=== PATIENT | female | born 1955 | race Caucasian/White ===

== ENCOUNTER 2016-12-19 09:44 | Emergency (ER) | payer BC, OTHER ==
[~2016-12-19] VITALS: Ht 175.3 cm; Wt 81.6 kg
[~2016-12-19 09:44] MED LIST: ATEN100T45; CHOL10003 PO; DULO60CA6 PO; FISH OIL 1,2001 EAC1 PO; LISI10TA PO; MECL-124 PO; METO25TA2 PO; MTP25TSR PO; OM-31CAP9 PO; PRD20T PO; PRV20T PO; SMV10T
[2016-12-19 09:59] LABS: BASOPHILS % (AUTO) 0 % (0-10); EOSINOPHILS # (AUTO) 0.1 10^3/uL (0.0-0.3); EOSINOPHILS % (AUTO) 2 % (0-10); LYMPHOCYTES # (AUTO) 1.3 X 10^3 (1.0-4.0); LYMPHOCYTES % (AUTO) 23 % (12-44); MEAN CORPUSCULAR HEMOGLOBIN 30 PG (25-34); MEAN CORPUSCULAR HGB CONC 34 G/DL (32-36); MEAN CORPUSCULAR VOLUME 89 FL (80-99); MEAN PLATELET VOLUME 11.2 FL (7.4-10.4); MONOCYTES # (AUTO) 0.5 X 10^3 (0.0-1.0); MONOCYTES % (AUTO) 9 % (0-12); NEUTROPHILS # (AUTO) 3.6 X 10^3 (1.8-7.8); NEUTROPHILS % (AUTO) 65 % (42-75); PLATELET COUNT 151 10^3/uL (130-400); RED BLOOD COUNT 4.36 10^6/uL (4.35-5.85); RED CELL DISTRIBUTION WIDTH 13.2 % (10.0-14.5); WHITE BLOOD COUNT 5.5 10^3/uL (4.3-11.0)
[2016-12-19 10:17] LABS: ALANINE AMINOTRANSFERASE 20 U/L (0-55); ALBUMIN 4.1 G/DL (3.2-4.5); ANION GAP 9 MMOL/L (5-14); ASPARTATE AMINO TRANSFERASE 19 U/L (5-34); BILIRUBIN,TOTAL 0.4 MG/DL (0.1-1.0); BLOOD UREA NITROGEN 13 MG/DL (7-18); BUN/CREATININE RATIO 14; CALCIUM 9.3 MG/DL (8.5-10.1); CARBON DIOXIDE 24 MMOL/L (21-32); CHLORIDE 106 MMOL/L (98-107); CREATININE SERUM 0.91 MG/DL (0.60-1.30); GFR ESTIMATED > 60; GLUCOSE 86 MG/DL (70-105); POTASSIUM 4.2 MMOL/L (3.6-5.0); SODIUM 139 MMOL/L (135-145)
[2016-12-19 10:22] LABS: TROPONIN I < 0.30 NG/ML (<0.30)
--- NOTE | 2016-12-19 10:32 | Diagnostic Imaging Report ---
EXAMINATION: Portable upright radiograph of the chest. INDICATION: Chest pain. FINDINGS: The lungs are clear. The heart size is normal. No effusion or pneumothorax. Mediastinum and juanis appear unremarkable. IMPRESSION: Unremarkable exam. Dictated by: Dictated on workstation # [id number]
[2016-12-19 10:33] LABS: BILIRUBIN,URINE NEGATIVE (NEGATIVE); KETONES,URINE NEGATIVE (NEGATIVE); LEUKOCYTE ESTERASE ,URINE 1+ (NEGATIVE); NITRITE,URINE NEGATIVE (NEGATIVE); PH,URINE 5 (5-9); PROTEIN,URINE NEGATIVE (NEGATIVE); UROBILINOGEN,URINE NORMAL (NORMAL)
[2016-12-19 10:43] LABS: SQUAMOUS EPITHELIAL CELL,UR 0-2 /HPF; WBC,URINE 0-2 /HPF
--- NOTE | 2016-12-19 11:13 | ED Chest Pain ---
General Chief Complaint: Chest Pain Stated Complaint: CHEST/BACK PAIN LEFT FOOT NUMB/TINGLING Nursing Triage Note: ARRIVED VIA AMBULATORY WITH COMPLAINTS OF CHEST PAIN X2 DAYS ET MORE WHEN SHE BREATHES. PAIN IS EPIGASTRIC THAT RADIATES INTO BACK AND INTO NECK. PT TOOK A FULL STRENGHT ASA BEFORE COMING TO ER. Nursing Sepsis Screen: No Definite Risk (JONATHAN ALFERD) History of Present Illness Time seen by provider: 11:10 Initial Comments Initial evaluation for mid back pain. Timing/Duration: 2-3 days Severity/Quality: mild Location: epigastric, back Radiation: back Activities at Onset: none Prior CP/Workup: cardiac cath ASA po NURSE CHEMICAL DEPENDENCY: Yes NTG SL NURSE CHEMICAL DEPENDENCY: No Associated Symptoms: abdominal pain back painNo diaphoresis, No dizziness, No fatigue, No fever/chills, No headache, No heartburn, No nausea/vomiting, No shortness of breath, No syncope, No weakness (JONATHAN ALFRED) Allergies and Home Medications Allergies Coded Allergies: No Known Drug Allergies (Unverified , 04/15/13) Home Medications Duloxetine Hcl 60 Mg Capsule.dr 60 MG PO DAILY (Reported) Meclizine Hcl 25 Mg Tab #30 1 TAB PO QID Prescribed by: GUNNER RAMIREZ on 06/15/15 0853 Metoprolol Tartrate 25 Mg Tablet 25 MG PO BID (Reported) Welsh-3 Fatty Acids/Fish Oil 1 Each Capsule 2,400 MG PO DAILY (Reported) TAKES 2 (1200 MG) CAPSULES DAILY Pravastatin Sod 20 Mg Tab 20 MG PO DAILY (Reported) @HS Review of Systems Constitutional: no symptoms reported see HPI EENTM: No Symptoms Reported See HPI Respiratory: No Symptoms Reported See HPIDenies Cough, Denies Shortness of Air Cardiovascular: See HPI Chest PainDenies Edema, Denies Irregular Heart Rate, Denies Lightheadedness, Denies Palpitations, Denies Syncope Gastrointestinal: No Symptoms Reported See HPI Genitourinary: No Symptoms Reported See HPI Musculoskeletal: see HPI other (tingling and parasthesias left LE) Skin: no symptoms reported see HPI Psychiatric/Neurological: No Symptoms Reported See HPI Endocrine: No Symptoms Reported See HPI Hematologic/Lymphatic: No Symptoms Reported See HPI (JONATHAN ALFRED) All Other Systems Reviewed Negative Unless Noted: Yes (JONATHAN ALFRED) Past Jjultzr-Aaspbn-Potcuo Hx Patient Social History Alcohol Use: Past History Recreational Drug Use: No Smoking Status: Former Smoker Recent Foreign Travel: No Contact w/Someone Who Travel: No Recent Infectious Disease Expo: No Recent Hopitalizations: No Physical Abuse Screen: No Sexual Abuse: No (JONATHAN ALFRED) Surgeries HX Surgeries: Yes (hernia repair) Surgeries: Hysterectomy (JONATHAN ALFRED) Respiratory Hx Respiratory Disorders: No (JONATHAN ALFREDP) Cardiovascular Hx Cardiac Disorders: Yes (HEART CATH 2012) Cardiac Disorders: Hypertension (JONATHAN ALFRED) Neurological Hx Neurological Disorders: No (JONATHAN ALFREDP) Reproductive System Hx Reproductive Disorders: No (JONATHAN ALFRED) Genitourinary Hx Genitourinary Disorders: No (JONATHAN ALFREDP) Gastrointestinal Hx Gastrointestinal Disorders: No (JONATHAN ALFRED) Musculoskeletal Hx Musculoskeletal Disorders: No (JONATHAN ALFREDP) Endocrine Hx Endocrine Disorders: No (JONATHAN ALFRED) HEENT HX ENT Disorders: No (JONATHAN ALFRED) Cancer Hx Cancer: Yes Cancer: Cervical (JONATHAN ALFRED) Psychosocial Hx Psychiatric Problems: Yes Behavioral Health Disorders: Depression (JONATHAN ALFRED) Integumentary HX Skin/Integumentary Disorder: No (JONATHAN ALFRED) Reviewed Nursing Assessment Reviewed/Agree w Nursing PMH: Yes (JONATHAN ALFRED) Physical Exam Vital Signs Vital Sign - Last 12Hours 12/19/16 12/19/16 09:47 10:00 Temp 97.1 Pulse 60 Resp 18 B/P 189/101 Pulse Ox 99 O2 Delivery Nasal Cannula O2 Flow Rate 2 (ANGELES SUERO MD) Vital Signs Capillary Refill : Less Than 3 Seconds (JONATHAN ALFRED) General Appearance: No Apparent Distress WD/WN HEENT: PERRL/EOMI TMs Normal Normal ENT Inspection Pharynx Normal Neck: Full Range of Motion Normal Inspection Non Tender Respiratory: Chest Non Tender Lungs Clear Normal Breath Sounds Cardiovascular: Regular Rate, Rhythm No Murmur Gastrointestinal: Normal Bowel Sounds No Organomegaly SoftNo Distended, No Guarding, No Hernia, No Rebound, Tenderness (Epigastric) Extremity: Normal Capillary Refill Normal Inspection Normal Range of Motion No Pedal Edema Other (Sensation symmetric bilat LE. Power V/V L4-S1. Neurovas status intact LE) Neurologic/Psychiatric: Alert Oriented x3 No Motor/Sensory Deficits Normal Mood/Affect Skin: Normal Color Warm/Dry Lymphatic: No Adenopathy (TIMA,JONATHAN [employer]) Progress/Results/Core Measures Results/Orders Lab Results Laboratory Tests Test 12/19/16 09:50 12/19/16 10:22 Range/Units Alanine Aminotransferase (ALT/SGPT) 20 0-55 U/L Albumin 4.1 3.2-4.5 G/DL Alkaline Phosphatase 68 40-136 U/L Anion Gap 9 5-14 MMOL/L Aspartate Amino Transf (AST/SGOT) 19 5-34 U/L BUN/Creatinine Ratio 14 Basophils # (Auto) 0.0 0.0-0.1 10^3/uL Basophils (%) (Auto) 0 0-10 % Blood Urea Nitrogen 13 7-18 MG/DL Calcium Level 9.3 8.5-10.1 MG/DL Carbon Dioxide Level 24 21-32 MMOL/L Chloride Level 106 98-107 MMOL/L Creatinine 0.91 0.60-1.30 MG/DL Eosinophils # (Auto) 0.1 0.0-0.3 10^3/uL Eosinophils (%) (Auto) 2 0-10 % Estimat Glomerular Filtration Rate > 60 Glucose Level 86 70-105 MG/DL Hematocrit 39 35-52 % Hemoglobin 13.0 11.5-16.0 G/DL Lymphocytes # (Auto) 1.3 1.0-4.0 X 10^3 Lymphocytes (%) (Auto) 23 12-44 % Mean Corpuscular Hemoglobin 30 25-34 PG Mean Corpuscular Hemoglobin Concent 34 32-36 G/DL Mean Corpuscular Volume 89 80-99 FL Mean Platelet Volume 11.2 H 7.4-10.4 FL Monocytes # (Auto) 0.5 0.0-1.0 X 10^3 Monocytes (%) (Auto) 9 0-12 % Neutrophils # (Auto) 3.6 1.8-7.8 X 10^3 Neutrophils (%) (Auto) 65 42-75 % Platelet Count 151 130-400 10^3/uL Potassium Level 4.2 3.6-5.0 MMOL/L Red Blood Count 4.36 4.35-5.85 10^6/uL Red Cell Distribution Width 13.2 10.0-14.5 % Sodium Level 139 135-145 MMOL/L Total Bilirubin 0.4 0.1-1.0 MG/DL Total Protein 7.0 6.4-8.2 G/DL Troponin I < 0.30 <0.30 NG/ML White Blood Count 5.5 4.3-11.0 10^3/uL Urine Bacteria TRACE /HPF Urine Bilirubin NEGATIVE NEGATIVE Urine Casts NONE /LPF Urine Clarity CLEAR Urine Color YELLOW Urine Crystals NONE /LPF Urine Culture Indicated NO Urine Glucose (UA) NEGATIVE NEGATIVE Urine Ketones NEGATIVE NEGATIVE Urine Leukocyte Esterase 1+ H NEGATIVE Urine Mucus NEGATIVE /LPF Urine Nitrite NEGATIVE NEGATIVE Urine Protein NEGATIVE NEGATIVE Urine RBC NONE /HPF Urine RBC (Auto) NEGATIVE NEGATIVE Urine Specific [place] 1.015 L 1.016-1.022 Urine Squamous Epithelial Cells 0-2 /HPF Urine Urobilinogen NORMAL NORMAL MG/DL Urine WBC 0-2 /HPF Urine pH 5 5-9 (ANGELES SUERO MD) Vital Signs/I&O Vital Sign - Last 12Hours 12/19/16 12/19/16 12/19/16 09:47 10:00 12:31 Temp 97.1 98.0 Pulse 60 58 Resp 18 18 B/P 189/101 Pulse Ox 99 98 O2 Delivery Nasal Cannula O2 Flow Rate 2 (ANGELES SUERO MD) Blood Pressure Mean: 130 Progress Note : Time: 11:05 Progress Note Initial evaluation completed. Cardiac work up negative. Troponin <0.30. Will obtain CT Abd/Pelvis. 1230: Reviewed CT, no acute findings. Patient reports less pain and feeling better. (JONATHAN ALFRED) ECG EKG : EKG Time: 09:51 Rate: 55 Rhythm: Normal Sinus Intervals: Normal, [place] (200), QRS (86), QT (408) ECG Comparisson: Unchanged ECG Impression: Normal Comment Reviewed with Dr. Ramirez, agreed with interpretation. Bozman: P 56; QRS 13; T 38 (JONATHAN ALFRED) EKG : Comment 12/19/2016, 0951. Sinus rhythm, normal axis, No evidence of STEMI, similar to previous. (ANGELES SUREO MD) Diagnostic Imaging Diagonstic Imaging: Xray, CT Plain Films/CT/US/NM/MRI: abdomen, pelvis Comments NAME: PITER WHITE [facility] REC#: [id number] PT STATUS: REG ER : 1955 PHYSICIAN: GUNNER RAMIREZ MD ADMIT DATE: 12/19/16/ER Signed Date of Exam: 12/19/16 CHEST 1 VIEW, AP/PA ONLY EXAMINATION: Portable upright radiograph of the chest. INDICATION: Chest pain. FINDINGS: The lungs are clear. The heart size is normal. No effusion or pneumothorax. Mediastinum and juanis appear unremarkable. IMPRESSION: Unremarkable exam. Dictated by: Dictated on workstation # [id number] Dict: 12/19/16 1029 Trans: 12/19/16 1032 [facility] [place] [id number] Interpreted by: BRIA GOODWIN MD Electronically signed by:BRIA GOODWIN MD 12/19/16 1032 NAME: JAVEDMARVAPITER M [facility] REC#: [id number] PHYSICIAN: JONATHAN ALFRED CC: JONATHAN ALFRED; BRIA GOODWIN MD Page 2 of 2 RADIOLOGY REPORT VIA [place], [place] CC: JONATHAN ALFRED; BRIA GOODWIN MD Page 1 of 2 RADIOLOGY REPORT NAME: PITER WHITE [facility] REC#: [id number] PT STATUS: REG ER : 1955 PHYSICIAN: JONATHAN ALFRED ADMIT DATE: 12/19/16/ER Signed Date of Exam: 12/19/16 CT ABDOMEN/PELVIS W PROCEDURE: CT abdomen and pelvis with contrast. TECHNIQUE: Multiple contiguous axial images were obtained through the abdomen and pelvis after administration of intravenous contrast. INDICATION: Abdominal pain. History of hernia repair, hysterectomy and cervical cancer. FINDINGS: The lung bases appear clear. There is a fat-containing posterior diaphragmatic hernia seen bilaterally more prominent on the left side. The liver demonstrate a hypodense lesion measuring 0.7 CM in size in the left hepatic lobe superiorly, too small to characterize.. There is hypodensity near the right hepatic vein on the arterial phase imaging is probably from partial reflux of contrast into the IVC. The gallbladder demonstrates no calcified stones. The spleen is not enlarged. The pancreas appears unremarkable. Posterior to the pancreas there is a peripheral calcified lesion with no internal hypodensity compatible with a thrombosed aneurysm of the splenic artery measuring 1.2 CM in size stable from 2009 exam. The adrenals appear unremarkable. The kidneys have symmetric enhancement and contrast excretion. There is no hydronephrosis. The abdominal aorta is normal in caliber. No para-aortic significantly enlarged lymph node is seen. There is no free fluid or fluid collection in the abdomen or pelvis identified. There is diverticulosis. No evidence of diverticulitis. The appendix appears normal. The osseous structures appear grossly unremarkable. IMPRESSION: Diverticulosis. No diverticulitis. 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 Dictated by: Dictated on workstation # [id number] Dict: 12/19/16 1218 Trans: 12/19/16 1240 [facility] [place] [id number] Interpreted by: BRIA GOODWIN MD Electronically signed by:BRIA GOODWIN MD 12/19/16 1243 (JONATHAN ALFRED) Departure Impression Impression: Primary Impression: Diverticulosis Qualified Code: K57.30 - Diverticulosis of large intestine without perforation or abscess without bleeding Additional Impression: Abdominal pain Qualified Code: R10.13 - Epigastric pain Disposition: HOME, SELF-CARE Condition: Stable Departure-Patient Inst. Decision time for Depature: 12:30 (JONATHAN ALFRED) [place]errals: [place] [facility] [place] Primary Care Physician Patient Instructions: Diverticulosis (DC) Add. Discharge Instructions: All discharge instructions reviewed with patient and/or family. Voiced understanding. [place] diet, follow up at Clinic in [place] within 1 week. Follow up with Dr. Fuller in next month or two. Pepcid 10 mg twice daily Aspirin 81 mg once daily. Return to ER if symptoms worsen or new complaints. Copy Copies To 1: DARRIAN FULLER MD, AMY ARNP Dec 19, 2016 11:13 ANGELES SUERO MD Dec 22, 2016 08:37
[2016-12-19] MEDS ORDERED: IOHEXOL 350 MG/ML 100 ML (OMNIPAQUE 350) VIAL IV ONE (12:00)
[2016-12-19] MEDS ORDERED: NS 100 ML (IVPB) BAG IV ONE (12:00)
[2016-12-19 12:31] VITALS: BP 120/76
--- NOTE | 2016-12-19 12:33 | Diagnostic Imaging Report ---
PROCEDURE: CT abdomen and pelvis with contrast. TECHNIQUE: Multiple contiguous axial images were obtained through the abdomen and pelvis after administration of intravenous contrast. INDICATION: Abdominal pain. History of hernia repair, hysterectomy and cervical cancer. FINDINGS: The lung bases appear clear. There is a fat-containing posterior diaphragmatic hernia seen bilaterally more prominent on the left side. The liver demonstrate a hypodense lesion measuring 0.7 CM in size in the left hepatic lobe superiorly, too small to characterize.. There is hypodensity near the right hepatic vein on the arterial phase imaging is probably from partial reflux of contrast into the IVC. The gallbladder demonstrates no calcified stones. The spleen is not enlarged. The pancreas appears unremarkable. Posterior to the pancreas there is a peripheral calcified lesion with no internal hypodensity compatible with a thrombosed aneurysm of the splenic artery measuring 1.2 CM in size stable from 2009 exam. The adrenals appear unremarkable. The kidneys have symmetric enhancement and contrast excretion. There is no hydronephrosis. The abdominal aorta is normal in caliber. No para-aortic significantly enlarged lymph node is seen. There is no free fluid or fluid collection in the abdomen or pelvis identified. There is diverticulosis. No evidence of diverticulitis. The appendix appears normal. The osseous structures appear grossly unremarkable. IMPRESSION: Diverticulosis. No diverticulitis. 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 Dictated by: Dictated on workstation # [id number]
== END 2016-12-19 13:21 | disposition home or self-care (01) ==
LOC: EDUNIT# 09:44 → ER 09:47
DX: R10.13 Epigastric pain (principal); I72.8 Aneurysm of other specified arteries; I10 Essential (primary) hypertension; K57.30 Diverticulosis of large intestine without perforation or abscess without bleeding; Z79.899 Other long term (current) drug therapy
CPT/HCPCS: 36415; 71010; 74177; 80053; 81000; 84484; 85025; 93005

== ENCOUNTER 2017-11-10 10:41 | Emergency (ER) | payer SELFPAY ==
[~2017-11-10] VITALS: Ht 175.3 cm; Wt 81.6 kg
[2017-11-10 10:57] LABS: BASOPHILS % (AUTO) 0 % (0-10); EOSINOPHILS # (AUTO) 0.1 10^3/uL (0.0-0.3); EOSINOPHILS % (AUTO) 2 % (0-10); LYMPHOCYTES # (AUTO) 1.4 X 10^3 (1.0-4.0); LYMPHOCYTES % (AUTO) 25 % (12-44); MEAN CORPUSCULAR HEMOGLOBIN 30 PG (25-34); MEAN CORPUSCULAR HGB CONC 34 G/DL (32-36); MEAN CORPUSCULAR VOLUME 88 FL (80-99); MONOCYTES # (AUTO) 0.6 X 10^3 (0.0-1.0); MONOCYTES % (AUTO) 11 % (0-12); NEUTROPHILS # (AUTO) 3.5 X 10^3 (1.8-7.8); NEUTROPHILS % (AUTO) 62 % (42-75); PLATELET COUNT 165 10^3/uL (130-400); RED BLOOD COUNT 4.41 10^6/uL (4.35-5.85); WHITE BLOOD COUNT 5.7 10^3/uL (4.3-11.0)
[2017-11-10] MEDS ORDERED: ASPIRIN 81 MG CHEW (CHILDREN'S ASA) PO ONE (11:00)
[2017-11-10 11:12] LABS: INR 0.9 (0.8-1.4); PROTHROMBIN TIME PATIENT 12.2 SEC (12.2-14.7)
[2017-11-10 11:20] LABS: ALANINE AMINOTRANSFERASE 17 U/L (0-55); ALBUMIN 4.2 GM/DL (3.2-4.5); AMYLASE 98 U/L (25-125); ANION GAP 9 MMOL/L (5-14); ASPARTATE AMINO TRANSFERASE 21 U/L (5-34); BILIRUBIN,TOTAL 0.5 MG/DL (0.1-1.0); BLOOD UREA NITROGEN 11 MG/DL (7-18); BUN/CREATININE RATIO 11; CALCIUM 9.6 MG/DL (8.5-10.1); CARBON DIOXIDE 23 MMOL/L (21-32); CHLORIDE 105 MMOL/L (98-107); CREATININE SERUM 0.97 MG/DL (0.60-1.30); GFR ESTIMATED 59; GLUCOSE 100 MG/DL (70-105); LIPASE 32 U/L (8-78); MAGNESIUM 1.8 MG/DL (1.8-2.4); SODIUM 137 MMOL/L (135-145); TOTAL PROTEIN 7.6 GM/DL (6.4-8.2)
[2017-11-10 11:26] LABS: MYOGLOBIN SERUM 35.1 NG/ML (10.0-92.0)
--- NOTE | 2017-11-10 11:39 | Diagnostic Imaging Report ---
EXAMINATION: Portable upright radiograph of the chest. INDICATION: Chest pain. FINDINGS: The lungs are clear. The heart size is normal. No effusion or pneumothorax. The mediastinum and juanis appear unremarkable. IMPRESSION: Unremarkable exam. Dictated by: Dictated on workstation # [id number]
[2017-11-10] MEDS ORDERED: NS IV 1000 ML 1,000 ML IV ONE (11:45)
--- NOTE | 2017-11-10 11:45 | ED Chest Pain ---
General Chief Complaint: Chest Pain Stated Complaint: CHEST PAIN Nursing Triage Note: PT STATES CHEST PAIN FOR 4 DAYS, STATES HX OF DIVERTICULITIS. Nursing Sepsis Screen: No Definite Risk Source: patient Exam Limitations: no limitations History of Present Illness Time seen by provider: 10:45 Initial Comments Here with epigastric abdominal pain and low chest pain that is radiating to the back. Currently she is under therapy for diverticulitis. She has known history of diverticulitis but no recent imaging. Does complain of nausea. Denies breathing problems or sweating. Has constipation but no diarrhea. She is currently on Cipro and Flagyl. Timing/Duration: 4-6 hours, 3-4 days Severity/Quality: moderate, aching Location: substernal, epigastric Radiation: back Activities at Onset: none Prior CP/Workup: cardiac cath Modifying Factors: improves with rest ASA po CLIENT COORDINATOR: No NTG SL CLIENT COORDINATOR: No Associated Symptoms: abdominal pain, back pain, No diaphoresis, No nausea/ vomiting, No shortness of breath, No weakness Allergies and Home Medications Allergies Coded Allergies: No Known Drug Allergies (Unverified , 04/15/13) Home Medications Duloxetine Hcl 60 Mg Capsule.dr, 60 MG PO DAILY, (Reported) Meclizine Hcl 25 Mg Tab, 1 TAB PO QID, #30 Prescribed by: GUNENR RAMIREZ on 06/15/15 0853 Metoprolol Tartrate 25 Mg Tablet, 25 MG PO BID, (Reported) Effie-3 Fatty Acids/Fish Oil 1 Each Capsule, 2,400 MG PO DAILY, (Reported) TAKES 2 (1200 MG) CAPSULES DAILY Pravastatin Sod 20 Mg Tab, 20 MG PO DAILY, (Reported) @HS Review of Systems Constitutional: see HPI, No chills, No fever EENTM: No Symptoms Reported Respiratory: No Symptoms Reported Cardiovascular: See HPI, Denies Irregular Heart Rate, Denies Lightheadedness, Denies Palpitations Gastrointestinal: See HPI, Denies Diarrhea, Denies Vomiting Genitourinary: No Symptoms Reported Musculoskeletal: No joint pain Skin: no symptoms reported All Other Systems Reviewed Negative Unless Noted: Yes Past Pjdadku-Jiueti-Ggdfje Hx Patient Social History Alcohol Use: Denies Use Recreational Drug Use: No Smoking Status: Former Smoker Type Used: Cigarettes Former Smoker, Quit: Oct 31, 2012 2nd Hand Smoke Exposure: No Recent Foreign Travel: No Contact w/Someone Who Travel: No Recent Infectious Disease Expo: No Recent Hopitalizations: No Immunizations Up To Date Date of Influenza Vaccine: Aug 27, 2017 Seasonal Allergies Seasonal Allergies: Yes Surgeries History of Surgeries: Yes (hernia repair) Surgeries: Hysterectomy Respiratory History of Respiratory Disorde: No Cardiovascular History of Cardiac Disorders: Yes (HEART CATH 2012) Cardiac Disorders: Hypertension Neurological History of Neurological Disord: No Reproductive System : No Hx Reproductive Disorders: No Genitourinary History of Genitourinary Disor: No Gastrointestinal History of Gastrointestinal Di: Yes Gastrointestinal Disorders: Diverticulosis Musculoskeletal History of Musculoskeletal Dis: No Endocrine History of Endocrine Disorders: No HEENT History of HEENT Disorders: No Cancer History of Cancer: Yes Cancer: Cervical Psychosocial History of Psychiatric Problem: Yes Behavioral Health Disorders: Depression Integumentary History of Skin or Integumenta: No Reviewed Nursing Assessment Reviewed/Agree w Nursing PMH: Yes Family Medical History Significant Family History: No Pertinent Family Hx Physical Exam Vital Signs Vital Sign - Last 12Hours 11/10/17 10:46 Temp 98.3 Pulse 58 Resp 20 B/P (MAP) 185/109 (134) Pulse Ox 97 O2 Delivery Room Air Capillary Refill : Less Than 3 Seconds General Appearance: No Apparent Distress, WD/WN HEENT: PERRL/EOMI, Pharynx Normal Neck: Non Tender, Supple Respiratory: Lungs Clear, Normal Breath Sounds Cardiovascular: Regular Rate, Rhythm, No Murmur Gastrointestinal: Soft, Abnormal Bowel Sounds (active), Tenderness (epigastric) Extremity: Normal Inspection, Normal Range of Motion, Non Tender Neurologic/Psychiatric: Alert, Oriented x3 Skin: Normal Color, Warm/Dry Progress/Results/Core Measures Results/Orders Lab Results Laboratory Tests Test 11/10/17 10:50 Range/Units White Blood Count 5.7 4.3-11.0 10^3/uL Red Blood Count 4.41 4.35-5.85 10^6/uL Hemoglobin 13.2 11.5-16.0 G/DL Hematocrit 39 35-52 % Mean Corpuscular Volume 88 80-99 FL Mean Corpuscular Hemoglobin 30 25-34 PG Mean Corpuscular Hemoglobin Concent 34 32-36 G/DL Red Cell Distribution Width 13.0 10.0-14.5 % Platelet Count 165 130-400 10^3/uL Mean Platelet Volume 12.0 H 7.4-10.4 FL Neutrophils (%) (Auto) 62 42-75 % Lymphocytes (%) (Auto) 25 12-44 % Monocytes (%) (Auto) 11 0-12 % Eosinophils (%) (Auto) 2 0-10 % Basophils (%) (Auto) 0 0-10 % Neutrophils # (Auto) 3.5 1.8-7.8 X 10^3 Lymphocytes # (Auto) 1.4 1.0-4.0 X 10^3 Monocytes # (Auto) 0.6 0.0-1.0 X 10^3 Eosinophils # (Auto) 0.1 0.0-0.3 10^3/uL Basophils # (Auto) 0.0 0.0-0.1 10^3/uL Prothrombin Time 12.2 12.2-14.7 SEC INR Comment 0.9 0.8-1.4 Activated Partial Thromboplast Time 32 24-35 SEC Sodium Level 137 135-145 MMOL/L Potassium Level 4.0 3.6-5.0 MMOL/L Chloride Level 105 98-107 MMOL/L Carbon Dioxide Level 23 21-32 MMOL/L Anion Gap 9 5-14 MMOL/L Blood Urea Nitrogen 11 7-18 MG/DL Creatinine 0.97 0.60-1.30 MG/DL Estimat Glomerular Filtration Rate 59 BUN/Creatinine Ratio 11 Glucose Level 100 70-105 MG/DL Calcium Level 9.6 8.5-10.1 MG/DL Magnesium Level 1.8 1.8-2.4 MG/DL Total Bilirubin 0.5 0.1-1.0 MG/DL Aspartate Amino Transf (AST/SGOT) 21 5-34 U/L Alanine Aminotransferase (ALT/SGPT) 17 0-55 U/L Alkaline Phosphatase 64 40-136 U/L Myoglobin 35.1 10.0-92.0 NG/ML Troponin I < 0.30 <0.30 NG/ML Total Protein 7.6 6.4-8.2 GM/DL Albumin 4.2 3.2-4.5 GM/DL Amylase Level 98 25-125 U/L Lipase 32 8-78 U/L My Orders Orders - ANGELES SUERO MD Cbc With Automated Diff (11/10/17 10:51) Magnesium (11/10/17 10:51) Chest 1 View, Ap/Pa Only (11/10/17 10:51) Ekg Tracing (11/10/17 10:51) Cardiac Profile 1 (11/10/17 10:51) Comprehensive Metabolic Panel (11/10/17 10:51) Myoglobin Serum (11/10/17 10:51) Protime With Inr (11/10/17 10:51) Partial Thromboplastin Time (11/10/17 10:51) O2 (11/10/17 10:51) Monitor-Rhythm Ecg Trace Only (11/10/17 10:51) Lipid Panel (11/11/17 06:00) Aspirin Chewable Tablet (Baby Aspirin Ch (11/10/17 11:00) Saline Lock/Iv-Start (11/10/17 10:51) Lipase (11/10/17 10:51) Amylase (11/10/17 10:51) Ct Abdomen/Pelvis W (11/10/17 11:45) Ns Iv 1000 Ml (Sodium Chloride 0.9%) (11/10/17 11:45) Iohexol Injection (Omnipaque 350 Mg/Ml 1 (11/10/17 12:00) Ns (Ivpb) (Sodium Chloride 0.9% Ivpb Bag (11/10/17 12:00) Medications Given in ED Current Medications Medications Dose Ordered Sig/Deena Route Start Time Stop Time Status Last Admin Dose Admin Aspirin 324 mg ONCE ONCE PO 11/10/17 11:00 11/10/17 11:01 DC 11/10/17 11:06 324 MG Iohexol 100 ml ONCE ONCE IV 11/10/17 12:00 11/10/17 12:01 DC 11/10/17 12:22 100 ML Sodium Chloride 100 ml ONCE ONCE IV 11/10/17 12:00 11/10/17 12:01 DC 11/10/17 12:22 80 ML Sodium Chloride 1,000 ml @ 0 mls/hr Q0M ONCE IV 11/10/17 11:45 11/10/17 11:47 DC 11/10/17 12:05 1,000 MLS/HR Vital Signs/I&O Vital Sign - Last 12Hours 11/10/17 11/10/17 11/10/17 10:46 11:01 11:06 Temp 98.3 98.3 Pulse 58 Resp 20 B/P (MAP) 185/109 (134) Pulse Ox 97 O2 Delivery Room Air Room Air Blood Pressure Mean: 134 Progress Note : Progress Note Seen and evaluated. IV, labs, EKG and chest x-ray ordered. ASA 324 mg by mouth given. Monitor patient. Normal saline [address] of the abdomen and pelvis ordered. 1345: Findings unchanged from previous. I did discuss the case with Dr. Fuller and he will happily see her in the office today. This was discussed with the patient and she agrees. Discharged with return precautions. Patient verbalize understanding instructions and agreement with plan. ECG Initial ECG Impression Date: Nov 10, 2017 Initial ECG Impression Time: 10:41 Initial ECG Rate: 59 Initial ECG Rhythm: Normal Sinus Initial ECG Comparisson: Unchanged Comment Sinus rhythm with normal axis. No evidence of ST elevation HI. Unchanged from previous of 19 December 2016. Interpreted by me. Diagnostic Imaging Diagonstic Imaging: Xray Plain Films/CT/US/NM/MRI: chest Comments VIA [facility] [employer] [place] NAME: PITER WHITE [facility] REC#: [id number] PT STATUS: REG ER : 1955 PHYSICIAN: ANGELES SUERO MD ADMIT DATE: 11/10/17/ER Draft Date of Exam:11/10/17 CHEST 1 VIEW, AP/PA ONLY EXAMINATION: Portable upright radiograph of the chest. INDICATION: Chest pain. FINDINGS: The lungs are clear. The heart size is normal. No effusion or pneumothorax. The mediastinum and juanis appear unremarkable. IMPRESSION: Unremarkable exam. Dictated on workstation # [id number] Dict: 11/10/17 1116 Trans: 11/10/17 1139 [id number] Interpreted by: BRIA GOODWIN MD Electronically signed by: Diagonstic Imaging: CT Plain Films/CT/US/NM/MRI: abdomen, pelvis Comments VIA [facility] [employer] [place] NAME: PITER WHITE [facility] REC#: [id number] PT STATUS: REG ER : 1955 PHYSICIAN: ANGELES SUERO MD ADMIT DATE: 11/10/17/ER Draft Date of Exam:11/10/17 CT ABDOMEN/PELVIS W PROCEDURE: CT abdomen and pelvis with contrast. TECHNIQUE: Multiple contiguous axial images were obtained through the abdomen and pelvis after administration of intravenous contrast. INDICATION: Nausea. Abdominal pain. 100 mL of Omnipaque 350 is administered intravenously. FINDINGS: There is a fat-containing diaphragmatic hernia seen in the posterior aspect of each side of the diaphragm with minimal atelectasis in the adjacent lung. The liver demonstrates a 7 mm hypodense lesion in the upper central aspect of the liver, too small to accurately characterize. There is a hypodense lesion measuring 2.3 CM adjacent to the right hepatic vein in the upper aspect of the liver probably related to flash-filling hemangioma. The spleen is not enlarged. The pancreas and adrenal glands appear unremarkable. There is suggestion of a splenic artery aneurysm measuring 1.2 CM similar to 12/19/2016 exam. The kidneys have symmetric enhancement and contrast excretion. There is no hydronephrosis. 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 The abdominal aorta is normal in caliber No para-aortic significantly enlarged lymph node is seen. The pelvis demonstrate mild thickening in the anterior aspect of the urinary bladder. There is suggestion of prior hysterectomy. There is numerous colonic diverticula mostly in the sigmoid colon with no evidence of diverticulitis. No significant free fluid or fluid collection in the abdomen or pelvis is seen. The appendix appears normal. Tiny fat-containing umbilical hernia seen. There is mild degenerative change in the lumbar spine. IMPRESSION: 1. Diverticulosis. No diverticulitis. 2. Stable 1.2 cm splenic artery aneurysm. 2. Mild bladder wall thickening anteriorly, could relate to cystitis. Dictated on workstation # [id number] Dict: 11/10/17 1258 Trans: 11/10/17 1333 [facility] [id number] Interpreted by: BRIA GOODWIN MD Electronically signed by: Reviewed: Reviewed by Ga Departure Impression Impression: Primary Impression: Abdominal pain Qualified Codes: R10.13 - Epigastric pain Additional Impression: Chest pain Qualified Codes: R07.9 - Chest pain, unspecified Disposition: 01 HOME, SELF-CARE Condition: Stable Departure-Patient Inst. Decision time for Depature: 13:50 Referrals: [facility] (PCP) Primary Care Physician DARRIAN FULLER MD Patient Instructions: Acute Abdomen (Belly Pain), Adult (DC), Chest Pain (DC) Add. Discharge Instructions: All discharge instructions reviewed with patient and/or family. Voiced understanding. Follow-up with Dr. Fuller directly after leaving here. You will go to his office. He is going to work in the schedule today. Return for worsening, fever , vomiting, weakness, breathing problems or other concerns as needed. Use a light diet for the next few days to help with your stomach and bowel symptoms. Continue other medications as directed. Copy Copies To 1: DARRIAN FULLER MD, TIMOTHY D MD Nov 10, 2017 11:45
[2017-11-10] MEDS ORDERED: NS 100 ML (IVPB) BAG IV ONE (12:00)
[2017-11-10] MEDS ORDERED: IOHEXOL 350 MG/ML 100 ML (OMNIPAQUE 350) VIAL IV ONE (12:00)
--- NOTE | 2017-11-10 13:33 | Diagnostic Imaging Report ---
PROCEDURE: CT abdomen and pelvis with contrast. TECHNIQUE: Multiple contiguous axial images were obtained through the abdomen and pelvis after administration of intravenous contrast. INDICATION: Nausea. Abdominal pain. 100 mL of Omnipaque 350 is administered intravenously. FINDINGS: There is a fat-containing diaphragmatic hernia seen in the posterior aspect of each side of the diaphragm with minimal atelectasis in the adjacent lung. The liver demonstrates a 7 mm hypodense lesion in the upper central aspect of the liver, too small to accurately characterize. There is a hypodense lesion measuring 2.3 CM adjacent to the right hepatic vein in the upper aspect of the liver probably related to flash-filling hemangioma. The spleen is not enlarged. The pancreas and adrenal glands appear unremarkable. There is suggestion of a splenic artery aneurysm measuring 1.2 CM similar to 12/19/2016 exam. The kidneys have symmetric enhancement and contrast excretion. There is no hydronephrosis. 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 The abdominal aorta is normal in caliber No para-aortic significantly enlarged lymph node is seen. The pelvis demonstrate mild thickening in the anterior aspect of the urinary bladder. There is suggestion of prior hysterectomy. There is numerous colonic diverticula mostly in the sigmoid colon with no evidence of diverticulitis. No significant free fluid or fluid collection in the abdomen or pelvis is seen. The appendix appears normal. Tiny fat-containing umbilical hernia seen. There is mild degenerative change in the lumbar spine. IMPRESSION: 1. Diverticulosis. No diverticulitis. 2. Stable 1.2 cm splenic artery aneurysm. 2. Mild bladder wall thickening anteriorly, could relate to cystitis. Dictated by: Dictated on workstation # [id number]
[2017-11-10 14:06] VITALS: BP 153/105
== END 2017-11-10 14:06 | disposition home or self-care (01) ==
LOC: EDUNIT# 10:41 → ER 10:43
DX: R10.13 Epigastric pain (principal); R07.89 Other chest pain; I10 Essential (primary) hypertension; F32.9 Major depressive disorder, single episode, unspecified; Z85.41 Personal history of malignant neoplasm of cervix uteri; Z87.19 Personal history of other diseases of the digestive system; Z87.891 Personal history of nicotine dependence; Z90.710 Acquired absence of both cervix and uterus
CPT/HCPCS: 36415; 71010; 74177; 80053; 82150; 83690; 83735; 83874; 84484; 85025; 85610; 85730; 93005; 93041

== ENCOUNTER → 2017-12-09 | Outpatient (CLI) | payer OTHER | LOC: CARD 10:49 | PROVIDERS: ATTEND Internal Medicine Cardiovascular Disease | DX: I25.10 Atherosclerotic heart disease of native coronary artery without angina pectoris (principal); R07.9 Chest pain, unspecified; I10 Essential (primary) hypertension; E78.2 Mixed hyperlipidemia | CPT/HCPCS: 93306 ==

== ENCOUNTER 2018-12-25 21:27 | Emergency (ER) | payer SELFPAY, OTHER | END 2018-12-26 00:38 | disposition home or self-care (01) | LOC: ER 12-26 00:38 ==

== ENCOUNTER 2018-12-28 10:11 | Outpatient (CLI) | payer SELFPAY ==
[~2018-12-28] VITALS: Ht 175.3 cm; Wt 80.7 kg
[2018-12-28] MEDS ORDERED: METO-387 PO (15:19)
[2018-12-28] MEDS ORDERED: ATOR40TA70 PO (15:19)
[2018-12-28] MEDS ORDERED: ESCI10TA PO (15:19)
[2018-12-28] MEDS ORDERED: OMG1KC PO (15:19)
[2018-12-28] MEDS ORDERED: OMEP20TA7 PO (15:19)
[2018-12-28] MEDS ORDERED: VITA-189 PO (15:19)
[2018-12-28] MEDS ORDERED: C,E,1CAP PO (15:19)
[2018-12-28] MEDS ORDERED: LACT1CAP62 PO (15:19)
== END 2018-12-28 15:21 | disposition home or self-care (01) ==
LOC: PREOP 10:11
PROVIDERS: ATTEND Surgery
DX: Z01.818 Encounter for other preprocedural examination (principal)

== ENCOUNTER 2018-12-30 07:56 | Day surgery (SDC) | payer OTHER ==
[~2018-12-30] VITALS: Ht 175.3 cm; Wt 80.7 kg
[~2018-12-30 07:56] MED LIST changes: +ATOR40TA70 PO; +C,E,1CAP PO; +ESCI10TA PO; +LACT1CAP62 PO; +METO-387 PO; +OMEP20TA7 PO; +OMG1KC PO; +VITA-189 PO
[2018-12-30] MEDS ORDERED: LACTATED RINGERS 1,000 ML IV ONE (08:00)
[2018-12-30] MEDS ORDERED: LACTATED RINGERS 1,000 ML IV STA (08:11)
[2018-12-30 08:15] VITALS: BP 148/91
[2018-12-30] MEDS ORDERED: HURRICAINE EXT TUBE (BENZOCAINE) XX PRN (08:15)
--- NOTE | 2018-12-30 09:04 | Progress Note-Pre Operative ---
Pre-Operative Progress Note H&P Reviewed The H&P was reviewed, patient examined and no changes noted. Time Seen by Provider: 08:57 Date H&P Reviewed: Dec 30, 2018 Time H&P Reviewed: 08:58 Pre-Operative Diagnosis: Gastritis, Screening colonoscopy CORDELL SAHA DO Dec 30, 2018 09:04
--- OUTSIDE RECORDS SUMMARY | 2018-12-30 09:14 | XMS REPORT ---
Author Author TITO KARIMI [facility] Address [address] [place] [address] Care Team Providers Care Media Producer Name Role Phone TITO KARIMI Unavailable PROBLEMS Type Condition ICD9-CM Code BHA12-EG Code Onset Dates Condition Status SNOMED Code Problem Slow transit constipation K59.01 Active 46655192 Problem Moderate single current episode of major depressive disorder F32.1 Active 71236227 Problem Essential (primary) hypertension I10 Active 17307010 Problem Mixed hyperlipidemia E78.2 Active 411966912 Problem Gastroesophageal reflux disease, esophagitis presence not specified K21.9 Active 792935943 ALLERGIES No Information ENCOUNTERS Encounter Location Date Diagnosis [facility] [address] [id number] Oct, Moderate single current episode of major depressive disorder F32.1 [facility] [address] [id number] Oct, [facility] [address] [id number] Oct, Mixed hyperlipidemia E78.2 [facility] [address] [id number] Oct, [facility] [address] [id number] Oct, Mixed hyperlipidemia E78.2 and Essential (primary) hypertension I10 [facility] [address] [id number] Oct, Essential (primary) hypertension I10 ; Mixed hyperlipidemia E78.2 ; Moderate single current episode of major depressive disorder F32.1 ; Slow transit constipation K59.01 ; Superficial laceration T14.8XXA and Encounter for immunization Z23 [facility] [place] [address] [address] Aug, Moderate single current episode of major depressive disorder F32.1 [facility] [place] [address] [address] May, Moderate single current episode of major depressive disorder F32.1 [facility] [id number] [id number] 14 Jan, 2018 Essential (primary) hypertension I10 ; Hyperlipidemia, unspecified E78.5 ; Moderate single current episode of major depressive disorder F32.1 and Slow transit constipation K59.01 [facility] [id number] [id number] Dec, Moderate single current episode of major depressive disorder F32.1 [facility] [address] [id number] Oct, Right lower quadrant abdominal pain R10.31 ; Urinary frequency R35.0 ; Diverticulitis of intestine without perforation or abscess without bleeding, unspecified part of intestinal tract K57.92 and Slow transit constipation K59.01 [facility] [id number], [place] [id number] Aug, Essential (primary) hypertension I10 and Moderate single current episode of major depressive disorder F32.1 [address] [place] [address] [id number] Jul, Essential (primary) hypertension I10 and Moderate single current episode of major depressive disorder F32.1 [address]00565100[place] [id number] Jul, [facility] [id number] [place] [address] [id number] Jul, Poison jose eduardo dermatitis L23.7 [facility] [address]00565100[place] [id number] March, Anhedonia R45.84 [facility] [address]00565100[place] [id number] Mar, [facility] [id number] [place] [address] [id number] Dec, Essential (primary) hypertension I10 [facility] [address] [id number] [place] [address] [id number] Dec, Mixed hyperlipidemia E78.2 [facility] [id number] [place] [address] [id number] Oct, Mixed hyperlipidemia E78.2 and Elevated fasting glucose R73.01 [facility] [id number] [place] [address] [id number] Oct, Hyperlipidemia, unspecified E78.5 ; Essential (primary) hypertension I10 and Thyroid disorder screening Z13.29 [facility] [address] [id number] Oct, Slow transit constipation K59.01 ; Essential (primary) hypertension I10 ; Hyperlipidemia, unspecified E78.5 ; Gastroesophageal reflux disease, esophagitis presence not specified K21.9 and Anhedonia R45.84 [facility] [id number] [place] [address] [id number] Oct, [place] [address] [id number] Aug, Slow transit constipation K59.01 [facility] [address] [id number] Jul, Diverticulitis of intestine without perforation or abscess without bleeding, unspecified part of intestinal tract K57.92 [facility] [id number] [place] [address] [id number] Jul, Essential (primary) hypertension I10 [facility] [id number] [place] [address] [id number] May, [facility] [address] [id number] May, [facility] [id number] [place] [address] [id number] May, Essential (primary) hypertension I10 and Hyperlipidemia, unspecified E78.5 [facility] [id number] [place] [address] [id number] May, [facility] [id number] [place] [address] [id number] May, [facility] [address] [id number] May, Dental examination Z01.20 and Dental caries K02.9 [place] [id number] [place] [address] [id number] March, Unspecified essential hypertension 401.9 [facility] [id number] [place] [address] [id number] Jan, [facility] [id number] [place] [address] [id number] Dec, [facility] [id number] [place] [address] [id number] Dec, [address] [place] [address] [id number] Dec, [place] [id number] [place] [address] [id number] Dec, Other and unspecified hyperlipidemia E78.5 [address] [place] [address] [id number] Oct, [facility] [address] [id number] [id number] Oct, [facility] [address] [facility] [id number] [place] [address] [id number] Oct, [address] [place] [address] [id number] Aug, Unspecified essential hypertension 401.9 and Hyperlipidemia 272.[address] [place] [address] [id number] Aug, Urinary tract infection 599.0 [place] [id number] [place] [address] [id number] Aug, Dysuria 788.1 ; Unspecified essential hypertension 401.9 ; Urinary tract infection 599.0 and Routine lab draw V72.62 [address] [place] [address] [id number] May, [address] [place] [address] [id number] May, Sinusitis 473.9 [place] [id number] [place] [address] [id number] May, [facility] [id number] [id number] May, [facility] [id number] [place] [address] May, [facility] [id number], [place] [id number] March, Spider bite 989.5 [facility] [id number] [place] [address] [id number] March, Spider bite 989.5 and Skin necrosis 709.8 [facility] [id number] [place] [address] [id number] March, [facility] [id number] [place] [address] [id number] March, Insect bite 919.4 [facility] [id number] [place] [address] [id number] Mar, [facility] [id number] [place] [address] [id number] Mar, [facility] [place] [facility] [id number] [place] [address] 830[address]- 7226 Mar, [facility] [place] [id number] [place] [address] 38492- 7226 Mar, [facility] [place] [address] [place] [address] 88[address]- 7426 Jan, [facility] [id number], [place] [id number] Jan, [facility] [place] [facility] [address] [place] [address]- 1076 Jan, [facility] [id number] [place] [address] [id number] Dec, [facility] [place] [address]00565100[place], [place] [address] Dec, [facility] [id number] [place] [address] [id number] Dec, [facility] [place] [facility] [address] [facility] [id number], [place] [address] Dec, [facility] [address] [facility] [id number] [place] [id number] Oct, [facility] [place] [facility] [address] [facility] [id number], [place] [address] Oct, [facility] [address] [facility] [id number][place] [id number] Aug, [facility] [place] [facility] [address] [facility] [id number], [place] [address] Aug, [facility] [address] [facility] [id number], [place] [id number] Aug, [facility] [place] [facility] [address] [facility] [id number], [place] [address] Aug, [facility] [place] [facility] [address] [facility] [id number], [place] [address]- [address] Aug, [facility] [address] [facility] [id number], [place] [id number] Aug, [facility] [place] [facility] [address] [facility] [id number], [place] [address]- 47[address] Aug, [facility] [address] [facility] [id number], [place] [id number] Aug, [facility] [address] [facility] [id number], [place] [id number] Aug, [facility] [place] [facility] [address] [facility] [id number], [place] [address]- 7[address] Aug, [facility] [address] [facility] [id number], [place] [id number] Aug, [facility] [place] [facility] [address] [facility] [id number], [place] [address]- 4747 Aug, [facility] [address] [facility] [id number], [place] [id number] Aug, [facility] [place] [facility] [address] [facility] [id number], [place] [address]- 1338 Aug, [facility] [address] [id number] [place] [id number] May, [facility] [address] [facility] [id number], [place] [address]- 6[address] May, [facility] [address] [id number] [place] [id number] March, [facility] [place] [facility] [address] [facility] [id number], [place] [address]- [address] March, [facility] [address] [id number] [place] [id number] March, [facility] [place] [facility] [address] [facility] [id number], [place] [address]- [address] March, [facility] [address] [facility] [id number], [place] [id number] Jan, [facility] [place] [facility] [address] [facility] [id number], [place] [address]- 1106 Jan, [facility] [address] [facility] [id number], [place] [id number] Jan, [facility] [place] [facility] [address] [facility] [id number], [place] [address]- 9726 Jan, [facility] [address] [facility] [id number], [place] [id number] Oct, [facility] [place] [facility] [address] [facility] [id number], [place] [address]- 4[address] Oct, [facility] [address] [facility] [id number], [place] [id number] Oct, [facility] [place] [facility] [address] [facility] [id number], [place] [address]- 8086 Oct, [facility] [address] [facility] [id number], [place] [id number] Oct, [facility] [place] [facility] [address] [facility] [id number], [place] [address]- 4936 Oct, [facility] [address] [facility] [id number], [place] [id number] Aug, [facility] [place] [address] [facility] [id number] [place] [address]- 0487 Aug, [facility] [address] [id number] [place] [id number] Aug, [facility] [address] [id number] [place] [id number] Aug, [facility] [address] [id number] [place] [id number] Jul, [facility] [address] [facility] [id number] [place] [address]- 2546 Jul, [facility] [address] [id number] [place] [id number] Jul, [facility] [address] [id number] [place] [id number] Jul, [facility] [address] [id number] [place] [id number] May, [facility] [address] [facility] [id number], [place] [address]- 2546 May, [facility] [address] [id number] [place] 6462346[address] May, [facility] [address] [id number] [place] [id number] May, [facility] [address] [id number] [place] [id number] March, [facility] [address] [id number] [place] [id number] March, [facility] [address] [id number] [place] [id number] March, [facility] [address] [id number] [place] [id number] Jan, [facility] [address] [id number] [place] [id number] 16 Jan, 2013 [facility] [address] [id number] [place] [id number] 15 Jan, 2013 [facility] [address] [id number] [place] [id number] Jan, [facility] [address] [id number] [place] [id number] Jan, [facility] [address] [id number] [place] [id number] Jan, [facility] [address] [id number] [place] [id number] Dec, [facility] [address] [id number] [place] 4555620[address] Dec, [facility] [address] [id number] [place] [id number] Dec, [facility] [place] [facility] [address] [facility] [id number], [place] [address]- 1436 Jul, [facility] [address] [id number] [place] [id number] Jul, [facility] [address] [id number] [place] [id number] May, [facility] [address] [id number] [place] [id number] Jan, [facility] [address] [id number] [place] [id number] Dec, [facility] [place] [facility] [address]00565100[place], [place] [address]- [address] Oct, [facility] [place] [facility] [address]00565100[place], [place] [address]- 6274 Oct, [facility] [place] [facility] [address]65100[place], [place] [address]- 0647 Oct, [facility] [place] [facility] [address] [facility] [id number], [place] [address]- 7630 Oct, [facility] [place] [facility] [id number] [place] [address] 71964- 3872 Aug, [facility] [place] [facility] [address] [facility] [id number], [place] [address]- 9170 May, [facility] [place] [facility] [address] [id number], [place] [address]- 6690 May, [facility] [place] [address] [facility] [id number] [place] [address]- 5906 May, [facility] [place] [address] [facility] [id number], [place] [address]- 2546 Mar, [facility] [place] [address] [facility] [id number], [place] [address]- 5926 Oct, IMMUNIZATIONS No Known Immunizations SOCIAL HISTORY Never Assessed REASON FOR VISIT RX-Lexapro refill PLAN OF CARE VITAL SIGNS MEDICATIONS Medication Instructions Dosage Frequency Start Date End Date Duration Status Lexapro 10 mg Orally Once a day 1 tablet 24h 90 days Active RESULTS No Results PROCEDURES No Known procedures INSTRUCTIONS MEDICATIONS ADMINISTERED No Known Medications MEDICAL (GENERAL) HISTORY Type Description Date Medical History hypertension Medical History diverticulosis of sigmoid colon Medical History hyperlipidemia Medical History osteoarthritis Medical History splenic artery aneurysm Medical History cervical cancer, hysterectomy completed 1985 Medical History Herpes simplex without mention of complication Medical History Diverticulosis of colon (without mention of hemorrhage) Medical History 12/30/17 Dr Fuller, CAD, HTN, ECHO EF 55-60%, 40% stenosis in mid LAD 04/15/[address] Nov 10 2017 showing stable 1.2 cm splenic artery aneurysm , mild thickening ofhte bladder wall, diverticulosis with no diverticulitis, cont to monitor. Medical History Diverticulitis of intestine without perforation or abscess without bleeding, unspecified part of intestinal tract Surgical History hysterectomy, total with unilateral salpingo-oophorectomy ( USO) due to cervical cancer 1985 Surgical History heart cath- 40% non-obstructive stenosis of the mid-LAD, normal EF 03/2013 Surgical History hiatal hernia repair 2006 Hospitalization History surgeries
--- OUTSIDE RECORDS SUMMARY | 2018-12-30 09:14 | XMS REPORT ---
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 Name Role Phone SACHI TITO Unavailable PROBLEMS Type Condition ICD9-CM Code [id number] Code Onset Dates Condition Status SNOMED Code Problem Slow transit constipation K59.01 Active 47595529 Problem Moderate single current episode of major depressive disorder F32.1 Active 68185505 Problem Essential (primary) hypertension I10 Active 94555150 Problem Mixed hyperlipidemia E78.2 Active 200052763 Problem Gastroesophageal reflux disease, esophagitis presence not specified K21.9 Active 944070037 ALLERGIES No Information ENCOUNTERS Encounter Location Date Diagnosis [facility] [address] [id number] Oct, Mixed hyperlipidemia E78.2 [facility] [address] [id number] Oct, [facility] [address] [id number] Oct, Mixed hyperlipidemia E78.2 and Essential (primary) hypertension I10 [facility] [address] [id number] Oct, Essential (primary) hypertension I10 ; Mixed hyperlipidemia E78.2 ; Moderate single current episode of major depressive disorder F32.1 ; Slow transit constipation K59.01 ; Superficial laceration T14.8XXA and Encounter for immunization Z23 [facility] [address] [address] Aug, Moderate single current episode of major depressive disorder F32.1 [facility] [address] [address] May, Moderate single current episode of major depressive disorder F32.1 [facility] [address] [place] [id number] Jan, Essential (primary) hypertension I10 ; Hyperlipidemia, unspecified E78.5 ; Moderate single current episode of major depressive disorder F32.1 and Slow transit constipation K59.01 [address] [place] [address] [id number] Dec, Moderate single current episode of major depressive disorder F32.1 [facility] [address] [id number] [id number] Oct, Right lower quadrant abdominal pain R10.31 ; Urinary frequency R35.0 ; Diverticulitis of intestine without perforation or abscess without bleeding, unspecified part of intestinal tract K57.92 and Slow transit constipation K59.01 [address] [place] [address] [id number] Aug, Essential (primary) hypertension I10 and Moderate single current episode of major depressive disorder F32.1 [place] [id number] [place] [address] [id number] Jul, Essential (primary) hypertension I10 and Moderate single current episode of major depressive disorder F32.1 [address] [place] [address] [id number] Jul, [place] [id number] [place] [address] [id number] Jul, Poison jose eduardo dermatitis L23.7 [place] [id number] [place] [address] [id number] March, Anhedonia R45.84 [place] [id number] [place] [address] [id number] Mar, [address] [place] [address] [id number] Dec, Essential (primary) hypertension I10 [facility] [place] [id number] [place] [address] [id number] Dec, Mixed hyperlipidemia E78.2 [facility] [address] [place] [address] [id number] Oct, Mixed hyperlipidemia E78.2 and Elevated fasting glucose R73.[address] [id number] [id number] Oct, Hyperlipidemia, unspecified E78.5 ; Essential (primary) hypertension I10 and Thyroid disorder screening Z13.29 [facility] [id number] [place] [address] [id number] Oct, Slow transit constipation K59.01 ; Essential (primary) hypertension I10 ; Hyperlipidemia, unspecified E78.5 ; Gastroesophageal reflux disease, esophagitis presence not specified K21.9 and Anhedonia R45.84 [facility] [id number] [place] [address] [id number] Oct, [facility] [id number] [place] [address] [id number] Aug, Slow transit constipation K59.01 [facility] [id number] [place] [address] [id number] Jul, Diverticulitis of intestine without perforation or abscess without bleeding, unspecified part of intestinal tract K57.92 [facility] [id number] [place] [address] [id number] Jul, Essential (primary) hypertension I10 [facility] [id number] [place] [address] [id number] May, [facility] [id number] [place] [address] [id number] May, [facility] [id number] [place] [address] [id number] May, Essential (primary) hypertension I10 and Hyperlipidemia, unspecified E78.5 [facility] [id number] [place] [address] [id number] May, [facility] [id number] [place] [address] [id number] May, [facility] [address] [id number] [place] [address] [id number] May, Dental examination Z01.20 and Dental caries K02.9 [facility] [id number] [place] [address] [id number] March, Unspecified essential hypertension 401.9 [facility] [address] [place] [id number] Jan, [facility] [place] [id number], [place] [id number] Dec, [facility] [place] [id number], [place] [id number] Dec, [facility] [place] [id number] [place] [address] [id number] Dec, [facility] [place] [id number] [place] [address] [id number] Dec, Other and unspecified hyperlipidemia E78.5 [facility] [place] [id number], [place] [id number] Oct, [facility] [address] [id number] [place] [phone] Oct, [facility] [address] [id number] [place]KE[place] [id number] Oct, [facility] [place] [id number], [place] [id number] Aug, Unspecified essential hypertension 401.9 and Hyperlipidemia 272.4 [facility] [place] [id number] [place] [address] [id number] Aug, Urinary tract infection 599.0 [facility] [place] [id number] [place] [address] [id number] Aug, Dysuria 788.1 ; Unspecified essential hypertension 401.9 ; Urinary tract infection 599.0 and Routine lab draw V72.62 [facility] [place] [id number], [place] [id number] May, [facility] [place] [id number], [place] [id number] May, Sinusitis 473.9 [facility] [place] [id number] [place] [address] [id number] May, [facility] [place] [id number], [place] [id number] May, [facility] [id number] [address] May, [facility] [place] [id number], [place] [id number] March, Spider bite 989.5 [facility] [place] [id number] [place] [address] [id number] March, Spider bite 989.5 and Skin necrosis 709.8 [facility] [place] [id number] [place] [address] [id number] March, [facility] [place] [id number] [place] [address] [id number] March, Insect bite 919.4 [facility] [place] [id number], [place] [id number] Mar, [facility] [place] [id number] [place] [address] [id number] Mar, [facility] [id number] [place] [address] Mar, [facility] [place] [facility] [id number] [place] [address] 43546- [address] Mar, [facility] [id number] [place] [address] 98201- 0876 Jan, [facility] [place] [id number] [place] [address] [id number] Jan, [facility] [id number] [place] [address] 414[address]- 5786 Jan, [facility] [place] [id number] [place] [address] [id number] Dec, [facility] [id number] [place] [address] 9[address]36- 8416 Dec, [facility] [place] [id number], [place] [id number] Dec, [facility] [place] [facility] [id number] [place] [address] 35904- 1446 Dec, [facility] [place] [id number], [place] [id number] Oct, [facility] [address] [id number], [place] [address] Oct, [facility] [place] [address] [id number] [place] [id number] Aug, [facility] [place] [facility] [address] [facility] [id number], [place] [address] Aug, [facility] [place] [address] [facility] [id number] [place] [id number] Aug, [facility] [place] [facility] [address] [facility] [id number], [place] [address]90345- [address] Aug, [facility] [place] [facility] [address] [facility] [id number], [place] [address]- [address] Aug, [facility] [place] [address] [facility] [id number], [place] [id number] Aug, [facility] [place] [facility] [address] [facility] [id number], [place] [address]- [address] Aug, [facility] [place] [address] [id number], [place] [id number] Aug, [facility] [place] [address] [facility] [id number], [place] [id number] Aug, [facility] [place] [facility] [address] [facility] [id number], [place] [address]- [address] Aug, [facility] [place] [address] [facility] [id number], [place] [id number] Aug, [facility] [place] [facility] [address] [facility] [id number], [place] [address]- [address] Aug, [facility] [place] [address] [facility] [id number], [place] [id number] Aug, [facility] [place] [facility] [address] [facility] [id number], [place] [address]- [address] Aug, [facility] [place] [address] [facility] [id number], [place] [id number] May, [facility] [place] [facility] [address] [facility] [id number], [place] [address]23466- [address] May, [facility] [place] [address] [id number], [place] [id number] March, [facility] [address] [facility] [id number], [place] [address]- 7[address] March, [facility] [place] [address] [facility] [id number] [place] [id number] March, [facility] [address] [facility] [id number], [place] [address]- 8182 March, [facility] [place] [address] [id number], [place] [id number] Jan, [facility] [place] [facility] [address] [facility] [id number], [place] [address]- 3208 Jan, [facility] [place] [address] [facility] [id number], [place] [id number] Jan, [facility] [place] [facility] [address]00565100[place], [place] [address]- 5[address] Jan, [facility] [place] [address] [facility] [id number], [place] [id number] Oct, [facility] [place] [facility] [address] [id number], [place] [address]- [address] Oct, [facility] [place] [address] [facility] [id number], [place] [id number] Oct, [facility] [place] [facility] [address] [id number], [place] [address]- 28[address] Oct, [facility] [place] [address] [facility] [id number], [place] [id number] Oct, [facility] [place] [facility] [address] [facility] [id number], [place] [address]- 459[address] Oct, [facility] [place] [address] [facility] [id number], [place] [id number] Aug, [facility] [place] [facility] [address] [facility] [id number], [place] [address]- 9117 Aug, [facility] [place] [address] [facility] [id number], [place] [address]34910336 Aug, [facility] [place] [address] [id number] [place] [id number] Aug, [facility] [place] [address] [id number] [place] [id number] Jul, [facility] [address] [facility] [id number], [place] [address]- [address]46 Jul, [facility] [place] [address] [id number] [place] [id number] Jul, [facility] [place] [address] [id number] [place] [id number] Jul, [facility] [place] [address] [id number] [place] [id number] May, [facility] [address] [facility] [id number], [place] [address]- [address] May, [facility] [place] [address] [id number] [place] [id number] May, [facility] [place] [address] [id number] [place] [id number] May, [facility] [place] [address] [id number] [place] [id number] March, [facility] [place] [address] [id number] [place] [id number] March, [facility] [place] [address] [id number] [place] [id number] March, [facility] [place] [address] [id number] [place] [id number] Jan, [facility] [place] [address] [id number] [place] [id number] Jan, [facility] [place] [address] [id number] [place] [id number] Jan, [facility] [place] [address] [id number] [place] [id number] Jan, [facility] [place] [address] [id number] [place] 915562350 Jan, [facility] [place] [address] [id number] [place] [id number] Jan, [facility] [place] [address] [id number] [place] [id number] Dec, [facility] [place] [address] [id number] [place] 875[address] Dec, [facility] [place] [address] [id number] [place] [id number] Dec, [facility] [address] [id number] [place] [address]- 2546 Jul, [facility] [place] [address] [id number] [place] [id number] Jul, [facility] [place] [address] [id number] [place] [address]307[address] May, [facility] [place] [address] [id number] [place] [id number] Jan, [facility] [place] [address] [id number] [place] [id number] Dec, [facility] [address]00565100[place], [place] [address]- [address]96 Oct, [facility] [place] [facility] [address] [facility] [id number], [place] [address]- [address]40 Oct, [facility] [place] [facility] [address] [id number], [place] [address]- 5583 Oct, [facility] [place] [facility] [address] [id number], [place] [address]- 4205 Oct, [facility] [place] [facility] [address]65100[place], [place] [address]- 5761 Aug, [facility] [place] [facility] [address] [facility] [id number], [place] [address]- 0646 May, [facility] [place] [facility] [address] [facility] [id number] [place] [address]- 4398 May, [facility] [place] [facility] [address] [facility] [id number], [place] [address]- 2546 May, [facility] [place] [facility] [address] [id number], [place] [address]- 2613 Mar, [facility] [address] [facility] [id number] [place] [address]- [address] Oct, IMMUNIZATIONS No Known Immunizations SOCIAL HISTORY Never Assessed REASON FOR VISIT med refill PLAN OF CARE VITAL SIGNS MEDICATIONS Medication Instructions Dosage Frequency Start Date End Date Duration Status Atorvastatin Calcium 40 MG Orally Once a day 1 tablet 24h [...]
--- OUTSIDE RECORDS SUMMARY | 2018-12-30 09:14 | XMS REPORT ---
Author Author TITO KARIMI [facility] Address [address] [place] [address] Care Team Providers Care Pig Handler Name Role Phone SACHI TITO Unavailable PROBLEMS Type Condition ICD9-CM Code ZQX07-QC Code Onset Dates Condition Status SNOMED Code Problem Slow transit constipation K59.01 Active 12215709 Problem Moderate single current episode of major depressive disorder F32.1 Active 26119973 Problem Essential (primary) hypertension I10 Active 67037024 Problem Mixed hyperlipidemia E78.2 Active 357218428 Problem Gastroesophageal reflux disease, esophagitis presence not specified K21.9 Active [id number] ALLERGIES No Information ENCOUNTERS Encounter Location Date Diagnosis [facility] [address] [id number] Oct, [facility] [address] [id number] Oct, Mixed hyperlipidemia E78.2 [facility] [address] [id number] Oct, [facility] [address] [id number] Oct, Mixed hyperlipidemia E78.2 and Essential (primary) hypertension I10 [facility] [address] [id number] Oct, Essential (primary) hypertension I10 ; Mixed hyperlipidemia E78.2 ; Moderate single current episode of major depressive disorder F32.1 ; Slow transit constipation K59.01 ; Superficial laceration T14.8XXA and Encounter for immunization Z23 [facility] [address] [address] Aug, Moderate single current episode of major depressive disorder F32.1 [facility] [address] [address] May, Moderate single current episode of major depressive disorder F32.1 [facility] [place] [id number][place] [id number] Jan, Essential (primary) hypertension I10 ; Hyperlipidemia, unspecified E78.5 ; Moderate single current episode of major depressive disorder F32.1 and Slow transit constipation K59.01 [facility] [place] [id number] [place] [address] [id number] Dec, Moderate single current episode of major depressive disorder F32.1 [facility] [place] [address] [facility] [id number] [id number] Oct, Right lower quadrant abdominal pain R10.31 ; Urinary frequency R35.0 ; Diverticulitis of intestine without perforation or abscess without bleeding, unspecified part of intestinal tract K57.92 and Slow transit constipation K59.01 [facility] [place] [id number] [place] [address] [id number] Aug, Essential (primary) hypertension I10 and Moderate single current episode of major depressive disorder F32.1 [facility] [place] [id number] [place] [address] [id number] Jul, Essential (primary) hypertension I10 and Moderate single current episode of major depressive disorder F32.1 [facility] [place] [id number] [place] [address] [id number] Jul, [facility] [place] [id number] [place] [address] [id number] Jul, Poison jose eduardo dermatitis L23.7 [facility] [place] [id number] [place] [address] [id number] March, Anhedonia R45.84 [facility] [place] [id number] [place] [address] [id number] Mar, [facility] [place] [id number] [place] [address] [id number] Dec, Essential (primary) hypertension I10 [facility] [place] [id number] [place] [address] [id number] Dec, Mixed hyperlipidemia E78.2 [facility] [place] [address] [id number] Oct, Mixed hyperlipidemia E78.2 and Elevated fasting glucose R73.01 [facility] [id number] [place] [address] [id number] Oct, Hyperlipidemia, unspecified E78.5 ; Essential (primary) hypertension I10 and Thyroid disorder screening Z13.29 [facility] [id number] [place] [address] [id number] Oct, Slow transit constipation K59.01 ; Essential (primary) hypertension I10 ; Hyperlipidemia, unspecified E78.5 ; Gastroesophageal reflux disease, esophagitis presence not specified K21.9 and Anhedonia R45.84 [facility] [id number] [place] [address] [id number] Oct, [facility] [address] [id number] Aug, Slow transit constipation K59.01 [place] [id number] [place] [address] [id number] Jul, Diverticulitis of intestine without perforation or abscess without bleeding, unspecified part of intestinal tract K57.92 [facility] [id number] [place] [address] [id number] Jul, Essential (primary) hypertension I10 [facility] [id number] [place] [address] [id number] May, [facility] [id number] [place] [address] [id number] May, [facility] [address] [id number] May, Essential (primary) hypertension I10 and Hyperlipidemia, unspecified E78.5 [facility] [id number] [place] [address] [id number] May, [facility] [address] [id number] May, [facility] [address] [place] [address] [id number] May, Dental examination Z01.20 and Dental caries K02.9 [facility] [id number] [place] [address] [id number] March, Unspecified essential hypertension 401.9 [facility] [place] [address] [id number][place] [phone] Jan, [facility] [place] [address] [id number][place] [id number] Dec, [facility] [place] [address] [id number] [id number] Dec, [facility] [place] [id number] [place] [address] [id number] Dec, [facility] [place] [id number], [place] [id number] Dec, Other and unspecified hyperlipidemia E78.5 [facility] [place] [id number] [place] [address] [id number] Oct, [facility] [place] [address] [id number] [id number] Oct, [facility] [place] [id number] [place] [address] [id number] Oct, [facility] [id number], [place] [id number] Aug, Unspecified essential hypertension 401.9 and Hyperlipidemia 272.4 [place] [id number] [place] [address] [id number] Aug, Urinary tract infection 599.[address] [place] [address] [id number] Aug, Dysuria 788.1 ; Unspecified essential hypertension 401.9 ; Urinary tract infection 599.0 and Routine lab draw V72.62 [facility] [address] [facility] [id number][place] [id number] May, [facility] [id number] [place] [address] [id number] May, Sinusitis 473.9 [facility] [place] [address] [id number] [id number] May, [facility] [id number], [place] [id number] May, [facility] [address] [id number] [address] May, [facility] [place] [id number], [place] [id number] March, Spider bite 989.5 [facility] [place] [address] [id number][place] [id number] March, Spider bite 989.5 and Skin necrosis 709.8 [facility] [place] [id number] [place] [address] [id number] March, [facility] [place] [id number] [place] [address] [id number] March, Insect bite 919.4 [facility] [place] [id number] [place] [address] [id number] Mar, [facility] [place] [id number] [place] [address] [id number] Mar, [facility] [address] [place] [address] Mar, [facility] [id number] [place] [address] 14[address]- 2546 Mar, [facility] [id number] [place] [address]- [address] Jan, [facility] [place] [id number], [place] [id number] Jan, [facility] [address]00565100[place] [address] Jan, [facility] [place] [id number], [place] [id number] Dec, [facility] [address]00565100[place] [address] 2546 Dec, [facility] [place] [id number], [place] [id number] Dec, [facility] [address]00565100[place] [address]- [address] Dec, [facility] [place] [address] [id number] [phone] Oct, [facility] [address] [facility] [id number] [place] [address] Oct, [facility] [place] [address] [id number], [place] [id number] Aug, [facility] [address] [facility] [id number] [place] [address] Aug, [facility] [place] [address] [id number], [place] [id number] Aug, [facility] [address] [facility] [id number] [place] [address] Aug, [facility] [address] [facility] [id number] [place] 160[address]79- [address] Aug, [facility] [place] [address] [facility] [id number], [place] [id number] Aug, [facility] [address]00565100[place] [address]- [address] Aug, [facility] [place] [address] [id number], [place] [id number] Aug, [facility] [place] [address] [facility] [id number], [place] [id number] Aug, [facility] [address] [id number] [address]- [address] Aug, [facility] [place] [address] [facility] [id number], [place] [id number] Aug, [facility] [address] [facility] [id number] [place] [address]- [address] Aug, [facility] [place] [address] [facility] [id number], [place] [id number] Aug, [facility] [address] [facility] [id number] [place] [address] Aug, [facility] [place] [address] [facility] [id number], [place] [id number] May, [facility] [address] [id number] [address]- [address] May, [facility] [place] [address] [facility] [id number] [place] [id number] March, [facility] [address] [facility] [id number] [place] [address] March, [facility] [place] [address] [facility] [id number] [place] [id number] March, [facility] [address] [facility] [id number] [place] [address]- [address] March, [facility] [place] [address] [facility] [id number] [place] [id number] Jan, [facility] [address] [facility] [id number] [place] [address]- 119[address] Jan, [facility] [place] [address] [id number] [place] [id number] Jan, [facility] [address] [id number] [address]- [address] Jan, [facility] [place] [address] [facility] [id number] [place] [id number] Oct, [facility] [address] [facility] [id number] [place] [address]- [address] Oct, [facility] [place] [address] [facility] [id number], [place] [id number] Oct, [facility] [address] [facility] [id number] [place] [address]- [address] Oct, [facility] [place] [address] [facility] [id number], [place] [id number] Oct, [facility] [address] [facility] [id number] [place] [address] 2546 Oct, [facility] [place] [address] [facility] [id number] [place] [id number] Aug, [facility] [address] [facility] [id number] [place] [address]- [address] Aug, [facility] [place] [address] [id number] [place] [id number] Aug, [facility] [place] [address] [id number] [place] [id number] Aug, [facility] [place] [address] [id number] [place] [id number] Jul, [facility] [address] [facility] [id number] [place] [address]- [address] Jul, [facility] [place] [address] [id number] [place] [id number] Jul, [facility] [place] [address] [id number] [place] [id number] Jul, [facility] [place] [address] [id number] [place] [id number] May, [facility] [address] [facility] [id number] [place] [address]- [address] May, [facility] [place] [address] [id number] [place] [id number] May, [facility] [place] [address] [id number] [place] [id number] May, [facility] [place] [address] [id number] [place] [id number] March, [facility] [place] [address] [id number] [place] [id number] March, [facility] [place] [address] [id number] [place] [id number] March, [facility] [place] [address] [id number] [place] [id number] Jan, [facility] [place] [address] [id number] [place] [id number] Jan, [facility] [place] [address] [id number] [place] [id number] Jan, [facility] [place] [address] [id number] [place] [id number] Jan, [facility] [place] [address] [id number] [place] [id number] Jan, [facility] [place] [address] [id number] [place] [id number] Jan, [facility] [place] [address] [id number] [place] [id number] Dec, [facility] [place] [address] [id number] [place] [id number] Dec, [facility] [place] [address] [id number] [place] [id number] Dec, [facility] [address] [id number] [place] [address]- [address] Jul, [facility] [place] [address] [id number] [place] [id number] Jul, [facility] [place] [address] [id number] [place] [id number] May, [facility] [place] [address] [id number] [place] [id number] Jan, [facility] [place] [address] [id number] [place] [id number] Dec, [facility] [address] [id number] [address]- 5[address] Oct, [facility] [id number] [place] [address]- 4858 Oct, [facility] [address] [id number] [address]- 1119 Oct, [facility] [address]00565100[place] [address]- 08[address] Oct, [facility] [address] [facility] [id number] [place] [address]- 64[address] Aug, [facility] [address] [facility] [id number] [place] [address]- [address] May, [facility] [address] [facility] [id number] [place] [address]- 7031 May, [facility] [address] [id number] [address]- 3326 May, [facility] [address] [facility] [id number] [place] [address]- 15[address] Mar, [facility] [address] [facility] [id number] [place] [address]- 3027 Oct, IMMUNIZATIONS No Known Immunizations SOCIAL HISTORY Never Assessed REASON FOR VISIT medication PLAN OF CARE VITAL SIGNS MEDICATIONS Medication Instructions Dosage Frequency Start Date End Date Duration Status Losartan Potassium 100 mg Orally Once a day 1 tablet 24h Oct, 90 days Active RESULTS No Results PROCEDURES [...]
--- OUTSIDE RECORDS SUMMARY | 2018-12-30 09:15 | XMS REPORT ---
Author Author TITO KARIMI [facility] Address [address] [place] [address] Care Team Providers Care Bull Chain Operator Name Role Phone SACHI TTIO Unavailable PROBLEMS Type Condition ICD9-CM Code EJE71-WO Code Onset Dates Condition Status SNOMED Code Problem Slow transit constipation K59.01 Active 73808285 Problem Moderate single current episode of major depressive disorder F32.1 Active 18363586 Problem Essential (primary) hypertension I10 Active 33854760 Problem Mixed hyperlipidemia E78.2 Active 561879172 Problem Gastroesophageal reflux disease, esophagitis presence not specified K21.9 Active 776242094 ALLERGIES Substance Reaction Event Type Date Status Sulfamethoxazole nausea Drug Allergy Oct, Active ENCOUNTERS Encounter Location Date Diagnosis [facility] [id number] [place] [address] [id number] Oct, [facility] [address] [id number] Oct, Mixed hyperlipidemia E78.2 and Essential (primary) hypertension I10 [facility] [id number] [place] [address] [id number] Oct, Essential (primary) hypertension I10 ; Mixed hyperlipidemia E78.2 ; Moderate single current episode of major depressive disorder F32.1 ; Slow transit constipation K59.01 ; Superficial laceration T14.8XXA and Encounter for immunization Z23 [facility] [address] [address] Aug, Moderate single current episode of major depressive disorder F32.1 [facility] [id number] [place] [address]- 9063 May, Moderate single current episode of major depressive disorder F32.1 [facility] [id number] [place] [address] [id number] Jan, Essential (primary) hypertension I10 ; Hyperlipidemia, unspecified E78.5 ; Moderate single current episode of major depressive disorder F32.1 and Slow transit constipation K59.01 [facility] [id number] [place] [address] [id number] Dec, Moderate single current episode of major depressive disorder F32.1 [facility] [address] [facility] [id number] [id number] Oct, Right lower quadrant abdominal pain R10.31 ; Urinary frequency R35.0 ; Diverticulitis of intestine without perforation or abscess without bleeding, unspecified part of intestinal tract K57.92 and Slow transit constipation K59.01 [facility] [id number] [place] [address] [id number] Aug, Essential (primary) hypertension I10 and Moderate single current episode of major depressive disorder F32.1 [facility] [id number] [place] [address] [id number] Jul, Essential (primary) hypertension I10 and Moderate single current episode of major depressive disorder F32.1 [facility] [place] [id number] [place] [address] [id number] Jul, [facility] [address] [id number] Jul, Poison jose eduardo dermatitis L23.7 [facility] [id number] [place] [address] [id number] March, Anhedonia R45.84 [facility] [id number] [place] [address] [id number] Mar, [facility] [id number] [place] [address] [id number] Dec, Essential (primary) hypertension I10 [facility] [id number] [place] [address] [id number] Dec, Mixed hyperlipidemia E78.2 [facility] [id number] [place] [address] [id number] Oct, Mixed hyperlipidemia E78.2 and Elevated fasting glucose R73.01 [facility] [id number] [place] [address] [id number] Oct, Hyperlipidemia, unspecified E78.5 ; Essential (primary) hypertension I10 and Thyroid disorder screening Z13.29 [address] [place] [id number] [place] [address] [id number] Oct, Slow transit constipation K59.01 ; Essential (primary) hypertension I10 ; Hyperlipidemia, unspecified E78.5 ; Gastroesophageal reflux disease, esophagitis presence not specified K21.9 and Anhedonia R45.[address] [id number] Oct, [place] [address] [id number] Aug, Slow transit constipation K59.[address] [id number] Jul, Diverticulitis of intestine without perforation or abscess without bleeding, unspecified part of intestinal tract K57.[address] [id number] Jul, Essential (primary) hypertension I10 [facility] [id number] [place] [address] [id number] May, [place] [address] [id number] May, [address] [id number] May, Essential (primary) hypertension I10 and Hyperlipidemia, unspecified E78.5 [id number] [place] [address] [id number] May, [facility] [id number] [place] [address] [id number] May, [facility] [id number] [place] [address] [id number] May, Dental examination Z01.20 and Dental caries K02.9 [facility] [id number] [place] [address] [id number] March, Unspecified essential hypertension 401.9 [id number] [place] [address] [id number] Jan, [facility] [address] [id number] [id number] Dec, [facility] [id number], [place] [id number] Dec, [facility] [id number][place] [id number] Dec, [facility] [id number], [place] [id number] Dec, Other and unspecified hyperlipidemia E78.5 [facility] [id number][place] [id number] Oct, [facility] [address] [id number] [id number] Oct, [facility] [id number] [place] [address] [id number] Oct, [facility] [id number], [place] [id number] Aug, Unspecified essential hypertension 401.9 and Hyperlipidemia 272.4 [facility] [id number], [place] [id number] Aug, Urinary tract infection 599.0 [facility] [id number] [place] [address] [id number] Aug, Dysuria 788.1 ; Unspecified essential hypertension 401.9 ; Urinary tract infection 599.0 and Routine lab draw V72.62 [facility] [id number], [place] [id number] May, [facility] [id number], [place] [id number] May, Sinusitis 473.9 [facility] [id number], [place] [id number] May, [facility] [id number], [place] [id number] May, [facility] [address] [address] May, [facility] [id number] [place] [address] [id number] March, Spider bite 989.5 [facility] [id number], [place] [id number] March, Spider bite 989.5 and Skin necrosis 709.8 [facility] [address] [id number][place] [address] March, [facility] [id number], [place] [address] March, Insect bite 919.4 [facility] [id number], [place] [id number] Mar, [facility] [id number] [place] [address] [id number] Mar, [facility] [id number] [place] [address] 39760- 4686 Mar, [facility] [id number] [place] [address] 77828- 5360 Mar, [facility] [place] [facility] [id number] [place] [address] 00149- 7894 Jan, [facility] [id number], [place] [id number] Jan, [facility] [id number] [place] [address] 54930- 9931 Jan, [facility] [id number], [place] [id number] Dec, [facility] [address] [place] [address] 41036- 3019 Dec, [facility] [id number], [place] [id number] Dec, [facility] [id number] [place] [address] 78665- 8556 Dec, [facility] [id number], [place] [id number] Oct, [facility] [id number] [place] [address] 54831- 6689 Oct, [facility] [address] [id number] [place] [id number] Aug, [facility] [place] [facility] [address] [facility] [id number] [place] [address]- 65[address] Aug, [facility] [address] [id number] [place] [id number] Aug, [facility] [place] [facility] [address] [facility] [id number], [place] [address]- [address]44 Aug, [facility] [place] [facility] [address] [facility] [id number], [place] [address]- 9373 Aug, [facility] [address] [id number] [place] [id number] Aug, [facility] [place] [facility] [address] [facility] [id number], [place] [address]- 7037 Aug, [facility] [address] [id number], [place] [id number] Aug, [facility] [address] [facility] [id number], [place] [id number] Aug, [facility] [place] [facility] [address] [facility] [id number], [place] [address]- 4[address] Aug, [facility] [address] [facility] [id number], [place] [id number] Aug, [facility] [place] [facility] [address] [facility] [id number], [place] [address]- 1174 Aug, [facility] [address] [facility] [id number], [place] [id number] Aug, [facility] [place] [facility] [address] [facility] [id number], [place] [address]- 1044 Aug, [facility] [address] [facility] [id number], [place] [id number] May, [facility] [place] [facility] [address] [facility] [id number], [place] [address]- 8[address] May, [facility] [address] [facility] [id number], [place] [id number] March, [facility] [place] [facility] [address] [facility] [id number], [place] [address]- 6[address] March, [facility] [address] [facility] [id number] [place] [id number] March, [facility] [place] [facility] [address] [facility] [id number], [place] [address]- 7396 March, [facility] [address] [facility] [id number] [place] [id number] Jan, [facility] [place] [facility] [address] [facility] [id number] [place] [address]- 6095 Jan, [facility] [address] [facility] [id number] [place] [id number] Jan, [facility] [place] [facility] [address]100[place], [place] [address]- 50[address] Jan, [facility] [id number], [place] [id number] Oct, [facility] [place] [facility] [address]00565100[place], [place] [address]- 3784 Oct, [facility] [address] [facility] [id number], [place] [id number] Oct, [facility] [place] [facility] [address]00565100[place], [place] [address]- 1844 Oct, [facility] [address] [facility] [id number], [place] [id number] Oct, [facility] [place] [facility] [address], [place] [address]- 7185 Oct, [facility] [address] [facility] [id number], [place] [id number] Aug, [facility] [place] [facility] [address] [facility] [id number], [place] [address]- 3896 Aug, [facility] [address] [facility] [id number], [place] [id number] Aug, [facility] [address] [facility] [id number], [place] 449783888 Aug, [facility] [address] [id number] [place] [id number] Jul, [facility] [address] [facility] [id number][place] [address]- 2546 Jul, [facility] [address] [id number] [place] 799692583 Jul, [facility] [address] [id number] [place] [id number] Jul, [facility] [address] [id number] [place] [id number] May, [facility] [address] [facility] [id number], [place] [address]- 2546 May, [facility] [address] [id number] [place] 134573563 May, [facility] [address] [id number] [place] [id number] May, [facility] [address] [id number] [place] [id number] March, [facility] [address] [id number] [place] [id number] March, [facility] [address] [id number] [place] [id number] March, [facility] [address] [id number] [place] [id number] Jan, [facility] [address] [id number] [place] [id number] Jan, [facility] [address] [id number] [place] [id number] Jan, [facility] [address] [id number] [place] 088522488 Jan, [facility] [address] [id number] [place] [id number] Jan, [facility] [address] [id number] [place] [id number] Jan, [facility] [address] [id number] [place] [id number] Dec, [facility] [address] [id number] [place] 183467420 Dec, [facility] [address] [id number] [place] [id number] Dec, [facility] [place] [facility] [address] [id number], [place] [address]- 2546 Jul, [facility] [address] [id number] [place] [id number] Jul, [facility] [address] [id number] [place] [id number] May, [facility] [address] [id number] [place] [id number] Jan, [facility] [address] [id number] [place] [id number] Dec, [facility] [place] [facility] [address] [facility] [id number], [place] [address]- 3487 Oct, [facility] [place] [facility] [address] [facility] [id number], [place] [address]- 4146 Oct, [facility] [place] [facility] [address] [facility] [id number], [place] [address]- 2042 Oct, [facility] [place] [facility] [address] [facility] [id number], [place] [address]- 4298 Oct, [facility] [place] [facility] [address] [facility] [id number], [place] [address]- 5140 Aug, [facility] [place] [facility] [address] [facility] [id number], [place] [address]- 5773 May, [facility] [place] [facility] [address] [facility] [id number], [place] [address]- 2069 May, [facility] [place] [facility] [address] [facility] [id number], [place] [address]- 0968 May, [facility] [place] [facility] [address] [facility] [id number], [place] [address]- 5315 Mar, [facility] [place] [facility] [address] [facility] [id number] [place] [address]- 1356 12 Oct, 2010 IMMUNIZATIONS Vaccine Route Administration Date Status TDAP (BOOSTRIX) IM Intramuscular Oct 07, 2018 Administered SOCIAL HISTORY Never Assessed REASON FOR VISIT New provider visit, med refills, Pt had laceration to left middle finger yesterday, needs tdap Brent [facility] PLAN OF CARE Activity Details Follow Up 3 months or as indicated by lab Reason:CHM VITAL SIGNS Height 69 in 2018-10-07 Weight 186 lbs 2018-10-07 Temperature 97.1 degrees Fahrenheit 2018-10-07 Heart Rate 74 bpm 2018-10-07 Respiratory Rate 16 2018-10-07 BMI 27.46 kg/m2 2018-10-07 Blood pressure systolic 130 mmHg 2018-10-07 Blood pressure diastolic 78 mmHg 2018-10-07 MEDICATIONS Medication Instructions Dosage Frequency Start Date End Date Duration Status B Complex - Orally Once a day 1 tablet 24h Active Metoprolol Succinate 25 MG Orally Once a day 1 capsule 24h 30 day(s) Active Ocuvite Adult 50+ - Orally Once a day 1 capsule 24h Active Lexapro 10 mg Orally Once a day 1 tablet 24h 90 days Active Atorvastatin Calcium 40 MG Orally Once a day 1 tablet 24h 30 day(s) Active Fish Oil 1000 MG Orally Once a day 1 capsule 24h Active RESULTS No Results PROCEDURES Procedure Date Ordered Result Body Site TDAP (BOOSTRIX) Oct 07, 2018 SINGLE IMMUNIZATION ADMIN Oct 07, 2018 INSTRUCTIONS MEDICATIONS ADMINISTERED No Known Medications MEDICAL [...] EF 03/2013 Surgical History hiatal hernia repair 2007 Hospitalization History surgeries
--- OUTSIDE RECORDS SUMMARY | 2018-12-30 09:15 | XMS REPORT ---
Author Author TITO KARIMI [facility] Address [address] [place] [address] Care Team Providers Care Fifth Grade Teacher Name Role Phone SACHI TITO Unavailable PROBLEMS Type Condition ICD9-CM Code EDU38-CW Code Onset Dates Condition Status SNOMED Code Problem Slow transit constipation K59.01 Active 93537382 Problem Moderate single current episode of major depressive disorder F32.1 Active 72678319 Problem Essential (primary) hypertension I10 Active 20582332 Problem Mixed hyperlipidemia E78.2 Active 373418701 Problem Gastroesophageal reflux disease, esophagitis presence not specified K21.9 Active 317472506 ALLERGIES No Information ENCOUNTERS Encounter Location Date Diagnosis [facility] [id number] [place] [address] [id number] Oct, Mixed hyperlipidemia E78.2 and Essential (primary) hypertension I10 [facility] [address] [place] [address] [id number] Oct, Essential (primary) hypertension I10 ; Mixed hyperlipidemia E78.2 ; Moderate single current episode of major depressive disorder F32.1 ; Slow transit constipation K59.01 ; Superficial laceration T14.8XXA and Encounter for immunization Z23 [facility] [address] [place] [address] 16035- 8506 Aug, Moderate single current episode of major depressive disorder F32.1 [facility] [id number] [place] [address] 86402- 5543 May, Moderate single current episode of major depressive disorder F32.1 [facility] [address] [place] [address] [id number] 14 Jan, 2018 Essential (primary) hypertension I10 ; Hyperlipidemia, unspecified E78.5 ; Moderate single current episode of major depressive disorder F32.1 and Slow transit constipation K59.01 [facility] [address] [place] [address] [id number] Dec, Moderate single current episode of major depressive disorder F32.1 [facility] [id number] [id number] Oct, Right lower quadrant abdominal pain R10.31 ; Urinary frequency R35.0 ; Diverticulitis of intestine without perforation or abscess without bleeding, unspecified part of intestinal tract K57.92 and Slow transit constipation K59.01 [address] [place] [address] [id number] Aug, Essential (primary) hypertension I10 and Moderate single current episode of major depressive disorder F32.1 [place] [id number] [place] [address] [id number] Jul, Essential (primary) hypertension I10 and Moderate single current episode of major depressive disorder F32.1 [address] [place] [address] [id number] Jul, [place] [id number] [place] [address] [id number] Jul, Poison jose eduardo dermatitis L23.7 [place] [id number] [place] [address] [id number] March, Anhedonia R45.84 [place] [id number] [place] [address] [id number] Mar, [address] [place] [address] [id number] Dec, Essential (primary) hypertension I10 [address] [place] [address] [id number] Dec, Mixed hyperlipidemia E78.2 [facility] [place] [id number] [place] [address] [id number] Oct, Mixed hyperlipidemia E78.2 and Elevated fasting glucose R73.01 [place] [id number] [place] [address] [id number] Oct, Hyperlipidemia, unspecified E78.5 ; Essential (primary) hypertension I10 and Thyroid disorder screening Z13.29 [place] [id number] [place] [address] [id number] Oct, Slow transit constipation K59.01 ; Essential (primary) hypertension I10 ; Hyperlipidemia, unspecified E78.5 ; Gastroesophageal reflux disease, esophagitis presence not specified K21.9 and Anhedonia R45.84 [facility] [id number] [place] [address] [id number] Oct, [facility] [id number] [place] [address] [id number] Aug, Slow transit constipation K59.01 [facility] [id number] [place] [address] [id number] Jul, Diverticulitis of intestine without perforation or abscess without bleeding, unspecified part of intestinal tract K57.92 [facility] [id number] [place] [address] [id number] Jul, Essential (primary) hypertension I10 [facility] [id number] [place] [address] [id number] May, [facility] [id number] [place] [address] [id number] May, [facility] [id number] [place] [address] [id number] May, Essential (primary) hypertension I10 and Hyperlipidemia, unspecified E78.5 [facility] [id number] [place] [address] [id number] May, [facility] [id number] [place] [address] [id number] May, [facility] [id number] [place] [address] [id number] May, Dental examination Z01.20 and Dental caries K02.9 [facility] [id number] [place] [address] [id number] March, Unspecified essential hypertension 401.9 [facility] [id number] [place] [address] [id number] Jan, [facility] [id number] [place] [address] [id number] Dec, [facility] [id number] [place] [address] [id number] Dec, [facility] [place] [id number][place] [id number] Dec, [facility] [place] [id number] [place] [address] [id number] Dec, Other and unspecified hyperlipidemia E78.5 [facility] [place] [id number], [place] [id number] Oct, [facility] [address] [id number] [id number] Oct, [facility] [address] [id number][place] [id number] Oct, [facility] [place] [id number] [place] [address] [id number] Aug, Unspecified essential hypertension 401.9 and Hyperlipidemia 272.4 [facility] [place] [id number] [place] [address] [id number] Aug, Urinary tract infection 599.0 [facility] [place] [id number] [place] [address] [id number] Aug, Dysuria 788.1 ; Unspecified essential hypertension 401.9 ; Urinary tract infection 599.0 and Routine lab draw V72.62 [facility] [place] [id number] [place] [address] [id number] May, [facility] [place] [id number] [place] [address] [id number] May, Sinusitis 473.9 [facility] [place] [id number], [place] [id number] May, [facility] [place] [id number], [place] [id number] May, [facility] [address]00565[place] [address] May, [facility] [place] [id number] [place] [address] [id number] March, Spider bite 989.5 [facility] [place] [address] [place] [address] [id number] March, Spider bite 989.5 and Skin necrosis 709.8 [facility] [place] [id number], [place] [id number] March, [facility] [place] [id number] [place] [address] [id number] March, Insect bite 919.4 [facility] [place] [id number], [place] [id number] Mar, [facility] [place] [id number] [place] [address] [id number] Mar, [facility] [id number] [place] [address] 66172- 5981 Mar, [facility] [id number] [place] [address] 60743- 9252 Mar, [facility] [id number] [place] [address] 68374- 4464 Jan, [facility] [place] [id number] [place] [address] [id number] Jan, [facility] [address] [place] [address] 29083- 8321 Jan, [facility] [place] [id number] [place] [address] [id number] Dec, [facility] [address]00565[address], [place] [address]- 9098 Dec, [facility] [place] [id number], [place] [id number] Dec, [facility] [address]00565100[place], [place] [address]- 8245 Dec, [facility] [place] [id number], [place] [id number] Oct, [facility] [id number] [place] [address] 96713- 2586 Oct, [facility] [place] [id number], [place] [id number] Aug, [facility] [address] [id number], [place] [address]- 67[address] Aug, [facility] [place] [address] [id number] [place] [id number] Aug, [facility] [place] [facility] [address] [facility] [id number], [place] [address]- [address]87 Aug, [facility] [place] [facility] [address] [facility] [id number], [place] [address]- 5979 Aug, [facility] [address] [id number] [place] [id number] Aug, [facility] [place] [facility] [address] [facility] [id number] [place] [address]- 5084 Aug, [facility] [address] [id number] [place] [id number] Aug, [facility] [address] [facility] [id number] [place] [id number] Aug, [facility] [place] [facility] [address] [facility] [id number], [place] [address]- 2852 Aug, [facility] [address] [facility] [id number] [place] [id number] Aug, [facility] [place] [facility] [address] [facility] [id number], [place] [address]- 2925 Aug, [facility] [address] [id number], [place] [id number] Aug, [facility] [place] [facility] [address] [facility] [id number], [place] [address]- 7712 Aug, [facility] [address] [id number], [place] [id number] May, [facility] [place] [facility] [address] [facility] [id number], [place] [address]- 3294 May, [facility] [address] [facility] [id number] [place] [id number] March, [facility] [place] [facility] [address] [facility] [id number], [place] [address]- 2823 March, [facility] [address] [id number] [place] [id number] March, [facility] [address] [id number], [place] [address]- 4853 March, [facility] [address] [id number] [place] [id number] Jan, [facility] [address] [facility] [id number], [place] [address]- 3333 Jan, [facility] [address] [id number], [place] [id number] Jan, [facility] [address] [facility] [id number], [place] [address]- 3381 Jan, [facility] [address] [id number], [place] [id number] Oct, [facility] [place] [facility] [address]00565100[place], [place] [address]- 3745 Oct, [facility] [address] [id number], [place] [id number] Oct, [facility] [place] [facility] [address] [facility] [id number], [place] [address]- 0654 Oct, [facility] [address] [id number], [place] [id number] Oct, [facility] [place] [facility] [address]00565100[place], [place] [address]- 1519 Oct, [facility] [address] [id number], [place] [id number] Aug, [facility] [place] [facility] [address] [id number], [place] [address]- 4512 Aug, [facility] [place] [address] [id number] [place] [id number] Aug, [facility] [address] [id number] [place] [id number] Aug, [facility] [address] [id number], [place] [id number] Jul, [facility] [place] [facility] [address] [facility] [id number], [place] [address]- 2546 Jul, [facility] [address] [id number] [place] [id number] Jul, [facility] [address] [id number] [place] [id number] Jul, [facility] [address] [id number] [place] [id number] May, [facility] [address] [facility] [id number], [place] [address]- 2546 May, [facility] [address] [id number] [place] [id number] May, [facility] [address] [id number] [place] [id number] May, [facility] [address] [id number] [place] [id number] March, [facility] [address] [id number] [place] [id number] March, [facility] [address] [id number] [place] [id number] March, [facility] [address] [id number] [place] [id number] Jan, [facility] [address] [id number] [place] [id number] Jan, [facility] [address] [id number] [place] [id number] Jan, [facility] [address] [id number] [place] [id number] Jan, [facility] [address] [id number] [place] [id number] Jan, [facility] [address] [id number] [place] [id number] Jan, [facility] [address] [id number] [place] [id number] Dec, [facility] [address] [id number] [place] [id number] Dec, [facility] [address] [id number], [place] [id number] Dec, [facility] [address] [facility] [id number], [place] [address]- 2546 Jul, [facility] [place] [address] [id number] [place] [id number] Jul, [facility] [place] [address] [id number], [place] [id number] May, [facility] [place] [address] [id number], [place] [id number] Jan, [facility] [place] [address] [facility] [id number], [place] [id number] Dec, [facility] [address]00565[address], [place] [address]- 4[address] Oct, [facility] [address]00565100[place], [place] [address]- 1483 Oct, [facility] [address]00565100[place], [place] [address]- 1607 Oct, [facility] [address]00565100[place], [place] [address]- 2792 Oct, [facility] [address]00565[address], [place] [address]- 3114 Aug, [facility] [address]00565100[place], [place] [address]- 6029 May, [facility] [address]00565100[place], [place] [address]- 0529 May, [facility] [address] [id number], [place] [address]- 2505 May, [facility] [address]00565[address], [place] [address]- 5460 Mar, [facility] [address] [id number], [place] [address]- 5326 Oct, IMMUNIZATIONS No Known Immunizations SOCIAL HISTORY Never Assessed REASON FOR VISIT [facility] OLEARY PLAN OF CARE Activity Details Pending Test LIPID PANEL Pending Test CMP Pending Test CBC Pending Test THYROID ANALYZER VITAL SIGNS MEDICATIONS Unknown Medications RESULTS No Results PROCEDURES Procedure Date Ordered Result Body Site LIPID PANEL Oct 08, 2018 COMPREHEN METABOLIC PANEL Oct 08, 2018 ASSAY THYROID STIM HORMONE Oct 08, 2018 COMPLETE CBC W/AUTO DIFF WBC Oct 08, 2018 VENIPUNCT, ROUTINE* Oct 08, 2018 INSTRUCTIONS MEDICATIONS ADMINISTERED No Known Medications [...]
--- OUTSIDE RECORDS SUMMARY | 2018-12-30 09:15 | XMS REPORT ---
Author Author ROSEY LARRY Organization [facility] Address [address] [place] [address] Care Team Providers Care Airline Reservationist Name Role Phone ROSEY LARRY Unavailable PROBLEMS ALLERGIES No Information ENCOUNTERS IMMUNIZATIONS No Known Immunizations SOCIAL HISTORY No smoking Hx information available REASON FOR VISIT PLAN OF CARE VITAL SIGNS MEDICATIONS RESULTS No Results PROCEDURES No Known procedures INSTRUCTIONS MEDICATIONS ADMINISTERED No Known Medications MEDICAL (GENERAL) HISTORY
--- OUTSIDE RECORDS SUMMARY | 2018-12-30 09:16 | XMS REPORT ---
Author Author ALANNA POOL [facility] [employer] Address Unknown Phone Unavailable Care Team Providers Care Director Sales Name Role Phone ALANNA POOL CP Unavailable Allergies No Known Allergies Problems Problem Type Condition Code Onset Dates Condition Status Problem Decreased libido 799.81 Active Problem Unspecified essential hypertension 401.9 Active Problem Diverticulosis of colon (without mention of hemorrhage) 562.10 Active Problem Hyperlipidemia 272.4 Active Problem Herpes simplex without mention of complication 054.9 Active Problem Other and unspecified hyperlipidemia E78.5 Active Problem Contact dermatitis and other eczema due to plants (except food) 692.6 Active Problem Abdominal tenderness, right upper quadrant 789.61 Active Problem ZOSTAVAX DX V05.8 Active Problem Unspecified local infection of skin and subcutaneous tissue 686.9 Active Problem Localized superficial swelling, mass, or lump 782.2 Active Problem Diverticulosis of small intestine (without mention of hemorrhage) 562.00 Active Problem Unspecified constipation 564.00 Active Medications Medication Code System Code Instructions Start Date End Date Status Dosage Crestor [facility] [id number] 10 MG Orally Once a day 1 tablet Results No Known Results Summary Purpose eClinicalWorks Submission
--- OUTSIDE RECORDS SUMMARY | 2018-12-30 09:16 | XMS REPORT ---
Author Author ROSEY LARRY Organization [facility] Address [address] [place] [address] Care Team Providers Care Spray Stainer Name Role Phone ROSEY LARYR Unavailable PROBLEMS Type Condition ICD9-CM Code ZTQ39-QO Code Onset Dates Condition Status SNOMED Code Problem Essential (primary) hypertension I10 Active 03418701 Problem Slow transit constipation K59.01 Active 35212793 Problem Diverticulitis of intestine without perforation or abscess without bleeding, unspecified part of intestinal tract K57.92 Active 939628620 Problem Gastroesophageal reflux disease, esophagitis presence not specified K21.9 Active 345043688 Problem Hyperlipidemia, unspecified E78.5 Active 16296529 Problem Moderate single current episode of major depressive disorder F32.1 Active 47648905 Problem Mixed hyperlipidemia E78.2 Active 301081300 ALLERGIES Substance Reaction Event Type Date Status Sulfamethoxazole nausea Drug Allergy Jan, Active ENCOUNTERS Encounter Location Date Diagnosis [facility] [address] [facility] [id number] [id number] May, Moderate single current episode of major depressive disorder F32.[address] [id number] [id number] Jan, Essential (primary) hypertension I10 ; Hyperlipidemia, unspecified E78.5 ; Moderate single current episode of major depressive disorder F32.1 and Slow transit constipation K59.01 [facility] [address] [facility] [id number][place] [id number] Dec, Moderate single current episode of major depressive disorder F32.1 [facility] [address] [id number] [id number] Oct, Right lower quadrant abdominal pain R10.31 ; Urinary frequency R35.0 ; Diverticulitis of intestine without perforation or abscess without bleeding, unspecified part of intestinal tract K57.92 and Slow transit constipation K59.01 [place] [id number] [place] [address] [id number] Aug, Essential (primary) hypertension I10 and Moderate single current episode of major depressive disorder [facility]32.[facility] [address] [id number] Jul, Essential (primary) hypertension I10 and Moderate single current episode of major depressive disorder F32.[address] [id number] Jul, [address] [id number] Jul, Poison jose eduardo dermatitis L23.[address] [id number] March, Anhedonia R45.[address] [id number] Mar, [address] [id number] Dec, Essential (primary) hypertension I10 [place] [id number] [place] [address] [id number] Dec, Mixed hyperlipidemia E78.[address] [id number] Oct, Mixed hyperlipidemia E78.2 and Elevated fasting glucose R73.[address] [id number] Oct, Hyperlipidemia, unspecified E78.5 ; Essential (primary) hypertension I10 and Thyroid disorder screening Z13.[address] [id number] Oct, Slow transit constipation K59.01 ; Essential (primary) hypertension I10 ; Hyperlipidemia, unspecified E78.5 ; Gastroesophageal reflux disease, esophagitis presence not specified K21.9 and Anhedonia R45.84 [place] [id number] [place] [address] [id number] Oct, [place] [address] [place] [id number] Aug, Slow transit constipation K59.01 [facility] [place] [id number] [place] [address] [id number] Jul, Diverticulitis of intestine without perforation or abscess without bleeding, unspecified part of intestinal tract K57.92 [facility] [place] [id number] [place] [address] [id number] Jul, Essential (primary) hypertension I10 [facility] [place] [id number] [place] [address] [id number] May, [facility] [place] [id number] [place] [address] [id number] May, [facility] [place] [id number] [place] [address] [id number] May, Essential (primary) hypertension I10 and Hyperlipidemia, unspecified E78.5 [facility] [id number] [place] [address] [id number] May, [facility] [id number] [place] [address] [id number] May, [facility] [id number] [place] [address] [id number] May, Dental examination Z01.20 and Dental caries K02.9 [facility] [id number] [place] [address] [id number] March, Unspecified essential hypertension 401.9 [facility] [place] [id number] [place] [address] [id number] Jan, [facility] [place] [id number] [place] [address] [id number] Dec, [facility] [place] [id number] [place] [address] [id number] Dec, [facility] [place] [address] [id number] Dec, [facility] [place] [id number] [place] [address] [id number] Dec, Other and unspecified hyperlipidemia E78.5 [facility] [place] [id number] [place] [address] [id number] Oct, [facility] [address] [id number][place] [id number] Oct, [facility] [address] [id number][place] [id number] Oct, [facility] [place] [id number], [place] [id number] Aug, Unspecified essential hypertension 401.9 and Hyperlipidemia 272.4 [facility] [place] [id number], [place] [id number] Aug, Urinary tract infection 599.0 [facility] [place] [id number] [place] [address] [id number] Aug, Dysuria 788.1 ; Unspecified essential hypertension 401.9 ; Urinary tract infection 599.0 and Routine lab draw V72.62 [facility] [place] [id number], [place] [id number] May, [facility] [place] [id number] [place] [address] [id number] May, Sinusitis 473.9 [facility] [place] [id number] [place] [address] [id number] May, [facility] [place] [id number] [place] [address] [id number] May, [facility] [address]00565100[place] [address] May, [facility] [place] [id number] [place] [address] [id number] March, Spider bite 989.5 [facility] [place] [id number] [place] [address] [id number] March, Spider bite 989.5 and Skin necrosis 709.8 [facility] [place] [id number] [place] [address] [id number] March, [facility] [place] [id number], [place] [id number] March, Insect bite 919.4 [facility] [id number] [place] [address] [id number] Mar, [facility] [place] [address] [id number], [place] [id number] Mar, [facility] [place] [facility] [address] [facility] [id number] [place] [address] Mar, [facility] [place] [facility] [address] [facility] [id number] [place] [address] Mar, [facility] [place] [facility] [address] [facility] [id number] [place] [address] Jan, [facility] [place] [address] [id number], [place] [id number] Jan, [facility] [place] [facility] [address] [facility] [id number] [place] [address] Jan, [facility] [place] [address] [facility] [id number], [place] [id number] Dec, [facility] [place] [facility] [address] [facility] [id number], [place] [address] Dec, [facility] [place] [address] [facility] [id number], [place] [id number] Dec, [facility] [place] [facility] [address] [facility] [id number], [place] [address] Dec, [facility] [place] [address] [facility] [id number], [place] [id number] Oct, [facility] [place] [facility] [address] [id number], [place] [address] Oct, [facility] [place] [address] [facility] [id number], [place] [id number] Aug, [facility] [place] [facility] [address] [id number], [place] [address] Aug, [facility] [place] [address] [facility] [id number], [place] [id number] Aug, [facility] [place] [facility] [address] [facility] [id number], [place] [address] Aug, [facility] [place] [facility] [address] [facility] [id number], [place] [address] Aug, [facility] [place] [address] [facility] [id number] [place] [id number] Aug, [facility] [place] [facility] [address] [facility] [id number], [place] [address] Aug, [facility] [place] [address] [id number] [place] [id number] Aug, [facility] [place] [address] [id number] [place] [id number] Aug, [facility] [place] [facility] [address] [facility] [id number] [place] [address] Aug, [facility] [place] [address] [facility] [id number] [place] [id number] Aug, [facility] [place] [facility] [address] [place] [address] Aug, [facility] [place] [address] [facility] [id number] [place] [id number] Aug, [facility] [place] [facility] [address] [facility] [id number], [place] [address] Aug, [facility] [place] [address] [facility] [id number] [place] [id number] May, [facility] [place] [facility] [address] [facility] [id number], [place] [address] May, [facility] [place] [address] [facility] [id number], [place] [id number] March, [facility] [place] [facility] [address] [facility] [id number], [place] [address] March, [facility] [place] [address] [facility] [id number] [place] [id number] March, [facility] [place] [facility] [address] [facility] [id number], [place] [address] March, [facility] [place] [address] [facility] [id number] [place] [id number] Jan, [facility] [place] [facility] [address] [facility] [id number], [place] [address] Jan, [facility] [place] [address] [facility] [id number] [place] [id number] Jan, [facility] [place] [facility] [address] [facility] [id number], [place] [address] Jan, [facility] [place] [address] [facility] [id number] [place] [id number] Oct, [facility] [place] [facility] [address] [facility] [id number], [place] [address] 9[address] Oct, [facility] [place] [address] [facility] [id number] [place] [id number] Oct, [facility] [place] [facility] [address] [facility] [id number], [place] [address] Oct, [facility] [place] [id number] [place] [id number] Oct, [facility] [place] [facility] [address]00565100[place], [place] [address] Oct, [facility] [place] [address] [id number] [place] [id number] Aug, [facility] [place] [facility] [address]00565100[place], [place] [address] Aug, [facility] [place] [address] [id number], [place] [id number] Aug, [facility] [place] [address] [id number] [place] [id number] Aug, [facility] [place] [address] [facility] [id number] [place] [id number] Jul, [facility] [place] [facility] [address] [facility] [id number], [place] [address] Jul, [facility] [place] [address] [facility] [id number] [place] [id number] Jul, [facility] [place] [address] [id number] [place] [id number] Jul, [facility] [place] [address] [id number] [place] [id number] May, [facility] [address] [facility] [id number] [place] [address]- [address] May, [facility] [place] [address] [id number] [place] [id number] May, [facility] [place] [address] [id number] [place] [id number] May, [facility] [place] [address] [id number] [place] [id number] March, [facility] [place] [address] [id number] [place] [id number] March, [facility] [place] [address] [id number] [place] [id number] March, [facility] [place] [address] [id number] [place] [id number] Jan, [facility] [place] [address] [id number] [place] [id number] Jan, [facility] [place] [address] [id number] [place] [id number] Jan, [facility] [place] [address] [id number] [place] [id number] Jan, [facility] [place] [address] [id number] [place] [id number] Jan, [facility] [place] [address] [id number] [place] [id number] Jan, [facility] [place] [address] [id number] [place] 648251001 Dec, [facility] [place] [address] [id number] [place] [id number] Dec, [facility] [place] [address] [id number] [place] [id number] Dec, [facility] [address] [facility] [id number], [place] [address] Jul, [facility] [place] [address] [id number] [place] [id number] Jul, [facility] [place] [address] [id number] [place] 817932[address] May, [facility] [address] [id number], [place] [address] Jan, [facility] [address] [id number], [place] [id number] Dec, [facility] [address]00565100[place], [place] [address] Oct, [facility] [address]00565100[place], [place] [address] Oct, [facility] [address]00565100[place], [place] [address] Oct, [facility] [id number] [place] [address] Oct, [facility] [address] [id number], [place] [address] Aug, [facility] [address] [id number], [place] [address] May, [facility] [address]00565100[place], [place] [address] May, [facility] [address]00565100[place], [place] [address] May, [facility] [address]65100[place], [place] [address] Mar, [facility] [address]00565100[place], [place] [address] Oct, IMMUNIZATIONS No Known Immunizations SOCIAL HISTORY Never Assessed REASON FOR VISIT anxiety follow up, has been to heart Dr annie Albert RN PLAN OF CARE Activity Details Follow Up 6 Months Reason:CHM Depression/anxiety VITAL SIGNS Height 69 in 2018-01-14 Weight 191.6 lbs 2018-01-14 Temperature 97.7 degrees Fahrenheit 2018-01-14 Heart Rate 60 bpm 2018-01-14 Respiratory Rate 18 2018-01-14 BMI 28.29 kg/m2 2018-01-14 Blood pressure systolic 100 mmHg 2018-01-14 Blood pressure diastolic 58 mmHg 2018-01-14 MEDICATIONS Medication Instructions Dosage Frequency Start Date End Date Duration Status Lisinopril 5 MG Orally Once a day 1 tablet 24h Active Crestor 10 MG Orally Once a day 1 tablet 24h Active Metoprolol Tartrate 25 MG Orally Once a day 1 tablet with food 24h 0 Active Fish Oil 1000 MG Orally Once a day 1 capsule 24h 0 Active B Complex - Orally Once a day 1 tablet 24h Active Ocuvite Adult 50+ - Orally Once a day 1 capsule 24h Active Lexapro 10 mg Orally Once a day 1 tablet 24h 0 days Active RESULTS No Results PROCEDURES Procedure Date Ordered Result Body Site ROUTINE VENIPUNCTURE 2018-01-14 N/A COMPLETE CBC W/AUTO DIFF WBC Jan 14, 2018 MICROALBUMIN, SEMIQUANT Jan 14, 2018 COMPREHEN METABOLIC PANEL Jan 14, 2018 INSTRUCTIONS MEDICATIONS ADMINISTERED No Known Medications [...] diverticulosis with no diverticulitis, cont to monitor. Surgical History hysterectomy, total with unilateral salpingo-oophorectomy ( USO) due to cervical cancer 1985 Surgical History heart cath- 40% non-obstructive stenosis of the mid-LAD, normal EF 03/2013 Surgical History hiatal hernia repair 2006 Hospitalization History surgeries
--- OUTSIDE RECORDS SUMMARY | 2018-12-30 09:16 | XMS REPORT ---
Author Author ROSEY LARRY Organization [facility] Address [address] [place] [address] Care Team Providers Care Glass Wool Blanket Machine Feeder Name Role Phone ROSEY LARRY Unavailable PROBLEMS Type Condition ICD9-CM Code FDX48-BX Code Onset Dates Condition Status SNOMED Code Problem Essential (primary) hypertension I10 Active 07610694 Problem Slow transit constipation K59.01 Active 34681270 Problem Diverticulitis of intestine without perforation or abscess without bleeding, unspecified part of intestinal tract K57.92 Active 691591138 Problem Gastroesophageal reflux disease, esophagitis presence not specified K21.9 Active 742985306 Problem Hyperlipidemia, unspecified E78.5 Active 54204021 Problem Moderate single current episode of major depressive disorder F32.1 Active 90706697 Problem Mixed hyperlipidemia E78.2 Active 084672304 ALLERGIES No Information ENCOUNTERS Encounter Location Date Diagnosis [facility] [address] [facility] [id number] [address] May, Moderate single current episode of major depressive disorder F32.1 [facility] [address] [facility] [id number][place] [id number] 14 Jan, 2018 Essential (primary) hypertension I10 ; Hyperlipidemia, unspecified E78.5 ; Moderate single current episode of major depressive disorder F32.1 and Slow transit constipation K59.01 [facility] [address] [facility] [id number][place] [id number] Dec, Moderate single current episode of major depressive disorder F32.[address] [id number] [id number] 09 Oct, 2017 Right lower quadrant abdominal pain R10.31 ; Urinary frequency R35.0 ; Diverticulitis of intestine without perforation or abscess without bleeding, unspecified part of intestinal tract K57.92 and Slow transit constipation K59.01 [place] [address] [place] [id number] [place] [address] [id number] Aug, Essential (primary) hypertension I10 and Moderate single current episode of major depressive disorder F32.1 [place] [id number] [place] [address] [id number] Jul, Essential (primary) hypertension I10 and Moderate single current episode of major depressive disorder F32.[address] [id number] Jul, [address] [id number] Jul, Poison jose eduardo dermatitis L23.[address] [id number] March, Anhedonia R45.[address] [id number] Mar, [address] [id number] Dec, Essential (primary) hypertension I10 [place] [id number] [place] [address] [id number] Dec, Mixed hyperlipidemia E78.[address] [id number] Oct, Mixed hyperlipidemia E78.2 and Elevated fasting glucose R73.01 [place] [id number] [place] [address] [id number] Oct, Hyperlipidemia, unspecified E78.5 ; Essential (primary) hypertension I10 and Thyroid disorder screening Z13.29 [place] [id number] [place] [address] [id number] Oct, Slow transit constipation K59.01 ; Essential (primary) hypertension I10 ; Hyperlipidemia, unspecified E78.5 ; Gastroesophageal reflux disease, esophagitis presence not specified K21.9 and Anhedonia R45.84 [place] [id number] [place] [address] [id number] Oct, [address] [id number] Aug, Slow transit constipation K59.01 [facility] [place] [id number], [place] [id number] Jul, Diverticulitis of intestine without perforation or abscess without bleeding, unspecified part of intestinal tract K57.92 [facility] [place] [address] [id number], [place] [id number] Jul, Essential (primary) hypertension I10 [facility] [place] [id number] [place] [address] [id number] May, [facility] [place] [id number] [place] [address] [id number] May, [facility] [place] [id number] [place] [address] [id number] May, Essential (primary) hypertension I10 and Hyperlipidemia, unspecified E78.5 [facility] [place] [id number] [place] [address] [id number] May, [facility] [place] [id number] [place] [address] [id number] May, [facility] [address] [place] [address] [id number] May, Dental examination Z01.20 and Dental caries K02.9 [facility] [place] [id number] [place] [address] [id number] March, Unspecified essential hypertension 401.9 [facility] [place] [id number] [place] [address] [id number] Jan, [facility] [place] [id number] [place] [address] [id number] Dec, [facility] [place] [id number] [place] [address] [id number] Dec, [facility] [place] [id number] [place] [address] [id number] Dec, [facility] [place] [id number] [place] [address] [id number] Dec, Other and unspecified hyperlipidemia E78.5 [facility] [place] [id number] [place] [address] [id number] Oct, [facility] [place] [address] [facility] [address] [id number], [place] [id number] Oct, [facility] [place] [address] [facility] [address] [id number][place] [id number] Oct, [facility] [place] [address] [place] [address] [id number], [place] [id number] Aug, Unspecified essential hypertension 401.9 and Hyperlipidemia 272.4 [facility] [place] [id number], [place] [id number] Aug, Urinary tract infection 599.0 [facility] [place] [id number], [place] [id number] Aug, Dysuria 788.1 ; Unspecified essential hypertension 401.9 ; Urinary tract infection 599.0 and Routine lab draw V72.62 [facility] [place] [id number], [place] [id number] May, [facility] [place] [id number], [place] [id number] May, Sinusitis 473.9 [facility] [place] [id number], [place] [id number] May, [facility] [place] [id number], [place] [id number] May, [facility] [address]00565100[place], [place] [address] May, [facility] [place] [address] [address] [id number][place] [id number] March, Spider bite 989.5 [facility] [place] [id number] [place] [address] [id number] March, Spider bite 989.5 and Skin necrosis 709.8 [facility] [place] [id number], [place] [id number] March, [facility] [place] [id number], [place] [id number] March, Insect bite 919.4 [facility] [place] [id number], [place] [id number] Mar, [facility] [place] [id number] [id number] Mar, [facility] [address] [facility] [id number], [place] [address] Mar, [facility] [place] [facility] [address] [facility] [id number], [place] [address] Mar, [facility] [address] [facility] [id number], [place] [address] Jan, [facility] [place] [address] [facility] [id number], [place] [id number] Jan, [facility] [address] [facility] [id number], [place] [address] Jan, [facility] [place] [address] [facility] [id number], [place] [id number] Dec, [facility] [place] [facility] [address]00565100[place], [place] [address] Dec, [facility] [place] [address] [id number], [place] [id number] Dec, [facility] [place] [facility] [address] [id number], [place] [address] Dec, [facility] [place] [address] [id number], [place] [id number] Oct, [facility] [place] [facility] [address] [id number], [place] [address] Oct, [facility] [place] [address] [facility] [id number], [place] [id number] Aug, [facility] [place] [facility] [address] [facility] [id number], [place] [address] Aug, [facility] [place] [address] [facility] [id number], [place] [id number] Aug, [facility] [place] [facility] [address] [facility] [id number], [place] [address] Aug, [facility] [place] [facility] [address] [id number], [place] [address] Aug, [facility] [place] [address] [id number] [place] [id number] Aug, [facility] [place] [facility] [address] [facility] [id number] [place] [address] Aug, [facility] [place] [address] [id number] [place] [id number] Aug, [facility] [place] [address] [id number] [place] [id number] Aug, [facility] [place] [facility] [address] [facility] [id number], [place] [address] Aug, [facility] [place] [address] [id number] [place] [id number] Aug, [facility] [place] [facility] [address] [facility] [id number], [place] [address] Aug, [facility] [place] [address] [facility] [id number], [place] [id number] Aug, [facility] [place] [facility] [address] [facility] [id number], [place] [address] Aug, [facility] [place] [address] [facility] [id number] [place] [id number] May, [facility] [place] [facility] [address] [facility] [id number], [place] [address] May, [facility] [place] [address] [facility] [id number], [place] [id number] March, [facility] [place] [facility] [address] [facility] [id number], [place] [address] March, [facility] [place] [address] [facility] [id number], [place] [id number] March, [facility] [place] [facility] [address] [facility] [id number], [place] [address] March, [facility] [place] [address] [facility] [id number], [place] [id number] Jan, [facility] [place] [facility] [address] [facility] [id number], [place] [address] Jan, [facility] [place] [address] [id number] [place] [id number] Jan, [facility] [address] [facility] [id number], [place] [address] Jan, [facility] [place] [address] [id number] [place] [id number] Oct, [facility] [address] [facility] [id number], [place] [address] Oct, [facility] [place] [address] [id number] [place] [id number] Oct, [facility] [address] [facility] [id number], [place] [address] Oct, [facility] [place] [address] [id number], [place] [id number] Oct, [facility] [address]00565100[place], [place] [address] Oct, [facility] [place] [address] [id number], [place] [id number] Aug, [facility] [address]00565100[place], [place] [address] Aug, [facility] [place] [address] [id number], [place] [id number] Aug, [facility] [place] [address] [id number], [place] [address]154595[address] Aug, [facility] [place] [address] [id number], [place] [id number] Jul, [facility] [address] [facility] [id number], [place] [address] Jul, [facility] [place] [address] [id number], [place] [address]79 Jul, [facility] [place] [address] [id number], [place] [phone] Jul, [facility] [place] [address] [id number], [place] [id number] May, [facility] [place] [facility] [address] [id number] [place] [address] May, [facility] [place] [address] [id number] [place] [address] May, [facility] [place] [address] [id number] [place] [id number] May, [facility] [place] [address] [id number] [place] [id number] March, [facility] [place] [address] [id number] [place] [id number] March, [facility] [place] [address] [id number] [place] 78[address] March, [facility] [place] [address] [id number] [place] [address] Jan, [facility] [place] [address] [id number] [place] [address] Jan, [facility] [place] [address] [id number] [place] [address]978787[address] Jan, [facility] [place] [address] [id number] [place] 483[address] Jan, [facility] [place] [address] [id number] [place] [id number] Jan, [facility] [place] [address] [id number] [place] [id number] Jan, [facility] [place] [address] [id number] [place] 23657[address] Dec, [facility] [place] [address] [id number] [place] [id number] Dec, [facility] [place] [address] [id number] [place] [id number] Dec, [facility] [address] [facility] [id number], [place] [address] Jul, [facility] [place] [address] [id number] [place] [id number] Jul, [facility] [place] [address] [id number] [place] [id number] May, [facility] [place] [address] [id number], [place] [address] Jan, [facility] [address] [place] [address] [id number], [place] [address] Dec, [facility] [address]00565100[place], [place] [address] Oct, [facility] [address]00565100[place], [place] [address] Oct, [facility] [address]00565100[place], [place] [address] Oct, [facility] [address] [place] [address] Oct, [facility] [address] [id number] [place] [address] Aug, [facility] [address] [place] [address] May, [facility] [address]00565100[place], [place] 386[address]783- [address] May, [facility] [address]00565100[place], [place] [address] May, [facility] [address]00565100[place], [place] [address] Mar, [facility] [address]00565100[place], [place] [address] Oct, IMMUNIZATIONS No Known Immunizations SOCIAL HISTORY Never Assessed REASON FOR VISIT Refill request PLAN OF CARE VITAL SIGNS MEDICATIONS Medication [...]
--- OUTSIDE RECORDS SUMMARY | 2018-12-30 09:16 | XMS REPORT ---
Author Author ISSA CHIN Organization [employer] Address Unknown Phone Unavailable Care Team Providers Care Bundling Machine Operator Name Role Phone ISSA CHIN CP Unavailable Allergies, Adverse Reactions, Alerts Substance Reaction Event Type Sulfamethoxazole Info Not Available Drug Allergy Problems Problem Type Condition Code Onset Dates Condition Status Problem Unspecified essential hypertension 401.9 Active Problem Diverticulosis of colon (without mention of hemorrhage) 562.10 Active Problem Herpes simplex without mention of complication 054.9 Active Assessment Dental caries K02.9 Active Problem Decreased libido 799.81 Active Assessment Dental examination Z01.20 Active Medications Medication Code System Code Instructions Start Date End Date Status Dosage Crestor [facility] [address]-08 10 MG Orally Once a day 1 tablet Metoprolol Tartrate [facility] [address]-42 25 MG Orally Once a day. NEED APPT FOR FURTHER REFILLS Aug 31, 2014 1 tablet Cymbalta [facility] [address]-36 60 MG Orally Once a day Jan 11, 2015 1 capsule [place] [facility] [address]-70 5-325 MG Orally every 6 hrs 1 tablet as needed Prilosec [facility] [address]-60 20 MG Orally Once a day Aug 10, 2014 1 capsule Linzess [facility] [address]-54 145 MCG Orally Once a day Dec 26, 2014 1 Capsule Procedures Procedure Coding System Code Date INTRAORL-PERIAPICAL 1 FILM 52044 CPT-4 D0220 May 09, 2016 BITEWING - SINGLE FILM CPT-4 D0270 May 09, 2016 LTD ORAL EVALUATION - PROBLEM FOCUS CPT-4 D0140 May 09, 2016 EXTRAC ERUPTED TOOTH/EXPOSED ROOT CPT-4 D7140 May 09, 2016 EXTRAC ERUPTED TOOTH/EXPOSED ROOT CPT-4 D7140 May 09, 2016 Vital Signs Date/Time: May 09, 2016 Blood Pressure Diastolic 76 mmHg Blood Pressure Systolic 129 mmHg Results No Known Results Summary Purpose [employer] Submission
--- OUTSIDE RECORDS SUMMARY | 2018-12-30 09:16 | XMS REPORT ---
Author Author ROSEY LARRY Organization [facility] Address [address] [place] [address] Care Team Providers Care Neighborhood Conservation Officer Name Role Phone ROSEY LARRY Unavailable PROBLEMS Type Condition ICD9-CM Code OZB19-CF Code Onset Dates Condition Status SNOMED Code Problem Mixed hyperlipidemia E78.2 Active 022268796 Problem Gastroesophageal reflux disease, esophagitis presence not specified K21.9 Active 409732057 Problem Essential (primary) hypertension I10 Active 56659878 Problem Hyperlipidemia, unspecified E78.5 Active 72032898 ALLERGIES Unknown Allergies SOCIAL HISTORY No smoking Hx information available PLAN OF CARE VITAL SIGNS MEDICATIONS Medication Instructions Dosage Frequency Start Date End Date Duration Status Atorvastatin Calcium 40 mg Orally Once a day 1 tablet 24h Oct, Active RESULTS No Results PROCEDURES No Known procedures IMMUNIZATIONS No Known Immunizations
--- OUTSIDE RECORDS SUMMARY | 2018-12-30 09:17 | XMS REPORT ---
Author Author JONAS GALINDO Organization [facility] Address [address] [place] [address] Care Team Providers Care Pile Driving Superintendent Name Role Phone JONAS GALINDO Unavailable PROBLEMS Type Condition ICD9-CM Code CDQ98-LD Code Onset Dates Condition Status SNOMED Code Assessment Slow transit constipation K59.01 Aug, Active 14178580 Problem Essential (primary) hypertension I10 Active 96542816 Problem Hyperlipidemia, unspecified E78.5 Active 22594699 Problem Diverticulosis of colon (without mention of hemorrhage) 562.10 Active 168924749 Problem Decreased libido 799.81 Active 4469773 Problem Herpes simplex without mention of complication 054.9 Active 889758880 Problem Unspecified essential hypertension 401.9 Active 51594928 ALLERGIES Substance Reaction Event Type Date Status Sulfamethoxazole Unknown Drug Allergy Aug, Active SOCIAL HISTORY No smoking Hx information available PLAN OF CARE VITAL SIGNS Height 69 in 2016-08-09 Weight 186.1 lbs 2016-08-09 Heart Rate 72 bpm 2016-08-09 Respiratory Rate 16 2016-08-09 BMI 27.48 kg/m2 2016-08-09 Blood pressure systolic 124 mmHg 2016-08-09 Blood pressure diastolic 80 mmHg 2016-08-09 MEDICATIONS Medication Instructions Dosage Frequency Start Date End Date Duration Status Crestor 10 MG Orally Once a day 1 tablet 24h 30 Active Cymbalta 60 mg Orally Once a day 1 capsule 24h Jan, Active Metoprolol Tartrate 25 MG Orally Once a day 1 tablet 24h Aug, 30 days Active Linzess 145 MCG Orally Once a day 1 Capsule 24h Dec, Active Prilosec 20 MG Orally Once a day 1 capsule 24h Aug, Active RESULTS No Results PROCEDURES Procedure Date Ordered Related Diagnosis Body Site Office Visit, Est Pt., Level 3 Aug 09, 2016 IMMUNIZATIONS No Known Immunizations
--- OUTSIDE RECORDS SUMMARY | 2018-12-30 09:17 | XMS REPORT ---
Author Author ALANNA POOL [facility] [employer] Address Unknown Phone Unavailable Care Team Providers Care Pricing Clerk Name Role Phone ALANNA POOL CP Unavailable Allergies No Known Allergies Problems Problem Type Condition Code Onset Dates Condition Status Problem Unspecified constipation 564.00 Active Problem Diverticulosis of colon (without mention of hemorrhage) 562.10 Active Problem Decreased libido 799.81 Active Problem Localized superficial swelling, mass, or lump 782.2 Active Problem Diverticulosis of small intestine (without mention of hemorrhage) 562.00 Active Problem Herpes simplex without mention of complication 054.9 Active Problem ZOSTAVAX DX V05.8 Active Problem Hyperlipidemia 272.4 Active Problem Abdominal tenderness, right upper quadrant 789.61 Active Problem Unspecified essential hypertension 401.9 Active Problem Unspecified local infection of skin and subcutaneous tissue 686.9 Active Problem Contact dermatitis and other eczema due to plants (except food) 692.6 Active Medications Medication Code System Code Instructions Start Date End Date Status Dosage Hiren [facility] [address]-97 145 MCG Orally Once a day Dec 26, 2014 1 Capsule Results No Known Results Summary Purpose [employer] Submission
--- OUTSIDE RECORDS SUMMARY | 2018-12-30 09:17 | XMS REPORT ---
Author Author ROSEY LARRY Organization [facility] Address [address] [place] [address] Care Team Providers Care Fish Frog Or Oyster Farmer Name Role Phone ROSEY LARRY Unavailable PROBLEMS Type Condition ICD9-CM Code DZV51-IB Code Onset Dates Condition Status SNOMED Code Problem Moderate single current episode of major depressive disorder F32.1 Active 56865128 Problem Mixed hyperlipidemia E78.2 Active 976570848 Problem Hyperlipidemia, unspecified E78.5 Active 84142245 Problem Gastroesophageal reflux disease, esophagitis presence not specified K21.9 Active 468962996 Problem Essential (primary) hypertension I10 Active 05467723 ALLERGIES No Information SOCIAL HISTORY Never Assessed PLAN OF CARE VITAL SIGNS MEDICATIONS Medication Instructions Dosage Frequency Start Date End Date Duration Status Cymbalta 60 mg Orally Once a day, needs appt for further refills 1 capsule Jan, 0 days Active RESULTS No Results PROCEDURES No Known procedures IMMUNIZATIONS No Known Immunizations MEDICAL (GENERAL) HISTORY Type Description Date Medical History hypertension Medical History diverticulosis of sigmoid colon Medical History hyperlipidemia Medical History osteoarthritis Medical History splenic artery aneurysm Medical History cervical cancer, hysterectomy completed 1985 Medical History Herpes simplex without mention of complication Medical History Diverticulosis of colon (without mention of hemorrhage) Surgical History hysterectomy, total with unilateral salpingo-oophorectomy ( USO) due to cervical cancer 1985 Surgical History heart cath- 40% non-obstructive stenosis of the mid-LAD, normal EF 03/2013 Surgical History hiatal hernia repair 2006 Hospitalization History surgeries
--- OUTSIDE RECORDS SUMMARY | 2018-12-30 09:17 | XMS REPORT ---
Author Author ALANNA POOL [facility] [employer] Address Unknown Phone Unavailable Care Team Providers Care Reservation Agent Name Role Phone ALANNA POOL CP Unavailable [...] to plants (except food) 692.6 Active Medications No Known Medications Results No Known Results Summary Purpose [employer] Submission
--- OUTSIDE RECORDS SUMMARY | 2018-12-30 09:17 | XMS REPORT ---
Author Author ROSEY LARRY Organization [facility] Address [address] [place] [address] Care Team Providers Care Director Of Operations Home Health Name Role Phone ROSEY LARRY Unavailable PROBLEMS Type Condition ICD9-CM Code ITB25-TV Code Onset Dates Condition Status SNOMED Code Problem Moderate single current episode of major depressive disorder F32.1 Active 66156963 Problem Mixed hyperlipidemia E78.2 Active 947216893 Problem Hyperlipidemia, unspecified E78.5 Active 82080288 Problem Gastroesophageal reflux disease, esophagitis presence not specified K21.9 Active 127779392 Problem Essential (primary) hypertension I10 Active 52216526 ALLERGIES Unknown Allergies SOCIAL HISTORY No smoking Hx information available PLAN OF CARE VITAL SIGNS MEDICATIONS Medication Instructions Dosage Frequency Start Date End Date Duration Status Metoprolol Tartrate 25 MG Orally Once a day 1 tablet 24h 0 days Active RESULTS No Results PROCEDURES No Known procedures IMMUNIZATIONS No Known Immunizations
--- OUTSIDE RECORDS SUMMARY | 2018-12-30 09:17 | XMS REPORT ---
Author Author ROSEY LARRY Organization [facility] Address [address] [place] [address] Care Team Providers Care Land Commissioner Name Role Phone ROSEY LARRY Unavailable PROBLEMS Type Condition ICD9-CM Code XLP36-BZ Code Onset Dates Condition Status SNOMED Code Problem Mixed hyperlipidemia E78.2 Active 587376967 Problem Gastroesophageal reflux disease, esophagitis presence not specified K21.9 Active 153529405 Problem Essential (primary) hypertension I10 Active 45327234 Problem Hyperlipidemia, unspecified E78.5 Active 29458607 ALLERGIES Unknown Allergies SOCIAL HISTORY No smoking Hx information available PLAN OF CARE VITAL SIGNS MEDICATIONS Medication Instructions Dosage Frequency Start Date End Date Duration Status Atorvastatin Calcium 40 mg Orally Once a day 1 tablet 24h Oct, Active RESULTS No Results PROCEDURES No Known procedures IMMUNIZATIONS No Known Immunizations
--- OUTSIDE RECORDS SUMMARY | 2018-12-30 09:17 | XMS REPORT ---
Author Author ROSEY LARRY Organization [facility] Address [address] [place] [address] Care Team Providers Care Sap Pp Consultant Name Role Phone ROSEY LARRY Unavailable PROBLEMS Type Condition ICD9-CM Code SEE22-KZ Code Onset Dates Condition Status SNOMED Code Problem Essential (primary) hypertension I10 Active 35400930 Problem Slow transit constipation K59.01 Active 95152861 Problem Diverticulitis of intestine without perforation or abscess without bleeding, unspecified part of intestinal tract K57.92 Active 826110731 Problem Gastroesophageal reflux disease, esophagitis presence not specified K21.9 Active 475626092 Problem Hyperlipidemia, unspecified E78.5 Active 69668669 Problem Moderate single current episode of major depressive disorder F32.1 Active 96949865 Problem Mixed hyperlipidemia E78.2 Active 556627506 ALLERGIES Substance Reaction Event Type Date Status Sulfamethoxazole nausea Drug Allergy Oct, Active ENCOUNTERS Encounter Location Date Diagnosis [id number] [place] [address] [id number] Jan, Essential (primary) hypertension I10 ; Hyperlipidemia, unspecified E78.5 ; Moderate single current episode of major depressive disorder F32.1 and Slow transit constipation K59.[address] [id number] [place] [id number] Dec, Moderate single current episode of major depressive disorder F32.1 [facility] [address] [id number] [id number] Oct, Right lower quadrant abdominal pain R10.31 ; Urinary frequency R35.0 ; Diverticulitis of intestine without perforation or abscess without bleeding, unspecified part of intestinal tract K57.92 and Slow transit constipation K59.[address] [id number] [place] [id number] Aug, Essential (primary) hypertension I10 and Moderate single current episode of major depressive disorder F32.1 [facility] [place] [id number] [place] [address] [id number] Jul, Essential (primary) hypertension I10 and Moderate single current episode of major depressive disorder F32.1 [facility] [place] [id number] [place] [address] [id number] Jul, [facility] [place] [address] [id number] Jul, Poison jose eduardo dermatitis L23.7 [facility] [place] [address] [id number] March, Anhedonia R45.84 [facility] [address] [id number] Mar, [facility] [address] [id number] Dec, Essential (primary) hypertension I10 [facility] [address] [id number] Dec, Mixed hyperlipidemia E78.2 [facility] [address] [id number] Oct, Mixed hyperlipidemia E78.2 and Elevated fasting glucose R73.01 [facility] [address] [id number] Oct, Hyperlipidemia, unspecified E78.5 ; Essential (primary) hypertension I10 and Thyroid disorder screening Z13.29 [place] [address] [id number] Oct, Slow transit constipation K59.01 ; Essential (primary) hypertension I10 ; Hyperlipidemia, unspecified E78.5 ; Gastroesophageal reflux disease, esophagitis presence not specified K21.9 and Anhedonia R45.84 [facility] [address] [id number] Oct, [facility] [address] [id number] Aug, Slow transit constipation K59.01 [facility] [address] [id number] Jul, Diverticulitis of intestine without perforation or abscess without bleeding, unspecified part of intestinal tract K57.92 [facility] [place] [id number] [place] [id number] Jul, Essential (primary) hypertension I10 [facility] [place] [id number] [place] [address] [id number] May, [facility] [place] [id number] [place] [address] [id number] May, [facility] [place] [id number] [place] [address] [id number] May, Essential (primary) hypertension I10 and Hyperlipidemia, unspecified E78.5 [place] [id number] [place] [address] [id number] May, [facility] [id number] [place] [address] [id number] May, [facility] [place] [facility] [id number] [place] [address] [id number] May, Dental examination Z01.20 and Dental caries K02.9 [facility] [id number] [place] [address] [id number] March, Unspecified essential hypertension 401.9 [place] [id number] [place] [address] [id number] Jan, [facility] [id number] [place] [address] [id number] Dec, [facility] [place] [id number] [place] [address] [id number] Dec, [facility] [place] [id number] [place] [address] [id number] Dec, [facility] [id number] [place] [address] [id number] Dec, Other and unspecified hyperlipidemia E78.5 [facility] [place] [id number] [place] [address] [id number] Oct, [facility] [address] [id number] [phone] Oct, [facility] [address] [id number][place] [phone] Oct, [facility] [address]65100[place] [id number] Aug, Unspecified essential hypertension 401.9 and Hyperlipidemia 272.4 [facility] [id number] [place] [id number] Aug, Urinary tract infection 599.0 [facility] [place] [id number] [place] [address] [id number] Aug, Dysuria 788.1 ; Unspecified essential hypertension 401.9 ; Urinary tract infection 599.0 and Routine lab draw V72.62 [place] [id number] [place] [address] [id number] May, [place] [id number] [place] [address] [id number] May, Sinusitis 473.9 [place] [id number] [place] [address] [id number] May, [place] [id number] [place] [address] [id number] May, [facility] [id number] [place] [address] [phone] May, [place] [id number] [place] [address] [id number] March, Spider bite 989.5 [address] [place] [address] [id number] March, Spider bite 989.5 and Skin necrosis 709.8 [facility] [id number] [place] [address] [id number] March, [id number] [place] [address] [id number] March, Insect bite 919.[id number] [place] [address] [id number] Mar, [id number] [place] [address] [id number] Mar, [facility] [address] [place] [address] 14 Mar, 2015 [facility] [place] [facility] [address] [facility] [id number] [address] Mar, [facility] [place] [facility] [address] [facility] [id number][place] [address] Jan, [facility] [place] [address] [facility] [id number] [place] [phone] Jan, [facility] [place] [facility] [address] [facility] [id number], [place] [address] Jan, [facility] [place] [address] [facility] [id number] [place] [id number] Dec, [facility] [place] [facility] [address] [facility] [id number], [place] [address] Dec, [facility] [place] [id number] [place] [id number] Dec, [facility] [place] [facility] [address]00565100[place], [place] [address] Dec, [facility] [place] [address] [facility] [id number] [place] [id number] Oct, [facility] [place] [facility] [address]00565100[place], [place] [address] Oct, [facility] [place] [address] [id number] [place] [id number] Aug, [facility] [place] [facility] [address] [facility] [id number], [place] [address]46 Aug, [facility] [place] [address] [facility] [id number] [place] [phone] Aug, [facility] [place] [facility] [address] [facility] [id number], [place] [address] Aug, [facility] [place] [facility] [address] [facility] [id number][place] [address] Aug, [facility] [place] [address] [facility] [id number] [place] [id number] Aug, [facility] [place] [facility] [address] [id number], [place] [address] Aug, [facility] [place] [address] [id number] [place] [id number] Aug, [facility] [place] [address] [id number] [place] [phone] Aug, [facility] [place] [facility] [address] [facility] [id number][place] [address] Aug, [facility] [place] [address] [facility] [id number] [place] [id number] Aug, [facility] [place] [facility] [address] [facility] [id number], [place] [address] Aug, [facility] [place] [address] [facility] [id number] [place] [id number] Aug, [facility] [facility] [address]00565100[place] [address] Aug, [facility] [place] [address] [facility] [id number] [place] [phone] May, [facility] [place] [facility] [address] [facility] [id number][place] [address] May, [facility] [place] [address] [facility] [id number] [place] [id number] March, [facility] [place] [facility] [address] [facility] [id number], [place] [address] March, [facility] [place] [address] [facility] [id number] [place] [id number] March, [facility] [place] [facility] [address] [facility] [id number][place] [address] March, [facility] [place] [address] [facility] [id number] [place] [id number] Jan, [facility] [place] [facility] [address] [facility] [id number][place] [address] Jan, [facility] [place] [address] [facility] [id number] [place] [id number] Jan, [facility] [address] [id number], [place] [address] Jan, [facility] [place] [address] [id number] [place] [id number] Oct, [facility] [place] [facility] [address] [facility] [id number], [place] [address]- [address] Oct, [facility] [place] [address] [id number] [place] [id number] Oct, [facility] [place] [facility] [address] [facility] [id number], [place] [address] 6[address] Oct, [facility] [place] [address] [id number] [place] [id number] Oct, [facility] [place] [facility] [address] [facility] [id number][place] [address] Oct, [facility] [place] [address] [id number] [place] [id number] Aug, [facility] [address] [id number], [place] [address] Aug, [facility] [place] [address] [id number] [place] [id number] Aug, [facility] [place] [address] [id number] [place] [id number] Aug, [facility] [place] [address] [id number] [place] [id number] Jul, [facility] [address] [facility] [id number][place] [address] Jul, [facility] [place] [address] [id number] [place] [id number] Jul, [facility] [place] [address] [id number] [place] [id number] Jul, [facility] [place] [address] [id number] [place] [id number] May, [facility] [place] [facility] [address] [facility] [id number], [place] [address]378 May, [facility] [place] [address] [id number] [place] [phone] May, [facility] [place] [address] [id number] [place] [id number] May, [facility] [place] [address] [id number] [place] [id number] March, [facility] [place] [address] [id number] [place] [id number] March, [facility] [place] [address] [id number] [place] [id number] March, [facility] [place] [address] [id number] [place] [id number] Jan, [facility] [place] [address] [id number] [place] [id number] Jan, [facility] [place] [address] [id number] [place] [id number] Jan, [facility] [place] [address] [id number] [place] [id number] Jan, [facility] [place] [address] [id number] [place] [id number] Jan, [facility] [place] [address] [id number] [place] [id number] Jan, [facility] [place] [address] [id number] [place] [phone] Dec, [facility] [place] [address] [id number] [place] [id number] Dec, [facility] [place] [address] [id number] [place] [id number] Dec, [facility] [address] [facility] [id number], [place] 791238[address] Jul, [facility] [place] [address] [id number] [place] [id number] Jul, [facility] [place] [address] [id number] [place] [phone] May, [facility] [place] [address] [id number] [place] [id number] Jan, [facility] [place] [address] [id number] [place] [id number] Dec, [facility] [address]00565100[place], [place] [address] Oct, [facility] [address]00565100[place], [place] [address]- [address] Oct, [facility] [address]00565100[place], [place] [address]- 6[address] Oct, [facility] [address]00565100[place], [place] [address]- 4[address] Oct, [facility] [address]00565100[place], [place] [address]- 2424 Aug, [facility] [address]00565100[place], [place] [address]- [address] May, [facility] [address]00565100[place], [place] [address]- 27[address] May, [facility] [address]00565100[place], [place] [address]- 1561 May, [facility] [address]00565100[place], [place] [address]- [address] Mar, [facility] [address]00565100[place], [place] [address]- 6[address] Oct, IMMUNIZATIONS No Known Immunizations SOCIAL HISTORY Never Assessed REASON FOR VISIT Abdominal Pain-c/o right side abd pain x 1 week, c/o urine reginald Morelos 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 PLAN OF CARE Activity Details Follow Up 3 Weeks Reason:CHM ABD pain VITAL SIGNS Height 69 in 2017-11-08 Weight 189.2 lbs 2017-11-08 Temperature 97.4 degrees Fahrenheit 2017-11-08 Heart Rate 64 bpm 2017-11-08 Respiratory Rate 18 2017-11-08 BMI 27.94 kg/m2 2017-11-08 Blood pressure systolic 120 mmHg 2017-11-08 Blood pressure diastolic 78 mmHg 2017-11-08 MEDICATIONS Medication Instructions Dosage Frequency Start Date End Date Duration Status Fish Oil 1000 MG Orally Once a day 1 capsule 24h 0 Active B Complex - Orally Once a day 1 tablet 24h Active Ocuvite Adult 50+ - Orally Once a day 1 capsule 24h Active Metronidazole 500 mg Orally Twice a day 1 tablet 12h Oct, Oct, 10 day(s) Active Cipro 500 mg Orally Twice a day 1 tablet 12h Oct, Oct, 10 day(s) Active Metoprolol Tartrate 25 MG Orally Once a day 1 tablet with food 24h 0 Active Lexapro 10 mg Orally Once a day 1 tablet 24h 0 days Active Linzess 145 MCG Orally Once a day 1 capsule 24h Oct, Oct, 0 days Active RESULTS Name Result Date Reference Range UA LONG DIP (IN HOUSE) 2017-11-08 Lot # [id number] Exp date 12/18 Clarity Clear Color Yellow Odor No GLU NEG SHEBA NEG KET NEG SG 1.010 BLO NEG pH 5.5 Protein NEG URO 0.2 NIT NEG JOHANNE NEG Lot # Exp date PROCEDURES Procedure Date Ordered Result Body Site URINALYSIS, AUTO, W/O SCOPE Nov 08, 2017 INSTRUCTIONS MEDICATIONS ADMINISTERED No Known Medications MEDICAL [...]
--- OUTSIDE RECORDS SUMMARY | 2018-12-30 09:18 | XMS REPORT ---
Author Author JONAS GALINDO Organization [employer] Address Unknown Phone Unavailable Care Team Providers Care Rn Access Name Role Phone JONAS GALINDO CP Unavailable Allergies, Adverse Reactions, Alerts Substance Reaction Event Type Sulfamethoxazole Info Not Available Drug Allergy Problems Problem Type Condition Code Onset Dates Condition Status Problem Hyperlipidemia, unspecified E78.5 Active Problem Herpes simplex without mention of complication 054.9 Active Problem Essential (primary) hypertension I10 Active Problem Decreased libido 799.81 Active Assessment Diverticulitis of intestine without perforation or abscess without bleeding, unspecified part of intestinal tract K57.92 Active Problem Unspecified essential hypertension 401.9 Active Problem Diverticulosis of colon (without mention of hemorrhage) 562.10 Active Medications Medication Code System Code Instructions Start Date End Date Status Dosage Metronidazole [facility] [address]-64 500 MG Orally Twice a day Jul 19, 2016 Jul 29, [address] [facility] [address]-01 60 mg Orally Once a day Jan 11, [address] [facility] [address]-69 10 MG Orally Once a day [address] [facility] [address]-35 500 MG Orally Twice a day Jul 19, 2016 Jul 29, 2016 1 tablet Metoprolol Tartrate [facility] [address]-84 25 MG Orally Once a day Aug 31, [address] [facility] [address]-32 20 MG Orally Once a day Aug 10, [address] [facility] [address]-17 145 MCG Orally Once a day Dec 26, 2014 1 Capsule Procedures Procedure Coding System Code Date Office Visit, Est Pt., Level 3 CPT-4 12285 Jul 19, 2016 Vital Signs Date/Time: Jul 19, 2016 Cardiac Monitoring Heart Rate 64 bpm Weight 185.4 lbs Height 69 in BMI 27.38 Index Blood Pressure Diastolic 90 mmHg Blood Pressure Systolic 120 mmHg Results No Known Results Summary Purpose [employer] Submission
--- OUTSIDE RECORDS SUMMARY | 2018-12-30 09:18 | XMS REPORT ---
Author Author JAZLYN SHANNON Organization [employer] Address Unknown Phone Unavailable Care Team Providers Care Hotbed Transfer Operator Name Role Phone JAZLYN SHANNON CP Unavailable Allergies No Known Allergies Problems Problem Type Condition Code Onset Dates Condition Status Problem Hyperlipidemia, unspecified E78.5 Active Problem Herpes simplex without mention of complication 054.9 Active Problem Essential (primary) hypertension I10 Active Problem Decreased libido 799.81 Active Problem Unspecified essential hypertension 401.9 Active Problem Diverticulosis of colon (without mention of hemorrhage) 562.10 Active Medications No Known Medications Results No Known Results Summary Purpose [employer] Submission
--- OUTSIDE RECORDS SUMMARY | 2018-12-30 09:18 | XMS REPORT ---
Author Author ROSEY LARRY Organization [facility] Address [address] [place] [address] Care Team Providers Care Computer Training Specialist Name Role Phone ROSEY LARRY Unavailable PROBLEMS Type Condition ICD9-CM Code VUS41-ZN Code Onset Dates Condition Status SNOMED Code Problem Essential (primary) hypertension I10 Active 34379117 Problem Slow transit constipation K59.01 Active Problem Diverticulitis of intestine without perforation or abscess without bleeding, unspecified part of intestinal tract K57.92 Active 710616958 Problem Gastroesophageal reflux disease, esophagitis presence not specified K21.9 Active 678573640 Problem Hyperlipidemia, unspecified E78.5 Active 43137881 Problem Moderate single current episode of major depressive disorder F32.1 Active 28234189 Problem Mixed hyperlipidemia E78.2 Active 977717774 ALLERGIES Substance Reaction Event Type Date Status Sulfamethoxazole nausea Drug Allergy Aug, Active ENCOUNTERS Encounter Location Date Diagnosis [id number] [place] [address] [id number] Jan, Essential (primary) hypertension I10 ; Hyperlipidemia, unspecified E78.5 ; Moderate single current episode of major depressive disorder F32.1 and Slow transit constipation K59.[address] [id number] [place] [id number] Dec, Moderate single current episode of major depressive disorder F32.1 [facility] [address] [id number] [id number] Oct, Right lower quadrant abdominal pain R10.31 ; Urinary frequency R35.0 ; Diverticulitis of intestine without perforation or abscess without bleeding, unspecified part of intestinal tract K57.92 and Slow transit constipation K59.[address] [id number] [place] [id number] Aug, Essential (primary) hypertension I10 and Moderate single current episode of major depressive disorder F32.1 [facility] [place] [id number] [place] [address] [id number] Jul, Essential (primary) hypertension I10 and Moderate single current episode of major depressive disorder F32.1 [facility] [place] [id number] [place] [address] [id number] Jul, [facility] [place] [address] [id number] Jul, Poison jose eduardo dermatitis L23.7 [facility] [place] [id number] [place] [address] [id number] March, Anhedonia R45.[address] [id number] Mar, [facility] [address] [id number] Dec, Essential (primary) hypertension I10 [address] [id number] [place] [address] [id number] Dec, Mixed hyperlipidemia E78.2 [place] [id number] [place] [address] [id number] Oct, Mixed hyperlipidemia E78.2 and Elevated fasting glucose R73.01 [place] [id number] [place] [address] [id number] Oct, Hyperlipidemia, unspecified E78.5 ; Essential (primary) hypertension I10 and Thyroid disorder screening Z13.29 [address] [place] [id number] [place] [address] [id number] Oct, Slow transit constipation K59.01 ; Essential (primary) hypertension I10 ; Hyperlipidemia, unspecified E78.5 ; Gastroesophageal reflux disease, esophagitis presence not specified K21.9 and Anhedonia R45.84 [address] [place] [id number] [place] [address] [id number] Oct, [facility] [address] [id number] Aug, Slow transit constipation K59.01 [address] [id number] [place] [address] [id number] Jul, Diverticulitis of intestine without perforation or abscess without bleeding, unspecified part of intestinal tract K57.92 [facility] [place] [id number] [place] [id number] Jul, Essential (primary) hypertension I10 [facility] [place] [id number] [place] [address] [id number] May, [facility] [place] [id number] [place] [address] [id number] May, [facility] [place] [id number] [place] [address] [id number] May, Essential (primary) hypertension I10 and Hyperlipidemia, unspecified E78.5 [facility] [place] [id number] [place] [address] [id number] May, [facility] [place] [id number] [place] [address] [id number] May, [facility] [id number] [place] [address] [id number] May, Dental examination Z01.20 and Dental caries K02.9 [facility] [place] [id number] [place] [address] [id number] March, Unspecified essential hypertension 401.9 [facility] [place] [id number] [place] [address] [id number] Jan, [facility] [place] [id number] [place] [address] [id number] Dec, [facility] [place] [id number] [place] [address] [id number] Dec, [facility] [place] [id number] [place] [address] [id number] Dec, [facility] [place] [id number] [place] [address] [id number] Dec, Other and unspecified hyperlipidemia E78.5 [facility] [place] [id number] [place] [address] [id number] Oct, [facility] [address] [id number][place] [id number] Oct, [facility] [address] [id number][place] [id number] Oct, [facility] [place] [id number] [place] [id number] Aug, Unspecified essential hypertension 401.9 and Hyperlipidemia 272.4 [facility] [place] [id number] [place] [id number] Aug, Urinary tract infection 599.0 [facility] [place] [id number] [place] [address] [id number] Aug, Dysuria 788.1 ; Unspecified essential hypertension 401.9 ; Urinary tract infection 599.0 and Routine lab draw V72.62 [facility] [place] [address] [id number] [place] [address] [id number] May, [facility] [place] [id number] [place] [address] [id number] May, Sinusitis 473.9 [facility] [id number] [place] [address] [id number] May, [facility] [place] [id number] [place] [address] [id number] May, [facility] [id number] [place] [address] [id number]- [address] May, [facility] [place] [id number] [place] [address] [id number] March, Spider bite 989.5 [facility] [id number] [place] [address] [id number] March, Spider bite 989.5 and Skin necrosis 709.8 [facility] [place] [id number] [place] [address] [id number] March, [facility] [place] [id number] [id number] March, Insect bite 919.4 [facility] [address] [place] [address] [id number] Mar, [facility] [place] [id number] [place] [address] [id number] Mar, [facility] [address] [place] [address] Mar, [facility] [address] [facility] [id number] [address] Mar, [facility] [address] [facility] [id number] [place] [address] Jan, [facility] [place] [address] [facility] [id number] [place] [id number] Jan, [facility] [address] [facility] [id number] [place] [address] Jan, [facility] [place] [address] [facility] [id number] [place] [id number] Dec, [facility] [address] [facility] [id number] [place] [address] Dec, [facility] [place] [address] [place] [address] [id number] [place] [id number] Dec, [facility] [address]00565100[place] [address] Dec, [facility] [place] [address] [facility] [id number] [place] [id number] Oct, [facility] [address]00565100[place] [address] Oct, [facility] [place] [address] [facility] [id number] [place] [id number] Aug, [facility] [address] [facility] [id number] [place] [address]46 Aug, [facility] [place] [address] [facility] [id number] [place] [id number] Aug, [facility] [address] [facility] [id number] [place] [address] 2546 Aug, [facility] [address] [facility] [id number] [place] [address] Aug, [facility] [place] [address] [facility] [id number] [place] [id number] Aug, [facility] [address] [id number] [place] [address] Aug, [facility] [place] [address] [id number] [place] [id number] Aug, [facility] [place] [address] [facility] [id number] [place] [id number] Aug, [facility] [address] [facility] [id number] [place] [address] 2[address] Aug, [facility] [place] [address] [id number] [place] [id number] Aug, [facility] [address] [facility] [id number] [place] [address]- 4[address] Aug, [facility] [place] [address] [facility] [id number] [place] [id number] Aug, [facility] [address]00565100[place] [address] Aug, [facility] [place] [address] [facility] [id number] [place] [id number] May, [facility] [address] [facility] [id number] [place] [address] 8[address] May, [facility] [place] [address] [facility] [id number] [place] [id number] March, [facility] [address] [facility] [id number] [place] [address] March, [facility] [place] [address] [facility] [id number] [place] [id number] March, [facility] [address] [facility] [id number] [place] [address] March, [facility] [place] [address] [facility] [id number] [place] [id number] Jan, [facility] [address] [facility] [id number] [place] [address]- 95[address] Jan, [facility] [place] [address] [facility] [id number] [place] [id number] Jan, [facility] [address] [facility] [id number] [place] [address]- 7[address] Jan, [facility] [place] [address] [id number] [place] [id number] Oct, [facility] [address] [facility] [id number] [place] [address]- 1183 Oct, [facility] [place] [address] [id number] [place] [id number] Oct, [facility] [address] [facility] [id number] [place] [address]- 66[address] Oct, [facility] [place] [address] [id number] [place] [id number] Oct, [facility] [address] [id number] [address]- [address]26 Oct, [facility] [place] [address] [id number] [place] [id number] Aug, [facility] [address]00565100[place] [address] Aug, [facility] [place] [address] [id number] [place] [id number] Aug, [facility] [place] [address] [id number] [place] [id number] Aug, [facility] [place] [address] [id number] [place] 656[address]86 Jul, [facility] [address] [facility] [id number] [place] [address]- [address] Jul, [facility] [place] [address] [id number] [place] [id number] Jul, [facility] [place] [address] [id number] [place] [id number] Jul, [facility] [place] [address] [id number] [place] [address] May, [facility] [address] [facility] [id number] [place] [address]- [address] May, [facility] [place] [address] [id number] [place] [id number] May, [facility] [place] [address] [id number] [place] [address] May, [facility] [place] [address] [id number] [place] [id number] March, [facility] [place] [address] [id number] [place] [address] March, [facility] [place] [address] [id number] [place] [address] March, [facility] [place] [address] [id number] [place] 1964429[address] Jan, [facility] [place] [address] [id number] [place] [id number] Jan, [facility] [place] [address] [id number] [place] [address] Jan, [facility] [place] [address] [id number] [place] 944[address] Jan, [facility] [place] [address] [id number] [place] [id number] Jan, [facility] [place] [address] [id number] [place] 12[address] Jan, [facility] [place] [address] [id number] [place] [id number] Dec, [facility] [place] [address] [id number] [place] [id number] Dec, [facility] [place] [address] [id number] [place] [id number] Dec, [facility] [address] [facility] [id number] [place] Jul, [facility] [place] [address] [id number] [place] [id number] Jul, [facility] [place] [address] [id number] [place] [id number] May, [facility] [place] [address] [id number] [place] [id number] Jan, [facility] [place] [address] [id number] [place] [id number] Dec, [facility] [address] [id number] [address]- [address] Oct, [facility] [address]00565100[place] [address]- 4063 Oct, [facility] [address] [id number] [address]- 4359 Oct, [facility] [address]00565100[place] [address]- 9014 Oct, [facility] [address] [id number] [address]- 3660 Aug, [facility] [address]00565100[place] [address]- 2924 May, [facility] [address]00565100[place] [address]- 6291 May, [facility] [address]00565100[place] [address]- 9892 May, [facility] [address] [id number] [address]- 5709 Mar, [facility] [address] [id number] [address]- 8520 Oct, IMMUNIZATIONS No Known Immunizations SOCIAL HISTORY Never Assessed REASON FOR VISIT CHM- f/u on depression, started on Lexapro Brent CAPONE PLAN OF CARE Activity Details Follow Up 3 Months Reason:[facility] HTN /Depression VITAL SIGNS Height 69 in 2017-09-24 Weight 190 lbs 2017-09-24 Temperature 97.7 degrees Fahrenheit 2017-09-24 Heart Rate 80 bpm 2017-09-24 Respiratory Rate 18 2017-09-24 BMI 28.06 kg/m2 2017-09-24 Blood pressure systolic 130 mmHg 2017-09-24 Blood pressure diastolic 70 mmHg 2017-09-24 MEDICATIONS Medication Instructions Dosage Frequency Start Date End Date Duration Status Fish Oil 1000 MG Orally Once a day 1 capsule 24h 0 Active Lexapro 10 mg Orally Once a day 1 tablet 24h 0 days Active Metoprolol Tartrate 25 MG Orally Once a day 1 tablet with food 24h 0 Active RESULTS No Results PROCEDURES No Known [...]
--- OUTSIDE RECORDS SUMMARY | 2018-12-30 09:18 | XMS REPORT ---
Author Author ROSEY LARRY Organization [facility] Address [address] [place] [address] Care Team Providers Care Planning Analyst Name Role Phone ROSEY LARRY Unavailable PROBLEMS Type Condition ICD9-CM Code JJT06-AB Code Onset Dates Condition Status SNOMED Code Problem Mixed hyperlipidemia E78.2 Active 420417364 Problem Gastroesophageal reflux disease, esophagitis presence not specified K21.9 Active 505108033 Problem Essential (primary) hypertension I10 Active 70894728 Problem Hyperlipidemia, unspecified E78.5 Active 38288250 ALLERGIES Substance Reaction Event Type Date Status Sulfamethoxazole nausea Drug Allergy Oct, Active SOCIAL HISTORY No smoking Hx information available PLAN OF CARE Activity Details Follow Up 2 - 3 Days Reason:fasting labs VITAL SIGNS Height 69 in 2016-10-29 Weight 183.2 lbs 2016-10-29 Temperature 98.0 degrees Fahrenheit 2016-10-29 Heart Rate 62 bpm 2016-10-29 Respiratory Rate 16 2016-10-29 BMI 27.05 kg/m2 2016-10-29 Blood pressure systolic 130 mmHg 2016-10-29 Blood pressure diastolic 82 mmHg 2016-10-29 MEDICATIONS Medication Instructions Dosage Frequency Start Date End Date Duration Status Vitamin C 500 MG Orally Once a day 1 tablet 24h Active Metoprolol Tartrate 25 MG Orally Once a day 1 tablet 24h 30 Active Cymbalta 60 mg Orally Once a day 1 capsule 24h Jan, Active Fish Oil 600 MG Orally Once a day 2 capsule 24h Active Crestor 10 MG Orally Once a day 1 tablet 24h Active Zantac 150 MG Orally Once a day as needed 1-2 tablet at bedtime Oct, Active Toprol XL 25 MG Orally Once a day 1 tablet 24h Active RESULTS No Results PROCEDURES Procedure Date Ordered Related Diagnosis Body Site Office Visit, Est Pt., Level 4 Oct 29, 2016 IMMUNIZATIONS No Known Immunizations
--- OUTSIDE RECORDS SUMMARY | 2018-12-30 09:18 | XMS REPORT ---
Author Author ALANNA POOL [facility] [employer] Address Unknown Phone Unavailable Care Team Providers Care Technical Associate Name Role Phone ALANNA POOL Unavailable Allergies No Known Allergies Problems Problem Type Condition Code Onset Dates Condition Status Problem Hyperlipidemia, unspecified E78.5 Active Problem Herpes simplex without mention of complication 054.9 Active Problem Essential (primary) hypertension I10 Active Problem Decreased libido 799.81 Active Assessment Essential (primary) hypertension I10 Active Problem Unspecified essential hypertension 401.9 Active Problem Diverticulosis of colon (without mention of hemorrhage) 562.10 Active Medications Medication Code System Code Instructions Start Date End Date Status Dosage Metoprolol Tartrate [facility] [address]-47 25 MG Orally Once a day Aug 31, 2014 1 tablet Results No Known Results Summary Purpose [employer] Submission
--- OUTSIDE RECORDS SUMMARY | 2018-12-30 09:18 | XMS REPORT ---
Author Author JAZLYN SHANNON Organization [employer] Address Unknown Phone Unavailable Care Team Providers Care Medicare Contact Specialist Name Role Phone JAZLYN SHANNON CP Unavailable [...]
--- OUTSIDE RECORDS SUMMARY | 2018-12-30 09:18 | XMS REPORT ---
Author Author ROSEY LARRY Organization [facility] Address [address] [place] [address] Care Team Providers Care Tearoom Host/Hostess Name Role Phone ROSEY LARRY Unavailable PROBLEMS Type Condition ICD9-CM Code IOQ05-CY Code Onset Dates Condition Status SNOMED Code Problem Essential (primary) hypertension I10 Active 66236745 Problem Slow transit constipation K59.01 Active 29652657 Problem Diverticulitis of intestine without perforation or abscess without bleeding, unspecified part of intestinal tract K57.92 Active 469483719 Problem Gastroesophageal reflux disease, esophagitis presence not specified K21.9 Active 859172737 Problem Hyperlipidemia, unspecified E78.5 Active 68739961 Problem Moderate single current episode of major depressive disorder F32.1 Active 95013908 Problem Mixed hyperlipidemia E78.2 Active 921225135 ALLERGIES No Information ENCOUNTERS Encounter Location Date Diagnosis [facility] [address] [facility] [id number], [place] [address] May, Moderate single current episode of major depressive disorder F32.1 [facility] [address] [facility] [id number] [id number] 14 Jan, 2018 Essential (primary) hypertension I10 ; Hyperlipidemia, unspecified E78.5 ; Moderate single current episode of major depressive disorder F32.1 and Slow transit constipation K59.01 [facility] [address] [facility] [id number] [id number] Dec, Moderate single current episode of major depressive disorder F32.[address] [id number] [id number] 09 Oct, 2017 Right lower quadrant abdominal pain R10.31 ; Urinary frequency R35.0 ; Diverticulitis of intestine without perforation or abscess without bleeding, unspecified part of intestinal tract K57.92 and Slow transit constipation K59.01 [place] [id number] [place] [address] [id number] Aug, Essential (primary) hypertension I10 and Moderate single current episode of major depressive disorder F32.1 [place] [id number] [place] [address] [id number] Jul, Essential (primary) hypertension I10 and Moderate single current episode of major depressive disorder F32.[address] [id number] Jul, [address] [id number] Jul, Poison jose eduardo dermatitis L23.[address] [id number] March, Anhedonia R45.[address] [id number] Mar, [address] [id number] Dec, Essential (primary) hypertension I10 [place] [id number] [place] [address] [id number] Dec, Mixed hyperlipidemia E78.[address] [id number] Oct, Mixed hyperlipidemia E78.2 and Elevated fasting glucose R73.01 [place] [id number] [place] [address] [id number] Oct, Hyperlipidemia, unspecified E78.5 ; Essential (primary) hypertension I10 and Thyroid disorder screening Z13.29 [place] [id number] [place] [address] [id number] Oct, Slow transit constipation K59.01 ; Essential (primary) hypertension I10 ; Hyperlipidemia, unspecified E78.5 ; Gastroesophageal reflux disease, esophagitis presence not specified K21.9 and Anhedonia R45.84 [place] [id number] [place] [address] [id number] Oct, [address] [id number] Aug, Slow transit constipation K59.01 [facility] [place] [id number][place] [id number] Jul, Diverticulitis of intestine without perforation or abscess without bleeding, unspecified part of intestinal tract K57.92 [facility] [place] [id number] [place] [address] [id number] Jul, Essential (primary) hypertension I10 [facility] [place] [address] [id number] [place] [address] [id number] May, [facility] [place] [address] [id number] [place] [address] [id number] May, [facility] [place] [id number] [place] [address] [id number] May, Essential (primary) hypertension I10 and Hyperlipidemia, unspecified E78.5 [facility] [place] [id number] [place] [address] [id number] May, [facility] [place] [id number] [place] [address] [phone] May, [facility] [address] [place] [address] [id number] May, Dental examination Z01.20 and Dental caries K02.9 [facility] [place] [id number] [place] [address] [id number] March, Unspecified essential hypertension 401.9 [facility] [place] [id number] [place] [address] [id number] Jan, [facility] [place] [id number] [place] [address] [id number] Dec, [facility] [place] [id number] [place] [address] [id number] Dec, [facility] [place] [id number] [place] [address] [id number] Dec, [facility] [place] [id number] [place] [address] [id number] Dec, Other and unspecified hyperlipidemia E78.5 [facility] [place] [id number], [place] [id number] Oct, [facility] [address] [id number] [phone] Oct, [facility] [address] [facility] [address] [id number], [place] [phone] Oct, [facility] [place] [address] [place] [id number] [address] Aug, Unspecified essential hypertension 401.9 and Hyperlipidemia 272.4 [facility] [place] [id number], [place] [id number] Aug, Urinary tract infection 599.0 [facility] [place] [id number], [place] [id number] Aug, Dysuria 788.1 ; Unspecified essential hypertension 401.9 ; Urinary tract infection 599.0 and Routine lab draw V72.62 [facility] [place] [id number], [place] [id number] May, [facility] [place] [id number], [place] [id number] May, Sinusitis 473.9 [facility] [place] [id number], [place] [id number] May, [facility] [place] [id number], [place] [id number] May, [facility] [address]00565100[place], [place] [address] May, [facility] [place] [id number], [place] [id number] March, Spider bite 989.5 [facility] [place] [id number] [place] [address] [id number] March, Spider bite 989.5 and Skin necrosis 709.8 [facility] [address]00565100[place] [id number] March, [facility] [place] [id number], [place] [id number] March, Insect bite 919.4 [facility] [place] [address]00565100[place], [place] [id number] Mar, [facility] [place] [address] [address] [id number] [id number] Mar, [facility] [place] [facility] [address] [facility] [id number], [place] [address] Mar, [facility] [address] [place] [address] [id number], [place] [address] Mar, [facility] [place] [address] [facility] [id number], [place] [address] Jan, [facility] [place] [address] [facility] [id number], [place] [id number] Jan, [facility] [place] [facility] [address] [facility] [id number], [place] [address] Jan, [facility] [place] [address] [place] [id number], [place] [id number] Dec, [facility] [place] [facility] [address]00565100[place], [place] [address] Dec, [facility] [place] [address] [place] [id number], [place] [id number] Dec, [facility] [place] [facility] [address]00565100[place], [place] [address] Dec, [facility] [place] [id number], [place] [id number] Oct, [facility] [place] [facility] [address]00565100[place], [place] [address] Oct, [facility] [place] [address] [facility] [id number], [place] [address] Aug, [facility] [place] [facility] [address] [facility] [id number], [place] [address] Aug, [facility] [place] [address] [facility] [id number], [place] [id number] Aug, [facility] [place] [facility] [address] [facility] [id number], [place] [address] Aug, [facility] [place] [facility] [address] [facility] [id number], [place] [address] Aug, [facility] [place] [address] [id number] [place] [id number] Aug, [facility] [place] [facility] [address] [facility] [id number] [place] [address]46 Aug, [facility] [place] [address] [id number] [place] [address] Aug, [facility] [place] [address] [id number] [place] [id number] Aug, [facility] [place] [facility] [address] [facility] [id number] [place] [address] Aug, [facility] [place] [address] [id number] [place] [id number] Aug, [facility] [place] [facility] [address] [facility] [id number], [place] [address] Aug, [facility] [place] [address] [facility] [id number] [place] [id number] Aug, [facility] [place] [facility] [address] [facility] [id number], [place] [address] Aug, [facility] [place] [address] [facility] [id number] [place] [id number] May, [facility] [place] [facility] [address] [facility] [id number], [place] [address] May, [facility] [place] [address] [facility] [id number] [place] [id number] March, [facility] [place] [facility] [address] [facility] [id number], [place] [address] March, [facility] [place] [address] [facility] [id number] [place] [id number] March, [facility] [place] [facility] [address] [facility] [id number], [place] [address] March, [facility] [place] [address] [facility] [id number] [place] [id number] Jan, [facility] [place] [facility] [address] [facility] [id number], [place] [address] Jan, [facility] [place] [address] [id number] [place] [id number] Jan, [facility] [address] [facility] [id number], [place] [address] Jan, [facility] [place] [address] [id number] [place] [address] Oct, [facility] [address] [facility] [id number], [place] [address]48 Oct, [facility] [place] [address] [id number] [place] [id number] Oct, [facility] [address] [facility] [id number], [place] [address] Oct, [facility] [place] [address] [id number], [place] [id number] Oct, [facility] [address]00565100[place], [place] [address]42 Oct, [facility] [place] [address] [id number], [place] [address]506[address] Aug, [facility] [address]00565100[place], [place] [address] 2541 Aug, [facility] [place] [address] [id number], [place] [id number] Aug, [facility] [place] [address] [id number], [place] [id number] Aug, [facility] [place] [address] [id number], [place] [address] Jul, [facility] [address] [facility] [id number], [place] [address] Jul, [facility] [place] [address] [id number] [place] [id number] Jul, [facility] [place] [address] [id number] [place] [id number] Jul, [facility] [place] [address] [id number], [place] 6[address] May, [facility] [place] [facility] [address] [id number] [place] [address] May, [facility] [place] [address] [id number] [place] [id number] May, [facility] [place] [address] [id number] [place] [address] May, [facility] [place] [address] [id number] [place] [address] March, [facility] [place] [address] [id number] [place] [id number] March, [facility] [place] [address] [id number] [place] [address] March, [facility] [place] [address] [id number] [place] [address] Jan, [facility] [place] [address] [id number] [place] [address] Jan, [facility] [place] [address] [id number] [place] 733716[address] Jan, [facility] [place] [address] [id number] [place] [id number] Jan, [facility] [place] [address] [id number] [place] [address] Jan, [facility] [place] [address] [id number] [place] [id number] Jan, [facility] [place] [address] [id number] [place] [id number] Dec, [facility] [place] [address] [id number] [place] [address] Dec, [facility] [place] [address] [id number] [place] [address] Dec, [facility] [address] [facility] [id number] [place] [address] Jul, [facility] [place] [address] [id number] [place] [address] Jul, [facility] [place] [address] [id number] [place] [id number] May, [facility] [place] [address] [id number], [place] [address] Jan, [facility] [address] [address] [id number], [place] [id number] Dec, [facility] [address]00565100[place], [place] [address] Oct, [facility] [address]00565100[place], [place] [address] Oct, [facility] [address]00565100[place], [place] [address] Oct, [facility] [address]00565100[place], [place] [address] Oct, [facility] [address]00565100[place], [place] [address] Aug, [facility] [address]00565100[place], [place] [address] May, [facility] [address]00565100[place], [place] [address] May, [facility] [address]00565100[place], [place] [address] May, [facility] [address]00565100[place], [place] [address] Mar, [facility] [address] [id number], [place] [address] Oct, IMMUNIZATIONS No Known Immunizations SOCIAL HISTORY [...]
--- OUTSIDE RECORDS SUMMARY | 2018-12-30 09:18 | XMS REPORT ---
Author Author ROSEY KIDD Organization [facility] Address [address] [place] [address] Care Team Providers Care Porter Sample Case Name Role Phone ROSEY KIDD Unavailable PROBLEMS Type Condition ICD9-CM Code NXU46-WO Code Onset Dates Condition Status SNOMED Code Assessment Thyroid disorder screening Z13.29 Oct, Active 156142885 Problem Decreased libido 799.81 Active 3263396 Assessment Hyperlipidemia, unspecified E78.5 Oct, Active 84568358 Problem Gastroesophageal reflux disease, esophagitis presence not specified K21.9 Active 033307701 Problem Essential (primary) hypertension I10 Active 41969161 Problem Unspecified essential hypertension 401.9 Active 34580260 Problem Diverticulosis of colon (without mention of hemorrhage) 562.10 Active 923677663 Problem Hyperlipidemia, unspecified E78.5 Active 82330311 Problem Herpes simplex without mention of complication 054.9 Active 109498331 ALLERGIES Unknown Allergies SOCIAL HISTORY No smoking Hx information available PLAN OF CARE Activity Details Pending Test THYROID ANALYZER Pending Test CBC Pending Test LIPID PANEL Pending Test CMP ,Reason: VITAL SIGNS MEDICATIONS Unknown Medications RESULTS Name Result Date Reference Range THYROID ANALYZER 2016-11-04 TSH 2.550 0.450-4.500 CBC 2016-11-04 WBC 4.6 3.4-10.8 RBC 4.22 3.77-5.28 Hemoglobin 12.1 11.1-15.9 Hematocrit 36.7 34.0-46.6 MCV 87 79-97 MCH 28.7 26.6-33.0 MCHC 33.0 31.5-35.7 RDW 13.4 12.3-15.4 Platelets 191 150-379 Neutrophils 61 Lymphs 28 Monocytes 9 Eos 2 Basos 0 Neutrophils (Absolute) 2.8 1.4-7.0 Lymphs (Absolute) 1.3 0.7-3.1 Monocytes(Absolute) 0.4 0.1-0.9 Eos (Absolute) 0.1 0.0-0.4 Baso (Absolute) 0.0 0.0-0.2 Immature Granulocytes 0 Immature Grans (Abs) 0.0 0.0-0.1 LIPID PANEL 2016-11-04 Cholesterol, Total 197 100-199 Triglycerides 72 0-149 HDL Cholesterol 64 >39 VLDL Cholesterol Chris 14 5-40 LDL Cholesterol Calc 119 0-99 CMP 2016-11-04 Glucose, Serum 100 65-99 BUN 14 6-24 Creatinine, Serum 0.79 0.57-1.00 eGFR If NonAfricn Am 82 >59 eGFR If Africn Am 95 >59 BUN/Creatinine Ratio 18 9-23 Sodium, Serum 141 136-144 Potassium, Serum 4.6 3.5-5.2 Chloride, Serum 102 97-106 Carbon Dioxide, Total 26 18-29 Calcium, Serum 9.4 8.7-10.2 Protein, Total, Serum 6.4 6.0-8.5 Albumin, Serum 4.0 3.5-5.5 Globulin, Total 2.4 1.5-4.5 A/G Ratio 1.7 1.1-2.5 Bilirubin, Total 0.3 0.0-1.2 Alkaline Phosphatase, S 76 39-117 AST (SGOT) 20 0-40 ALT (SGPT) 18 0-32 PROCEDURES Procedure Date Ordered Related Diagnosis Body Site LIPID PANEL Nov 04, 2016 COMPLETE CBC W/AUTO DIFF WBC Nov 04, 2016 ASSAY THYROID STIM HORMONE Nov 04, 2016 COMPREHEN METABOLIC PANEL Nov 04, 2016 VENIPUNCT, ROUTINE* Nov 04, 2016 IMMUNIZATIONS No Known Immunizations
--- OUTSIDE RECORDS SUMMARY | 2018-12-30 09:19 | XMS REPORT ---
Author Author ALANNA POOL [facility] eClinical[employer] Address Unknown Phone Unavailable Care Team Providers Care Solution Director Name Role Phone ALANNA POOL CP Unavailable [...] of skin and subcutaneous tissue 686.9 Active Assessment Other and unspecified hyperlipidemia E78.5 Active Problem Localized superficial swelling, mass, or lump 782.2 Active Problem Diverticulosis of small intestine (without mention of hemorrhage) 562.00 Active Problem Unspecified constipation 564.00 Active Medications No Known Medications Procedures Procedure Coding System Code Date VENIPUNCT, ROUTINE* CPT-4 85144 Dec 25, 2015 Results Name Result Date Reference Range Unit Abnormality Flag ROUTINE VENIPUNCTURE Summary Purpose eClinicalWorks Submission
--- OUTSIDE RECORDS SUMMARY | 2018-12-30 09:19 | XMS REPORT ---
Author Author ALANNA POOL [facility] eClinical[employer] Address Unknown Phone Unavailable Care Team Providers Care Biomedical Technician Name Role Phone ALANNA POOL Unavailable Allergies, Adverse Reactions, Alerts Substance Reaction Event Type N.K.D.A. Info Not Available Non Drug Allergy Problems Problem Type Condition ICD-9 Code Onset Dates Condition Status Problem Diverticulosis of small intestine (without mention of hemorrhage) 562.00 Active Problem Decreased libido 799.81 Active Problem Unspecified constipation 564.00 Active Problem ZOSTAVAX DX V05.8 Active Problem Unspecified local infection of skin and subcutaneous tissue 686.9 Active Problem Herpes simplex without mention of complication 054.9 Active Problem Unspecified essential hypertension 401.9 Active Problem Diverticulosis of colon (without mention of hemorrhage) 562.10 Active Problem Contact dermatitis and other eczema due to plants (except food) 692.6 Active Problem Abdominal tenderness, right upper quadrant 789.61 Active Assessment Urinary tract infection 599.0 Active Assessment Unspecified essential hypertension 401.9 Active Assessment Dysuria 788.1 Active Assessment Routine lab draw V72.62 Active Problem Localized superficial swelling, mass, or lump 782.2 Active Medications Medication Code System Code Instructions Start Date End Date Status Dosage Cymbalta [facility] [address]-12 60 MG Orally Once a day Jan 11, 2015 1 capsule Pyridium [facility] [address]-86 200 MG Orally Three times a day Aug 17, 2015 Aug 19, 2015 1 tablet after meals Metoprolol Tartrate [facility] [address]-38 25 MG Orally Once a day Aug 31, 2014 1 tablet Pravastatin Sodium [facility] 86769739149 40MG Orally Once a day 1 tablet Linzess [facility] [address]-58 145 mcg Dec 26, 2014 1 Capsule by Oral route 1 time per day Cipro [facility] [address]-87 500 MG Orally Twice a day Aug 17, 2015 Aug 24, 2015 1 tablet Procedures Procedure Coding System Code Date URINE CULTURE/COLONY COUNT CPT-4 68607 Aug 17, 2015 COMPLETE CBC W/AUTO DIFF WBC CPT-4 84803 Aug 17, 2015 URINALYSIS, AUTO, W/O SCOPE CPT-4 53821 Aug 17, 2015 VENIPUNCT, ROUTINE* CPT-4 13823 Aug 17, 2015 ASSAY THYROID STIM HORMONE CPT-4 60144 Aug 17, 2015 COMPREHEN METABOLIC PANEL CPT-4 72918 Aug 17, 2015 Office Visit, Est Pt., Level 3 CPT-4 30324 Aug 17, 2015 LIPID PANEL CPT-4 89003 Aug 17, 2015 Vital Signs Date/Time: Aug 17, 2015 Temperature 98.0 F Weight 180.6 lbs Height 69 in BMI 26.67 Index Blood Pressure Diastolic 80 mmHg Blood Pressure Systolic 130 mmHg Cardiac Monitoring Heart Rate 55 bpm Results Name Result Date Reference Range Unit Abnormality Flag UA LONG DIP (IN HOUSE) Summary Purpose eClinicalWorks Submission
--- OUTSIDE RECORDS SUMMARY | 2018-12-30 09:19 | XMS REPORT ---
Author Author ALANNA POOL [facility] eClinical[employer] Address Unknown Phone Unavailable Care Team Providers Care Manufacturing Engineer Machining Name Role Phone ALANNA POOL CP Unavailable [...]
--- OUTSIDE RECORDS SUMMARY | 2018-12-30 09:20 | XMS REPORT | Continuity of Care Document ---
Author Author Formerly [facility] Address Unknown Phone Unavailable Allergies Active Description Code Type Severity Reaction Onset Reported/Identified Relationship to Patient Clinical Status Yes No Known Drug Allergies [id number] Drug Allergy Unknown N/A 04/15/2013 Yes irbesartan [id number] Drug Allergy Unknown N/A 12/25/2018 Yes Sulfa (Sulfonamide Antibiotics) [id number] Drug Allergy Unknown N/A 2018 Medications There is no data. Problems Date Dx Coded Attending Type Code Diagnosis Diagnosed By 07/26/2010 RHODA LOMBARDI APRN 272.4 HYPERLIPIDEMIA UNSPECIFIED 07/26/2010 RHODA LOMBARDI APRN 401.1 HYPERTENSION, BENIGN ESSENTIAL 07/26/2010 RHODA LOMBARDI APRN 562.11 DIVERTICULITIS OF COLON WITHOUT MENTION OF HEMORRHAGE 07/26/2010 RHODA LOMBARDI APRN 789.00 ABDOMINAL PAIN UNSPECIFIED SITE 07/26/2010 272.4 DYSLIPIDEMIA 07/26/2010 401.1 HYPERTENSION, BENIGN ESSENTIAL 07/26/2010 562.11 DIVERTICULITIS OF COLON WITHOUT MENTION OF HEMORRHAGE 07/26/2010 789.00 ABDOMINAL PAIN UNSPECIFIED SITE 07/26/2010 KAMI PEDRAZA MD 272.4 DYSLIPIDEMIA 07/26/2010 KAMI PEDRAZA MD 401.1 HYPERTENSION, BENIGN ESSENTIAL 07/26/2010 KAMI PEDRAZA MD 562.11 DIVERTICULITIS OF COLON WITHOUT MENTION OF HEMORRHAGE 07/26/2010 KAMI PEDRAZA MD 789.00 ABDOMINAL PAIN UNSPECIFIED SITE 07/26/2010 272.4 DYSLIPIDEMIA 07/26/2010 401.1 HYPERTENSION, BENIGN ESSENTIAL 07/26/2010 562.11 DIVERTICULITIS OF COLON WITHOUT MENTION OF HEMORRHAGE 07/26/2010 789.00 ABDOMINAL PAIN UNSPECIFIED SITE 07/26/2010 272.4 DYSLIPIDEMIA 07/26/2010 401.1 HYPERTENSION, BENIGN ESSENTIAL 07/26/2010 562.11 DIVERTICULITIS OF COLON WITHOUT MENTION OF HEMORRHAGE 07/26/2010 789.00 ABDOMINAL PAIN UNSPECIFIED SITE 07/26/2010 272.4 DYSLIPIDEMIA 07/26/2010 401.1 HYPERTENSION, BENIGN ESSENTIAL 07/26/2010 562.11 DIVERTICULITIS OF COLON WITHOUT MENTION OF HEMORRHAGE 07/26/2010 789.00 ABDOMINAL PAIN UNSPECIFIED SITE 07/26/2010 272.4 DYSLIPIDEMIA 07/26/2010 401.1 HYPERTENSION, BENIGN ESSENTIAL 07/26/2010 562.11 DIVERTICULITIS OF COLON WITHOUT MENTION OF HEMORRHAGE 07/26/2010 789.00 ABDOMINAL PAIN UNSPECIFIED SITE 07/26/2010 MCKEON DO, SARATH K 272.4 DYSLIPIDEMIA 07/26/2010 MCKEON DO, SARATH K 401.1 HYPERTENSION, BENIGN ESSENTIAL 07/26/2010 MCKEON DO, SARATH K 562.11 DIVERTICULITIS OF COLON WITHOUT MENTION OF HEMORRHAGE 07/26/2010 MCKEON DO, SARATH K 789.00 ABDOMINAL PAIN UNSPECIFIED SITE 07/26/2010 MCKEON DO, SARATH K 272.4 DYSLIPIDEMIA 07/26/2010 MCKEON DO, SARATH K 401.1 HYPERTENSION, BENIGN ESSENTIAL 07/26/2010 MCKEON DO, SARATH K 562.11 DIVERTICULITIS OF COLON WITHOUT MENTION OF HEMORRHAGE 07/26/2010 MCKEON DO, SARATH K 789.00 ABDOMINAL PAIN UNSPECIFIED SITE 07/26/2010 HELLWIG BIODIESEL PR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 ALANNA E 272.4 DYSLIPIDEMIA 07/26/2010 HELLWIG BIODIESEL PR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, ALANNA E 401.1 HYPERTENSION, BENIGN ESSENTIAL 07/26/2010 HELLWIG BIODIESEL PR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, ALANNA E 562.11 DIVERTICULITIS OF COLON WITHOUT MENTION OF HEMORRHAGE 07/26/2010 HELLWIG BIODIESEL PR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 ALANNA E 789.00 ABDOMINAL PAIN UNSPECIFIED SITE 07/26/2010 MCKEON DO, SARATH K 272.4 DYSLIPIDEMIA 07/26/2010 MCKEON DO, SARATH K 401.1 HYPERTENSION, BENIGN ESSENTIAL 07/26/2010 MCKEON DO, SARATH K 562.11 DIVERTICULITIS OF COLON WITHOUT MENTION OF HEMORRHAGE 07/26/2010 MCKEON DO, SARATH K 789.00 ABDOMINAL PAIN UNSPECIFIED SITE 07/26/2010 MCKEON DO, SARATH K 272.4 DYSLIPIDEMIA 07/26/2010 MCKEON DO, SARATH K 401.1 HYPERTENSION, BENIGN ESSENTIAL 07/26/2010 MCKEON DO, SARATH K 562.11 DIVERTICULITIS OF COLON WITHOUT MENTION OF HEMORRHAGE 07/26/2010 MCKEON DO, SARATH K 789.00 ABDOMINAL PAIN UNSPECIFIED SITE 07/26/2010 HELLWIG BIODIESEL PR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, ALANNA E 272.4 DYSLIPIDEMIA 07/26/2010 HELLWIG BIODIESEL PR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, ALANNA E 401.1 HYPERTENSION, BENIGN ESSENTIAL 07/26/2010 HELLWIG BIODIESEL PR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, ALANNA E 562.11 DIVERTICULITIS OF COLON WITHOUT MENTION OF HEMORRHAGE 07/26/2010 HELLWIG BIODIESEL PR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, ALANNA E 789.00 ABDOMINAL PAIN UNSPECIFIED SITE 07/26/2010 HELLWIG BIODIESEL PR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, ALANNA E 272.4 DYSLIPIDEMIA 07/26/2010 HELLWIG BIODIESEL PR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, ALANNA E 401.1 HYPERTENSION, BENIGN ESSENTIAL 07/26/2010 HELLWIG BIODIESEL PR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, ALANNA E 562.11 DIVERTICULITIS OF COLON WITHOUT MENTION OF HEMORRHAGE 07/26/2010 HELLWIG BIODIESEL PR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, ALANNA E 789.00 ABDOMINAL PAIN UNSPECIFIED SITE 03/19/2011 GIACOMO LOMBARDI APRNYL A 311 DEPRESSIVE DISORDER NOT ELSEWHERE CLASSIFIED 03/19/2011 RHODA LOMBARDI APRN A 492.8 OTHER EMPHYSEMA 03/19/2011 311 DEPRESSIVE DISORDER NOT ELSEWHERE CLASSIFIED 03/19/2011 492.8 OTHER EMPHYSEMA 03/19/2011 KAMI PEDRAZA MD 311 DEPRESSIVE DISORDER NOT ELSEWHERE CLASSIFIED 03/19/2011 KAMI PEDRAZA MD 492.8 OTHER EMPHYSEMA 03/19/2011 311 DEPRESSIVE DISORDER NOT ELSEWHERE CLASSIFIED 03/19/2011 492.8 OTHER EMPHYSEMA 03/19/2011 311 DEPRESSIVE DISORDER NOT ELSEWHERE CLASSIFIED 03/19/2011 492.8 OTHER EMPHYSEMA 03/19/2011 311 DEPRESSIVE DISORDER NOT ELSEWHERE CLASSIFIED 03/19/2011 492.8 OTHER EMPHYSEMA 03/19/2011 311 DEPRESSIVE DISORDER NOT ELSEWHERE CLASSIFIED 03/19/2011 492.8 OTHER EMPHYSEMA 03/19/2011 MCKEON DO, SARATH K 311 DEPRESSIVE DISORDER NOT ELSEWHERE CLASSIFIED 03/19/2011 MCKEON DO, SARATH K 492.8 OTHER EMPHYSEMA 03/19/2011 MCKEON DO, SARATH K 311 DEPRESSIVE DISORDER NOT ELSEWHERE CLASSIFIED 03/19/2011 MCKEON DO, SARATH K 492.8 OTHER EMPHYSEMA 03/19/2011 HELLWIG BIODIESEL PR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, ALANNA E 311 DEPRESSIVE DISORDER NOT ELSEWHERE CLASSIFIED 03/19/2011 HELLWIG BIODIESEL PR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, ALANNA E 492.8 OTHER EMPHYSEMA 03/19/2011 MCKEON DO, SARATH K 311 DEPRESSIVE DISORDER NOT ELSEWHERE CLASSIFIED 03/19/2011 MCKEON DO, SARATH K 492.8 OTHER EMPHYSEMA 03/19/2011 MCKEON DO, SARATH K 311 DEPRESSIVE DISORDER NOT ELSEWHERE CLASSIFIED 03/19/2011 MCKEON DO, SARATH K 492.8 OTHER EMPHYSEMA 03/19/2011 HELLWIG BIODIESEL PR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, ALANNA E 311 DEPRESSIVE DISORDER NOT ELSEWHERE CLASSIFIED 03/19/2011 HELLWIG BIODIESEL PR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, ALANNA E 492.8 OTHER EMPHYSEMA 03/19/2011 HELLWIG BIODIESEL PR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, ALANNA E 311 DEPRESSIVE DISORDER NOT ELSEWHERE CLASSIFIED 03/19/2011 HELLWIG BIODIESEL PR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, ALANNA E 492.8 OTHER EMPHYSEMA 04/02/2011 GIACOMO LOMBARDI APRNYL A V72.31 TRANSMISSION DESIGN ENGINEER EXAM, ROUTINE 04/02/2011 V72.31 TRANSMISSION DESIGN ENGINEER EXAM, ROUTINE 04/02/2011 MILO OSCAR, KAMI V72.31 TRANSMISSION DESIGN ENGINEER EXAM, ROUTINE 04/02/2011 V72.31 TRANSMISSION DESIGN ENGINEER EXAM, ROUTINE 04/02/2011 V72.31 TRANSMISSION DESIGN ENGINEER EXAM, ROUTINE 04/02/2011 V72.31 TRANSMISSION DESIGN ENGINEER EXAM, ROUTINE 04/02/2011 V72.31 TRANSMISSION DESIGN ENGINEER EXAM, ROUTINE 04/02/2011 MCKEON DO, SARATH K V72.31 TRANSMISSION DESIGN ENGINEER EXAM, ROUTINE 04/02/2011 MCKEON DO, SARATH K V72.31 TRANSMISSION DESIGN ENGINEER EXAM, ROUTINE 04/02/2011 ROHITHLWIG BIODIESEL PR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, ALANNA E V72.31 TRANSMISSION DESIGN ENGINEER EXAM, ROUTINE 04/02/2011 MCKEON DO, SARATH K V72.31 TRANSMISSION DESIGN ENGINEER EXAM, ROUTINE 04/02/2011 MCKEON DO, SARATH K V72.31 TRANSMISSION DESIGN ENGINEER EXAM, ROUTINE 04/02/2011 ROHITHLWIG BIODIESEL PR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, ALANNA E V72.31 TRANSMISSION DESIGN ENGINEER EXAM, ROUTINE 04/02/2011 HELLWIG BIODIESEL PR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 ALANNA E V72.31 TRANSMISSION DESIGN ENGINEER EXAM, ROUTINE 05/13/2011 HARJIT WALLACE RHODA A 682.9 CELLULITIS AND ABSCESS OF UNSPECIFIED SITES 05/13/2011 HARJIT WALLACE RHODA A 698.9 UNSPECIFIED PRURITIC DISORDER 05/13/2011 HARJIT WALLACE RHODA A 919.4 INSECT BITE NONVENOMOUS OF OTHER MULTIPLE AND UNSPECIFIED SITES WITHOUT INFECTION 05/13/2011 HARJIT WALLACE RHODA A V15.06 PERSONAL HISTORY OF ALLERGY TO INSECTS AND ARACHNIDS 05/13/2011 682.9 CELLULITIS AND ABSCESS OF UNSPECIFIED SITES 05/13/2011 698.9 UNSPECIFIED PRURITIC DISORDER 05/13/2011 919.4 INSECT BITE NONVENOMOUS OF OTHER MULTIPLE AND UNSPECIFIED SITES WITHOUT INFECTION 05/13/2011 V15.06 PERSONAL HISTORY OF ALLERGY TO INSECTS AND ARACHNIDS 05/13/2011 KAMI PEDRAZA MD 682.9 CELLULITIS AND ABSCESS OF UNSPECIFIED SITES 05/13/2011 KAMI PEDRAZA MD 698.9 UNSPECIFIED PRURITIC DISORDER 05/13/2011 KAMI PEDRAZA MD 919.4 INSECT BITE NONVENOMOUS OF OTHER MULTIPLE AND UNSPECIFIED SITES WITHOUT INFECTION 05/13/2011 KAMI PEDRAZA MD V15.06 PERSONAL HISTORY OF ALLERGY TO INSECTS AND ARACHNIDS 05/13/2011 682.9 CELLULITIS AND ABSCESS OF UNSPECIFIED SITES 05/13/2011 698.9 UNSPECIFIED PRURITIC DISORDER 05/13/2011 919.4 INSECT BITE NONVENOMOUS OF OTHER MULTIPLE AND UNSPECIFIED SITES WITHOUT INFECTION 05/13/2011 V15.06 PERSONAL HISTORY OF ALLERGY TO INSECTS AND ARACHNIDS 05/13/2011 682.9 CELLULITIS AND ABSCESS OF UNSPECIFIED SITES 05/13/2011 698.9 UNSPECIFIED PRURITIC DISORDER 05/13/2011 919.4 INSECT BITE NONVENOMOUS OF OTHER MULTIPLE AND UNSPECIFIED SITES WITHOUT INFECTION 05/13/2011 V15.06 PERSONAL HISTORY OF ALLERGY TO INSECTS AND ARACHNIDS 05/13/2011 682.9 CELLULITIS AND ABSCESS OF UNSPECIFIED SITES 05/13/2011 698.9 UNSPECIFIED PRURITIC DISORDER 05/13/2011 919.4 INSECT BITE NONVENOMOUS OF OTHER MULTIPLE AND UNSPECIFIED SITES WITHOUT INFECTION 05/13/2011 V15.06 PERSONAL HISTORY OF ALLERGY TO INSECTS AND ARACHNIDS 05/13/2011 682.9 CELLULITIS AND ABSCESS OF UNSPECIFIED SITES 05/13/2011 698.9 UNSPECIFIED PRURITIC DISORDER 05/13/2011 919.4 INSECT BITE NONVENOMOUS OF OTHER MULTIPLE AND UNSPECIFIED SITES WITHOUT INFECTION 05/13/2011 V15.06 PERSONAL HISTORY OF ALLERGY TO INSECTS AND ARACHNIDS 05/13/2011 SARATH MCKEON DO 682.9 CELLULITIS AND ABSCESS OF UNSPECIFIED SITES 05/13/2011 SARATH MCKEON DO 698.9 UNSPECIFIED PRURITIC DISORDER 05/13/2011 MCKEON DO, SARATH K 919.4 INSECT BITE NONVENOMOUS OF OTHER MULTIPLE AND UNSPECIFIED SITES WITHOUT INFECTION 05/13/2011 MCKEON DO, SARATH K V15.06 PERSONAL HISTORY OF ALLERGY TO INSECTS AND ARACHNIDS 05/13/2011 MCKEON DO, SARATH K 682.9 CELLULITIS AND ABSCESS OF UNSPECIFIED SITES 05/13/2011 MCKEON DO, SARATH K 698.9 UNSPECIFIED PRURITIC DISORDER 05/13/2011 MCKEON DO, SARATH K 919.4 INSECT BITE NONVENOMOUS OF OTHER MULTIPLE AND UNSPECIFIED SITES WITHOUT INFECTION 05/13/2011 MCKEON DO, SARATH K V15.06 PERSONAL HISTORY OF ALLERGY TO INSECTS AND ARACHNIDS 05/13/2011 HELLWIG BIODIESEL PR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ANGELICAE E 682.9 CELLULITIS AND ABSCESS OF UNSPECIFIED SITES 05/13/2011 HELLWIG BIODIESEL PR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JERRYALANNA E 698.9 UNSPECIFIED PRURITIC DISORDER 05/13/2011 HELLWIG BIODIESEL PR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JERRYALANNA E 919.4 INSECT BITE NONVENOMOUS OF OTHER MULTIPLE AND UNSPECIFIED SITES WITHOUT INFECTION 05/13/2011 HELLWIG BIODIESEL PR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JERRYALANNA E V15.06 PERSONAL HISTORY OF ALLERGY TO INSECTS AND ARACHNIDS 05/13/2011 MCKEON DO, SARATH K 682.9 CELLULITIS AND ABSCESS OF UNSPECIFIED SITES 05/13/2011 MCKEON DO, SARATH K 698.9 UNSPECIFIED PRURITIC DISORDER 05/13/2011 MCKEON DO, SARATH K 919.4 INSECT BITE NONVENOMOUS OF OTHER MULTIPLE AND UNSPECIFIED SITES WITHOUT INFECTION 05/13/2011 MCKEON DO, SARATH K V15.06 PERSONAL HISTORY OF ALLERGY TO INSECTS AND ARACHNIDS 05/13/2011 MCKEON DO, SARATH K 682.9 CELLULITIS AND ABSCESS OF UNSPECIFIED SITES 05/13/2011 MCKEON DO, SARATH K 698.9 UNSPECIFIED PRURITIC DISORDER 05/13/2011 MCKEON DO, SARATH K 919.4 INSECT BITE NONVENOMOUS OF OTHER MULTIPLE AND UNSPECIFIED SITES WITHOUT INFECTION 05/13/2011 MCKEON DO, SARATH K V15.06 PERSONAL HISTORY OF ALLERGY TO INSECTS AND ARACHNIDS 05/13/2011 HELLWIG BIODIESEL PR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JERRYALANNA E 682.9 CELLULITIS AND ABSCESS OF UNSPECIFIED SITES 05/13/2011 ALANNA POOL APRN E 698.9 UNSPECIFIED PRURITIC DISORDER 05/13/2011 JERRY POOL APRNSIE E 919.4 INSECT BITE NONVENOMOUS OF OTHER MULTIPLE AND UNSPECIFIED SITES WITHOUT INFECTION 05/13/2011 JERRY POOL APRNSIE E V15.06 PERSONAL HISTORY OF ALLERGY TO INSECTS AND ARACHNIDS 05/13/2011 ANGELICA POOL APRNE E 682.9 CELLULITIS AND ABSCESS OF UNSPECIFIED SITES 05/13/2011 JERRY POOL APRNSIE E 698.9 UNSPECIFIED PRURITIC DISORDER 05/13/2011 JERRY POOL APRNSIE E 919.4 INSECT BITE NONVENOMOUS OF OTHER MULTIPLE AND UNSPECIFIED SITES WITHOUT INFECTION 05/13/2011 ALANNA POOL APRN E V15.06 PERSONAL HISTORY OF ALLERGY TO INSECTS AND ARACHNIDS 06/17/2011 RHODA LOMBARDI APRN 787.02 NAUSEA ALONE 06/17/2011 RHODA LOMBARDI APRN V67.9 UNSPECIFIED FOLLOW-UP EXAMINATION 06/17/2011 787.02 NAUSEA ALONE 06/17/2011 V67.9 UNSPECIFIED FOLLOW-UP EXAMINATION 06/17/2011 KAMI PEDRAZA MD 787.02 NAUSEA ALONE 06/17/2011 KAMI PEDRAZA MD V67.9 UNSPECIFIED FOLLOW-UP EXAMINATION 06/17/2011 787.02 NAUSEA ALONE 06/17/2011 V67.9 UNSPECIFIED FOLLOW-UP EXAMINATION 06/17/2011 787.02 NAUSEA ALONE 06/17/2011 V67.9 UNSPECIFIED FOLLOW-UP EXAMINATION 06/17/2011 787.02 NAUSEA ALONE 06/17/2011 V67.9 UNSPECIFIED FOLLOW-UP EXAMINATION 06/17/2011 787.02 NAUSEA ALONE 06/17/2011 V67.9 UNSPECIFIED FOLLOW-UP EXAMINATION 06/17/2011 MCKEON JERRY CEDILLOA K 787.02 NAUSEA ALONE 06/17/2011 MCKEON DO SARATH K V67.9 UNSPECIFIED FOLLOW-UP EXAMINATION 06/17/2011 MCKEON DO SARATH K 787.02 NAUSEA ALONE 06/17/2011 MCKEON DO, SARATH K V67.9 UNSPECIFIED FOLLOW-UP EXAMINATION 06/17/2011 ALANNA POOL APRN 787.02 NAUSEA ALONE 06/17/2011 JERRY POOL APRNSIE E V67.9 UNSPECIFIED FOLLOW-UP EXAMINATION 06/17/2011 MCKEON DO, SARATH K 787.02 NAUSEA ALONE 06/17/2011 MCKEON DO, SARATH K V67.9 UNSPECIFIED FOLLOW-UP EXAMINATION 06/17/2011 MCKEON DO, SARATH K 787.02 NAUSEA ALONE 06/17/2011 MCKEON DO, SARATH K V67.9 UNSPECIFIED FOLLOW-UP EXAMINATION 06/17/2011 ALANNA POOL APRN E 787.02 NAUSEA ALONE 06/17/2011 JERRY POOL APRNSIE E V67.9 UNSPECIFIED FOLLOW-UP EXAMINATION 06/17/2011 ALANNA POOL APRN E 787.02 NAUSEA ALONE 06/17/2011 ANGELICA POOL APRNE E V67.9 UNSPECIFIED FOLLOW-UP EXAMINATION 07/21/2012 RHODA LOMBARDI APRN A 562.00 DIVERTICULOSIS 07/21/2012 GIACOMO LOMBARDI APRNYL A 564.00 CONSTIPATION 07/21/2012 562.00 DIVERTICULOSIS 07/21/2012 564.00 CONSTIPATION 07/21/2012 KAMI PEDRAZA MD 562.00 DIVERTICULOSIS 07/21/2012 KAMI PEDRAZA MD 564.00 CONSTIPATION 07/21/2012 562.00 DIVERTICULOSIS 07/21/2012 564.00 CONSTIPATION 07/21/2012 562.00 DIVERTICULOSIS 07/21/2012 564.00 CONSTIPATION 07/21/2012 562.00 DIVERTICULOSIS 07/21/2012 564.00 CONSTIPATION 07/21/2012 562.00 DIVERTICULOSIS 07/21/2012 564.00 CONSTIPATION 07/21/2012 MCKEON DO, SARATH K 562.00 DIVERTICULOSIS 07/21/2012 MCKEON DO, SARATH K 564.00 CONSTIPATION 07/21/2012 MCKEON DO, SARATH K 562.00 DIVERTICULOSIS 07/21/2012 MCKEON DO, SARATH K 564.00 CONSTIPATION 07/21/2012 JERRY POOL APRNSIE E 562.00 DIVERTICULOSIS 07/21/2012 JERRY POOL APRNSIE E 564.00 CONSTIPATION 07/21/2012 MCKEON DO, SARATH K 562.00 DIVERTICULOSIS DUODENAL 07/21/2012 MCKEON DO, SARATH K 564.00 CONSTIPATION 07/21/2012 MCKEON DO, SARATH K 562.00 DIVERTICULOSIS DUODENAL 07/21/2012 MCKEON DO, SARATH K 564.00 CONSTIPATION 07/21/2012 ROHITHMONIQUE WALLACE ALANNA E 562.00 DIVERTICULOSIS DUODENAL 07/21/2012 ROHITHMONIQUE WALLACE, ALANNA E 564.00 CONSTIPATION 07/21/2012 [facility] WALLACE ALANNA E 562.00 DIVERTICULOSIS DUODENAL 07/21/2012 [facility] SYSTEM[facility] WALLACE, ALANNA E 564.00 CONSTIPATION 02/11/2013 401.9 ESSENTIAL HYPERTENSION 02/11/2013 562.10 DIVERTICULOSIS 02/11/2013 799.81 changed sexual interest (libido): decreased 02/11/2013 KAMI PEDRAZA MD 401.9 ESSENTIAL HYPERTENSION 02/11/2013 KAMI PEDRAZA MD 562.10 DIVERTICULOSIS 02/11/2013 KAMI PEDRAZA MD 799.81 changed sexual interest (libido): decreased 02/11/2013 401.9 ESSENTIAL HYPERTENSION 02/11/2013 562.10 DIVERTICULOSIS 02/11/2013 799.81 changed sexual interest (libido): decreased 02/11/2013 401.9 ESSENTIAL HYPERTENSION 02/11/2013 562.10 DIVERTICULOSIS 02/11/2013 799.81 changed sexual interest (libido): decreased 02/11/2013 401.9 ESSENTIAL HYPERTENSION 02/11/2013 562.10 DIVERTICULOSIS 02/11/2013 799.81 changed sexual interest (libido): decreased 02/11/2013 401.9 ESSENTIAL HYPERTENSION 02/11/2013 562.10 DIVERTICULOSIS 02/11/2013 799.81 changed sexual interest (libido): decreased 02/11/2013 MCKEON DO, SARATH K 401.9 ESSENTIAL HYPERTENSION 02/11/2013 MCKEON DO, SARATH K 562.10 DIVERTICULOSIS 02/11/2013 MCKEON DO, SARATH K 799.81 changed sexual interest (libido): decreased 02/11/2013 MCKEON DO, SARATH K 401.9 ESSENTIAL HYPERTENSION 02/11/2013 MCKEON DO, SARATH K 562.10 DIVERTICULOSIS 02/11/2013 MCKEON DO, SARATH K 799.81 changed sexual interest (libido): decreased 02/11/2013 HELLWIG BIODIESEL PR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, ALANNA E 401.9 ESSENTIAL HYPERTENSION 02/11/2013 HELLMONIQUE BIODIESEL PR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, ALANNA E 562.10 DIVERTICULOSIS 02/11/2013 HELLWIG BIODIESEL PR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, ALANNA E 799.81 changed sexual interest (libido): decreased 02/11/2013 MCKEON DO, SARATH K 401.9 ESSENTIAL HYPERTENSION 02/11/2013 MCKEON DO, SARATH K 562.10 DIVERTICULOSIS 02/11/2013 MCKEON DO, SARATH K 799.81 changed sexual interest (libido): decreased 02/11/2013 MCKEON DO, SARATH K 401.9 ESSENTIAL HYPERTENSION 02/11/2013 MCKENO DO, SARATH K 562.10 DIVERTICULOSIS 02/11/2013 MCKEON DO, SARATH K 799.81 changed sexual interest (libido): decreased 02/11/2013 HELLMONIQUE BIODIESEL PR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, ALANNA E 401.9 ESSENTIAL HYPERTENSION 02/11/2013 HELLMONIQUE DIAZN, ALANNA E 562.10 DIVERTICULOSIS 02/11/2013 ROHITHLMONIQUE DIAZBailey ALANNA E 799.81 changed sexual interest (libido): decreased 02/11/2013 HELLMONIQUE MADISON ALANNA E 401.9 ESSENTIAL HYPERTENSION 02/11/2013 HELLMONIQUE DIAZN, ALANNA E 562.10 DIVERTICULOSIS 02/11/2013 HELLMONIQUE DIAZBailey ALANNA E 799.81 changed sexual interest (libido): decreased 04/16/2013 DARRIAN URIOSTEGUI MD Ot 272.4 HYPERLIPIDEMIA NEC/NOS 04/16/2013 DARRIAN URIOSTEGUI MD Ot 311 DEPRESSIVE DISORDER NEC 04/16/2013 DARRIAN URIOSTEGUI MD Ot 401.9 HYPERTENSION NOS 04/16/2013 DARRIAN URIOSTEGUI MD Ot 414.01 CORONARY ATHEROSCLEROSIS OF [place] CORON 04/16/2013 DARRIAN URIOSTEGUI MD Ot 786.50 CHEST PAIN NOS 04/16/2013 DARRIAN URIOSTEGUI MD Ot V15.82 HISTORY OF TOBACCO USE 04/16/2013 DARRIAN URIOSTEGUI MD, Ot V17.49 FAMILY HISTORY OF OTHER CARDIOVASCULAR D 04/16/2013 DARRIAN URIOSTEGUI MD, Ot V58.69 OTH MED,LT,CURRENT USE 04/29/2013 782.2 lump in / on the skin 04/29/2013 782.2 lump in / on the skin 04/29/2013 782.2 lump in / on the skin 04/29/2013 782.2 lump in / on the skin 04/29/2013 MCKEON DO, SARATH K 782.2 lump in / on the skin 04/29/2013 MCKEON DO, SARATH K 782.2 lump in / on the skin 04/29/2013 HELLWIG BIODIESEL PR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, ALANNA E 782.2 lump in / on the skin 04/29/2013 MCKEON DO, SARATH K 782.2 lump in / on the skin 04/29/2013 MCKEON DO, SARATH K 782.2 lump in / on the skin 04/29/2013 HELLWIG BIODIESEL PR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, ALANNA E 782.2 lump in / on the skin 04/29/2013 HELLWIG BIODIESEL PR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, ALANNA E 782.2 lump in / on the skin 07/01/2013 054.9 HERPES SIMPLEX WITHOUT COMPLICATION 07/01/2013 054.9 HERPES SIMPLEX WITHOUT COMPLICATION 07/01/2013 MCKEON DO, SARATH K 054.9 HERPES SIMPLEX WITHOUT COMPLICATION 07/01/2013 MCKEON DO, SARATH K 054.9 HERPES SIMPLEX WITHOUT COMPLICATION 07/01/2013 HELLWIG BIODIESEL PR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, ALANNA E 054.9 HERPES SIMPLEX WITHOUT COMPLICATION 07/01/2013 MCKEON DO, SARATH K 054.9 HERPES SIMPLEX WITHOUT COMPLICATION 07/01/2013 MCKEON DO, SARATH K 054.9 HERPES SIMPLEX WITHOUT COMPLICATION 07/01/2013 HELLWIG BIODIESEL PR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, ALANNA E 054.9 HERPES SIMPLEX WITHOUT COMPLICATION 07/01/2013 HELLWIG BIODIESEL PR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, ALANNA E 054.9 HERPES SIMPLEX WITHOUT COMPLICATION 07/09/2013 692.6 CONTACT DERMATITIS AND OTHER ECZEMA DUE TO PLANTS (EXCEPT FOOD) 07/09/2013 692.6 CONTACT DERMATITIS AND OTHER ECZEMA DUE TO PLANTS (EXCEPT FOOD) 07/09/2013 MCKEON DO, SARATH K 692.6 CONTACT DERMATITIS AND OTHER ECZEMA DUE TO PLANTS (EXCEPT FOOD) 07/09/2013 MCKEON DO, SARATH K 692.6 CONTACT DERMATITIS AND OTHER ECZEMA DUE TO PLANTS (EXCEPT FOOD) 07/09/2013 HELLWIG BIODIESEL PR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, ALANNA E 692.6 CONTACT DERMATITIS AND OTHER ECZEMA DUE TO PLANTS (EXCEPT FOOD) 07/09/2013 MCKEON DO, SARATH K 692.6 CONTACT DERMATITIS AND OTHER ECZEMA DUE TO PLANTS (EXCEPT FOOD) 07/09/2013 MCKEON DO, SARATH K 692.6 CONTACT DERMATITIS AND OTHER ECZEMA DUE TO PLANTS (EXCEPT FOOD) 07/09/2013 ALANNA POOL APRN E 692.6 CONTACT DERMATITIS AND OTHER ECZEMA DUE TO PLANTS (EXCEPT FOOD) 07/09/2013 ANGELICA POOL APRNE E 692.6 CONTACT DERMATITIS AND OTHER ECZEMA DUE TO PLANTS (EXCEPT FOOD) 08/06/2013 MCKEON DO, SARATH K 686.9 UNSPECIFIED LOCAL INFECTION OF SKIN AND SUBCUTANEOUS TISSUE 08/06/2013 MCKEON DO, SARATH K 686.9 UNSPECIFIED LOCAL INFECTION OF SKIN AND SUBCUTANEOUS TISSUE 08/06/2013 ANGELICA POOL APRNE E 686.9 UNSPECIFIED LOCAL INFECTION OF SKIN AND SUBCUTANEOUS TISSUE 08/06/2013 MCKEON DO, SARATH K 686.9 UNSPECIFIED LOCAL INFECTION OF SKIN AND SUBCUTANEOUS TISSUE 08/06/2013 MCKEON DO, SARATH K 686.9 UNSPECIFIED LOCAL INFECTION OF SKIN AND SUBCUTANEOUS TISSUE 08/06/2013 JERRY POOL APRNSIE E 686.9 UNSPECIFIED LOCAL INFECTION OF SKIN AND SUBCUTANEOUS TISSUE 08/06/2013 JERRY POOL APRNSIE E 686.9 UNSPECIFIED LOCAL INFECTION OF SKIN AND SUBCUTANEOUS TISSUE 10/01/2013 MCKEON DO, SARATH K V05.8 ZOSTAVAX DX 10/01/2013 ALANNA POOL APRN E V05.8 ZOSTAVAX DX 10/01/2013 MCKEON DO, SARATH K V05.8 ZOSTAVAX DX 10/01/2013 MCKEON DO, SARATH K V05.8 ZOSTAVAX DX 10/01/2013 ANGELICA POOL APRNE E V05.8 ZOSTAVAX DX 10/01/2013 JERRY POOL APRNSIE E V05.8 ZOSTAVAX DX 08/10/2014 ALANNA POOL APRN E 789.61 ABDOMINAL TENDERNESS RIGHT UPPER QUADRANT 08/10/2014 ANGELICA POOL APRNE E 789.61 ABDOMINAL TENDERNESS RIGHT UPPER QUADRANT 06/15/2015 ALANNA POOL APRN Ot 789.61 06/15/2015 GUNNER RAMIREZ MD Ot 311 DEPRESSIVE DISORDER NEC 06/15/2015 GUNNER RAMIREZ MD Ot 780.4 DIZZINESS AND GIDDINESS 06/15/2015 GUNNER RAMIREZ MD Ot V58.69 OTH MED,LT,CURRENT USE 07/10/2015 ALANNA POOL BIODIESEL PR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 Ot 789.61 12/19/2016 TIMA, JONATHAN RN CHILD Ot I10 ESSENTIAL (PRIMARY) HYPERTENSION 12/19/2016 TIMA, JONATHAN RN CHILD Ot I72.8 ANEURYSM OF OTHER SPECIFIED ARTERIES 12/19/2016 TIMA, JONATHAN RN CHILD Ot K57.30 DVRTCLOS OF LG INT W/O PERFORATION OR AB 12/19/2016 TIMA, JONATHAN RN CHILD Ot R10.13 EPIGASTRIC PAIN 12/19/2016 TIMA, JONATHAN RN CHILD Ot Z79.899 OTHER [facility] (CURRENT) DRUG THERAPY 12/20/2016 TIMA, JONATHAN RN CHILD Ot I10 ESSENTIAL (PRIMARY) HYPERTENSION 12/20/2016 TIMA, JONATHAN RN CHILD Ot I72.8 ANEURYSM OF OTHER SPECIFIED ARTERIES 12/20/2016 TIMA, JONATHAN RN CHILD Ot K57.30 DVRTCLOS OF LG INT W/O PERFORATION OR AB 12/20/2016 TIMA, JONATHAN RN CHILD Ot R10.13 EPIGASTRIC PAIN 12/20/2016 TIMA, JONATHAN RN CHILD Ot Z79.899 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 11/10/2017 ANGELES SUERO MD Ot F32.9 MAJOR DEPRESSIVE DISORDER, SINGLE EPISOD 11/10/2017 ANGELES SUERO MD Ot I10 ESSENTIAL (PRIMARY) HYPERTENSION 11/10/2017 ANGELES SUERO MD Ot R07.89 OTHER CHEST PAIN 11/10/2017 ANGELES SUERO MD Ot R10.13 EPIGASTRIC PAIN 11/10/2017 ANGELES SUERO MD Ot Z85.41 PERSONAL HISTORY OF MALIGNANT NEOPLASM O 11/10/2017 ANGELES SUERO MD Ot Z87.19 PERSONAL HISTORY OF OTHER DISEASES OF TH 11/10/2017 ANGELES SUERO MD Ot Z87.891 PERSONAL HISTORY OF NICOTINE DEPENDENCE 11/10/2017 ANGELES SUERO MD Ot Z90.710 ACQUIRED ABSENCE OF BOTH CERVIX AND UTER 11/10/2017 ALANNA POOL BIODIESEL PR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 Ot 789.61 ABDOMINAL TENDERNESS, RIGHT UPPER QUADRA 12/09/2017 ALANNA POOL BIODIESEL PR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 Ot 789.61 ABDOMINAL TENDERNESS, RIGHT UPPER QUADRA 05/19/2018 DARRIAN URIOSTEGUI MD Ot E78.2 MIXED HYPERLIPIDEMIA 05/19/2018 DARRIAN URIOSTEGUI MD Ot I10 ESSENTIAL (PRIMARY) HYPERTENSION 05/19/2018 DARRIAN URIOSTEGUI MD Ot I25.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[place] CORONARY 05/19/2018 DARRIAN URIOSTEGUI MD Ot R07.9 CHEST PAIN, UNSPECIFIED 12/24/2018 DARRIAN URIOSTEGUI MD Ot E78.2 MIXED HYPERLIPIDEMIA 12/24/2018 DARRIAN URIOSTEGUI MD Ot I10 ESSENTIAL (PRIMARY) HYPERTENSION 12/24/2018 DARRIAN URIOSTEGUI MD Ot I25.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[place] CORONARY 12/24/2018 DARRIAN URIOSTEGUI MD Ot R07.9 CHEST PAIN, UNSPECIFIED 12/24/2018 ALANNA POOL BIODIESEL PR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 Ot 789.61 ABDOMINAL TENDERNESS, RIGHT UPPER QUADRA 12/24/2018 DARRIAN URIOSTEGUI MD Ot E78.2 MIXED HYPERLIPIDEMIA 12/24/2018 DARRIAN URIOSTEGUI MD, Ot I10 ESSENTIAL (PRIMARY) HYPERTENSION 12/24/2018 DARRIAN URIOSTEGUI MD Ot I25.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[place] CORONARY 12/24/2018 DARRIAN URIOSTEGUI MD Ot R07.9 CHEST PAIN, UNSPECIFIED 12/28/2018 ANGELES SUERO MD Ot E78.00 PURE HYPERCHOLESTEROLEMIA, UNSPECIFIED 12/28/2018 ANGELES SUERO MD Ot F32.9 MAJOR DEPRESSIVE DISORDER, SINGLE EPISOD 12/28/2018 ANGELES SUERO MD Ot I10 ESSENTIAL (PRIMARY) HYPERTENSION 12/28/2018 ANGELES SUERO MD Ot K21.9 GASTRO-ESOPHAGEAL REFLUX DISEASE WITHOUT 12/28/2018 ANGELES SUERO MD Ot R07.89 OTHER CHEST PAIN 12/28/2018 ANGELES SUERO MD Ot R10.13 EPIGASTRIC PAIN 12/28/2018 ANGELES SUERO MD Ot Z85.41 PERSONAL HISTORY OF MALIGNANT NEOPLASM O 12/28/2018 ANGELES SUERO MD, Ot Z87.19 PERSONAL HISTORY OF OTHER DISEASES OF TH 12/28/2018 ANGELES SUERO MD, Ot Z87.891 PERSONAL HISTORY OF NICOTINE DEPENDENCE 12/28/2018 ANGELES SUERO MD, Ot Z88.2 ALLERGY STATUS TO SULFONAMIDES STATUS 12/28/2018 ANGELES SUERO MD, Ot Z88.8 ALLERGY STATUS TO OTH DRUG/MEDS/BIOL SUB 12/28/2018 ANGELES SUERO MD, Ot Z90.710 ACQUIRED ABSENCE OF BOTH CERVIX AND UTER 12/28/2018 ANGELES SUERO MD Ot 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 12/28/2018 ANGELES SUERO MD, Ot Z98.890 OTHER SPECIFIED POSTPROCEDURAL STATES Procedures Code Description [place] [address] ROUTINE VENIPUNCTURE 02/12/2013 60521 A1C (RML) 02/12/2013 07601 TSH 02/12/2013 71380 CBC 02/12/2013 13210 LIPID PANEL 02/12/2013 16147 CMP 02/12/2013 2920261 GFR CALC (RESULT ONLY) 02/12/2013 61165 ROUTINE VENIPUNCTURE 05/28/2013 90861 LIPID PANEL 05/28/2013 77725 ROUTINE VENIPUNCTURE 07/28/2013 20391 LIPID PANEL 07/28/2013 82680 LIVER PANEL (LFT) 07/28/2013 90512 ROUTINE VENIPUNCTURE 01/17/2014 29873 LIPID PANEL 01/17/2014 34010 ROUTINE VENIPUNCTURE 08/03/2014 20672 CMP 08/03/2014 34420 LIPID PANEL 08/03/2014 42533 TSH 08/03/2014 89030 CBC 08/03/2014 GENERAL S OLINDA LOPEZ 08/16/2014 43155 HIDA SCAN 08/19/2014 Results Test Result Range Complete blood count (CBC) with automated white blood cell (WBC) differential - 12/19/16 09:50 Blood leukocytes automated count (number/volume) 5.5 10*3/uL 4.3-11.0 Blood erythrocytes automated count (number/volume) 4.36 10*6/uL 4.35-5.85 Venous blood hemoglobin measurement (mass/volume) 13.0 g/dL 11.5-16.0 Blood hematocrit (volume fraction) 39 % 35-52 Automated erythrocyte mean corpuscular volume 89 [foz_us] 80-99 Automated erythrocyte mean corpuscular hemoglobin (mass per erythrocyte) 30 pg 25-34 Automated erythrocyte mean corpuscular hemoglobin concentration measurement ( mass/volume) 34 g/dL 32-36 Automated erythrocyte distribution width ratio 13.2 % 10.0-14.5 Automated blood platelet count (count/volume) 151 10*3/uL 130-400 Automated blood platelet mean volume measurement 11.2 [foz_us] 7.4-10.4 Automated blood neutrophils/100 leukocytes 65 % 42-75 Automated blood lymphocytes/100 leukocytes 23 % 12-44 Blood monocytes/100 leukocytes 9 % 0-12 Automated blood eosinophils/100 leukocytes 2 % 0-10 Automated blood basophils/100 leukocytes 0 % 0-10 Blood neutrophils automated count (number/volume) 3.6 10*3 1.8-7.8 Blood lymphocytes automated count (number/volume) 1.3 10*3 1.0-4.0 Blood monocytes automated count (number/volume) 0.5 10*3 0.0-1.0 Automated eosinophil count 0.1 10*3/uL 0.0-0.3 Automated blood basophil count (count/volume) 0.0 10*3/uL 0.0-0.1 Comprehensive metabolic panel - 12/19/16 09:50 Serum or plasma sodium measurement (moles/volume) 139 mmol/L 135-145 Serum or plasma potassium measurement (moles/volume) 4.2 mmol/L 3.6-5.0 Serum or plasma chloride measurement (moles/volume) 106 mmol/L 98-107 Carbon dioxide 24 mmol/L 21-32 Serum or plasma anion gap determination (moles/volume) 9 mmol/L 5-14 Serum or plasma urea nitrogen measurement (mass/volume) 13 mg/dL 7-18 Serum or plasma creatinine measurement (mass/volume) 0.91 mg/dL 0.60-1.30 Serum or plasma urea nitrogen/creatinine mass ratio 14 NRG Serum or plasma creatinine measurement with calculation of estimated glomerular filtration rate > NRG Serum or plasma glucose measurement (mass/volume) 86 mg/dL 70-105 Serum or plasma calcium measurement (mass/volume) 9.3 mg/dL 8.5-10.1 Serum or plasma total bilirubin measurement (mass/volume) 0.4 mg/dL 0.1-1.0 Serum or plasma alkaline phosphatase measurement (enzymatic activity/volume) 68 U/L 40-136 Serum or plasma aspartate aminotransferase measurement (enzymatic activity/ volume) 19 U/L 5-34 Serum or plasma alanine aminotransferase measurement (enzymatic activity/volume ) 20 U/L 0-55 Serum or plasma protein measurement (mass/volume) 7.0 g/dL 6.4-8.2 Serum or plasma albumin measurement (mass/volume) 4.1 g/dL 3.2-4.5 Serum or plasma troponin i.cardiac measurement (mass/volume) - 12/19/16 09:50 Serum or plasma troponin i.cardiac measurement (mass/volume) < ng/ mL <0.30 Complete urinalysis with reflex to culture - 12/19/16 10:22 Urine color determination YELLOW NRG Urine clarity determination CLEAR NRG Urine pH measurement by test strip 5 5-9 Specific gravity of urine by test strip 1.015 1.016- 1.022 Urine protein assay by test strip, semi-quantitative NEGATIVE NEGATIVE Urine glucose detection by automated test strip NEGATIVE NEGATIVE Erythrocytes detection in urine sediment by light microscopy NEGATIVE NEGATIVE Urine ketones detection by automated test strip NEGATIVE NEGATIVE Urine nitrite detection by test strip NEGATIVE NEGATIVE Urine total bilirubin detection by test strip NEGATIVE NEGATIVE Urine urobilinogen measurement by automated test strip (mass/volume) NORMAL NORMAL Urine leukocyte esterase detection by dipstick 1+ NEGATIVE Automated urine sediment erythrocyte count by microscopy (number/high power field) NONE NRG Automated urine sediment leukocyte count by microscopy (number/high power field ) [HPF] NRG Bacteria detection in urine sediment by light microscopy TRACE NRG Squamous epithelial cells detection in urine sediment by light microscopy 0-2 NRG Crystals detection in urine sediment by light microscopy NONE NRG Casts detection in urine sediment by light microscopy NONE NRG Mucus detection in urine sediment by light microscopy NEGATIVE NRG Complete urinalysis with reflex to culture NO NRG Complete blood count (CBC) with automated white blood cell (WBC) differential - 11/10/17 10:50 Blood leukocytes automated count (number/volume) 5.7 10*3/uL 4.3-11.0 Blood erythrocytes automated count (number/volume) 4.41 10*6/uL 4.35-5.85 Venous blood hemoglobin measurement (mass/volume) 13.2 g/dL 11.5-16.0 Blood hematocrit (volume fraction) 39 % 35-52 Automated erythrocyte mean corpuscular volume 88 [foz_us] 80-99 Automated erythrocyte mean corpuscular hemoglobin (mass per erythrocyte) 30 pg 25-34 Automated erythrocyte mean corpuscular hemoglobin concentration measurement ( mass/volume) 34 g/dL 32-36 Automated erythrocyte distribution width ratio 13.0 % 10.0-14.5 Automated blood platelet count (count/volume) 165 10*3/uL 130-400 Automated blood platelet mean volume measurement 12.0 [foz_us] 7.4-10.4 Automated blood neutrophils/100 leukocytes 62 % 42-75 Automated blood lymphocytes/100 leukocytes 25 % 12-44 Blood monocytes/100 leukocytes 11 % 0-12 Automated blood eosinophils/100 leukocytes 2 % 0-10 Automated blood basophils/100 leukocytes 0 % 0-10 Blood neutrophils automated count (number/volume) 3.5 10*3 1.8-7.8 Blood lymphocytes automated count (number/volume) 1.4 10*3 1.0-4.0 Blood monocytes automated count (number/volume) 0.6 10*3 0.0-1.0 Automated eosinophil count 0.1 10*3/uL 0.0-0.3 Automated blood basophil count (count/volume) 0.0 10*3/uL 0.0-0.1 PT panel in platelet poor plasma by coagulation assay - 11/10/17 10:50 Prothrombin time (PT) in platelet poor plasma by coagulation assay 12.2 s 12.2-14.7 INR in platelet poor plasma or blood by coagulation assay 0.9 0.8-1.4 Activated partial thromboplastin time (aPTT) in platelet poor plasma bycoagulation assay - 11/10/17 10:50 Activated partial thromboplastin time (aPTT) in platelet poor plasma bycoagulation assay 32 s 24-35 Comprehensive metabolic panel - 11/10/17 10:50 Serum or plasma sodium measurement (moles/volume) 137 mmol/L 135-145 Serum or plasma potassium measurement (moles/volume) 4.0 mmol/L 3.6-5.0 Serum or plasma chloride measurement (moles/volume) 105 mmol/L 98-107 Carbon dioxide 23 mmol/L 21-32 Serum or plasma anion gap determination (moles/volume) 9 mmol/L 5-14 Serum or plasma urea nitrogen measurement (mass/volume) 11 mg/dL 7-18 Serum or plasma creatinine measurement (mass/volume) 0.97 mg/dL 0.60-1.30 Serum or plasma urea nitrogen/creatinine mass ratio 11 NRG Serum or plasma creatinine measurement with calculation of estimated glomerular filtration rate 59 NRG Serum or plasma glucose measurement (mass/volume) 100 mg/dL 70-105 Serum or plasma calcium measurement (mass/volume) 9.6 mg/dL 8.5-10.1 Serum or plasma total bilirubin measurement (mass/volume) 0.5 mg/dL 0.1-1.0 Serum or plasma alkaline phosphatase measurement (enzymatic activity/volume) 64 U/L 40-136 Serum or plasma aspartate aminotransferase measurement (enzymatic activity/ volume) 21 U/L 5-34 Serum or plasma alanine aminotransferase measurement (enzymatic activity/volume ) 17 U/L 0-55 Serum or plasma protein measurement (mass/volume) 7.6 g/dL 6.4-8.2 Serum or plasma albumin measurement (mass/volume) 4.2 g/dL 3.2-4.5 Magnesium - 11/10/17 10:50 Magnesium 1.8 mg/dL 1.8-2.4 Serum or plasma troponin i.cardiac measurement (mass/volume) - 11/10/17 10:50 Serum or plasma troponin i.cardiac measurement (mass/volume) < ng/ mL <0.30 Myoglobin, serum - 11/10/17 10:50 Myoglobin, serum 35.1 ng/mL 10.0-92.0 Serum or plasma amylase measurement (enzymatic activity/volume) - 11/10/17 10: 50 Serum or plasma amylase measurement (enzymatic activity/volume) 98 U /L 25-125 Lipase - 11/10/17 10:50 Lipase 32 U/L 8-78 CBC - 01/14/18 12:01 WHITE BLOOD CELL COUNT 5.9 Thousand/uL 3.8-10.8 RED BLOOD CELL COUNT 4.33 Million/uL 3.80-5.10 HEMOGLOBIN 12.9 g/dL 11.7-15.5 HEMATOCRIT 38.8 % 35.0-45.0 MCV 89.6 fL 80.0-100.0 MCH 29.8 pg 27.0-33.0 MCHC 33.2 g/dL 32.0-36.0 RDW 12.6 % 11.0-15.0 PLATELET COUNT 164 Thousand/uL 140-400 MPV 12.5 fL 7.5-12.5 ABSOLUTE NEUTROPHILS 3870 cells/uL 7103-3120 ABSOLUTE LYMPHOCYTES 1416 cells/uL 850-3900 ABSOLUTE MONOCYTES 513 cells/uL 200-950 ABSOLUTE EOSINOPHILS 71 cells/uL 15-500 ABSOLUTE BASOPHILS 30 cells/uL 0-200 NEUTROPHILS 65.6 % NRG LYMPHOCYTES 24.0 % NRG MONOCYTES 8.7 % NRG EOSINOPHILS 1.2 % NRG BASOPHILS 0.5 % NRG THYROID ANALYZER - 10/08/18 09:55 TSH 1.97 mIU/L 0.40-4.50 Complete blood count (CBC) with automated white blood cell (WBC) differential - 12/25/18 21:37 Blood leukocytes automated count (number/volume) 7.7 10*3/uL 4.3-11.0 Blood erythrocytes automated count (number/volume) 4.31 10*6/uL 4.35-5.85 Venous blood hemoglobin measurement (mass/volume) 12.8 g/dL 11.5-16.0 Blood hematocrit (volume fraction) 37 % 35-52 Automated erythrocyte mean corpuscular volume 85 [foz_us] 80-99 Automated erythrocyte mean corpuscular hemoglobin (mass per erythrocyte) 30 pg 25-34 Automated erythrocyte mean corpuscular hemoglobin concentration measurement ( mass/volume) 35 g/dL 32-36 Automated erythrocyte distribution width ratio 12.7 % 10.0-14.5 Automated blood platelet count (count/volume) 169 10*3/uL 130-400 Automated blood platelet mean volume measurement 12.0 [foz_us] 7.4-10.4 Automated blood neutrophils/100 leukocytes 63 % 42-75 Automated blood lymphocytes/100 leukocytes 24 % 12-44 Blood monocytes/100 leukocytes 12 % 0-12 Automated blood eosinophils/100 leukocytes 1 % 0-10 Automated blood basophils/100 leukocytes 0 % 0-10 Blood neutrophils automated count (number/volume) 4.9 10*3 1.8-7.8 Blood lymphocytes automated count (number/volume) 1.8 10*3 1.0-4.0 Blood monocytes automated count (number/volume) 0.9 10*3 0.0-1.0 Automated eosinophil count 0.0 10*3/uL 0.0-0.3 Automated blood basophil count (count/volume) 0.0 10*3/uL 0.0-0.1 Fibrin D-dimer FEU measurement in platelet poor plasma (mass/volume) - 21:37 Fibrin D-dimer FEU measurement in platelet poor plasma (mass/volume) 0.35 ug/mL 0.00-0.49 PT panel in platelet poor plasma by coagulation assay - 12/25/18 21:37 Prothrombin time (PT) in platelet poor plasma by coagulation assay 13.3 s 12.2-14.7 INR in platelet poor plasma or blood by coagulation assay 1.0 0.8-1.4 Activated partial thromboplastin time (aPTT) in platelet poor plasma bycoagulation assay - 12/25/18 21:37 Activated partial thromboplastin time (aPTT) in platelet poor plasma bycoagulation assay 29 s 24-35 Comprehensive metabolic panel - 12/25/18 21:37 Serum or plasma sodium measurement (moles/volume) 129 mmol/L 135-145 Serum or plasma potassium measurement (moles/volume) 3.3 mmol/L 3.6-5.0 Serum or plasma chloride measurement (moles/volume) 93 mmol/L 98-107 Carbon dioxide 23 mmol/L 21-32 Serum or plasma anion gap determination (moles/volume) 13 mmol/L 5-14 Serum or plasma urea nitrogen measurement (mass/volume) 3 mg/dL 7-18 Serum or plasma creatinine measurement (mass/volume) 0.87 mg/dL 0.60-1.30 Serum or plasma urea nitrogen/creatinine mass ratio 3 NRG Serum or plasma creatinine measurement with calculation of estimated glomerular filtration rate > NRG Serum or plasma glucose measurement (mass/volume) 114 mg/dL 70-105 Serum or plasma calcium measurement (mass/volume) 9.2 mg/dL 8.5-10.1 Serum or plasma total bilirubin measurement (mass/volume) 0.6 mg/dL 0.1-1.0 Serum or plasma alkaline phosphatase measurement (enzymatic activity/volume) 63 U/L 40-136 Serum or plasma aspartate aminotransferase measurement (enzymatic activity/ volume) 21 U/L 5-34 Serum or plasma alanine aminotransferase measurement (enzymatic activity/volume ) 24 U/L 0-55 Serum or plasma protein measurement (mass/volume) 7.0 g/dL 6.4-8.2 Serum or plasma albumin measurement (mass/volume) 4.3 g/dL 3.2-4.5 CALCIUM CORRECTED 9.0 mg/dL 8.5-10.1 Magnesium - 12/25/18 21:37 Magnesium 1.9 mg/dL 1.8-2.4 Serum or plasma troponin i.cardiac measurement (mass/volume) - 12/25/18 21:37 Serum or plasma troponin i.cardiac measurement (mass/volume) < ng/ mL <0.028 Myoglobin, serum - 12/25/18 21:37 Myoglobin, serum 75.2 ng/mL 10.0-92.0 Lipase - 12/25/18 21:37 Lipase 158 U/L 8-78 Serum or plasma troponin i.cardiac measurement (mass/volume) - 12/25/18 23:44 Serum or plasma troponin i.cardiac measurement (mass/volume) < ng/ mL <0.028 Myoglobin, serum - 12/25/18 23:44 Myoglobin, serum 53.9 ng/mL 10.0-92.0 Encounters ACCT No. Visit Date/Time Discharge Status Pt. Type Provider Facility Loc./Unit Complaint [id number] 11/30/2014 09:43:00 11/30/2014 23:59:59 [facility] Outpatient ALANNA POOL APRN [id number] 08/10/2014 09:16:00 08/10/2014 23:59:59 [facility] Outpatient ALANNA POOL APRN [id number] 08/03/2014 11:27:00 08/03/2014 23:59:59 [facility] Outpatient SARATH MCKEON DO [id number] 06/24/2014 14:00:00 06/24/2014 23:59:59 [facility] Outpatient SARATH MCKEON DO [id number] 01/17/2014 11:59:00 01/17/2014 23:59:59 [facility] Outpatient ALANNA POOL APRN [id number] 10/01/2013 10:20:00 10/01/2013 23:59:59 [facility] Outpatient SARATH MCKEON DO [id number] 08/06/2013 09:26:00 08/06/2013 23:59:59 [facility] Outpatient SARATH MCKEON DO [id number] 02/12/2013 09:18:00 02/12/2013 23:59:59 [facility] Outpatient KAMI PEDRAZA MD [id number] 02/11/2013 13:16:00 02/11/2013 23:59:59 [facility] Outpatient [id number] 07/21/2012 13:11:00 07/21/2012 23:59:59 [facility] Outpatient RHODA LOMBARDI APRN [id number] 07/28/2013 08:35:00 Document Registration [id number] 07/09/2013 15:20:00 Document Registration [id number] 05/28/2013 08:50:00 Document Registration [id number] 04/29/2013 08:50:00 Document Registration [id number] 06/15/2015 07:19:43 ACT Document Registration [id number] 12/28/2018 10:11:00 12/28/2018 15:21:00 DIS Outpatient CORDELL SAHA DO [facility] PREOP COLONOSCOPY/EGD [id number] 12/25/2018 21:27:00 12/26/2018 00:38:00 DIS Outpatient ANGELES SUERO MD [facility] ER CHEST PAIN [id number] 12/23/2018 15:55:00 12/23/2018 23:59:59 CLS Preadmit TITO KARIMI [employer]OD[employer]EL [employer]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 [facility] RAD HX OF DIVERTICULITIS [id number] 12/09/2017 10:49:00 12/09/2017 23:59:59 CLS Outpatient DARRIAN URIOSTEGUI MD [facility] CARD I25.10 CAD [id number] 11/10/2017 10:43:00 11/10/2017 14:06:00 DIS Emergency ANGELES SUERO MD [facility] ER CHEST PAIN [id number] 12/19/2016 09:47:00 12/19/2016 13:21:00 DIS Emergency JONATHAN ALFRED [facility] ER CHEST/BACK PAIN LEFT FOOT NUMB/TINGLING [id number] 06/15/2015 07:19:00 06/15/2015 09:14:00 DIS Emergency GUNNER RAMIREZ MD [facility] ER DIZZINESS/NAUSEA [id number] 08/18/2014 09:50:00 08/18/2014 23:59:59 CLS Outpatient ROHITHALYX ALANNABre Díaz APRN [facility] CARD RUQ PAIN [id number] 04/15/2013 11:30:00 04/16/2013 13:00:00 DIS Outpatient MOODY OSCAR, DARRIAN [place] [facility] CATH CHEST PAIN [id number] 12/31/2018 08:00:00 PEN Preadmit CORDELL SAHA DO [facility] RAD RUQ PAIN [id number] 12/30/2018 13:00:00 PEN Preadmit CORDELL SAHA DO [facility] ENDO CHANGE IN BM/NAUSEA [id number] 06/15/2015 07:19:00 Document Registration [id number] 12/16/2018 12:40:00 12/16/2018 23:59:59 CLS Outpatient TITO KARIMI [facility] [id number] 10/08/2018 09:40:00 Document Registration [id number] 01/14/2018 10:20:00 Document Registration
[2018-12-30] MEDS ORDERED: MIDAZOLAM 2 MG/2 ML (VERSED) VIAL ONE (09:39)
[2018-12-30] MEDS ORDERED: PROPOFOL INJECTION 50 ML IV ONE (09:39)
[2018-12-30] MEDS ORDERED: HURRICAINE EXT TUBE (BENZOCAINE) ONE (09:41)
--- NOTE | 2018-12-30 10:23 | Progress Note-Post Operative ---
Post-Operative Progess Note Surgeon (s)/Senior Payroll Specialist (s) Surgeon CORDELL SAHA DO Senior Payroll Specialist: none Pre-Operative Diagnosis Gastritis, Screening colonoscopy Post-Operative Diagnosis Gastritis Esophagitis Diverticula Internal Hemorrhoids Procedure & Operative Findings Date of Procedure 12/30/18 Procedure Performed/Findings EGD with biopsy Colonoscopy Anesthesia Type IV sedation by FACULTY RESEARCH ASSISTANT Estimated Blood Loss Estimated blood loss (mL): scant Specimens/Packing Specimens Removed Antral bx Body of stomach bx GE jxn bx x 2 CORDELL ASHA DO Dec 30, 2018 10:23
--- NOTE | 2018-12-30 10:24 | Endoscopy Discharge Instruct ---
Endo Procedure/Findings Findings 1.: Gastritis, Other Findings (Esophagitis) 2.: Diverticulosis 3.: Internal Hemorrhoids Discharge Instructions - Activity: You might feel a little sleepy until tomorrow. This is due to the medicine you received to relax you. Until tomorrow, you should: NOT drive a car, operate machinery or power tools. NOT drink any alcoholic beverages. NOT make any important decisions or sign importortant papers. Do not return to work until tomorrow, unless otherwise instructed. Resume previous activities tomorrow. Diet: Start by taking liquids. If you tolerate liquids, advance to solid food. make an appointment for one week Instructions: 1.: Colonscopy in 10 years 2.: EGD in 1 year Notify Physician - If you experience excessive bleeding, unusual abdominal pain, fever, or chest pain, contact your doctor immediately. Follow-Up: - I have received and understand the above instructions and will call my doctor if I have any further questions. Patient Signature Date Nurse Signature Other (Relationship) CORDELL SAHA DO Dec 30, 2018 10:24
[2018-12-30 10:40] VITALS: BP 130/68
--- NOTE | 2018-12-30 10:59 | Anesthesia-General Post-Op ---
MAC Patient Condition Mental Status/LOC: Same as Preop Cardiovascular: Satisfactory Nausea/Vomiting: Absent Respiratory: Satisfactory Pain: Controlled Complications: Absent Post Op Complications Complications None Follow Up Care/Instructions Patient Instructions None needed. Anesthesiology Discharge Order Discharge Order Patient is doing well, no complaints, stable vital signs, no apparent adverse anesthesia problems. No complications reported per nursing. SAPNA PEDRAZA CRNA Dec 30, 2018 10:59
[2018-12-30 11:10] VITALS: BP 130/68
--- NOTE | 2018-12-30 16:26 | OPERATIVE REPORT ---
DATE OF SERVICE: 12/30/2018 PREOPERATIVE DIAGNOSES: 1. Gastritis. 2. Screening colonoscopy. POSTOPERATIVE DIAGNOSES: 1. Gastritis. 2. Esophagitis. 3. Diverticula. 4. Internal hemorrhoids. 5. Lax anal sphincter. 6. Questionable small rectocele. 7. Hiatal hernia. PROCEDURES: 1. Esophagogastroduodenoscopy with biopsy. 2. Colonoscopy. SURGEON: Blake Hidalgo DO. LIGHT CLEANER: None. ANESTHESIA: IV sedation by CARE ATTENDANT. BLOOD LOSS: Scant. FLUIDS: Per Anesthesia. POSTOPERATIVE CONDITION: Stable. INDICATION FOR PROCEDURE: The patient is a 63-year-old female who has been having some upper abdominal pain, gastroesophageal reflux disease symptoms and a history of gastritis, taking medications for this. She is also 63 and has never had a colonoscopy, needed one for screening. FINDINGS: The patient had some gastritis and esophagitis, had biopsy done. She also had diverticula actually seen throughout the entire colon and she had some small internal hemorrhoids as well as a lax anal sphincter and felt like a small rectocele. PROCEDURE NOTE: After informed consent was obtained, the patient was brought to the endoscopy suite, placed in the bed in left lateral decubitus position. She was administered IV sedation by the CARE ATTENDANT who then monitored her vitals the entire time, heart rate, blood pressure and pulse ox and the scope was inserted down the mouth through the esophagus into the stomach. Upon entering the stomach noted there was some erythema, pushed into the small intestine, may have also been a little bit of erythema in small intestine as well. Backed up and took a biopsy of the antrum and took a biopsy of the body of the stomach and then took back up a little bit further. The patient also had had a small hiatal hernia. I took a picture when retroflexion saw the small hiatal hernia, then pulled back into the GE junction, did 2 biopsies of the GE junction and then pulled the scope up the rest of the esophagus and out of the mouth. I then switched gloves, switched scopes, went down below and started the colonoscopy. The patient noted to have a very lax anal sphincter, pushed the scope in, pushed all the way to about [address] in. Throughout the entire colon, sigmoid, descending, transverse and ascending colon, there was diverticula. Pictures were taken. I was able to get to the cecum, took a picture of appendiceal orifice and then noted the ileocecal valve and able to get into the terminal ileum and took a picture. Slowly withdrew the scope insufflating to look circumferentially at the ewing, looking at the cecum, up the ascending colon to the hepatic flexure, then down the transverse colon to the splenic flexure, into the descending colon and then down in the sigmoid and finally into the rectum. Retroflexed the rectal vault, saw some very small internal hemorrhoids. Digital rectal exam was done and patient appeared to have a very small rectocele into the vagina. The patient tolerated procedure. She was recovered in the endoscopy suite. Job ID: [id number] DocumentID: [id number] Dictated Date: 12/30/2018 11:45:55 Automotive Software Engineer Date: 12/30/2018 16:25:51 Dictated By: BLAKE HIDALGO DO
== END 2018-12-30 11:10 | disposition home or self-care (01) ==
LOC: ENDO 07:56
PROVIDERS: ATTEND Surgery
DX: Z12.11 Encounter for screening for malignant neoplasm of colon (principal); K29.70 Gastritis, unspecified, without bleeding; K20.9 Esophagitis, unspecified; K57.30 Diverticulosis of large intestine without perforation or abscess without bleeding; K44.9 Diaphragmatic hernia without obstruction or gangrene; K64.1 Second degree hemorrhoids; K62.89 Other specified diseases of anus and rectum; I10 Essential (primary) hypertension; E78.2 Mixed hyperlipidemia; I25.10 Atherosclerotic heart disease of native coronary artery without angina pectoris; Z87.891 Personal history of nicotine dependence; F41.9 Anxiety disorder, unspecified; F32.9 Major depressive disorder, single episode, unspecified; Z79.899 Other long term (current) drug therapy

== ENCOUNTER → 2018-12-31 | Outpatient (CLI) | payer OTHER ==
--- NOTE | 2018-12-31 09:48 | Diagnostic Imaging Report ---
PROCEDURE: US Gallbladder. TECHNIQUE: Multiple real-time grayscale images were obtained over the right upper quadrant in various projections. INDICATION: Right upper quadrant pain. FINDINGS: The liver is normal in size without focal lesions. There is hepatopetal flow in the main portal vein. Hepatic veins are patent. There is no biliary ductal dilatation. Common bile duct measures less than 3 mm. There is no cholelithiasis, gallbladder wall thickening or pericholecystic fluid. Pancreas is largely obscured by bowel gas. Right kidney is normal in appearance. There is no ascites. IMPRESSION: Essentially unremarkable right upper quadrant ultrasound. Dictated by: Dictated on workstation # [id number]
== END ==
LOC: RAD 07:50
PROVIDERS: ATTEND Surgery
DX: R10.11 Right upper quadrant pain (principal)
CPT/HCPCS: 76705

== ENCOUNTER → 2019-01-14 | Outpatient (CLI) | payer OTHER ==
[~2019-01-14] MED LIST changes: +CATHETER FLUSH 10 ML SYR IV PRN
--- NOTE | 2019-01-14 13:38 | Diagnostic Imaging Report ---
INDICATION: Right upper quadrant pain. TECHNIQUE: Patient was administered 5.5 mCi of technetium 99m Choletec intravenously and imaging of the abdomen was performed. At one hour, patient ingested 8 ounces of Ensure and a gallbladder ejection fraction was calculated. FINDINGS: There is homogeneous uptake of activity by the liver. Prompt excretion of activity into the common duct and gallbladder is noted. There is normal passage of activity into the small bowel. Gallbladder ejection fraction is normal at 53%. IMPRESSION: Normal HIDA scan and gallbladder ejection fraction. Dictated by: Dictated on workstation # [id number]
== END ==
LOC: CARD 09:27
PROVIDERS: ATTEND Surgery
DX: R10.11 Right upper quadrant pain (principal)
CPT/HCPCS: 78227

== ENCOUNTER 2019-03-11 15:34 | Emergency (ER) | payer SELFPAY ==
[~2019-03-11] VITALS: Ht 175.3 cm; Wt 73.5 kg
[~2019-03-11 15:34] MED LIST changes: -CATHETER FLUSH 10 ML SYR IV PRN
[2019-03-11] MEDS ORDERED: SUCR1TAB36 PO (15:49)
[2019-03-11] MEDS ORDERED: ONDN4T PO (15:49)
--- NOTE | 2019-03-11 16:01 | ED Abdominal Pain ---
General Chief Complaint: Abdominal/GI Problems Stated Complaint: SIDE PAIN,NAUSEA Nursing Triage Note: PATIENT STATES THAT SHE HAS A BURNING IN HER STOMACH THAT MAKES HER NAUSEATED. SHE HAS HAD HAD THIS PROBLEM SINCE DECEMBER. SHE STATES SHE HAS HAD MANY TESTS DONE FOR THIS. Sepsis Screen: No Definite Risk Source of Information: Patient Exam Limitations: No Limitations History of Present Illness Date Seen by Provider: Mar 11, 2019 Time Seen by Provider: 16:00 Initial Comments To ER with epigastric abdominal pain mostly in the left upper quadrant at this time. This is been ongoing since December she's had a reported weight loss of about 29 pounds since the onset of this. She's had an EGD, colonoscopy, bladder ultrasound and hepatobiliary scan by Dr. Beckiwth to evaluate this pain without findings. History of hiatal hernia repaired surgically many years ago. She has some associated nausea but no vomiting. No changes in her bowel habits. Timing/Duration: Other (4 months) Severity/Quality: Moderate Location: Epigastric Radiation: LUQ Activities at Onset: None Associated Symptoms: Nausea/Vomiting Allergies and Home Medications Allergies Coded Allergies: Sulfa (Sulfonamide Antibiotics) (Verified Allergy, Unknown, 12/25/18) irbesartan (Verified Allergy, Unknown, 12/25/18) Home Medications Atorvastatin Calcium 40 Mg Tablet, 40 MG PO HS, (Reported) C,E,Zinc,Copper 11/Wvzay5c/Lut 1 Each Capsule, 1 EACH PO DAILY, (Reported) Escitalopram Oxalate 10 Mg Tablet, 10 MG PO DAILY, (Reported) Lactobacillus Acidophilus 1 Each Capsule, 1 EACH PO DAILY, (Reported) Metoprolol Succinate 25 Mg Tab.er.24h, 25 MG PO DAILY@1800, (Reported) [place] 3 Polyunsat Fatty Acids 1,000 Mg Cap, 1,000 MG PO DAILY, (Reported) Omeprazole 20 Mg Tablet.dr, 20 MG PO BID, (Reported) Vitamin B Complex 1 Each Tablet, 1 EACH PO DAILY, (Reported) Patient Home Medication List Home Medication List Reviewed: Yes Review of Systems Review of Systems Constitutional: see HPI EENTM: No Symptoms Reported Respiratory: No Symptoms Reported Cardiovascular: No Symptoms Reported Gastrointestinal: See HPI, Abdominal Pain, Nausea Genitourinary: No Symptoms Reported Musculoskeletal: no symptoms reported Skin: no symptoms reported Psychiatric/Neurological: No Symptoms Reported Endocrine: No Symptoms Reported Past Nizrlua-Qyhsqy-Rrjkma Hx Patient Social History Alcohol Use: Denies Use Recreational Drug Use: No Smoking Status: Former Smoker Type Used: Cigarettes Former Smoker, Quit: Oct 31, 2012 2nd Hand Smoke Exposure: No Recent Foreign Travel: No Contact w/Someone Who Travel: No Recent Infectious Disease Expo: No Recent Hopitalizations: No Immunizations Up To Date Tetanus Booster (TDap): Unknown Date of Influenza Vaccine: Aug 27, 2018 Seasonal Allergies Seasonal Allergies: Yes Past Medical History Surgeries: Yes (hernia repair) Hysterectomy Respiratory: No Cardiac: Yes (HEART CATH 2012) High Cholesterol, Hypertension Neurological: No Reproductive Disorders: No [employer] History: Menopausal Genitourinary: No Gastrointestinal: Yes Gastroesophageal Reflux, Diverticulosis Musculoskeletal: No Endocrine: No HEENT: No Cancer: Yes Cervical What Type of Treatment Did You: Surgical Intervention Psychosocial: Yes Depression Integumentary: No Blood Disorders: No Family Medical History No Pertinent Family Hx Physical Exam Vital Signs Vital Signs - First Documented 03/11/19 15:41 Temp 98.3 Pulse 64 Resp 18 B/P (MAP) 141/85 (103) Pulse Ox 97 O2 Delivery Room Air Capillary Refill : Less Than 3 Seconds Height/Weight/BMI Height: 5'9.00" Weight: 162lbs. 0oz. 73.643689yl; 26.3 BMI Method:Stated General Appearance: WD/WN, no apparent distress HEENT: PERRL/EOMI, normal ENT inspection Respiratory: no respiratory distress, no accessory muscle use Gastrointestinal: normal bowel sounds, non tender, soft Extremities: normal range of motion, non-tender Neurologic/Psychiatric: alert, normal mood/affect, oriented x 3 Skin: normal color, warm/dry Progress/Results/Core Measures Results/Orders My Orders Orders - PRASAD HUITRON APRN Antacid Suspension (Mylanta Suspension (03/11/19 16:15) Lidocaine 2% Viscous 15 Ml (Xylocaine Vi (03/11/19 16:15) Medications Given in ED Current Medications Medications Dose Ordered Sig/Deena Route Start Time Stop Time Status Last Admin Dose Admin Al Hydrox/Mg Hydrox/Simethicone 30 ml ONCE ONCE PO 03/11/19 16:15 03/11/19 16:16 DC 03/11/19 16:29 30 ML Lidocaine HCl 10 ml ONCE ONCE PO 03/11/19 16:15 03/11/19 16:16 DC 03/11/19 16:29 10 ML Vital Signs/I&O 03/11/19 15:41 Temp 98.3 Pulse 64 Resp 18 B/P (MAP) 141/85 (103) Pulse Ox 97 O2 Delivery Room Air Blood Pressure Mean: 103 Departure Communication (Admissions) 0313-patient was given a GI cocktail and her pain is now completely gone. She's been dealing with this pain since December and she is very pleased that the pain is gone. She is already scheduled with Dr. Jerome from gastroenterology in [place] tomorrow to "rule out pancreatic cancer". Advised her to keep that appointment, she's been using only Pepcid. Since she failed H2 blockade will proceed with starting proton pump inhibitor. Impression Primary Impression: gastritis Disposition: HOME, SELF-CARE Condition: Stable Departure-Patient Inst. Decision time for Depature: 16:46 Referrals: [facility] (PCP) Primary Care Physician TITO KARIMI APRN (Family) Primary Care Physician Patient Instructions: Gastritis (DC) Add. Discharge Instructions: 1. Medication as directed 2. Follow-up with your doctor next week 3. Keep her appointment with Dr. Jerome tomorrow. All discharge instructions reviewed with patient and/or family. Voiced understanding. Scripts Esomeprazole Magnesium (Esomeprazole Magnesium) 40 Mg Capsule. 40 MG PO DAILY, #30 CAP Prov: PRASAD HUITRON APRN 03/11/19 PRASAD HUITRON APRN Mar 11, 2019 16:01
[2019-03-11] MEDS ORDERED: LIDOCAINE 2% VISCOUS 15 ML UDC PO ONE (16:15)
[2019-03-11] MEDS ORDERED: ANTACID SUSP 30 ML UDC (MYLANTA) PO ONE (16:15)
[2019-03-11] MEDS ORDERED: ESOM40CA52 PO (16:47)
[2019-03-11 16:53] VITALS: BP 141/85
--- OUTSIDE RECORDS SUMMARY | 2019-03-11 18:05 | XMS REPORT ---
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 Name Role Phone Migration, Doctor Unavailable Unavailable PROBLEMS Type Condition ICD9-CM Code VTP47-HL Code Onset Dates Condition Status SNOMED Code Problem Grade I hemorrhoids K64.0 Active 142308253 Problem Essential (primary) hypertension I10 Active 52449808 Problem Gastroesophageal reflux disease, esophagitis presence not specified K21.9 Active 446762823 Problem Diverticulosis K57.90 Active 453268731 Problem Esophagitis K20.9 Active 05238194 Problem Depression with anxiety F41.8 Active 88359086 Problem Mixed hyperlipidemia E78.2 Active 944204542 Problem Moderate single current episode of major depressive disorder F32.1 Active 19519524 Problem Slow transit constipation K59.01 Active 98291922 Problem Diverticulitis K57.92 Active 654462007 ALLERGIES No Information ENCOUNTERS Encounter Location Date Diagnosis [address] [id number] [id number] March, [place] [id number] [place] [address] [id number] Mar, Depression with anxiety F41.8 [id number] [place] [address] [id number] Mar, Diverticulosis K57.90 and Nausea R11.0 [address] [id number] Jan, [place] [address] [id number] [id number] Jan, Gastroesophageal reflux disease, esophagitis presence not specified K21.9 [id number] [place] [address] [id number] Jan, History of diverticulosis Z87.19 ; Abdominal discomfort R10.9 ; Epigastric pain R10.13 and Gastroesophageal reflux disease, esophagitis presence not specified K21.9 [place] [id number] [place] [address] [id number] Dec, [facility] [address] [address] Dec, [facility] [address] [id number] Dec, History of diverticulitis Z87.19 [facility] [address] [address] 16 Dec, 2018 Diverticulitis K57.92 [facility] [id number] [place] [address] [id number] Dec, Diverticulitis K57.92 and Left lower quadrant pain R10.32 [facility] [address] [id number] Oct, Moderate single current episode of major depressive disorder F32.[address] [id number] Oct, Moderate single current episode of major depressive disorder F32.1 [facility] [id number] [place] [address] [id number] Oct, [facility] [address] [id number] Oct, Mixed hyperlipidemia E78.2 [facility] [id number] [place] [address] [id number] Oct, [facility] [address] [id number] Oct, 2018 Mixed hyperlipidemia E78.2 and Essential (primary) hypertension I10 [facility] [id number] [place] [address] [id number] Oct, 2018 Essential (primary) hypertension I10 ; Mixed hyperlipidemia E78.2 ; Moderate single current episode of major depressive disorder F32.1 ; Slow transit constipation K59.01 ; Superficial laceration T14.8XXA and Encounter for immunization Z23 [facility] [id number] [place] [address] 24 Aug, 2018 Moderate single current episode of major depressive disorder F32.1 [facility] [address] [address] May, Moderate single current episode of major depressive disorder F32.1 [place] [id number] [place] [address] [id number] Jan, Essential (primary) hypertension I10 ; Hyperlipidemia, unspecified E78.5 ; Moderate single current episode of major depressive disorder F32.1 and Slow transit constipation K59.01 [place] [id number] [place] [address] [id number] Dec, Moderate single current episode of major depressive disorder F32.1 [address] [id number] Oct, Right lower quadrant abdominal pain R10.31 ; Urinary frequency R35.0 ; Diverticulitis of intestine without perforation or abscess without bleeding, unspecified part of intestinal tract K57.92 and Slow transit constipation K59.01 [address] [place] [address] [id number] Aug, Essential (primary) hypertension I10 and Moderate single current episode of major depressive disorder F32.1 [place] [id number] [place] [address] [id number] Jul, Essential (primary) hypertension I10 and Moderate single current episode of major depressive disorder F32.1 [address] [place] [address] [id number] Jul, [place] [id number] [place] [address] [id number] Jul, Poison jose eduardo dermatitis L23.7 [address] [place] [address] [id number] March, Anhedonia R45.84 [place] [id number] [place] [address] [id number] Mar, [facility] [address] [place] [address] [id number] Dec, Essential (primary) hypertension I10 [place] [id number] [place] [address] [id number] Dec, Mixed hyperlipidemia E78.2 [facility] [id number] [place] [address] [id number] Oct, Mixed hyperlipidemia E78.2 and Elevated fasting glucose R73.01 [facility] [id number] [place] [address] [id number] Oct, Hyperlipidemia, unspecified E78.5 ; Essential (primary) hypertension I10 and Thyroid disorder screening Z13.29 [facility] [address] [id number] Oct, Slow transit constipation K59.01 ; Essential (primary) hypertension I10 ; Hyperlipidemia, unspecified E78.5 ; Gastroesophageal reflux disease, esophagitis presence not specified K21.9 and Anhedonia R45.84 [facility] [id number] [place] [address] [id number] Oct, [place] [address] [id number] Aug, Slow transit constipation K59.01 [facility] [address] [id number] Jul, Diverticulitis of intestine without perforation or abscess without bleeding, unspecified part of intestinal tract K57.92 [facility] [address] [address] [id number] [place] [address] [id number] Jul, Essential (primary) hypertension I10 [facility] [address] [id number] May, [facility] [address] [id number] May, [facility] [address] [id number] May, Essential (primary) hypertension I10 and Hyperlipidemia, unspecified E78.5 [place] [address] [id number] May, [facility] [address] [id number] May, [facility] [address] [id number] May, Dental examination Z01.20 and Dental caries K02.9 [facility] [id number] [id number] March, Unspecified essential hypertension 401.9 [facility] [id number] [place] [address] [id number] Jan, [facility] [id number] [place] [address] [id number] Dec, [facility] [address] [address] [id number] [place] [address] [id number] Dec, [facility] [id number] [place] [address] [id number] Dec, [place] [address] [address] [id number] [place] [address] [id number] Dec, Other and unspecified hyperlipidemia E78.5 [place] [id number] [place] [address] [id number] Oct, [facility] [id number] [place] [address] [id number] Oct, [facility] [id number] [place] [address] [id number] Oct, [place] [id number] [place] [address] [id number] Aug, Unspecified essential hypertension 401.9 and Hyperlipidemia 272.4 [place] [id number] [place] [address] [id number] Aug, Urinary tract infection 599.0 [place] [id number] [place] [address] [id number] Aug, Dysuria 788.1 ; Unspecified essential hypertension 401.9 ; Urinary tract infection 599.0 and Routine lab draw V72.62 [place] [id number] [place] [address] [id number] May, [facility] [address] [id number] [place] [address] [id number] May, Sinusitis 473.9 [address] [place] [address] [id number] May, [facility] [id number] [id number] May, [facility] [id number] [place] [address] May, [facility] [place] [id number] [place] [address] [id number] March, Spider bite 989.5 [facility] [place] [id number] [place] [address] [id number] March, Spider bite 989.5 and Skin necrosis 709.8 [facility] [id number] [place] [address] [id number] March, [facility] [address] [address] [id number] [place] [address] [id number] March, Insect bite 919.4 [facility] [id number] [place] [address] [id number] Mar, [facility] [id number] [place] [address] [id number] Mar, [facility] [address] [place] [address]- [address] Mar, [facility] [address] [address] [id number] [place] [address]- [address] Mar, [facility] [address] [place] [address] 8[address]- 59[address] Jan, [facility] [id number], [place] [id number] Jan, [facility] [place] [facility] [address] [place] [address] 78919- 2311 Jan, [facility] [id number], [place] [id number] Dec, [facility] [place] [facility] [id number] [place] [address] 50098- 2586 Dec, [facility] [place] [id number], [place] [id number] Dec, [facility] [address] [id number] [address] Dec, [facility] [place] [address] [id number] [place] [phone] Oct, [facility] [place] [facility] [address] [facility] [id number] [place] [address] Oct, [facility] [place] [address] [facility] [id number] [place] [id number] Aug, [facility] [place] [facility] [address] [facility] [id number] [place] [address]- 75[address] Aug, [facility] [place] [address] [facility] [id number] [place] [id number] Aug, [facility] [place] [facility] [address] [facility] [id number] [place] [address]- 24[address] Aug, [facility] [place] [facility] [address]100[place] [address]- [address] Aug, [facility] [place] [address] [facility] [id number][place] [id number] Aug, [facility] [place] [facility] [address] [facility] [id number] [place] [address] Aug, [facility] [place] [address] [facility] [id number], [place] [id number] Aug, [facility] [place] [address] [facility] [id number], [place] [id number] Aug, [facility] [place] [facility] [address] [facility] [id number] [place] [address]- 40[address] Aug, [facility] [place] [address] [facility] [id number], [place] [id number] Aug, [facility] [place] [facility] [address] [facility] [id number] [place] [address]- 3768 Aug, [facility] [place] [address] [facility] [id number], [place] [id number] Aug, [facility] [place] [facility] [address] [facility] [id number] [place] [address]- 7[address] Aug, [facility] [place] [address] [facility] [id number], [place] [id number] May, [facility] [address] [facility] [id number] [place] [address] 3[address] May, [facility] [place] [address] [id number], [place] [id number] March, [facility] [place] [facility] [address] [facility] [id number] [place] [address] March, [facility] [place] [address] [id number][place] [id number] March, [facility] [place] [facility] [address] [facility] [id number] [place] [address] 6[address] March, [facility] [place] [address] [facility] [id number], [place] [id number] Jan, [facility] [place] [facility] [address]100[place] [address] Jan, [facility] [place] [address] [facility] [id number], [place] [id number] Jan, [facility] [place] [facility] [address] [place] [id number] [address] 9[address] Jan, [facility] [place] [address] [facility] [id number], [place] [id number] Oct, [facility] [place] [facility] [address] [facility] [id number] [place] [address]- 00[address] Oct, [facility] [place] [address] [id number], [place] [id number] Oct, [facility] [place] [facility] [address] [facility] [id number] [place] [address]- 4709 Oct, [facility] [place] [address] [facility] [id number], [place] [id number] Oct, [facility] [place] [facility] [address] [facility] [id number] [place] [address]- 6[address] Oct, [facility] [place] [address] [facility] [id number], [place] [id number] Aug, [facility] [place] [facility] [address] [facility] [id number] [place] [address]- 2546 Aug, [facility] [place] [address] [id number] [place] [id number] Aug, [facility] [place] [address] [id number] [place] 508[address]230[address] Aug, [facility] [place] [address] [id number] [place] [id number] Jul, [facility] [address] [facility] [id number] [place] [address] 2546 Jul, [facility] [place] [address] [id number] [place] [id number] Jul, [facility] [place] [address] [id number] [place] [id number] Jul, [facility] [place] [address] [id number] [place] [id number] May, [facility] [address]005[address]100[place] [address] 2546 May, [facility] [place] [address] [id number] [place] [id number] May, [facility] [place] [address] [id number] [place] 02845[address] May, [facility] [place] [address] [id number] [place] [address] March, [facility] [place] [address] [id number] [place] [address]39[address] March, [facility] [place] [address] [id number] [place] [address]38[address] March, [facility] [place] [address] [id number] [place] 4189[address] Jan, [facility] [place] [address] [id number] [place] 7570[address] Jan, [facility] [place] [address] [id number] [place] [id number] Jan, [facility] [place] [address] [id number] [place] [address] Jan, [facility] [place] [address] [id number] [place] [id number] Jan, [facility] [place] [address] [id number] [place] [id number] Jan, [facility] [place] [address] [id number] [place] 0[address] Dec, [facility] [place] [address] [id number] [place] [address] Dec, [facility] [place] [address] [id number] [place] [id number] Dec, [facility] [address] [id number] [place] [address]- 1003 Jul, [facility] [place] [address] [id number] [place] [id number] Jul, [facility] [place] [address] [id number] [place] [id number] May, [facility] [place] [address] [id number] [place] [id number] Jan, [facility] [place] [address] [id number] [place] [id number] Dec, [facility] [address]100[place] [address]- [address] Oct, [facility] [place] [facility] [address]100[place] [address]- 6932 Oct, [facility] [place] [facility] [address]100[place] [address]- 1099 Oct, [facility] [place] [facility] [address]65100[place] [address]- 5928 Oct, [facility] [place] [facility] [address] [address] [id number] [address]- 5088 Aug, [facility] [place] [facility] [address]100[place] [address]- 0[address] May, [facility] [place] [facility] [address] [address]- 3567 May, [facility] [place] [facility] [address] [facility] [id number] [place] [address] May, [facility] [address] [facility] [id number] [place] [address] Mar, [facility] [address] [facility] [id number] [place] [address] Oct, IMMUNIZATIONS No Known Immunizations SOCIAL HISTORY Never Assessed [place]ASON [place]IT [place] [place] VITAL SIGNS MEDICATIONS Unknown Medications RESULTS No Results PROCEDURES No Known procedures [...] 03/2013 Surgical History hiatal hernia repair 2006 Surgical History EGD Surgical History colonoscopy Hospitalization History surgeries
--- OUTSIDE RECORDS SUMMARY | 2019-03-11 18:06 | XMS REPORT ---
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 Name Role Phone Migration, Doctor Unavailable Unavailable PROBLEMS Type Condition ICD9-CM Code INU27-UL Code Onset Dates Condition Status SNOMED Code Problem Grade I hemorrhoids K64.0 Active 410367664 Problem Esophagitis K20.9 Active 72517508 Problem Essential (primary) hypertension I10 Active 07884643 Problem Diverticulitis K57.92 Active 736693784 Problem Diverticulosis K57.90 Active 586114627 Problem Gastroesophageal reflux disease, esophagitis presence not specified K21.9 Active 563981907 Problem Mixed hyperlipidemia E78.2 Active 939791231 Problem Moderate single current episode of major depressive disorder F32.1 Active 92129579 Problem Slow transit constipation K59.01 Active 49607851 ALLERGIES No Information ENCOUNTERS Encounter Location Date Diagnosis [id number] [place] [address] [id number] Mar, [place] [id number] [place] [address] [id number] Mar, Diverticulosis K57.90 and Nausea R11.0 [id number] [place] [address] [id number] Jan, [place] [address] [id number] [id number] Jan, Gastroesophageal reflux disease, esophagitis presence not specified K21.9 [address] [place] [address] [id number] Jan, History of diverticulosis Z87.19 ; Abdominal discomfort R10.9 ; Epigastric pain R10.13 and Gastroesophageal reflux disease, esophagitis presence not specified K21.9 [facility] [id number] [place] [address] [id number] Dec, [facility] [id number] [place] [address] 81184- 2958 Dec, [facility] [id number] [place] [address] [id number] Dec, History of diverticulitis Z87.19 [facility] [id number] [place] [address] 91335- 4044 Dec, Diverticulitis K57.92 [facility] [address] [place] [id number] [place] [address] [id number] Dec, Diverticulitis K57.92 and Left lower quadrant pain R10.32 [facility] [address] [id number] Oct, Moderate single current episode of major depressive disorder F32.1 [facility] [address] [id number] Oct, Moderate single current episode of major depressive disorder F32.1 [facility] [id number] [place] [address] [id number] Oct, [facility] [address] [id number] Oct, Mixed hyperlipidemia E78.2 [facility] [id number] [place] [address] [id number] Oct, [facility] [address] [id number] Oct, Mixed hyperlipidemia E78.2 and Essential (primary) hypertension I10 [facility] [address] [id number] [place] [address] [id number] Oct, Essential (primary) hypertension I10 ; Mixed hyperlipidemia E78.2 ; Moderate single current episode of major depressive disorder F32.1 ; Slow transit constipation K59.01 ; Superficial laceration T14.8XXA and Encounter for immunization Z23 [place] [address] [address] Aug, Moderate single current episode of major depressive disorder F32.1 [facility] [id number] [place] [address] 02863- 7444 May, Moderate single current episode of major depressive disorder F32.1 [facility] [id number], [place] [id number] 14 Jan, 2018 Essential (primary) hypertension I10 ; Hyperlipidemia, unspecified E78.5 ; Moderate single current episode of major depressive disorder F32.1 and Slow transit constipation K59.01 [facility] [place] [id number] [place] [address] [id number] Dec, Moderate single current episode of major depressive disorder F32.1 [facility] [address] [id number] [id number] Oct, Right lower quadrant abdominal pain R10.31 ; Urinary frequency R35.0 ; Diverticulitis of intestine without perforation or abscess without bleeding, unspecified part of intestinal tract K57.92 and Slow transit constipation K59.01 [facility] [place] [id number] [place] [address] [id number] Aug, Essential (primary) hypertension I10 and Moderate single current episode of major depressive disorder F32.1 [facility] [place] [id number] [place] [address] [id number] Jul, Essential (primary) hypertension I10 and Moderate single current episode of major depressive disorder F32.1 [facility] [place] [id number] [place] [address] [id number] Jul, [facility] [place] [address] [id number] [place] [address] [id number] Jul, Poison jose eduardo dermatitis L23.7 [facility] [place] [id number] [place] [address] [id number] March, Anhedonia R45.84 [facility] [place] [address] [id number] [place] [address] [id number] Mar, [facility] [place] [address] [address] [id number] [place] [address] [id number] Dec, Essential (primary) hypertension I10 [facility] [place] [id number] [place] [address] [id number] Dec, Mixed hyperlipidemia E78.2 [facility] [place] [address] [id number] [place] [address] [id number] Oct, Mixed hyperlipidemia E78.2 and Elevated fasting glucose R73.01 [facility] [id number], [place] [id number] Oct, Hyperlipidemia, unspecified E78.5 ; Essential (primary) hypertension I10 and Thyroid disorder screening Z13.29 [facility] [address] [address] [id number] [place] [address] [id number] Oct, Slow transit constipation K59.01 ; Essential (primary) hypertension I10 ; Hyperlipidemia, unspecified E78.5 ; Gastroesophageal reflux disease, esophagitis presence not specified K21.9 and Anhedonia R45.84 [facility] [address] [id number] [place] [address] [id number] Oct, [facility] [address] [id number] Aug, Slow transit constipation K59.01 [facility] [address] [address] [id number] [place] [address] [id number] Jul, Diverticulitis of intestine without perforation or abscess without bleeding, unspecified part of intestinal tract K57.92 [facility] [address] [place] [address] [id number] [place] [address] [id number] Jul, Essential (primary) hypertension I10 [facility] [address] [address] [id number] [place] [address] [id number] May, [facility] [address] [id number] [place] [address] [id number] May, [facility] [address] [id number] [place] [address] [id number] May, Essential (primary) hypertension I10 and Hyperlipidemia, unspecified E78.5 [facility] [id number] [place] [address] [id number] May, [facility] [address] [address] [id number] [place] [address] [id number] May, [facility] [id number] [phone] May, Dental examination Z01.20 and Dental caries K02.9 [facility] [id number] [place] [address] [id number] March, Unspecified essential hypertension 401.9 [facility] [place] [address] [id number] [id number] Jan, [facility] [place] [id number], [place] [id number] Dec, [facility] [place] [id number] [place] [address] [id number] Dec, [facility] [place] [id number] [place] [address] [id number] Dec, [facility] [place] [id number] [place] [address] [id number] Dec, Other and unspecified hyperlipidemia E78.5 [facility] [place] [id number] [place] [address] [id number] Oct, [facility] [id number] [place] [address] [id number] Oct, [facility] [id number] [place] [address] [id number] Oct, [facility] [id number] [place] [address] [id number] Aug, Unspecified essential hypertension 401.9 and Hyperlipidemia 272.4 [place] [id number] [place] [address] [id number] Aug, Urinary tract infection 599.0 [facility] [id number] [place] [address] [id number] Aug, Dysuria 788.1 ; Unspecified essential hypertension 401.9 ; Urinary tract infection 599.0 and Routine lab draw V72.62 [facility] [id number], [place] [id number] May, [facility] [address] [place] [id number] [id number] May, Sinusitis 473.9 [place] [id number] [place] [address] [id number] May, [facility] [address] [place] [id number] [id number] May, [facility] [address] [place] [address] 53289- 2546 May, [facility] [place] [id number], [place] [id number] March, Spider bite 989.5 [facility] [place] [id number] [place] [address] [id number] March, Spider bite 989.5 and Skin necrosis 709.8 [facility] [place] [id number] [place] [address] [id number] March, [facility] [place] [address] [place] [id number] [place] [address] [id number] March, Insect bite 919.4 [facility] [place] [id number] [place] [address] [id number] Mar, [facility] [place] [id number] [place] [address] [id number] Mar, [facility] [id number] [place] [address] 92141- 2546 Mar, [facility] [id number] [place] [address] 36154- 2546 Mar, [facility] [address] [id number] [place] [address] 76945- 2546 Jan, [facility] [place] [id number] [place] [address] [id number] Jan, [facility] [id number] [place] [address] 69932- 2546 Jan, [facility] [place] [id number] [place] [address] [id number] Dec, [facility] [place] [facility] [address]65100[place] [address]- 2546 Dec, [facility] [place] [id number] [place] [address] [id number] Dec, [facility] [address] [place] [address] 54579- 2546 Dec, [facility] [place] [id number], [place] [id number] Oct, [facility] [place] [facility] [address] [facility] [id number][place] [address]- 0591 Oct, [facility] [place] [address] [facility] [id number] [place] [id number] Aug, [facility] [place] [facility] [address] [facility] [id number], [place] [address]- 7636 Aug, [facility] [place] [address] [facility] [id number] [place] [id number] Aug, [facility] [place] [facility] [address] [facility] [id number], [place] [address]- 4452 Aug, [facility] [place] [facility] [address] [facility] [id number] [place] [address]- 0242 Aug, [facility] [place] [address] [facility] [id number], [place] [id number] Aug, [facility] [place] [facility] [address] [facility] [id number][place] [address]- 0794 Aug, [facility] [place] [address] [facility] [id number], [place] [id number] Aug, [facility] [place] [address] [facility] [id number], [place] [id number] Aug, [facility] [place] [facility] [address] [facility] [id number][place] [address]- 8145 Aug, [facility] [place] [address] [facility] [id number], [place] [id number] Aug, [facility] [place] [facility] [address] [facility] [id number], [place] [address]- 3488 Aug, [facility] [place] [address] [facility] [id number], [place] [id number] Aug, [facility] [place] [facility] [address] [facility] [id number], [place] [address]- 3608 Aug, [facility] [place] [address] [facility] [id number], [place] [id number] May, [facility] [place] [facility] [address] [facility] [id number], [place] [address]- 5176 May, [facility] [place] [address] [id number] [place] [id number] March, [facility] [facility] [address] [facility] [id number] [place] [address]- 2546 March, [facility] [address] [id number] [place] [id number] March, [facility] [place] [facility] [address] [facility] [id number] [place] [address]- 2546 March, [facility] [address] [id number] [place] [id number] Jan, [facility] [place] [facility] [address] [facility] [id number] [place] [address]- 2546 Jan, [facility] [address] [id number] [place] [id number] Jan, [facility] [place] [facility] [address]00565100[place], [place] [address]- 7756 Jan, [facility] [address] [facility] [id number], [place] [id number] Oct, [facility] [place] [facility] [address] [facility] [id number], [place] [address]- 2066 Oct, [facility] [address] [facility] [id number], [place] [id number] Oct, [facility] [place] [facility] [address] [facility] [id number], [place] [address]- 2546 Oct, [facility] [place] [address] [id number], [place] [id number] Oct, [facility] [place] [facility] [address] [facility] [id number] [place] [address]- 2546 Oct, [facility] [address] [id number], [place] [id number] Aug, [facility] [place] [facility] [address] [facility] [id number], [place] [address]- 7636 Aug, [facility] [address] [id number] [place] [id number] Aug, [facility] [address] [id number] [place] [id number] Aug, [facility] [address] [id number] [place] [id number] Jul, [facility] [address] [facility] [id number] [place] [address]- 2546 Jul, [facility] [address] [id number] [place] 004346981 Jul, [facility] [address] [id number] [place] [id number] Jul, [facility] [address] [id number] [place] [id number] May, [facility] [address] [facility] [id number] [place] [address]- 2546 May, [facility] [place] [address] [id number] [place] [id number] May, [facility] [address] [id number] [place] 150044793 May, [facility] [address] [id number] [place] 182537882 March, [facility] [address] [id number] [place] [id number] March, [facility] [address] [id number] [place] 270352537 March, [facility] [address] [id number] [place] 862208595 Jan, [facility] [address] [id number] [place] 889220480 Jan, [facility] [address] [id number] [place] 159569152 Jan, [facility] [address] [id number] [place] 468461919 Jan, [facility] [address] [id number] [place] 750508352 Jan, [facility] [address] [id number] [place] 046116228 Jan, [facility] [address] [id number] [place] [id number] Dec, [facility] [address] [id number] [place] 29[address]85[address] Dec, [facility] [address] [id number] [place] [id number] Dec, [facility] [address] [id number], [place] [address]- 2546 Jul, [facility] [address] [id number] [place] 135329615 Jul, [facility] [address] [id number] [place] [phone] May, [facility] [address] [id number] [place] 465522455 Jan, [facility] [address] [id number] [place] 010452617 Dec, [facility] [place] [facility] [address] [facility] [id number], [place] [address]- 7640 Oct, [facility] [place] [facility] [address] [facility] [id number], [place] [address]- 8239 Oct, [facility] [place] [facility] [address] [facility] [id number], [place] [address]- 7757 Oct, [facility] [place] [facility] [address]65100[place], [place] [address]- 3426 Oct, [facility] [place] [facility] [address] [facility] [id number], [place] [address]- 0594 Aug, [facility] [place] [facility] [address] [facility] [id number], [place] [address]- 0742 May, [facility] [place] [facility] [address] [facility] [id number], [place] [address]- 9668 May, [facility] [place] [facility] [address] [facility] [id number], [place] [address]- 2147 May, [facility] [place] [facility] [address] [facility] [id number], [place] [address]- 2546 Mar, [facility] [address] [facility] [id number] [place] [address]- 2546 Oct, IMMUNIZATIONS No Known Immunizations SOCIAL HISTORY Never Assessed REASON FOR VISIT [facility] PLAN OF CARE VITAL SIGNS MEDICATIONS Medication Instructions Dosage Frequency Start Date End Date Duration Status Cymbalta 60 mg take 1 capsule (60 mg) by oral route once daily Jan, Active Cipro 250 mg take 1 tablet by Oral route every 12 hours Oct, Active pravastatin 40 mg Take 1 tablet by Oral route 1 time per day Aug, Active Cipro 500 mg take 1.5 tablet by Oral route every 12 hours for 10 day(s) ( 750mg BID x 10 days) Jan, Active Linzess 145 mcg 1 Capsule by Oral route 1 time per day Dec, Active Clotrimazole 1 % 1 yulia by Topical route 2 times per day Aug, Active Vitamin D3 1,000 unit 1 Tablet by Oral route 1 Jul, Active Acyclovir 800 mg 1 tablet by Oral route 4 times per day for 5 days Jul, Active Prilosec 20 mg 1 capsule by Oral route 1 time per day Aug, Active Metronidazole 500 mg take 1 tablet by Oral route 4 times per day for 10 days Jan, Active Flagyl 500 mg 1 tablet by Oral route 2 times per day for 7 days Jul Active Ciprofloxacin 500 mg 1 tablet by Oral route every 12 hours for 10 day(s) Jul, Active Metoprolol Tartrate 25 mg take 0.5 tablet by Oral route 2 times per day Aug, Active RESULTS No Results PROCEDURES No Known [...]
--- OUTSIDE RECORDS SUMMARY | 2019-03-11 18:10 | XMS REPORT | Continuity of Care Document ---
Author Organization Unknown Address Unknown Allergies Active Description Code Type Severity Reaction Onset Reported/Identified Relationship to Patient Clinical Status Yes No Known Drug Allergies [id number] Drug Allergy Unknown N/A 04/15/2013 Yes irbesartan [id number] Drug Allergy Unknown N/A 12/25/2018 Yes Sulfa (Sulfonamide Antibiotics) [id number] Drug Allergy Unknown N/A 2018 Medications There [...] 789.00 ABDOMINAL PAIN UNSPECIFIED SITE 07/26/2010 HELLWIG GAS CHECK PAD MAKER, ALANNA E 272.4 DYSLIPIDEMIA 07/26/2010 HELLWIG GAS CHECK PAD MAKER, ALANNA E 401.1 HYPERTENSION, BENIGN ESSENTIAL 07/26/2010 ROHITHLWIG GAS CHECK PAD MAKER, ALANNA E 562.11 DIVERTICULITIS OF COLON WITHOUT MENTION OF HEMORRHAGE 07/26/2010 HELLWIG GAS CHECK PAD MAKER ALANNA E 789.00 ABDOMINAL PAIN UNSPECIFIED SITE [...] 789.00 ABDOMINAL PAIN UNSPECIFIED SITE 07/26/2010 HELLWIG GAS CHECK PAD MAKER, ALANNA E 272.4 DYSLIPIDEMIA 07/26/2010 HELLWIG GAS CHECK PAD MAKER, ALANNA E 401.1 HYPERTENSION, BENIGN ESSENTIAL 07/26/2010 HELLWIG GAS CHECK PAD MAKER, ALANNA E 562.11 DIVERTICULITIS OF COLON WITHOUT MENTION OF HEMORRHAGE 07/26/2010 HELLWIG GAS CHECK PAD MAKER, ALANNA E 789.00 ABDOMINAL PAIN UNSPECIFIED SITE 07/26/2010 HELLWIG GAS CHECK PAD MAKER, ALANNA E 272.4 DYSLIPIDEMIA 07/26/2010 HELLWIG GAS CHECK PAD MAKER, ALANNA E 401.1 HYPERTENSION, BENIGN ESSENTIAL 07/26/2010 HELLWIG GAS CHECK PAD MAKER, ALANNA E 562.11 DIVERTICULITIS OF COLON WITHOUT MENTION OF HEMORRHAGE 07/26/2010 HELLWIG GAS CHECK PAD MAKER, ALANNA E 789.00 ABDOMINAL PAIN UNSPECIFIED SITE 03/19/2011 GIACOMO LOMBARDI APRNYL A 311 DEPRESSIVE DISORDER NOT ELSEWHERE CLASSIFIED 03/19/2011 GIACOMO LOMBARDI APRNYL A 492.8 OTHER EMPHYSEMA 03/19/2011 311 DEPRESSIVE [...] SARATH K 492.8 OTHER EMPHYSEMA 03/19/2011 HELLWIG GAS CHECK PAD MAKER, ALANNA E 311 DEPRESSIVE DISORDER NOT ELSEWHERE CLASSIFIED 03/19/2011 HELLWIG GAS CHECK PAD MAKER, ALANNA E 492.8 OTHER EMPHYSEMA 03/19/2011 MCKEON DO, SARATH K 311 DEPRESSIVE DISORDER NOT ELSEWHERE CLASSIFIED 03/19/2011 MCKEON DO, SARATH K 492.8 OTHER EMPHYSEMA 03/19/2011 MCKEON DO, SARATH K 311 DEPRESSIVE DISORDER NOT ELSEWHERE CLASSIFIED 03/19/2011 MCKEON DO, SARATH K 492.8 OTHER EMPHYSEMA 03/19/2011 HELLWIG GAS CHECK PAD MAKER ALANNA E 311 DEPRESSIVE DISORDER NOT ELSEWHERE CLASSIFIED 03/19/2011 HELLWIG GAS CHECK PAD MAKER ALANNA E 492.8 OTHER EMPHYSEMA 03/19/2011 HELLWIG GAS CHECK PAD MAKER, ALANNA E 311 DEPRESSIVE DISORDER NOT ELSEWHERE CLASSIFIED 03/19/2011 HELLWIG GAS CHECK PAD MAKER ALANNA E 492.8 OTHER EMPHYSEMA 04/02/2011 RAJIBETH GAS CHECK PAD MAKER, RHODA A V72.31 DATA CENTER ENGINEER EXAM, ROUTINE 04/02/2011 V72.31 DATA CENTER ENGINEER EXAM, ROUTINE 04/02/2011 MILO OSCAR, KAMI V72.31 DATA CENTER ENGINEER EXAM, ROUTINE 04/02/2011 V72.31 DATA CENTER ENGINEER EXAM, ROUTINE 04/02/2011 V72.31 DATA CENTER ENGINEER EXAM, ROUTINE 04/02/2011 V72.31 DATA CENTER ENGINEER EXAM, ROUTINE 04/02/2011 V72.31 DATA CENTER ENGINEER EXAM, ROUTINE 04/02/2011 MCKEON DO, SARATH K V72.31 DATA CENTER ENGINEER EXAM, ROUTINE 04/02/2011 MCKEON DO, SARATH K V72.31 DATA CENTER ENGINEER EXAM, ROUTINE 04/02/2011 HELLWIG GAS CHECK PAD MAKER, ALANNA E V72.31 DATA CENTER ENGINEER EXAM, ROUTINE 04/02/2011 MCKEON DO, SARATH K V72.31 DATA CENTER ENGINEER EXAM, ROUTINE 04/02/2011 MCKEON DO, SARATH K V72.31 DATA CENTER ENGINEER EXAM, ROUTINE 04/02/2011 HELLWIG GAS CHECK PAD MAKER, ALANNA E V72.31 DATA CENTER ENGINEER EXAM, ROUTINE 04/02/2011 HELLWIG GAS CHECK PAD MAKER ALANNA E V72.31 DATA CENTER ENGINEER EXAM, ROUTINE 05/13/2011 HARJIT GAS CHECK PAD MAKER, RHODA A 682.9 CELLULITIS AND ABSCESS OF UNSPECIFIED SITES 05/13/2011 RAJCOLEE GAS CHECK PAD MAKER, RHODA A 698.9 UNSPECIFIED PRURITIC DISORDER 05/13/2011 HARJIT GAS CHECK PAD MAKER, RHODA A 919.4 INSECT BITE NONVENOMOUS OF OTHER MULTIPLE AND UNSPECIFIED SITES WITHOUT INFECTION 05/13/2011 RAJCOLEE GAS CHECK PAD MAKER, RHODA A V15.06 PERSONAL HISTORY OF ALLERGY [...] ALLERGY TO INSECTS AND ARACHNIDS 05/13/2011 HELLWIG GAS CHECK PAD MAKER ALANNA E 682.9 CELLULITIS AND ABSCESS OF UNSPECIFIED SITES 05/13/2011 HELLWIG GAS CHECK PAD MAKER ALANNA E 698.9 UNSPECIFIED PRURITIC DISORDER 05/13/2011 HELLWIG GAS CHECK PAD MAKER ALANNA E 919.4 INSECT BITE NONVENOMOUS OF OTHER MULTIPLE AND UNSPECIFIED SITES WITHOUT INFECTION 05/13/2011 HELLWIG GAS CHECK PAD MAKER ALANNA E V15.06 PERSONAL HISTORY OF ALLERGY TO [...] ALLERGY TO INSECTS AND ARACHNIDS 05/13/2011 HELLWIG GAS CHECK PAD MAKER ALANNA E 682.9 CELLULITIS AND ABSCESS OF UNSPECIFIED SITES 05/13/2011 HELLWIG GAS CHECK PAD MAKER, ALANNA E 698.9 UNSPECIFIED PRURITIC DISORDER 05/13/2011 YRN GAS CHECK PAD MAKER, ALANNA E 919.4 INSECT BITE NONVENOMOUS OF OTHER MULTIPLE AND UNSPECIFIED SITES WITHOUT INFECTION 05/13/2011 JERRY POOL APRNSIE E V15.06 PERSONAL HISTORY OF ALLERGY TO INSECTS AND ARACHNIDS 05/13/2011 YRN WALLACE ALANNA E 682.9 CELLULITIS AND ABSCESS OF UNSPECIFIED SITES 05/13/2011 JERRY POOL APRNSIE E 698.9 UNSPECIFIED PRURITIC DISORDER 05/13/2011 ROHITHLMONIQUE WALLACE ALANNA E 919.4 INSECT BITE NONVENOMOUS OF OTHER [...] 06/17/2011 V67.9 UNSPECIFIED FOLLOW-UP EXAMINATION 06/17/2011 MCKEON DO, SARATH K 787.02 NAUSEA ALONE 06/17/2011 MCKEON DO, SARATH K V67.9 UNSPECIFIED FOLLOW-UP EXAMINATION 06/17/2011 MCKEON DO, SARATH K 787.02 NAUSEA ALONE 06/17/2011 MCKEON DO, SARATH K V67.9 UNSPECIFIED FOLLOW-UP EXAMINATION 06/17/2011 ALANNA POOL APRN E 787.02 NAUSEA ALONE 06/17/2011 ALANNA POOL APRN V67.9 UNSPECIFIED FOLLOW-UP EXAMINATION 06/17/2011 MCKEON DO, SARATH K 787.02 NAUSEA ALONE 06/17/2011 MCKEON DO, SARATH K V67.9 UNSPECIFIED FOLLOW-UP EXAMINATION 06/17/2011 MCKEON DO, SARATH K 787.02 NAUSEA ALONE 06/17/2011 MCKEON DO, SARATH K V67.9 UNSPECIFIED FOLLOW-UP EXAMINATION 06/17/2011 ALANNA POOL APRN E 787.02 NAUSEA ALONE 06/17/2011 ANGELICA POOL APRNE E V67.9 UNSPECIFIED FOLLOW-UP EXAMINATION 06/17/2011 ALANNA POOL APRN E 787.02 NAUSEA ALONE 06/17/2011 ANGELICA POOL APRNE E V67.9 UNSPECIFIED FOLLOW-UP EXAMINATION 07/21/2012 RHODA LOMBARDI APRN 562.00 DIVERTICULOSIS 07/21/2012 RHODA LOMBARDI APRN 564.00 CONSTIPATION 07/21/2012 562.00 DIVERTICULOSIS 07/21/2012 564.00 [...] MCKEON DO, SARATH K 564.00 CONSTIPATION 07/21/2012 ANGELICA POOL APRNE E 562.00 DIVERTICULOSIS 07/21/2012 ANGELICA POOL APRNE E 564.00 CONSTIPATION 07/21/2012 MCKEON DO, SARATH K 562.00 DIVERTICULOSIS DUODENAL 07/21/2012 MCKEON DO, SARATH K 564.00 CONSTIPATION 07/21/2012 MCKEON DO, SARATH K 562.00 DIVERTICULOSIS DUODENAL 07/21/2012 MCKEON DO, SARATH K 564.00 CONSTIPATION 07/21/2012 ALANNA POOL APRN E 562.00 DIVERTICULOSIS DUODENAL 07/21/2012 ALANNA POOL APRN E 564.00 CONSTIPATION [facility]/21/[facility] 562.00 DIVERTICULOSIS DUODENAL 07/21/[address] [facility] [facility] 564.00 CONSTIPATION 02/11/2013 401.9 ESSENTIAL HYPERTENSION [...] changed sexual interest (libido): decreased 02/11/2013 HELLWIG GAS CHECK PAD MAKER, ALANNA E 401.9 ESSENTIAL HYPERTENSION 02/11/2013 ROHITHLMONIQUE DIAZN, ALANNA E 562.10 DIVERTICULOSIS 02/11/2013 HELLMONIQUE GAS CHECK PAD MAKER, ALANNA E 799.81 changed sexual interest (libido): decreased 02/11/2013 MCKEON DO, SARATH K 401.9 ESSENTIAL HYPERTENSION 02/11/2013 MCKEON DO, SARATH K 562.10 DIVERTICULOSIS 02/11/2013 MCKEON DO, SARATH K 799.81 changed sexual interest (libido): decreased 02/11/2013 MCKEON DO, SARATH K 401.9 ESSENTIAL HYPERTENSION 02/11/2013 MCKEON DO, SARATH K 562.10 DIVERTICULOSIS 02/11/2013 MCKEON DO, SARATH K 799.81 changed sexual interest (libido): decreased 02/11/2013 HELLMONIQUE DIAZBailey ALANNA E 401.9 ESSENTIAL HYPERTENSION 02/11/2013 ROHITHLMONIQUE DIAZN, ALANNA E 562.10 DIVERTICULOSIS 02/11/2013 HELLMONIQUE DIAZBailey ALANNA E 799.81 changed sexual interest (libido): decreased 02/11/2013 HELLMONIQUE DIAZBailey ALANNA E 401.9 ESSENTIAL HYPERTENSION 02/11/2013 HELLMONIQUE GAS CHECK PAD MAKER, ALANNA E 562.10 DIVERTICULOSIS 02/11/2013 HELLMONIQUE DIAZN, ALANNA E 799.81 changed sexual interest (libido): decreased 04/16/2013 DARRIAN URIOSTEGUI MD Ot 272.4 HYPERLIPIDEMIA NEC/NOS 04/16/2013 DARRIAN URIOSTEGUI MD Ot 311 DEPRESSIVE DISORDER NEC 04/16/2013 DARRIAN URIOSTEGUI MD Ot 401.9 HYPERTENSION NOS 04/16/2013 DARRIAN URIOSTEGUI MD Ot 414.01 CORONARY ATHEROSCLEROSIS OF [place] CORON 04/16/2013 DARRIAN URIOSTEGUI MD Ot 786.50 CHEST PAIN NOS 04/16/2013 DARRIAN URIOSTEGUI MD Ot V15.82 HISTORY OF TOBACCO USE 04/16/2013 DARRIAN URIOSTEGUI MD Ot V17.49 FAMILY HISTORY OF OTHER CARDIOVASCULAR D 04/16/2013 DARRIAN URIOSTEGUI MD Ot V58.69 OTH MED,LT,CURRENT USE 04/29/2013 782.2 lump in / on the skin 04/29/2013 782.2 lump in / on the skin 04/29/2013 782.2 lump in / on the skin 04/29/2013 782.2 lump in / on the skin 04/29/2013 MCKEON DO, SARATH K 782.2 lump in / on the skin 04/29/2013 MCKEON DO, SARATH K 782.2 lump in / on the skin 04/29/2013 HELLWIG GAS CHECK PAD MAKER, ALANNA E 782.2 lump in / on the skin 04/29/2013 MCKEON DO, SARATH K 782.2 lump in / on the skin 04/29/2013 MCKEON DO, SARATH K 782.2 lump in / on the skin 04/29/2013 HELLWIG GAS CHECK PAD MAKER, ALANNA E 782.2 lump in / on the skin 04/29/2013 HELLWIG GAS CHECK PAD MAKER, ALANNA E 782.2 lump in / on the skin 07/01/2013 054.9 HERPES SIMPLEX WITHOUT COMPLICATION 07/01/2013 054.9 HERPES SIMPLEX WITHOUT COMPLICATION 07/01/2013 MCKEON DO, SARATH K 054.9 HERPES SIMPLEX WITHOUT COMPLICATION 07/01/2013 MCKEON DO, SARATH K 054.9 HERPES SIMPLEX WITHOUT COMPLICATION 07/01/2013 HELLWIG GAS CHECK PAD MAKER, ALANNA E 054.9 HERPES SIMPLEX WITHOUT COMPLICATION 07/01/2013 MCKEON DO, SARATH K 054.9 HERPES SIMPLEX WITHOUT COMPLICATION 07/01/2013 MCKEON DO, SARATH K 054.9 HERPES SIMPLEX WITHOUT COMPLICATION 07/01/2013 HELLWIG GAS CHECK PAD MAKER, ALANNA E 054.9 HERPES SIMPLEX WITHOUT COMPLICATION 07/01/2013 HELLWIG GAS CHECK PAD MAKER, ALANNA E 054.9 HERPES SIMPLEX WITHOUT COMPLICATION [...] DUE TO PLANTS (EXCEPT FOOD) 07/09/2013 HELLWIG GAS CHECK PAD MAKER, ALANNA E 692.6 CONTACT DERMATITIS AND OTHER ECZEMA DUE TO PLANTS (EXCEPT FOOD) 07/09/2013 MCKEON DO, SARATH K 692.6 CONTACT DERMATITIS AND OTHER ECZEMA DUE TO PLANTS (EXCEPT FOOD) 07/09/2013 MCKEON DO, SARATH K 692.6 CONTACT DERMATITIS AND OTHER ECZEMA DUE TO PLANTS (EXCEPT FOOD) 07/09/2013 ROHITHLWIG GAS CHECK PAD MAKER, ALANNA E 692.6 CONTACT DERMATITIS AND OTHER ECZEMA DUE TO PLANTS (EXCEPT FOOD) 07/09/2013 YRN WALLACE, ALANNA E 692.6 CONTACT DERMATITIS AND OTHER ECZEMA DUE TO PLANTS (EXCEPT FOOD) 08/06/2013 MCKEON DO, SARATH K 686.9 UNSPECIFIED LOCAL INFECTION OF SKIN AND SUBCUTANEOUS TISSUE 08/06/2013 MCKEON DO, SARATH K 686.9 UNSPECIFIED LOCAL INFECTION OF SKIN AND SUBCUTANEOUS TISSUE 08/06/2013 ROHITHLWIG GAS CHECK PAD MAKER ALANNA E 686.9 UNSPECIFIED LOCAL INFECTION OF SKIN AND SUBCUTANEOUS TISSUE 08/06/2013 MCKEON DO, SARATH K 686.9 UNSPECIFIED LOCAL INFECTION OF SKIN AND SUBCUTANEOUS TISSUE 08/06/2013 MCKEON DO, SARATH K 686.9 UNSPECIFIED LOCAL INFECTION OF SKIN AND SUBCUTANEOUS TISSUE 08/06/2013 ROHITHLWIG GAS CHECK PAD MAKER ALANNA E 686.9 UNSPECIFIED LOCAL INFECTION OF SKIN AND SUBCUTANEOUS TISSUE 08/06/2013 ADITYAWIG GAS CHECK PAD MAKER, ALANNA E 686.9 UNSPECIFIED LOCAL INFECTION OF SKIN AND SUBCUTANEOUS TISSUE 10/01/2013 MCKEON DO, SARATH K V05.8 ZOSTAVAX DX 10/01/2013 JERRY POOL APRNSIE E V05.8 ZOSTAVAX DX 10/01/2013 MCKEON DO, SARATH K V05.8 ZOSTAVAX DX 10/01/2013 MCKEON DO, SARATH K V05.8 ZOSTAVAX DX 10/01/2013 ROHITHLJERRY AMAYA APRNSIE E V05.8 ZOSTAVAX DX 10/01/2013 JERRY POOL APRNSIE E V05.8 ZOSTAVAX DX 08/10/2014 JERRY POOL APRNSIE E 789.61 ABDOMINAL TENDERNESS RIGHT UPPER QUADRANT 08/10/2014 JERRY POOL APRNSIE E 789.61 ABDOMINAL TENDERNESS RIGHT UPPER QUADRANT 06/15/2015 ALANNA POOL APRN Ot 789.61 06/15/2015 GUNNER RAMIREZ MD Ot 311 DEPRESSIVE DISORDER NEC 06/15/2015 GUNNER RAMIREZ MD Ot 780.4 DIZZINESS AND GIDDINESS 06/15/2015 GUNNER RAMIREZ MD Ot V58.69 OTH MED,LT,CURRENT USE 07/10/2015 ALANNA POOL GAS CHECK PAD MAKER Ot 789.61 12/19/2016 TIMA, JONATHAN ROOM SERVICE WAITER/WAITRESS Ot I10 ESSENTIAL (PRIMARY) HYPERTENSION 12/19/2016 TIMA, JONATHAN ROOM SERVICE WAITER/WAITRESS Ot I72.8 ANEURYSM OF OTHER SPECIFIED ARTERIES 12/19/2016 TIMA, JONATHAN ROOM SERVICE WAITER/WAITRESS Ot K57.30 DVRTCLOS OF LG INT W/O PERFORATION OR AB 12/19/2016 TIMA, JONATHAN ROOM SERVICE WAITER/WAITRESS Ot R10.13 EPIGASTRIC PAIN 12/19/2016 TIMA, JONATHAN ROOM SERVICE WAITER/WAITRESS Ot Z79.899 OTHER GROUP HOME (CURRENT) DRUG THERAPY 12/20/2016 TIMA, JONATHAN ROOM SERVICE WAITER/WAITRESS Ot I10 ESSENTIAL (PRIMARY) HYPERTENSION 12/20/2016 TIMA, JONATHAN ROOM SERVICE WAITER/WAITRESS Ot I72.8 ANEURYSM OF OTHER SPECIFIED ARTERIES 12/20/2016 TIMA, JONATHAN ROOM SERVICE WAITER/WAITRESS Ot K57.30 DVRTCLOS OF LG INT W/O PERFORATION OR AB 12/20/2016 TIMA, JONATHAN ROOM SERVICE WAITER/WAITRESS Ot R10.13 EPIGASTRIC PAIN 12/20/2016 TIMA JONATHAN ROOM SERVICE WAITER/WAITRESS Ot Z79.899 OTHER GROUP HOME (CURRENT) DRUG THERAPY 11/10/2017 ANGELES SUERO MD [...] ABSENCE OF BOTH CERVIX AND UTER 11/10/2017 HELLWIG, ALANNA E GAS CHECK PAD MAKER Ot 789.61 ABDOMINAL TENDERNESS, RIGHT UPPER QUADRA 12/09/2017 ALANNA POOL E GAS CHECK PAD MAKER Ot 789.61 ABDOMINAL TENDERNESS, RIGHT UPPER QUADRA 05/19/2018 DARRIAN URIOSTEGUI MD Ot E78.2 MIXED HYPERLIPIDEMIA 05/19/2018 DARRIAN URIOSTEGUI MD Ot I10 ESSENTIAL (PRIMARY) HYPERTENSION 05/19/2018 DARRIAN URIOSTEGUI MD Ot I25.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[place] CORONARY 05/19/2018 DARRIAN URIOSTEGUI MD Ot R07.9 CHEST PAIN, UNSPECIFIED 12/24/2018 DARRIAN URIOSTEGUI MD Ot E78.2 MIXED HYPERLIPIDEMIA 12/24/2018 DARRIAN URIOSTEGUI MD Ot I10 ESSENTIAL (PRIMARY) HYPERTENSION 12/24/2018 DARRIAN URIOSTEGUI MD Ot I25.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[place] CORONARY 12/24/2018 DARRIAN URIOSTEGUI MD Ot R07.9 CHEST PAIN, UNSPECIFIED 12/24/2018 ALANNA OPOL E GAS CHECK PAD MAKER Ot 789.61 ABDOMINAL TENDERNESS, RIGHT UPPER QUADRA 12/24/2018 DARRIAN URIOSTEGUI MD Ot E78.2 MIXED HYPERLIPIDEMIA 12/24/2018 DARRIAN URIOSTEGUI MD Ot I10 ESSENTIAL (PRIMARY) HYPERTENSION 12/24/2018 DARRIAN URIOSTEGUI MD Ot I25.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[place] CORONARY 12/24/2018 DARRIAN URIOSTEGUI MD Ot R07.9 CHEST PAIN, UNSPECIFIED 12/26/2018 ANGELES SUERO MD Ot E78.00 PURE HYPERCHOLESTEROLEMIA, UNSPECIFIED 12/26/2018 ANGELES SUERO MD Ot F32.9 MAJOR DEPRESSIVE DISORDER, SINGLE EPISOD 12/26/2018 ANGELES SUERO MD Ot I10 ESSENTIAL (PRIMARY) HYPERTENSION 12/26/2018 ANGELES SUERO MD Ot K21.9 GASTRO-ESOPHAGEAL REFLUX DISEASE WITHOUT 12/26/2018 ANGELES SUERO MD Ot R07.89 OTHER CHEST PAIN 12/26/2018 ANGELES SUERO MD Ot R10.13 EPIGASTRIC PAIN 12/26/2018 ANGELES SUERO MD Ot Z85.41 PERSONAL HISTORY OF MALIGNANT NEOPLASM O 12/26/2018 ANGELES SUERO MD Ot Z87.19 PERSONAL HISTORY OF OTHER DISEASES OF TH 12/26/2018 ANGELES SUERO MD Ot Z87.891 PERSONAL HISTORY OF NICOTINE DEPENDENCE 12/26/2018 ANGELES SUERO MD Ot Z88.2 ALLERGY STATUS TO SULFONAMIDES STATUS 12/26/2018 ANGELES SUERO MD Ot Z88.8 ALLERGY STATUS TO OTH DRUG/MEDS/BIOL SUB 12/26/2018 ANGELES SUERO MD Ot Z90.710 ACQUIRED ABSENCE OF BOTH CERVIX AND UTER 12/26/2018 ANGELES SUERO MD Ot 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 12/26/2018 ANGELES SUERO MD Ot Z98.890 OTHER SPECIFIED POSTPROCEDURAL STATES 12/28/2018 ANGELES SUERO MD Ot E78.00 PURE [...] OF MALIGNANT NEOPLASM O 12/28/2018 ANGELES SUERO MD Ot Z87.19 PERSONAL HISTORY OF OTHER DISEASES OF 12/28/2018 ANGELES SUERO MD Ot Z87.891 PERSONAL HISTORY OF NICOTINE DEPENDENCE 12/28/2018 ANGELES SUERO MD Ot Z88.2 ALLERGY STATUS TO SULFONAMIDES STATUS 12/28/2018 ANGEELS SUERO MD Ot Z88.8 ALLERGY STATUS TO OTH DRUG/MEDS/BIOL SUB 12/28/2018 ANGELES SUERO MD Ot Z90.710 ACQUIRED ABSENCE OF BOTH CERVIX AND UTER 12/28/2018 ANGELES SUERO MD Ot 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 12/28/2018 ANGELES SUERO MD Ot Z98.890 OTHER SPECIFIED POSTPROCEDURAL STATES 12/28/2018 YIFAN CORDELL CEDILLO Ot Z01.818 ENCOUNTER FOR OTHER PREPROCEDURAL EXAMIN 12/30/2018 MARLENASAMUEL CORDELL CEDILLO Ot E78.2 MIXED HYPERLIPIDEMIA 12/30/2018 MARLENASAMUEL CORDELL CEDILLO Ot F32.9 MAJOR DEPRESSIVE DISORDER, SINGLE EPISOD 12/30/2018 YIFAN CEDILLOCORDELL Ot F41.9 ANXIETY DISORDER, UNSPECIFIED 12/30/2018 MARLENASAMUEL CORDELL CEDILLO Ot I10 ESSENTIAL (PRIMARY) HYPERTENSION 12/30/2018 YIFAN CORDELL CEDILLO Ot I25.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[place] CORONARY 12/30/2018 MARLENASAMUEL CORDELL CEDILLO Ot K20.9 ESOPHAGITIS, UNSPECIFIED 12/30/2018 MARLENASAMUEL CORDELL CEDILLO Ot K29.70 GASTRITIS, UNSPECIFIED, WITHOUT BLEEDING 12/30/2018 MARLENASAMUEL CORDELL CEDILLO Ot K44.9 DIAPHRAGMATIC HERNIA WITHOUT OBSTRUCTION 12/30/2018 MARLENASAMUEL CORDELL CEDILLO Ot K57.30 DVRTCLOS OF LG INT W/O PERFORATION OR AB 12/30/2018 MARLENASAMUEL CORDELL CEDILLO Ot K62.89 OTHER SPECIFIED DISEASES OF ANUS AND REC 12/30/2018 MARLENASAMUEL CORDELL CEDILLO Ot K64.1 SECOND DEGREE HEMORRHOIDS 12/30/2018 CORDELL SAHA DO Ot Z12.11 ENCOUNTER FOR SCREENING FOR MALIGNANT NE 12/30/2018 MARLENASAMUEL CORDELL CEDILLO Ot Z79.899 OTHER PATIENT TRANSPORTATION DRIVER (CURRENT) DRUG THERAPY 12/30/2018 MARLENASAMUEL CORDELL CEDILLO Ot Z87.891 PERSONAL HISTORY OF NICOTINE DEPENDENCE 12/31/2018 ANGELES SUERO MD Ot E78.00 PURE HYPERCHOLESTEROLEMIA, UNSPECIFIED 12/31/2018 ANGELES SUERO MD, Ot F32.9 MAJOR DEPRESSIVE DISORDER, SINGLE EPISOD 12/31/2018 ANGELES SUERO MD Ot I10 ESSENTIAL (PRIMARY) HYPERTENSION 12/31/2018 ANGELES SUERO MD, Ot K21.9 GASTRO-ESOPHAGEAL REFLUX DISEASE WITHOUT 12/31/2018 ANGELES SUERO MD Ot R07.89 OTHER CHEST PAIN 12/31/2018 ANGELES SUERO MD Ot R10.13 EPIGASTRIC PAIN 12/31/2018 ANGELES SUERO MD Ot Z85.41 PERSONAL HISTORY OF MALIGNANT NEOPLASM O 12/31/2018 ANGELES SUERO MD, Ot Z87.19 PERSONAL HISTORY OF OTHER DISEASES OF TH 12/31/2018 ANGELES SUERO MD, Ot Z87.891 PERSONAL HISTORY OF NICOTINE DEPENDENCE 12/31/2018 ANGELES SUERO MD, Ot Z88.2 ALLERGY STATUS TO SULFONAMIDES STATUS 12/31/2018 ANGELES SUERO MD, Ot Z88.8 ALLERGY STATUS TO OTH DRUG/MEDS/BIOL SUB 12/31/2018 ANGELES SUERO MD, Ot Z90.710 ACQUIRED ABSENCE OF BOTH CERVIX AND UTER 12/31/2018 ANGELES SUERO MD, Ot 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 12/31/2018 ANGELES SUERO MD, Ot Z98.890 OTHER SPECIFIED POSTPROCEDURAL STATES 12/31/2018 CORDELL SAHA DO Ot R10.11 RIGHT UPPER QUADRANT PAIN 01/01/2019 CORDELL SAHA DO Ot E78.2 MIXED HYPERLIPIDEMIA 01/01/2019 CORDELL SAHA DO Ot F32.9 MAJOR DEPRESSIVE DISORDER, SINGLE EPISOD 01/01/2019 CORDELL SAHA DO Ot F41.9 ANXIETY DISORDER, UNSPECIFIED 01/01/2019 CORDELL SAHA DO Ot I10 ESSENTIAL (PRIMARY) HYPERTENSION 01/01/2019 CORDELL SAHA DO Ot I25.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[place] CORONARY 01/01/2019 CORDELL SAHA DO Ot K20.9 ESOPHAGITIS, UNSPECIFIED 01/01/2019 CORDELL ASHA DO, Ot K29.70 GASTRITIS, UNSPECIFIED, WITHOUT BLEEDING 01/01/2019 CORDELL SAHA DO Ot K44.9 DIAPHRAGMATIC HERNIA WITHOUT OBSTRUCTION 01/01/2019 CORDELL SAHA DO Ot K57.30 DVRTCLOS OF LG INT W/O PERFORATION OR AB 01/01/2019 CORDELL SAHA DO Ot K62.89 OTHER SPECIFIED DISEASES OF ANUS AND REC 01/01/2019 CORDELL SAHA DO Ot K64.1 SECOND DEGREE HEMORRHOIDS 01/01/2019 CORDELL SAHA DO Ot Z12.11 ENCOUNTER FOR SCREENING FOR MALIGNANT NE 01/01/2019 CORDELL SAHA DO Ot Z79.899 OTHER PATIENT TRANSPORTATION DRIVER (CURRENT) DRUG THERAPY 01/01/2019 YIFAN CEDILLO CORDELL B Ot Z87.891 PERSONAL HISTORY OF NICOTINE DEPENDENCE 01/06/2019 MARLENASAMUEL ENDER CEDILLOIC B Ot R10.11 RIGHT UPPER QUADRANT PAIN 01/07/2019 ANGELES SUERO MD, Ot E78.00 PURE HYPERCHOLESTEROLEMIA, UNSPECIFIED 01/07/2019 ANGELES SUERO MD Ot F32.9 MAJOR DEPRESSIVE DISORDER, SINGLE EPISOD 01/07/2019 ANGELES SUERO MD Ot I10 ESSENTIAL (PRIMARY) HYPERTENSION 01/07/2019 ANGELES SUERO MD, Ot K21.9 GASTRO-ESOPHAGEAL REFLUX DISEASE WITHOUT 01/07/2019 ANGELES SUERO MD Ot R07.89 OTHER CHEST PAIN 01/07/2019 ANGELES SUERO MD, Ot R10.13 EPIGASTRIC PAIN 01/07/2019 ANGELES SUERO MD Ot Z85.41 PERSONAL HISTORY OF MALIGNANT NEOPLASM O 01/07/2019 ANGELES SUERO MD Ot Z87.19 PERSONAL HISTORY OF OTHER DISEASES OF TH 01/07/2019 ANGELES SUERO MD, Ot Z87.891 PERSONAL HISTORY OF NICOTINE DEPENDENCE 01/07/2019 ANGELES SUERO MD Ot Z88.2 ALLERGY STATUS TO SULFONAMIDES STATUS 01/07/2019 ANGELES SUERO MD Ot Z88.8 ALLERGY STATUS TO OTH DRUG/MEDS/BIOL SUB 01/07/2019 ANGELES SUERO MD Ot Z90.710 ACQUIRED ABSENCE OF BOTH CERVIX AND UTER 01/07/2019 ANGELES SUERO MD Ot 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 01/07/2019 ANGELES SUERO MD Ot Z98.890 OTHER SPECIFIED POSTPROCEDURAL STATES 01/07/2019 MARLENASAMUEL DOENDERIC B Ot R10.11 RIGHT UPPER QUADRANT PAIN 01/15/2019 ENDER SAHA DOIC B Ot R10.11 RIGHT UPPER QUADRANT PAIN 03/02/2019 YIFAN DOENDERIC B Ot R10.11 RIGHT UPPER QUADRANT PAIN 03/03/2019 ENDER SAHA DOIC B Ot R10.11 RIGHT UPPER QUADRANT PAIN Procedures Code Description [place] [address] ROUTINE VENIPUNCTURE 02/12/2013 93393 A1C (RML) 02/12/2013 40420 TSH 02/12/2013 24902 CBC 02/12/2013 20171 LIPID PANEL 02/12/2013 20276 CMP 02/12/2013 [id number] GFR CALC (RESULT ONLY) 02/12/2013 76166 ROUTINE VENIPUNCTURE 05/28/2013 33839 LIPID PANEL 05/28/2013 95826 ROUTINE VENIPUNCTURE 07/28/2013 66166 LIPID PANEL 07/28/2013 64771 LIVER PANEL (LFT) 07/28/2013 17094 ROUTINE VENIPUNCTURE 01/17/2014 06683 LIPID PANEL 01/17/2014 22941 ROUTINE VENIPUNCTURE 08/03/2014 47621 CMP 08/03/2014 16095 LIPID PANEL 08/03/2014 72571 TSH 08/03/2014 01715 CBC 08/03/2014 GENERAL S [id number] 08/16/2014 57353 HIDA SCAN 08/19/2014 Results Test Result Range [...] 12.5 fL 7.5-12.5 ABSOLUTE NEUTROPHILS 3870 cells/uL 0304-8286 ABSOLUTE LYMPHOCYTES 1416 cells/uL 850-3900 ABSOLUTE MONOCYTES [...] 12/25/18 23:44 Myoglobin, serum 53.9 ng/mL 10.0-92.0 CMP - 02/12/19 09:52 GLUCOSE 100 mg/dL 65-99 UREA NITROGEN (BUN) 5 mg/dL 7-25 CREATININE 0.70 mg/dL 0.50-0.99 eGFR NON-AFR. SAMMARINESE 94 mL/min/1.73m2 > OR=60 eGFR 108 mL/min/1.73m2 > OR=60 BUN/CREATININE RATIO 7 (calc) 6-22 SODIUM 135 mmol/L 135-146 POTASSIUM 4.0 mmol/L 3.5-5.3 CHLORIDE 98 mmol/L 98-110 CARBON DIOXIDE 28 mmol/L 20-32 CALCIUM 9.7 mg/dL 8.6-10.4 PROTEIN, TOTAL 6.8 g/dL 6.1-8.1 ALBUMIN 4.2 g/dL 3.6-5.1 GLOBULIN 2.6 g/dL (calc) 1.9-3.7 ALBUMIN/GLOBULIN RATIO 1.6 (calc) 1.0-2.5 BILIRUBIN, TOTAL 0.6 mg/dL 0.2-1.2 ALKALINE PHOSPHATASE 56 U/L 33-130 AST 16 U/L 10-35 ALT 16 U/L 6-29 CBC - 02/12/19 09:52 WHITE BLOOD CELL COUNT 6.6 Thousand/uL 3.8-10.8 RED BLOOD CELL COUNT 4.32 Million/uL 3.80-5.10 HEMOGLOBIN 13.2 g/dL 11.7-15.5 HEMATOCRIT 38.6 % 35.0-45.0 MCV 89.4 fL 80.0-100.0 MCH 30.6 pg 27.0-33.0 MCHC 34.2 g/dL 32.0-36.0 RDW 12.8 % 11.0-15.0 PLATELET COUNT 184 Thousand/uL 140-400 MPV 12.6 fL 7.5-12.5 ABSOLUTE NEUTROPHILS 5062 cells/uL 2277-3723 ABSOLUTE LYMPHOCYTES 878 cells/uL 850-3900 ABSOLUTE MONOCYTES 568 cells/uL 200-950 ABSOLUTE EOSINOPHILS 73 cells/uL 15-500 ABSOLUTE BASOPHILS 20 cells/uL 0-200 NEUTROPHILS 76.7 % NRG LYMPHOCYTES 13.3 % NRG MONOCYTES 8.6 % NRG EOSINOPHILS 1.1 % NRG BASOPHILS 0.3 % NRG LIPASE - 02/12/19 09:52 LIPASE 39 U/L 7-60 AMYLASE - 02/12/19 09:52 AMYLASE 66 U/L 21-101 Encounters ACCT No. Visit Date/Time Discharge Status Pt. Type Provider Facility Loc./Unit Complaint [id number] 03/08/2019 13:20:00 ACT Outpatient [facility] [id number] 02/12/2019 09:00:00 Document Registration [id number] 10/08/2018 09:40:00 Document Registration [id number] 01/14/2018 10:20:00 Document Registration [id number] 11/30/2014 09:43:00 11/30/2014 23:59:59 CLS Outpatient ALANNA POOL APRN [id number] 08/10/2014 09:16:00 08/10/2014 23:59:59 CLS Outpatient ALANNA POOL APRN [id number] 08/03/2014 11:27:00 08/03/2014 23:59:59 CLS Outpatient SARATH MCKEON DO [id number] 06/24/2014 14:00:00 06/24/2014 23:59:59 CLS Outpatient SARATH MCKEON DO [id number] 01/17/2014 11:59:00 01/17/2014 23:59:59 CLS Outpatient ALANNA POOL APRN [id number] 10/01/2013 10:20:00 10/01/2013 23:59:59 CLS Outpatient SARATH MCKEON DO [id number] 08/06/2013 09:26:00 08/06/2013 23:59:59 CLS Outpatient SARATH MCKEON DO [id number] 02/12/2013 09:18:00 02/12/2013 23:59:59 CLS Outpatient KAMI PEDRAZA MD [id number] 02/11/2013 13:16:00 02/11/2013 23:59:59 CLS Outpatient [id number] 07/21/2012 13:11:00 07/21/2012 23:59:59 CLS Outpatient RHODA LOMBARDI APRN [id number] 07/28/2013 08:35:00 Document Registration [id number] 07/09/2013 15:20:00 Document Registration [id number] 05/28/2013 08:50:00 Document Registration [id number] 04/29/2013 08:50:00 Document Registration [id number] 03/11/2019 15:35:00 03/11/2019 16:55:00 DIS Emergency PRASAD HUITRON GAS CHECK PAD MAKER [facility] ER SIDE PAIN,NAUSEA [id number] 01/14/2019 09:27:00 01/14/2019 23:59:59 CLS Outpatient DELSAMUEL DO CORDELL B [facility] CARD RUQ PAIN [id number] 12/31/2018 07:50:00 12/31/2018 23:59:59 CLS Outpatient DELMAN DO, CORDELL B [facility] RAD RUQ PAIN [id number] 12/30/2018 07:56:00 12/30/2018 11:10:00 DIS Outpatient YIFAN DO CORDELL B [facility] ENDO CHANGE IN BM/NAUSEA [id number] 12/28/2018 10:11:00 12/28/2018 15:21:00 DIS Outpatient YIFAN CEDILLO CORDELL B [facility] PREOP COLONOSCOPY/EGD [id number] 12/25/2018 21:27:00 12/26/2018 00:38:00 DIS Outpatient ANGELES SUERO MD [facility] ER CHEST PAIN [id number] 12/23/2018 15:55:00 12/23/2018 23:59:59 CLS Preadmit TITO KARIMI GAS CHECK PAD MAKER [facility] RAD HX OF DIVERTICULITIS [id number] 12/09/2017 10:49:00 12/09/2017 23:59:59 CLS Outpatient DARRIAN URIOSTEGUI MD [facility] CARD I25.10 CAD [id number] 11/10/2017 10:43:00 11/10/2017 14:06:00 DIS Emergency ANGELES SUERO MD [facility] ER CHEST PAIN [id number] 12/19/2016 09:47:00 12/19/2016 13:21:00 DIS Emergency JONATHAN ALFRED [facility] ER CHEST/BACK PAIN LEFT FOOT NUMB/TINGLING [id number] 06/15/2015 07:19:00 06/15/2015 09:14:00 DIS Emergency JAMES OSCAR, GUNNER Hinojosa [facility] ER DIZZINESS/NAUSEA [id number] 08/18/2014 09:50:00 08/18/2014 23:59:59 CLS Outpatient ALANNA POOL APRN [facility] CARD RUQ PAIN [id number] 04/15/2013 11:30:00 04/16/2013 13:00:00 DIS Outpatient MOODY OSCAR, DARRIAN Sterling [facility] CATH CHEST PAIN [id number] 06/15/2015 07:19:00 Document Registration
== END 2019-03-11 16:55 | disposition home or self-care (01) ==
LOC: EDUNIT# 15:34 → ER 15:35
DX: K29.70 Gastritis, unspecified, without bleeding (principal); E78.00 Pure hypercholesterolemia, unspecified; I10 Essential (primary) hypertension; K21.9 Gastro-esophageal reflux disease without esophagitis; F32.9 Major depressive disorder, single episode, unspecified; Z85.41 Personal history of malignant neoplasm of cervix uteri; Z87.19 Personal history of other diseases of the digestive system; Z95.9 Presence of cardiac and vascular implant and graft, unspecified; Z88.2 Allergy status to sulfonamides; Z88.8 Allergy status to other drugs, medicaments and biological substances; Z87.891 Personal history of nicotine dependence; Z90.710 Acquired absence of both cervix and uterus; Z98.890 Other specified postprocedural states
CPT/HCPCS: 99283

== ENCOUNTER 2019-04-19 07:16 | Observation (INO) | payer OTHER ==
[~2019-04-19] VITALS: Ht 175.3 cm; Wt 68.0 kg
[2019-04-19] VITALS (9 sets, daily range): BP systolic 132–159; BP diastolic 77–85
[~2019-04-19 07:16] MED LIST changes: +ESOM40CA52 PO; +ONDN4T PO; +SUCR1TAB36 PO
--- OUTSIDE RECORDS SUMMARY | 2019-04-19 07:20 | XMS REPORT ---
Author Author Migration, Doctor Organization [facility] Address Unknown Phone Unavailable Care Team Providers Care Flour Mixer Name Role Phone Migration, Doctor Unavailable Unavailable PROBLEMS Type Condition ICD9-CM Code NXR83-EM Code Onset Dates Condition Status SNOMED Code Problem Grade I hemorrhoids K64.0 Active 834754211 Problem Essential (primary) hypertension I10 Active 73301963 Problem Gastroesophageal reflux disease, esophagitis presence not specified K21.9 Active 441913013 Problem Diverticulosis K57.90 Active 650804349 Problem Esophagitis K20.9 Active 37674880 Problem Depression with anxiety F41.8 Active 06832471 Problem Mixed hyperlipidemia E78.2 Active 997121893 Problem Moderate single current episode of major depressive disorder F32.1 Active 07297977 Problem Slow transit constipation K59.01 Active 50371415 Problem Diverticulitis K57.92 Active 800845712 ALLERGIES No Information ENCOUNTERS Encounter Location Date Diagnosis [id number] [place] [address] [id number] March, [place] [id number] [place] [address] [id number] Mar, Gastroesophageal reflux disease, esophagitis presence not specified K21.9 [id number] [place] [address] [id number] Mar, Depression with anxiety F41.8 [address] [place] [address] [id number] Mar, Diverticulosis K57.90 and Nausea R11.[id number] [place] [address] [id number] Jan, [place] [address] [facility] [id number] [id number] Jan, Gastroesophageal reflux disease, esophagitis presence not specified K21.9 [address] [place] [address] [id number] Jan, History of diverticulosis Z87.19 ; Abdominal discomfort R10.9 ; Epigastric pain R10.13 and Gastroesophageal reflux disease, esophagitis presence not specified K21.[address] [id number] Dec, [facility] [address] [address] Dec, [address] [id number] Dec, History of diverticulitis Z87.19 [facility] [address] [address] 16 Dec, 2018 Diverticulitis K57.[address] [id number] Dec, Diverticulitis K57.92 and Left lower quadrant pain R10.[address] [id number] Oct, Moderate single current episode of major depressive disorder F32.[address] [id number] Oct, Moderate single current episode of major depressive disorder F32.[address] [id number] Oct, [address] [id number] Oct, Mixed hyperlipidemia E78.[address] [id number] Oct, [address] [id number] Oct, Mixed hyperlipidemia E78.2 and Essential (primary) hypertension I10 [address] [id number] Oct, 2018 Essential (primary) hypertension I10 ; Mixed hyperlipidemia E78.2 ; Moderate single current episode of major depressive disorder F32.1 ; Slow transit constipation K59.01 ; Superficial laceration T14.8XXA and Encounter for immunization Z23 [facility] [address] [address] Aug, Moderate single current episode of major depressive disorder F32.1 [facility] [address] [address] May, Moderate single current episode of major depressive disorder F32.1 [facility] [id number] [place] [address] [id number] Jan, Essential (primary) hypertension I10 ; Hyperlipidemia, unspecified E78.5 ; Moderate single current episode of major depressive disorder F32.1 and Slow transit constipation K59.01 [facility] [id number] [place] [address] [id number] Dec, Moderate single current episode of major depressive disorder F32.[address] [id number] [id number] Oct, Right lower quadrant abdominal pain R10.31 ; Urinary frequency R35.0 ; Diverticulitis of intestine without perforation or abscess without bleeding, unspecified part of intestinal tract K57.92 and Slow transit constipation K59.01 [facility] [id number] [place] [address] [id number] Aug, Essential (primary) hypertension I10 and Moderate single current episode of major depressive disorder F32.1 [place] [id number] [place] [address] [id number] Jul, Essential (primary) hypertension I10 and Moderate single current episode of major depressive disorder F32.1 [facility] [id number] [place] [address] [id number] Jul, [facility] [id number] [place] [address] [id number] Jul, Poison jose eduardo dermatitis L23.7 [facility] [id number] [place] [address] [id number] March, Anhedonia R45.84 [facility] [id number] [place] [address] [id number] Mar, [facility] [address] [id number] Dec, Essential (primary) hypertension I10 [facility] [id number] [place] [address] [id number] Dec, Mixed hyperlipidemia E78.2 [facility] [id number] [place] [address] [id number] Oct, Mixed hyperlipidemia E78.2 and Elevated fasting glucose R73.01 [place] [id number] [place] [address] [id number] Oct, Hyperlipidemia, unspecified E78.5 ; Essential (primary) hypertension I10 and Thyroid disorder screening Z13.29 [place] [id number] [place] [address] [id number] Oct, Slow transit constipation K59.01 ; Essential (primary) hypertension I10 ; Hyperlipidemia, unspecified E78.5 ; Gastroesophageal reflux disease, esophagitis presence not specified K21.9 and Anhedonia R45.84 [facility] [id number] [place] [address] [id number] Oct, [facility] [id number] [place] [address] [id number] Aug, Slow transit constipation K59.01 [place] [id number] [place] [address] [id number] Jul, Diverticulitis of intestine without perforation or abscess without bleeding, unspecified part of intestinal tract K57.92 [place] [id number] [place] [address] [id number] Jul, Essential (primary) hypertension I10 [facility] [id number] [place] [address] [id number] May, [facility] [id number] [place] [address] [id number] May, [place] [id number] [place] [address] [id number] May, Essential (primary) hypertension I10 and Hyperlipidemia, unspecified E78.5 [facility] [address] [id number] [place] [address] [id number] May, [place] [id number] [place] [address] [id number] May, [facility] [address] [id number] [id number] May, Dental examination Z01.20 and Dental caries K02.9 [facility] [id number] [place] [id number] March, Unspecified essential hypertension 401.9 [facility] [address] [id number] [place] [id number] Jan, [facility] [place] [id number] [place] [id number] Dec, [facility] [id number] [place] [address] [id number] Dec, [facility] [id number] [place] [id number] Dec, [facility] [id number] [place] [id number] Dec, Other and unspecified hyperlipidemia E78.5 [facility] [id number] [place] [id number] Oct, [facility] [address] [id number] [id number] Oct, [facility] [address] [id number][place] [id number] Oct, [place] [id number] [id number] Aug, Unspecified essential hypertension 401.9 and Hyperlipidemia 272.4 [facility] [id number] [place] [id number] Aug, Urinary tract infection 599.0 [facility] [id number] [place] [id number] Aug, Dysuria 788.1 ; Unspecified essential hypertension 401.9 ; Urinary tract infection 599.0 and Routine lab draw V72.62 [facility] [address] [place] [id number] [place] [id number] May, [place] [id number] [place] [address] [id number] May, Sinusitis 473.9 [facility] [place] [id number] [place] [id number] May, [facility] [place] [id number] [place] [address] [id number] May, [facility] [id number] [place] [address] May, [facility] [place] [id number] [place] [address] [id number] March, Spider bite 989.5 [facility] [place] [id number] [place] [address] [id number] March, Spider bite 989.5 and Skin necrosis 709.8 [facility] [place] [id number] [place] [address] [id number] March, [facility] [place] [id number] [place] [address] [id number] March, Insect bite 919.4 [facility] [place] [id number] [place] [address] [id number] Mar, [facility] [place] [id number] [place] [address] [id number] Mar, [facility] [id number] [place] [phone] Mar, [facility] [id number] [place] [phone] Mar, [facility] [address] [place] [phone] Jan, [facility] [place] [id number] [place] [id number] Jan, [facility] [id number] [place] [address] Jan, [facility] [place] [id number] [place] [id number] Dec, [facility] [id number] [place] [address] Dec, [facility] [place] [address] [id number] [place] [id number] Dec, [facility] [address] [facility] [id number], [place] [address] Dec, [facility] [place] [address] [facility] [id number] [place] [id number] Oct, [facility] [address] [facility] [id number], [place] [address] Oct, [facility] [place] [address] [facility] [id number] [place] [id number] Aug, [facility] [address] [facility] [id number], [place] [address] Aug, [facility] [place] [address] [facility] [id number] [place] [id number] Aug, [facility] [address]65[address], [place] [address] Aug, [facility] [address] [facility] [id number], [place] [address] Aug, [facility] [place] [address] [facility] [id number] [place] [id number] Aug, [facility] [address]65[address], [place] [address] Aug, [facility] [place] [address] [facility] [id number] [place] [id number] Aug, [facility] [place] [address] [facility] [id number] [place] [id number] Aug, [facility] [address] [facility] [id number], [place] [address] Aug, [facility] [place] [address] [facility] [id number] [place] [id number] Aug, [facility] [address] [facility] [id number], [place] [address] Aug, [facility] [place] [address] [facility] [id number] [place] [id number] Aug, [facility] [address] [facility] [id number], [place] [address] Aug, [facility] [place] [address] [facility] [id number] [place] [id number] May, [facility] [address] [facility] [id number], [place] [address] May, [facility] [place] [address] [facility] [id number] [place] [id number] March, [facility] [address] [facility] [id number], [place] [address] March, [facility] [place] [address] [facility] [id number] [place] [id number] March, [facility] [address] [place] [address] [id number], [place] [address] March, [facility] [place] [address] [place] [address] [id number] [place] [id number] Jan, [facility] [address], [place] [address] Jan, [facility] [place] [address] [facility] [id number] [place] [id number] Jan, [facility] [address], [place] [address] Jan, [facility] [place] [address] [place] [id number] [place] [id number] Oct, [facility] [address] [facility] [id number], [place] [address] Oct, [facility] [place] [address] [facility] [id number] [place] [id number] Oct, [facility] [address] [facility] [id number], [place] [address] Oct, [facility] [place] [address] [facility] [id number] [place] [id number] Oct, [facility] [address] [place] [address] [id number], [place] [address] Oct, [facility] [place] [address] [id number] [place] [id number] Aug, [facility] [address] [facility] [id number], [place] [address] Aug, [facility] [place] [address] [id number] [place] [id number] Aug, [facility] [place] [address] [id number] [place] [id number] Aug, [facility] [place] [address] [id number] [place] [id number] Jul, [facility] [address] [facility] [id number], [place] [address] Jul, [facility] [place] [address] [id number] [place] [id number] Jul, [facility] [place] [address] [id number] [place] [id number] Jul, [facility] [place] [address] [id number] [place] [id number] May, [facility] [address] [facility] [id number], [place] [address] May, [facility] [place] [address] [id number] [place] [id number] May, [facility] [place] [address] [id number] [place] [id number] May, [facility] [place] [address] [id number] [place] [id number] March, [facility] [place] [address] [id number] [place] [id number] March, [facility] [place] [address] [id number] [place] [id number] March, [facility] [place] [address] [id number] [place] [id number] Jan, [facility] [place] [address] [id number] [place] [id number] Jan, [facility] [place] [address] [id number] [place] [id number] 15 Jan, 2013 [facility] [place] [address] [id number] [place] [id number] Jan, [facility] [place] [address] [id number] [place] [id number] Jan, [facility] [place] [address] [id number] [place] [id number] Jan, [facility] [place] [address] [id number] [place] 542303462 Dec, [facility] [place] [address] [id number] [place] 0958025[address] Dec, [facility] [place] [address] [id number] [place] [id number] Dec, [facility] [address] [facility] [id number], [place] [address] Jul, [facility] [place] [address] [id number] [place] [id number] Jul, [facility] [place] [address] [id number] [place] [id number] May, [facility] [place] [address] [id number] [place] [id number] Jan, [facility] [place] [address] [id number] [place] [id number] Dec, [facility] [address], [place] [address] Oct, [facility] [address] [id number], [place] [address] Oct, [facility] [address] [facility] [id number], [place] [address] Oct, [facility] [id number] [place] [address] Oct, [facility] [address] [id number], [place] [address] Aug, [facility] [id number] [place] [address] May, [facility] [address] [facility] [id number], [place] [address] May, [facility] [address] [facility] [id number], [place] [address] May, [facility] [address] [facility] [id number], [place] [address] Mar, [facility] [address] [facility] [id number], [place] [address] Oct, IMMUNIZATIONS No Known Immunizations SOCIAL HISTORY Never Assessed REASON FOR VISIT [facility]MR[facility] PLAN OF CARE VITAL SIGNS MEDICATIONS Unknown [...] 2017 showing stable 1.2 cm splenic artery aneurysm, mild thickening ofhte bladder wall, diverticulosis with no diverticulitis, cont to monitor. Medical History Diverticulitis of intestine without perforation or abscess without bleeding, unspecified part of intestinal tract Surgical History hysterectomy, total with unilateral salpingo-oophorectomy (USO) due to cervical cancer 1985 Surgical History heart cath- 40% non-obstructive stenosis of the mid-LAD, normal EF 03/2013 Surgical History hiatal hernia repair 2006 Surgical History EGD Surgical History colonoscopy Hospitalization History surgeries
--- OUTSIDE RECORDS SUMMARY | 2019-04-19 07:20 | XMS REPORT ---
Author Author Migration, Doctor Organization [facility] Address Unknown Phone Unavailable Care Team Providers Care Sql Server Developer Name Role Phone Migration, Doctor Unavailable Unavailable PROBLEMS Type Condition ICD9-CM Code XNT07-TH Code Onset Dates Condition Status SNOMED Code Problem Grade I hemorrhoids K64.0 Active 708648540 Problem Essential (primary) hypertension I10 Active 11400496 Problem Gastroesophageal reflux disease, esophagitis presence not specified K21.9 Active 557375113 Problem Diverticulosis K57.90 Active 489514539 Problem Esophagitis K20.9 Active 52798938 Problem Depression with anxiety F41.8 Active 44003115 Problem Mixed hyperlipidemia E78.2 Active 335707615 Problem Moderate single current episode of major depressive disorder F32.1 Active 53987890 Problem Slow transit constipation K59.01 Active 01042995 Problem Diverticulitis K57.92 Active 063617901 ALLERGIES No Information ENCOUNTERS Encounter Location Date Diagnosis [id number] [place] [address] [id number] March, [place] [id number] [place] [address] [id number] Mar, Gastroesophageal reflux disease, esophagitis presence not specified K21.9 [id number] [place] [address] [id number] Mar, Depression with anxiety F41.8 [id number] [place] [address] [id number] Mar, Diverticulosis K57.90 and Nausea R11.[id number] [place] [address] [id number] Jan, [place] [address] [facility] [address] [id number] [id number] Jan, Gastroesophageal reflux disease, esophagitis presence not specified K21.9 [address] [place] [address] [id number] Jan, History of diverticulosis Z87.19 ; Abdominal discomfort R10.9 ; Epigastric pain R10.13 and Gastroesophageal reflux disease, esophagitis presence not specified K21.[address] [id number] Dec, [facility] [address] [address] Dec, [address] [id number] Dec, History of diverticulitis Z87.19 [facility] [address] [address] 16 Dec, 2018 Diverticulitis K57.[address] [id number] Dec, Diverticulitis K57.92 and Left lower quadrant pain R10.[address] [id number] Oct, Moderate single current episode of major depressive disorder F32.[address] [id number] Oct, Moderate single current episode of major depressive disorder F32.[address] [id number] Oct, [address] [id number] Oct, Mixed hyperlipidemia E78.[address] [id number] Oct, [address] [id number] Oct, Mixed hyperlipidemia E78.2 and Essential (primary) hypertension I10 [address] [id number] Oct, 2018 Essential (primary) hypertension I10 ; Mixed hyperlipidemia E78.2 ; Moderate single current episode of major depressive disorder F32.1 ; Slow transit constipation K59.01 ; Superficial laceration T14.8XXA and Encounter for immunization Z23 [facility] [address] [address] Aug, Moderate single current episode of major depressive disorder F32.1 [facility] [address] [address] May, Moderate single current episode of major depressive disorder F32.1 [facility] [id number] [place] [address] [id number] Jan, Essential (primary) hypertension I10 ; Hyperlipidemia, unspecified E78.5 ; Moderate single current episode of major depressive disorder F32.1 and Slow transit constipation K59.01 [facility] [address] [place] [id number] [place] [address] [id number] Dec, Moderate single current episode of major depressive disorder F32.[address] [id number] [id number] Oct, Right lower quadrant abdominal pain R10.31 ; Urinary frequency R35.0 ; Diverticulitis of intestine without perforation or abscess without bleeding, unspecified part of intestinal tract K57.92 and Slow transit constipation K59.01 [facility] [id number] [place] [address] [id number] Aug, Essential (primary) hypertension I10 and Moderate single current episode of major depressive disorder F32.1 [place] [id number] [place] [address] [id number] Jul, Essential (primary) hypertension I10 and Moderate single current episode of major depressive disorder F32.1 [facility] [id number] [place] [address] [id number] Jul, [facility] [address] [id number] [place] [address] [id number] Jul, Poison jose eduardo dermatitis L23.7 [facility] [address] [id number] [place] [address] [id number] March, Anhedonia R45.84 [facility] [address] [id number] [place] [address] [id number] Mar, [facility] [address] [id number] Dec, Essential (primary) hypertension I10 [facility] [id number] [place] [address] [id number] Dec, Mixed hyperlipidemia E78.2 [facility] [address] [place] [id number] [place] [address] [id number] Oct, Mixed hyperlipidemia E78.2 and Elevated fasting glucose R73.01 [place] [address] [place] [id number] [place] [address] [id number] Oct, Hyperlipidemia, unspecified E78.5 ; Essential (primary) hypertension I10 and Thyroid disorder screening Z13.29 [place] [address] [place] [id number] [place] [address] [id number] Oct, Slow transit constipation K59.01 ; Essential (primary) hypertension I10 ; Hyperlipidemia, unspecified E78.5 ; Gastroesophageal reflux disease, esophagitis presence not specified K21.9 and Anhedonia R45.84 [facility] [address] [id number] [place] [address] [id number] Oct, [facility] [address] [id number] [place] [address] [id number] Aug, Slow transit constipation K59.01 [place] [address] [place] [id number] [place] [address] [id number] Jul, Diverticulitis of intestine without perforation or abscess without bleeding, unspecified part of intestinal tract K57.92 [place] [id number] [place] [address] [id number] Jul, Essential (primary) hypertension I10 [facility] [address] [id number] [place] [address] [id number] May, [facility] [id number] [place] [address] [id number] May, [place] [address] [place] [id number] [place] [address] [id number] May, Essential (primary) hypertension I10 and Hyperlipidemia, unspecified E78.5 [facility] [address] [place] [id number] [place] [address] [id number] May, [place] [address] [place] [id number] [place] [address] [id number] May, [facility] [address] [id number][place] [id number] May, Dental examination Z01.20 and Dental caries K02.9 [facility] [id number], [place] [id number] March, Unspecified essential hypertension 401.9 [facility] [address] [id number][place] [id number] Jan, [facility] [place] [id number], [place] [id number] Dec, [facility] [id number] [place] [address] [id number] Dec, [facility] [id number], [place] [id number] Dec, [facility] [id number], [place] [id number] Dec, Other and unspecified hyperlipidemia E78.5 [facility] [id number], [place] [id number] Oct, [facility] [address] [id number][place] [id number] Oct, [facility] [address] [id number], [place] [id number] Oct, [place] [id number] [id number] Aug, Unspecified essential hypertension 401.9 and Hyperlipidemia 272.4 [facility] [id number], [place] [id number] Aug, Urinary tract infection 599.0 [facility] [id number], [place] [id number] Aug, Dysuria 788.1 ; Unspecified essential hypertension 401.9 ; Urinary tract infection 599.0 and Routine lab draw V72.62 [facility] [address] [place] [id number][place] [id number] May, [place] [id number] [place] [address] [id number] May, Sinusitis 473.9 [facility] [place] [id number], [place] [id number] May, [facility] [place] [address] [place] [id number] [place] [address] [id number] May, [facility] [address] [place] [id number] [place] [address] May, [facility] [place] [id number] [place] [address] [id number] March, Spider bite 989.5 [facility] [place] [id number] [place] [address] [id number] March, Spider bite 989.5 and Skin necrosis 709.8 [facility] [place] [id number] [place] [address] [id number] March, [facility] [place] [address] [place] [place] [id number] [place] [address] [id number] March, Insect bite 919.4 [facility] [place] [id number] [place] [address] [id number] Mar, [facility] [place] [id number] [place] [address] [id number] Mar, [facility] [address] [place] [id number] [place] [address] Mar, [facility] [address] [place] [id number] [place] [address] Mar, [facility] [id number] [place] [address] Jan, [facility] [place] [id number], [place] [id number] Jan, [facility] [address] [place] [id number] [place] [address] Jan, [facility] [place] [id number], [place] [id number] Dec, [facility] [address] [place] [id number] [place] [address] Dec, [facility] [place] [address] [id number], [place] [id number] Dec, [facility] [address] [facility] [id number], [place] [address] Dec, [facility] [place] [address] [facility] [id number], [place] [id number] Oct, [facility] [address] [facility] [id number], [place] [address] Oct, [facility] [place] [address] [facility] [id number], [place] [id number] Aug, [facility] [address] [facility] [id number], [place] [address] Aug, [facility] [place] [address] [facility] [id number], [place] [id number] Aug, [facility] [address]00565100[place], [place] [address] Aug, [facility] [address] [facility] [id number], [place] [address] Aug, [facility] [place] [address] [facility] [id number], [place] [id number] Aug, [facility] [address]00565100[place], [place] [address] Aug, [facility] [place] [address] [facility] [id number], [place] [id number] Aug, [facility] [place] [address] [facility] [id number], [place] [id number] Aug, [facility] [address] [facility] [id number], [place] [address] Aug, [facility] [place] [address] [facility] [id number], [place] [id number] Aug, [facility] [address] [facility] [id number], [place] [address] Aug, [facility] [place] [address] [facility] [id number], [place] [id number] Aug, [facility] [address] [facility] [id number], [place] [address] Aug, [facility] [place] [address] [facility] [id number], [place] [id number] May, [facility] [address] [facility] [id number], [place] [address] May, [facility] [place] [address] [facility] [id number], [place] [id number] March, [facility] [address] [facility] [id number], [place] [address] March, [facility] [place] [address] [facility] [id number], [place] [id number] March, [facility] [address] [place] [id number], [place] [address] March, [facility] [place] [address] [place] [id number], [place] [id number] Jan, [facility] [address], [place] [address] Jan, [facility] [place] [address] [facility] [id number], [place] [id number] Jan, [facility] [address], [place] [address] Jan, [facility] [place] [address] [place] [id number], [place] 180763492 Oct, [facility] [address] [facility] [id number], [place] [address] Oct, [facility] [place] [address] [facility] [id number], [place] [id number] Oct, [facility] [address] [facility] [id number], [place] [address] Oct, [facility] [place] [address] [facility] [id number], [place] [id number] Oct, [facility] [address] [place] [id number], [place] [address] Oct, [facility] [place] [address] [id number] [place] [id number] Aug, [facility] [address] [facility] [id number], [place] [address] Aug, [facility] [place] [address] [id number] [place] 652131644 Aug, [facility] [place] [address] [id number] [place] [id number] Aug, [facility] [place] [address] [id number] [place] [id number] Jul, [facility] [address] [facility] [id number], [place] [address] Jul, [facility] [place] [address] [id number] [place] [id number] Jul, [facility] [place] [address] [id number] [place] 504792672 Jul, [facility] [place] [address] [id number] [place] 724408500 May, [facility] [address] [facility] [id number], [place] [address] May, [facility] [place] [address] [id number] [place] [id number] May, [facility] [place] [address] [id number] [place] [id number] May, [facility] [place] [address] [id number] [place] 60176[address] March, [facility] [place] [address] [id number] [place] 815711977 March, [facility] [place] [address] [id number] [place] [id number] March, [facility] [place] [address] [id number] [place] [id number] Jan, [facility] [place] [address] [id number] [place] 886170026 Jan, [facility] [place] [address] [id number] [place] [id number] 15 Jan, 2013 [facility] [place] [address] [id number] [place] 420517647 Jan, [facility] [place] [address] [id number] [place] 7769924[address] Jan, [facility] [place] [address] [id number] [place] 137[address]112[address] Jan, [facility] [place] [address] [id number] [place] [id number] Dec, [facility] [place] [address] [id number] [place] [id number] Dec, [facility] [place] [address] [id number] [place] 9023527[address] Dec, [facility] [address] [facility] [id number], [place] [address] Jul, [facility] [place] [address] [id number] [place] [id number] Jul, [facility] [place] [address] [id number] [place] [id number] May, [facility] [place] [address] [id number] [place] 095329632 Jan, [facility] [place] [address] [id number] [place] [id number] Dec, [facility] [address]00565100[place], [place] [address] Oct, [facility] [address] [place] [id number], [place] [address] Oct, [facility] [address] [facility] [id number], [place] [address] Oct, [facility] [address] [place] [id number] [place] [address] Oct, [facility] [address] [place] [address] [id number], [place] [address] Aug, [facility] [address] [place] [id number] [place] [address] May, [facility] [address] [facility] [id number], [place] [address] May, [facility] [address] [facility] [id number], [place] [address] May, [facility] [address] [facility] [id number], [place] [address] Mar, [facility] [address] [facility] [id number], [place] [address] Oct, IMMUNIZATIONS No Known Immunizations SOCIAL HISTORY Never Assessed REASON FOR VISIT EMR-[facility] PLAN OF CARE VITAL SIGNS MEDICATIONS Unknown [...]
--- OUTSIDE RECORDS SUMMARY | 2019-04-19 07:25 | XMS REPORT | Continuity of Care Document ---
Author Organization Unknown Address Unknown Allergies Active Description Code Type Severity Reaction Onset Reported/Identified Relationship to Patient Clinical Status Yes No Known Drug Allergies [id number] Drug Allergy Unknown N/A 04/15/2013 Yes irbesartan [id number] Drug Allergy Unknown N/A 12/25/2018 Yes Sulfa (Sulfonamide Antibiotics) [id number] Drug Allergy Unknown N/A 12/25/2018 Medications There is no data. Problems Date [...] COLON WITHOUT MENTION OF HEMORRHAGE 07/26/2010 KAMI PEDRAAZ MD 789.00 ABDOMINAL PAIN UNSPECIFIED SITE 07/26/2010 [...] 789.00 ABDOMINAL PAIN UNSPECIFIED SITE 07/26/2010 HELLWIG SQL DATABASE ADMINISTRATOR, ALANNA E 272.4 DYSLIPIDEMIA 07/26/2010 HELLWIG SQL DATABASE ADMINISTRATOR, ALANNA E 401.1 HYPERTENSION, BENIGN ESSENTIAL 07/26/2010 ROHITHLWIG SQL DATABASE ADMINISTRATOR, ALANNA E 562.11 DIVERTICULITIS OF COLON WITHOUT MENTION OF HEMORRHAGE 07/26/2010 HELLWIG SQL DATABASE ADMINISTRATOR ALANNA E 789.00 ABDOMINAL PAIN UNSPECIFIED SITE 07/26/2010 MCKOEN DO, SARATH K 272.4 DYSLIPIDEMIA 07/26/2010 MCKEON [...] 789.00 ABDOMINAL PAIN UNSPECIFIED SITE 07/26/2010 HELLWIG SQL DATABASE ADMINISTRATOR, ALANNA E 272.4 DYSLIPIDEMIA 07/26/2010 HELLWIG SQL DATABASE ADMINISTRATOR, ALANNA E 401.1 HYPERTENSION, BENIGN ESSENTIAL 07/26/2010 HELLWIG SQL DATABASE ADMINISTRATOR, ALANNA E 562.11 DIVERTICULITIS OF COLON WITHOUT MENTION OF HEMORRHAGE 07/26/2010 HELLWIG SQL DATABASE ADMINISTRATOR, ALANNA E 789.00 ABDOMINAL PAIN UNSPECIFIED SITE 07/26/2010 HELLWIG SQL DATABASE ADMINISTRATOR, ALANNA E 272.4 DYSLIPIDEMIA 07/26/2010 HELLWIG SQL DATABASE ADMINISTRATOR, ALANNA E 401.1 HYPERTENSION, BENIGN ESSENTIAL 07/26/2010 HELLWIG SQL DATABASE ADMINISTRATOR, ALANNA E 562.11 DIVERTICULITIS OF COLON WITHOUT MENTION OF HEMORRHAGE 07/26/2010 HELLWIG SQL DATABASE ADMINISTRATOR, ALANNA E 789.00 ABDOMINAL PAIN UNSPECIFIED SITE [...] SARATH K 492.8 OTHER EMPHYSEMA 03/19/2011 HELLWIG SQL DATABASE ADMINISTRATOR, ALANNA E 311 DEPRESSIVE DISORDER NOT ELSEWHERE CLASSIFIED 03/19/2011 HELLWIG SQL DATABASE ADMINISTRATOR, ALANNA E 492.8 OTHER EMPHYSEMA 03/19/2011 MCKEON DO, SARATH K 311 DEPRESSIVE DISORDER NOT ELSEWHERE CLASSIFIED 03/19/2011 MCKEON DO, SARATH K 492.8 OTHER EMPHYSEMA 03/19/2011 MCKEON DO, SARATH K 311 DEPRESSIVE DISORDER NOT ELSEWHERE CLASSIFIED 03/19/2011 MCKEON DO, SARATH K 492.8 OTHER EMPHYSEMA 03/19/2011 HELLWIG SQL DATABASE ADMINISTRATOR ALANNA E 311 DEPRESSIVE DISORDER NOT ELSEWHERE CLASSIFIED 03/19/2011 HELLWIG SQL DATABASE ADMINISTRATOR ALANNA E 492.8 OTHER EMPHYSEMA 03/19/2011 HELLWIG SQL DATABASE ADMINISTRATOR, ALANNA E 311 DEPRESSIVE DISORDER NOT ELSEWHERE CLASSIFIED 03/19/2011 HELLWIG SQL DATABASE ADMINISTRATOR ALANNA E 492.8 OTHER EMPHYSEMA 04/02/2011 RAJIBETH SQL DATABASE ADMINISTRATOR, RHODA A V72.31 AUTOMOBILE ASSEMBLER EXAM, ROUTINE 04/02/2011 V72.31 AUTOMOBILE ASSEMBLER EXAM, ROUTINE 04/02/2011 MILO OSCAR, KAMI V72.31 AUTOMOBILE ASSEMBLER EXAM, ROUTINE 04/02/2011 V72.31 AUTOMOBILE ASSEMBLER EXAM, ROUTINE 04/02/2011 V72.31 AUTOMOBILE ASSEMBLER EXAM, ROUTINE 04/02/2011 V72.31 AUTOMOBILE ASSEMBLER EXAM, ROUTINE 04/02/2011 V72.31 AUTOMOBILE ASSEMBLER EXAM, ROUTINE 04/02/2011 MCKEON DO, SARATH K V72.31 AUTOMOBILE ASSEMBLER EXAM, ROUTINE 04/02/2011 MCKEON DO, SARATH K V72.31 AUTOMOBILE ASSEMBLER EXAM, ROUTINE 04/02/2011 HELLWIG SQL DATABASE ADMINISTRATOR, ALANNA E V72.31 AUTOMOBILE ASSEMBLER EXAM, ROUTINE 04/02/2011 MCKEON DO, SARATH K V72.31 AUTOMOBILE ASSEMBLER EXAM, ROUTINE 04/02/2011 MCKEON DO, SARATH K V72.31 AUTOMOBILE ASSEMBLER EXAM, ROUTINE 04/02/2011 HELLWIG SQL DATABASE ADMINISTRATOR, ALANNA E V72.31 AUTOMOBILE ASSEMBLER EXAM, ROUTINE 04/02/2011 HELLWIG SQL DATABASE ADMINISTRATOR ALANNA E V72.31 AUTOMOBILE ASSEMBLER EXAM, ROUTINE 05/13/2011 HARJIT SQL DATABASE ADMINISTRATOR, RHODA A 682.9 CELLULITIS AND ABSCESS OF UNSPECIFIED SITES 05/13/2011 RAJCOLEE SQL DATABASE ADMINISTRATOR, RHODA A 698.9 UNSPECIFIED PRURITIC DISORDER 05/13/2011 HARJIT SQL DATABASE ADMINISTRATOR, RHODA A 919.4 INSECT BITE NONVENOMOUS OF OTHER MULTIPLE AND UNSPECIFIED SITES WITHOUT INFECTION 05/13/2011 RAJCOLEE SQL DATABASE ADMINISTRATOR, RHODA A V15.06 PERSONAL HISTORY OF ALLERGY TO INSECTS AND ARACHNIDS 05/13/2011 682.9 CELLULITIS AND ABSCESS OF UNSPECIFIED SITES 05/13/2011 698.9 UNSPECIFIED PRURITIC DISORDER 05/13/2011 919.4 INSECT BITE NONVENOMOUS OF OTHER MULTIPLE AND UNSPECIFIED SITES WITHOUT INFECTION 05/13/2011 V15.06 PERSONAL HISTORY OF ALLERGY TO INSECTS AND ARACHNIDS 05/13/2011 KAMI PEDRAZA MD 682.9 CELLULITIS AND ABSCESS OF UNSPECIFIED SITES 05/13/2011 AKMI PEDRAZA MD 698.9 UNSPECIFIED PRURITIC DISORDER 05/13/2011 [...] ALLERGY TO INSECTS AND ARACHNIDS 05/13/2011 HELLWIG SQL DATABASE ADMINISTRATOR ALANNA E 682.9 CELLULITIS AND ABSCESS OF UNSPECIFIED SITES 05/13/2011 HELLWIG SQL DATABASE ADMINISTRATOR ALANNA E 698.9 UNSPECIFIED PRURITIC DISORDER 05/13/2011 HELLWIG SQL DATABASE ADMINISTRATOR ALANNA E 919.4 INSECT BITE NONVENOMOUS OF OTHER MULTIPLE AND UNSPECIFIED SITES WITHOUT INFECTION 05/13/2011 HELLWIG SQL DATABASE ADMINISTRATOR ALANNA E V15.06 PERSONAL HISTORY OF ALLERGY [...] ALLERGY TO INSECTS AND ARACHNIDS 05/13/2011 HELLWIG SQL DATABASE ADMINISTRATOR ALANNA E 682.9 CELLULITIS AND ABSCESS OF UNSPECIFIED SITES 05/13/2011 HELLWIG SQL DATABASE ADMINISTRATOR, ALANNA E 698.9 UNSPECIFIED PRURITIC DISORDER 05/13/2011 YRN SQL DATABASE ADMINISTRATOR, ALANNA E 919.4 INSECT BITE NONVENOMOUS OF [...] 06/17/2011 787.02 NAUSEA ALONE 06/17/2011 V67.9 UNSPECIFIED FOLLOW- UP EXAMINATION 06/17/2011 KAMI PEDRAZA MD 787.02 NAUSEA ALONE 06/17/2011 KAMI PEDRAZA MD V67.9 UNSPECIFIED FOLLOW-UP EXAMINATION 06/17/2011 787.02 NAUSEA ALONE 06/17/2011 V67.9 UNSPECIFIED FOLLOW- UP EXAMINATION 06/17/2011 787.02 NAUSEA ALONE 06/17/2011 V67.9 UNSPECIFIED FOLLOW- UP EXAMINATION 06/17/2011 787.02 NAUSEA ALONE 06/17/2011 V67.9 UNSPECIFIED FOLLOW- UP EXAMINATION 06/17/2011 787.02 NAUSEA ALONE 06/17/2011 V67.9 UNSPECIFIED FOLLOW- UP EXAMINATION 06/17/2011 MCKEON DO, SARATH K 787.02 [...] MCKEON DO, SARATH K 564.00 CONSTIPATION 07/21/2012 MCEKON DO, SARATH K 562.00 DIVERTICULOSIS 07/21/2012 MCKEON [...] ALANNA POOL APRN E 564.00 CONST[facility]ATION 07/21/2012 [facility] 562.00 DIVERTICULOSIS DUODENAL 07/21/2012 [facility] E 564.00 CONSTIPATION 02/11/2013 [...] changed sexual interest (libido): decreased 02/11/2013 HELLWIG SQL DATABASE ADMINISTRATOR, ALANNA E 401.9 ESSENTIAL HYPERTENSION 02/11/2013 ROHITHLMONIQUE DIAZN, ALANNA E 562.10 DIVERTICULOSIS 02/11/2013 HELLMONIQUE SQL DATABASE ADMINISTRATOR, ALANNA E 799.81 changed sexual interest (libido): decreased 02/11/2013 MCKEON DO, SARATH K 401.9 ESSENTIAL HYPERTENSION 02/11/2013 MCKEON DO, SARATH K 562.10 DIVERTICULOSIS 02/11/2013 MCKEON DO, SARATH K 799.81 changed sexual interest (libido): decreased 02/11/2013 MCKEON DO, SAARTH K 401.9 ESSENTIAL HYPERTENSION 02/11/2013 MCKEON DO, SARATH K 562.10 DIVERTICULOSIS 02/11/2013 MCKEON DO, SARATH K 799.81 changed sexual interest (libido): decreased 02/11/2013 HELLMONIQUE DIAZBailey ALANNA E 401.9 ESSENTIAL HYPERTENSION 02/11/2013 ROHITHLMONIQUE DIAZN, ALANNA E 562.10 DIVERTICULOSIS 02/11/2013 HELLMONIQUE DIAZBailey ALANNA E 799.81 changed sexual interest (libido): decreased 02/11/2013 HELLMONIQUE DIAZBailey ALANNA E 401.9 ESSENTIAL HYPERTENSION 02/11/2013 HELLMONIQUE SQL DATABASE ADMINISTRATOR, ALANNA E 562.10 DIVERTICULOSIS 02/11/2013 HELLMONIQUE DIAZN, ALANNA E 799.81 changed sexual interest (libido): decreased 04/16/2013 DARRIAN URIOSTEGUI MD Ot 272.4 HYPERLIPIDEMIA NEC/NOS 04/16/2013 DARRIAN URIOSTEGUI MD Ot 311 DEPRESSIVE DISORDER NEC 04/16/2013 DARRIAN URIOSTEGUI MD Ot 401.9 HYPERTENSION NOS 04/16/2013 DARRIAN URIOSTEGUI MD Ot 414.01 CORONARY ATHEROSCLEROSIS OF [place] CORON 04/16/2013 DARRIAN URIOSTEGUI MD Ot 786.50 [...] in / on the skin 04/29/2013 HELLWIG SQL DATABASE ADMINISTRATOR, ALANNA E 782.2 lump in / on the skin 04/29/2013 MCKEON DO, SARATH K 782.2 lump in / on the skin 04/29/2013 MCKEON DO, SARATH K 782.2 lump in / on the skin 04/29/2013 HELLWIG SQL DATABASE ADMINISTRATOR, ALANNA E 782.2 lump in / on the skin 04/29/2013 HELLWIG SQL DATABASE ADMINISTRATOR, ALANNA E 782.2 lump in / on the skin 07/01/2013 054.9 HERPES SIMPLEX WITHOUT COMPLICATION 07/01/2013 054.9 HERPES SIMPLEX WITHOUT COMPLICATION 07/01/2013 MCKEON DO, SARATH K 054.9 HERPES SIMPLEX WITHOUT COMPLICATION 07/01/2013 MCKEON DO, SARATH K 054.9 HERPES SIMPLEX WITHOUT COMPLICATION 07/01/2013 HELLWIG SQL DATABASE ADMINISTRATOR, ALANNA E 054.9 HERPES SIMPLEX WITHOUT COMPLICATION 07/01/2013 MCKEON DO, SARATH K 054.9 HERPES SIMPLEX WITHOUT COMPLICATION 07/01/2013 MCKEON DO, SARATH K 054.9 HERPES SIMPLEX WITHOUT COMPLICATION 07/01/2013 HELLWIG SQL DATABASE ADMINISTRATOR, ALANNA E 054.9 HERPES SIMPLEX WITHOUT COMPLICATION 07/01/2013 HELLWIG SQL DATABASE ADMINISTRATOR, ALANNA E 054.9 HERPES SIMPLEX WITHOUT COMPLICATION [...] DUE TO PLANTS (EXCEPT FOOD) 07/09/2013 HELLWIG SQL DATABASE ADMINISTRATOR, ALANNA E 692.6 CONTACT DERMATITIS AND OTHER ECZEMA DUE TO PLANTS (EXCEPT FOOD) 07/09/2013 MCKEON DO, SARATH K 692.6 CONTACT DERMATITIS AND OTHER ECZEMA DUE TO PLANTS (EXCEPT FOOD) 07/09/2013 MCKEON DO, SARATH K 692.6 CONTACT DERMATITIS AND OTHER ECZEMA DUE TO PLANTS (EXCEPT FOOD) 07/09/2013 ROHITHLWIG SQL DATABASE ADMINISTRATOR, ALANNA E 692.6 CONTACT DERMATITIS AND OTHER ECZEMA DUE TO PLANTS (EXCEPT FOOD) 07/09/2013 YRN WALLACE, ALANNA E 692.6 CONTACT DERMATITIS AND OTHER ECZEMA DUE TO PLANTS (EXCEPT FOOD) 08/06/2013 MCKEON DO, SARATH K 686.9 UNSPECIFIED LOCAL INFECTION OF SKIN AND SUBCUTANEOUS TISSUE 08/06/2013 MCKEON DO, SARATH K 686.9 UNSPECIFIED LOCAL INFECTION OF SKIN AND SUBCUTANEOUS TISSUE 08/06/2013 ROHITHLWIG SQL DATABASE ADMINISTRATOR ALANNA E 686.9 UNSPECIFIED LOCAL INFECTION OF SKIN AND SUBCUTANEOUS TISSUE 08/06/2013 MCKEON DO, SARATH K 686.9 UNSPECIFIED LOCAL INFECTION OF SKIN AND SUBCUTANEOUS TISSUE 08/06/2013 MCKEON DO, SARATH K 686.9 UNSPECIFIED LOCAL INFECTION OF SKIN AND SUBCUTANEOUS TISSUE 08/06/2013 ROHITHLWIG SQL DATABASE ADMINISTRATOR ALANNA E 686.9 UNSPECIFIED LOCAL INFECTION OF SKIN AND SUBCUTANEOUS TISSUE 08/06/2013 ADITYAWIG SQL DATABASE ADMINISTRATOR, ALANNA E 686.9 UNSPECIFIED LOCAL INFECTION OF [...] V58.69 OTH MED,LT,CURRENT USE 07/10/2015 ALANNA POOL SQL DATABASE ADMINISTRATOR Ot 789.61 12/19/2016 TIMA, JONATHAN CHASER HELPER Ot I10 ESSENTIAL (PRIMARY) HYPERTENSION 12/19/2016 TIMA, JONATHAN CHASER HELPER Ot I72.8 ANEURYSM OF OTHER SPECIFIED ARTERIES 12/19/2016 TIMA, JONATHAN CHASER HELPER Ot K57.30 DVRTCLOS OF LG INT W/O PERFORATION OR AB 12/19/2016 TIMA, JONATHAN CHASER HELPER Ot R10.13 EPIGASTRIC PAIN 12/19/2016 TIMA, JONATHAN CHASER HELPER Ot Z79.899 OTHER METAL DRILLING MACHINE OPERATOR (CURRENT) DRUG THERAPY 12/20/2016 TIMA, JONATHAN CHASER HELPER Ot I10 ESSENTIAL (PRIMARY) HYPERTENSION 12/20/2016 TIMA, JONATHAN CHASER HELPER Ot I72.8 ANEURYSM OF OTHER SPECIFIED ARTERIES 12/20/2016 TIMA, JONATHAN CHASER HELPER Ot K57.30 DVRTCLOS OF LG INT W/O PERFORATION OR AB 12/20/2016 TIMA, JONATHAN CHASER HELPER Ot R10.13 EPIGASTRIC PAIN 12/20/2016 TIMA JONATHAN CHASER HELPER Ot Z79.899 OTHER METAL DRILLING MACHINE OPERATOR (CURRENT) DRUG THERAPY 11/10/2017 ANGELES SUERO MD [...] CERVIX AND UTER 11/10/2017 HELLWIG, ALANNA E SQL DATABASE ADMINISTRATOR Ot 789.61 ABDOMINAL TENDERNESS, RIGHT UPPER QUADRA 12/09/2017 ALANNA POOL E SQL DATABASE ADMINISTRATOR Ot 789.61 ABDOMINAL TENDERNESS, RIGHT UPPER QUADRA 05/19/2018 DARRIAN URIOSTEGUI MD Ot E78.2 MIXED HYPERLIPIDEMIA 05/19/2018 DARRIAN URIOSTEGUI MD Ot I10 ESSENTIAL (PRIMARY) HYPERTENSION 05/19/2018 DARRIAN URIOSTEGUI MD Ot I25.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[place] CORONARY 05/19/2018 DARRIAN URIOSTEGUI MD Ot R07.9 CHEST PAIN, UNSPECIFIED 12/24/2018 DARRIAN URIOSTEGUI MD Ot E78.2 MIXED HYPERLIPIDEMIA 12/24/2018 DARRIAN URIOSTEGUI MD Ot I10 ESSENTIAL (PRIMARY) HYPERTENSION 12/24/2018 DARRIAN URIOSTEGUI MD Ot I25.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[place] CORONARY 12/24/2018 DARRIAN URIOSTEGUI MD Ot R07.9 CHEST PAIN, UNSPECIFIED 12/24/2018 ALANNA POOL E SQL DATABASE ADMINISTRATOR Ot 789.61 ABDOMINAL TENDERNESS, RIGHT UPPER QUADRA 12/24/2018 DARRIAN URIOSTEGUI MD Ot E78.2 MIXED HYPERLIPIDEMIA 12/24/2018 DARRIAN URIOSTEGUI MD Ot I10 ESSENTIAL (PRIMARY) HYPERTENSION 12/24/2018 DARRIAN URIOSTEGUI MD Ot I25.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[place] CORONARY 12/24/2018 DARRIAN URIOSTEGUI MD Ot R07.9 [...] STATUS TO SULFONAMIDES STATUS 12/28/2018 ANGELES SUERO MD Ot Z88.8 ALLERGY STATUS [...] CEDILLO Ot I25.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[place] CORONARY 12/30/2018 MARLENASAMUEL CORDELL CEDILLO Ot K20.9 [...] 12/30/2018 MARLENASAMUEL CORDELL CEDILLO Ot Z79.899 OTHER METAL DRILLING MACHINE OPERATOR (CURRENT) DRUG THERAPY 12/30/2018 MARLENASAMUEL CORDELL CEDILLO [...] DO Ot I25.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[place] CORONARY 01/01/2019 CORDELL SAHA DO Ot K20.9 ESOPHAGITIS, UNSPECIFIED 01/01/2019 CORDELL SAHA DO, Ot K29.70 GASTRITIS, UNSPECIFIED, WITHOUT BLEEDING [...] 01/01/2019 CORDELL SAHA DO Ot Z79.899 OTHER METAL DRILLING MACHINE OPERATOR (CURRENT) DRUG THERAPY 01/01/2019 YIFAN CEDILLO, CORDELL B Ot Z87.891 PERSONAL HISTORY OF NICOTINE DEPENDENCE 01/06/2019 YIFAN DO, CORDELL B Ot R10.11 RIGHT UPPER QUADRANT PAIN 01/07/2019 ANGELES SUERO MD Ot E78.00 PURE HYPERCHOLESTEROLEMIA, UNSPECIFIED 01/07/2019 ANGELES SUERO MD Ot F32.9 MAJOR DEPRESSIVE DISORDER, SINGLE EPISOD 01/07/2019 ANGELES SUERO MD Ot I10 ESSENTIAL (PRIMARY) HYPERTENSION 01/07/2019 ANGELES SUERO MD Ot K21.9 GASTRO-ESOPHAGEAL REFLUX DISEASE WITHOUT 01/07/2019 ANGELES SUERO MD Ot R07.89 OTHER CHEST PAIN 01/07/2019 ANGELES SUERO MD Ot R10.13 EPIGASTRIC PAIN 01/07/2019 ANGELES SUERO [...] Ot Z98.890 OTHER SPECIFIED POSTPROCEDURAL STATES 01/07/2019 DELSAMUEL DO, CORDELL B Ot R10.11 RIGHT UPPER QUADRANT PAIN 01/15/2019 DELSAMUEL DO, CORDELL B Ot R10.11 RIGHT UPPER QUADRANT PAIN 03/02/2019 DELSAMUEL DO, CORDELL B Ot R10.11 RIGHT UPPER QUADRANT PAIN 03/03/2019 YIFAN DO, CORDELL B Ot R10.11 RIGHT UPPER QUADRANT PAIN 03/15/2019 PRASAD HUITRON APRN Ot E78.00 PURE HYPERCHOLESTEROLEMIA, UNSPECIFIED 03/15/2019 PRASAD HUITRON APRN Ot F32.9 MAJOR DEPRESSIVE DISORDER, SINGLE EPISOD 03/15/2019 PRASAD HUITRON APRN Ot I10 ESSENTIAL (PRIMARY) HYPERTENSION 03/15/2019 PRASAD HUITRON APRN Ot K21.9 GASTRO-ESOPHAGEAL REFLUX DISEASE WITHOUT 03/15/2019 PRASAD HUITRON APRN Ot K29.70 GASTRITIS, UNSPECIFIED, WITHOUT BLEEDING 03/15/2019 PRASAD HUITRON APRN Ot R10.13 EPIGASTRIC PAIN 03/15/2019 PRASAD HUITRON APRN Ot Z85.41 PERSONAL HISTORY OF MALIGNANT NEOPLASM O 03/15/2019 PRASAD HUITRON APRN Ot Z87.19 PERSONAL HISTORY OF OTHER DISEASES OF TH 03/15/2019 PRASAD HUITRON APRN Ot Z87.891 PERSONAL HISTORY OF NICOTINE DEPENDENCE 03/15/2019 PRASAD HUITRON APRN Ot Z88.2 ALLERGY STATUS TO SULFONAMIDES STATUS 03/15/2019 PRASAD HUITRON APRN Ot Z88.8 ALLERGY STATUS TO OTH DRUG/MEDS/BIOL SUB 03/15/2019 PRASAD HUITRON APRN Ot Z90.710 ACQUIRED ABSENCE OF BOTH CERVIX AND UTER 03/15/2019 PRASAD HUITRON APRN Ot 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 03/15/2019 PRASAD HUITRON APRN Ot Z98.890 OTHER SPECIFIED POSTPROCEDURAL STATES Procedures Code Description [place] [address] ROUTINE VENIPUNCTURE 02/12/2013 33172 A1C (RML) 02/12/2013 70073 TSH 02/12/2013 59667 CBC 02/12/2013 59499 LIPID PANEL 02/12/2013 05901 CMP 02/12/2013 9835674 GFR CALC (RESULT ONLY) 02/12/2013 23690 ROUTINE VENIPUNCTURE 05/28/2013 61006 LIPID PANEL 05/28/2013 76711 ROUTINE VENIPUNCTURE 07/28/2013 06123 LIPID PANEL 07/28/2013 47838 LIVER PANEL (LFT) 07/28/2013 80437 ROUTINE VENIPUNCTURE 01/17/2014 58078 LIPID PANEL 01/17/2014 62185 ROUTINE VENIPUNCTURE 08/03/2014 52714 CMP 08/03/2014 25345 LIPID PANEL 08/03/2014 18802 TSH 08/03/2014 67569 CBC 08/03/2014 [facility], [place] 08/16/2014 08188 HIDA SCAN 08/19/2014 Results Test Result Range [...] Automated erythrocyte mean corpuscular hemoglobin concentration measurement (mass/volume) 34 g/dL 32-36 Automated erythrocyte distribution width ratio 13.2 % 10.0- 14.5 Automated blood platelet count (count/volume) 151 10*3/uL [...] Blood monocytes automated count (number/volume) 0.5 10*3 0.0- 1.0 Automated eosinophil count 0.1 10*3/uL 0.0-0.3 Automated [...] Serum or plasma aspartate aminotransferase measurement (enzymatic activity/volume) 19 U/L 5-34 Serum or plasma alanine aminotransferase measurement (enzymatic activity/volume) 20 U/L 0-55 Serum or plasma protein measurement (mass/volume) 7.0 g/dL 6.4-8.2 Serum or plasma albumin measurement (mass/volume) 4.1 g/dL 3.2-4.5 Serum or plasma troponin i.cardiac measurement (mass/volume) - 12/19/16 09:50 Serum or plasma troponin i.cardiac measurement (mass/volume) < ng/mL <0.30 Complete urinalysis with reflex to culture - 12/19/16 10:22 Urine color determination YELLOW NRG Urine clarity determination CLEAR NRG Urine pH measurement by test strip 5 5-9 Specific gravity of urine by test strip 1.015 1.016-1.022 Urine protein assay by test strip, semi-quantitative [...] sediment leukocyte count by microscopy (number/high power field) [HPF] NRG Bacteria detection in urine sediment [...] Automated erythrocyte mean corpuscular hemoglobin concentration measurement (mass/volume) 34 g/dL 32-36 Automated erythrocyte distribution width ratio 13.0 % 10.0- 14.5 Automated blood platelet count (count/volume) 165 10*3/uL [...] Blood monocytes automated count (number/volume) 0.6 10*3 0.0- 1.0 Automated eosinophil count 0.1 10*3/uL 0.0-0.3 Automated [...] Serum or plasma aspartate aminotransferase measurement (enzymatic activity/volume) 21 U/L 5-34 Serum or plasma alanine aminotransferase measurement (enzymatic activity/volume) 17 U/L 0-55 Serum or plasma protein measurement (mass/volume) 7.6 g/dL 6.4-8.2 Serum or plasma albumin measurement (mass/volume) 4.2 g/dL 3.2-4.5 Magnesium - 11/10/17 10:50 Magnesium 1.8 mg/dL 1.8-2.4 Serum or plasma troponin i.cardiac measurement (mass/volume) - 11/10/17 10:50 Serum or plasma troponin i.cardiac measurement (mass/volume) < ng/mL <0.30 Myoglobin, serum - 11/10/17 10:50 Myoglobin, serum 35.1 ng/mL 10.0-92.0 Serum or plasma amylase measurement (enzymatic activity/volume) - 11/10/17 10:50 Serum or plasma amylase measurement (enzymatic activity/volume) 98 U/L 25-125 Lipase - 11/10/17 10:50 Lipase 32 [...] 12.5 fL 7.5-12.5 ABSOLUTE NEUTROPHILS 3870 cells/uL 4691-9905 ABSOLUTE LYMPHOCYTES 1416 cells/uL 850-3900 ABSOLUTE MONOCYTES [...] Automated erythrocyte mean corpuscular hemoglobin concentration measurement (mass/volume) 35 g/dL 32-36 Automated erythrocyte distribution width ratio 12.7 % 10.0- 14.5 Automated blood platelet count (count/volume) 169 10*3/uL [...] Blood monocytes automated count (number/volume) 0.9 10*3 0.0- 1.0 Automated eosinophil count 0.0 10*3/uL 0.0-0.3 Automated blood basophil count (count/volume) 0.0 10*3/uL 0.0-0.1 Fibrin D-dimer FEU measurement in platelet poor plasma (mass/volume) - 12/25/18 21:37 Fibrin D-dimer FEU measurement in platelet [...] Serum or plasma aspartate aminotransferase measurement (enzymatic activity/volume) 21 U/L 5-34 Serum or plasma alanine aminotransferase measurement (enzymatic activity/volume) 24 U/L 0-55 Serum or plasma protein measurement (mass/volume) 7.0 g/dL 6.4-8.2 Serum or plasma albumin measurement (mass/volume) 4.3 g/dL 3.2-4.5 CALCIUM CORRECTED 9.0 mg/dL 8.5-10.1 Magnesium - 12/25/18 21:37 Magnesium 1.9 mg/dL 1.8-2.4 Serum or plasma troponin i.cardiac measurement (mass/volume) - 12/25/18 21:37 Serum or plasma troponin i.cardiac measurement (mass/volume) < ng/mL <0.028 Myoglobin, serum - 12/25/18 21:37 Myoglobin, serum 75.2 ng/mL 10.0-92.0 Lipase - 12/25/18 21:37 Lipase 158 U/L 8-78 Serum or plasma troponin i.cardiac measurement (mass/volume) - 12/25/18 23:44 Serum or plasma troponin i.cardiac measurement (mass/volume) < ng/mL <0.028 Myoglobin, serum - 12/25/18 23:44 Myoglobin, serum 53.9 ng/mL 10.0-92.0 CMP - 02/12/19 09:52 GLUCOSE 100 mg/dL 65-99 UREA NITROGEN (BUN) 5 mg/dL 7-25 CREATININE 0.70 mg/dL 0.50-0.99 eGFR NON-AFR. [place] 94 mL/min/1.73m2 > OR=60 eGFR 108 mL/min/1.73m2 [...] 12.6 fL 7.5-12.5 ABSOLUTE NEUTROPHILS 5062 cells/uL 1894-4601 ABSOLUTE LYMPHOCYTES 878 cells/uL 850-3900 ABSOLUTE MONOCYTES [...] Status Pt. Type Provider Facility Loc./Unit Complaint [id number] 04/15/2019 12:20:00 04/15/2019 23:59:59 [id number] 02/12/2019 09:00:00 Document Registration [id number] 10/08/2018 09:40:00 Document Registration [id number] 01/14/2018 10:20:00 Document Registration [id number] 11/30/2014 09:43:00 11/30/2014 23:59:59 CLS Outpatient ALANNA POOL APRN [id number] 08/10/2014 09:16:00 08/10/2014 23:59:59 CLS Outpatient ALANNA POOL APRN [id number] 08/03/2014 11:27:00 08/03/2014 23:59:59 CLS Outpatient SARATH MCKEON DO [id number] 06/24/2014 14:00:00 06/24/2014 23:59:59 CLS Outpatient SARATH MCKEON DO [id number] 01/17/2014 11:59:00 01/17/2014 23:59:59 CLS Outpatient ALANNA POOL APRN [id number] 10/01/2013 10:20:00 10/01/2013 23:59:59 CLS Outpatient SARATH MCKEON DO Micaela [id number] 08/06/2013 09:26:00 08/06/2013 23:59:59 CLS Outpatient SARATH MCKEON DO Micaela [id number] 02/12/2013 09:18:00 02/12/2013 23:59:59 CLS Outpatient KAMI PEDRAZA MD [id number] 02/11/2013 13:16:00 02/11/2013 23:59:59 CLS Outpatient [id number] 07/21/2012 13:11:00 07/21/2012 23:59:59 CLS Outpatient RHODA LOMBARDI APRN [id number] 07/28/2013 08:35:00 Document Registration [id number] 07/09/2013 15:20:00 Document Registration [id number] 05/28/2013 08:50:00 Document Registration [id number] 04/29/2013 08:50:00 Document Registration [id number] 03/11/2019 15:35:00 03/11/2019 16:55:00 DIS Outpatient PRASAD HUITRON APRN [facility] ER SIDE PAIN,NAUSEA [id number] 01/14/2019 09:27:00 01/14/2019 23:59:59 CLS Outpatient CORDELL SAHA DO [facility] CARD RUQ PAIN [id number] 12/31/2018 07:50:00 12/31/2018 23:59:59 CLS Outpatient CORDELL SAHA DO B [facility] RAD RUQ PAIN [id number] 12/30/2018 07:56:00 12/30/2018 11:10:00 DIS Outpatient CORDELL SAHA DO [facility] ENDO CHANGE IN BM/NAUSEA [id number] 12/28/2018 10:11:00 12/28/2018 15:21:00 DIS Outpatient CORDELL SAHA DO [facility] PREOP COLONOSCOPY/EGD [id number] 12/25/2018 21:27:00 12/26/2018 00:38:00 DIS Outpatient ANGELES SUERO MD [facility] ER CHEST PAIN [id number] 12/23/2018 15:55:00 12/23/2018 23:59:59 CLS Preadmit TITO KARIMI SQL DAT[employer]ASE ADMINISTRATOR [facility] RAD HX OF DIVERTICULITIS [id number] 12/09/2017 10:49:00 12/09/2017 23:59:59 CLS Outpatient DARRIAN URIOSTEGUI MD [facility] CARD I25.10 CAD [id number] 11/10/2017 10:43:00 11/10/2017 14:06:00 DIS Emergency ANGELES SUERO MD [facility] ER CHEST PAIN [id number] 12/19/2016 09:47:00 12/19/2016 13:21:00 DIS Emergency JONATHAN ALFRED [facility] ER CHEST/BACK PAIN LEFT FOOT NUMB/TINGLING [id number] 06/15/2015 07:19:00 06/15/2015 09:14:00 DIS Emergency GUNNER RAMIREZ MD [facility] ER DIZZINESS/NAUSEA [id number] 08/18/2014 09:50:00 08/18/2014 23:59:59 CLS Outpatient ALANNA POOL SQL DAT[employer]ASE ADMINISTRATOR [facility] CARD RUQ PAIN [id number] 04/15/2013 11:30:00 04/16/2013 13:00:00 DIS Outpatient DARRIAN URIOSTEGUI MD [facility] CATH CHEST PAIN [id number] 06/15/2015 07:19:00 Document Registration
[2019-04-19] MEDS ORDERED: ASPIRIN 81 MG CHEW (CHILDREN'S ASA) ONE (07:26)
[2019-04-19] MEDS ORDERED: NITROGLYCERIN 0.4 MG SL TABS BTL 25'S SL ONE (07:28)
[2019-04-19] MEDS ORDERED: ASPIRIN 81 MG CHEW (CHILDREN'S ASA) PO ONE (07:30)
[2019-04-19] MEDS ORDERED: NITROGLYCERIN 0.4 MG SL TABS BTL 25'S SL PRN (07:30)
[2019-04-19 07:38] LABS: BASOPHILS % (AUTO) 0 % (0-10); EOSINOPHILS # (AUTO) 0.1 10^3/uL (0.0-0.3); EOSINOPHILS % (AUTO) 1 % (0-10); HEMATOCRIT 38 % (35-52); LYMPHOCYTES # (AUTO) 0.9 X 10^3 (1.0-4.0); LYMPHOCYTES % (AUTO) 15 % (12-44); MEAN CORPUSCULAR HEMOGLOBIN 30 PG (25-34); MEAN CORPUSCULAR HGB CONC 34 G/DL (32-36); MEAN CORPUSCULAR VOLUME 87 FL (80-99); MEAN PLATELET VOLUME 11.1 FL (7.4-10.4); MONOCYTES # (AUTO) 0.5 X 10^3 (0.0-1.0); MONOCYTES % (AUTO) 8 % (0-12); NEUTROPHILS # (AUTO) 4.6 X 10^3 (1.8-7.8); NEUTROPHILS % (AUTO) 76 % (42-75); PLATELET COUNT 189 10^3/uL (130-400); RED CELL DISTRIBUTION WIDTH 13.2 % (10.0-14.5)
--- NOTE | 2019-04-19 07:38 | NUR ---
PT REPORTS TO THIS RN THAT SHE IS FEELING CLAMMY AND FEELS LIKE SHE IS GOING TO PASS OUT. PT BP RECHECKED AT 0740- 62/25. PT HR 43. DR. VÁSQUEZ INFORMED. 0740- DR. VÁSQUEZ AT PT BEDSIDE. 20 G TO L HAND STARTED AT THIS TIME. 0744- 1L NS INFUSING WIDE OPEN TO LAC AT THIS TIME PER DR VÁSQUEZ ORDERS. 0746- PACING PADS PLACED ON PT AND PT CONNECTED TO ZOLL MONITOR AT THIS TIME PER DR RIOS ORDERS. 0750- 1 L NS STARTED WIDE OPEN TO R HAND AT THIS TIME.
[2019-04-19] MEDS ORDERED: NS IV 1000 ML 1,000 ML ONE ×2 (07:39→07:48)
--- NOTE | 2019-04-19 07:40 | ED Chest Pain ---
General Stated Complaint: CHEST PAIN Source: patient, spouse Exam Limitations: no limitations History of Present Illness Date Seen by Provider: April 19, 2019 Time Seen by Provider: 07:18 Initial Comments The patient presents to ER by private conveyance with her spouse and chief complaint that since last night she was experiencing some left-sided lower chest pain radiating into her upper quadrant abdomen. She has a strong history of gastritis as well as she's had a heart catheterization by Dr. Fuller in the past demonstrating some moderate obstructive disease 40 percent per patient but no stents or PCI. She had EGD and colonoscopy by Dr. Hidalgo in December. She is followed with a [facility] sausage meat trimmer for her gastritis and tried multiple antacids Pepcid etc. last night with no improvement. She denies diabetes but she does take cholesterol medicines, blood pressure medicines and quit smoking a few years ago. She's had a surgery for hiatal hernia before she's had her gallbladder out. Yesterday she endorses a few near syncopal events or sensory be walking around and feel cold clammy but did not pass out. She never fell more completely passed out. Allergies and Home Medications Allergies Coded Allergies: Sulfa (Sulfonamide Antibiotics) (Verified Allergy, Unknown, 12/25/18) irbesartan (Verified Allergy, Unknown, 12/25/18) Home Medications Atorvastatin Calcium 40 Mg Tablet, 40 MG PO HS, (Reported) C,E,Zinc,Copper 11/Uphxv7o/Lut 1 Each Capsule, 1 EACH PO DAILY, (Reported) Escitalopram Oxalate 10 Mg Tablet, 10 MG PO DAILY, (Reported) Esomeprazole Magnesium 40 Mg Capsule., 40 MG PO DAILY Prescribed by: PRASAD HUITRON on 03/11/19 1647 Lactobacillus Acidophilus 1 Each Capsule, 1 EACH PO DAILY, (Reported) Metoprolol Succinate 25 Mg Tab.er.24h, 25 MG PO DAILY@1800, (Reported) [place] 3 Polyunsat Fatty Acids 1,000 Mg Cap, 1,000 MG PO DAILY, (Reported) Omeprazole 20 Mg Tablet., 20 MG PO BID, (Reported) Vitamin B Complex 1 Each Tablet, 1 EACH PO DAILY, (Reported) Patient Home Medication List Home Medication List Reviewed: Yes Review of Systems Review of Systems Constitutional: No chills, No diaphoresis EENTM: No Blurred Vision, No Double Vision Respiratory: Denies Cough, Denies Shortness of Air Cardiovascular: See HPI, Chest Pain; Denies Edema, Denies Palpitations, Denies Syncope Gastrointestinal: Denies Abdomen Distended, Denies Abdominal Pain Genitourinary: Denies Burning, Denies Discharge Musculoskeletal: No back pain, No joint pain Skin: No pruritus, No rash Psychiatric/Neurological: Denies Headache, Denies Numbness Past Numvzqq-Vcwqnb-Igtewa Hx Patient Social History Alcohol Use: Denies Use Recreational Drug Use: No Smoking Status: Former Smoker Type Used: Cigarettes Former Smoker, Quit: Oct 31, 2012 2nd Hand Smoke Exposure: No Recent Foreign Travel: No Contact w/Someone Who Travel: No Recent Hopitalizations: No Immunizations Up To Date Tetanus Booster (TDap): Unknown Date of Influenza Vaccine: Aug 27, 2018 Seasonal Allergies Seasonal Allergies: Yes Past Medical History Surgeries: Yes (hernia repair) Hysterectomy Respiratory: No Cardiac: Yes (HEART CATH 2012) High Cholesterol, Hypertension Neurological: No Reproductive Disorders: No 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 0oz. [id number]; 26.3 BMI Method:Stated General Appearance: No Apparent Distress, WD/WN HEENT: PERRL/EOMI, Normal ENT Inspection, Pharynx Normal, Moist Mucous Membranes Neck: Full Range of Motion, Normal Inspection Respiratory: Lungs Clear, Normal Breath Sounds, No Accessory Muscle Use, No Respiratory Distress, Other (left mid axillary line lower margin of the ribs are tender to palpation.) Cardiovascular: Regular Rate, Rhythm, No Edema, Normal Peripheral Pulses Gastrointestinal: Normal Bowel Sounds, Soft, Tenderness (mild left upper quadrant tenderness to palpation but no Lawler sign) Neurologic/Psychiatric: Alert, Oriented x3 Skin: Normal Color, Warm/Dry Progress/Results/Core Measures Results/Orders Lab Results Laboratory Tests Test 04/19/19 07:25 Range/Units White Blood Count 6.0 4.3-11.0 10^3/uL Red Blood Count 4.34 L 4.35-5.85 10^6/uL Hemoglobin 13.0 11.5-16.0 G/DL Hematocrit 38 35-52 % Mean Corpuscular Volume 87 80-99 FL Mean Corpuscular Hemoglobin 30 25-34 PG Mean Corpuscular Hemoglobin Concent 34 32-36 G/DL Red Cell Distribution Width 13.2 10.0-14.5 % Platelet Count 189 130-400 10^3/uL Mean Platelet Volume 11.1 H 7.4-10.4 FL Neutrophils (%) (Auto) 76 H 42-75 % Lymphocytes (%) (Auto) 15 12-44 % Monocytes (%) (Auto) 8 0-12 % Eosinophils (%) (Auto) 1 0-10 % Basophils (%) (Auto) 0 0-10 % Neutrophils # (Auto) 4.6 1.8-7.8 X 10^3 Lymphocytes # (Auto) 0.9 L 1.0-4.0 X 10^3 Monocytes # (Auto) 0.5 0.0-1.0 X 10^3 Eosinophils # (Auto) 0.1 0.0-0.3 10^3/uL Basophils # (Auto) 0.0 0.0-0.1 10^3/uL Prothrombin Time 12.9 12.2-14.7 SEC INR Comment 0.9 0.8-1.4 Activated Partial Thromboplast Time 31 24-35 SEC Sodium Level 133 L 135-145 MMOL/L Potassium Level 3.6 3.6-5.0 MMOL/L Chloride Level 100 98-107 MMOL/L Carbon Dioxide Level 22 21-32 MMOL/L Anion Gap 11 5-14 MMOL/L Blood Urea Nitrogen 8 7-18 MG/DL Creatinine 0.78 0.60-1.30 MG/DL Estimat Glomerular Filtration Rate > 60 BUN/Creatinine Ratio 10 Glucose Level 127 H 70-105 MG/DL Calcium Level 9.8 8.5-10.1 MG/DL Corrected Calcium 9.6 8.5-10.1 MG/DL Magnesium Level 2.4 1.8-2.4 MG/DL Total Bilirubin 0.6 0.1-1.0 MG/DL Aspartate Amino Transf (AST/SGOT) 13 5-34 U/L Alanine Aminotransferase (ALT/SGPT) 17 0-55 U/L Alkaline Phosphatase 69 40-136 U/L Myoglobin 30.2 10.0-92.0 NG/ML Troponin I < 0.028 <0.028 NG/ML Total Protein 7.2 6.4-8.2 GM/DL Albumin 4.2 3.2-4.5 GM/DL Lipase 33 8-78 U/L My Orders Orders - ZAK VÁSQUEZ Continuous Ekg Monitoring (04/19/19 07:20) Ekg Tracing (04/19/19 07:20) Cbc With Automated Diff (04/19/19 07:30) Magnesium (04/19/19 07:30) Chest 1 View, Ap/Pa Only (04/19/19 07:30) Cardiac Profile 1 (04/19/19 07:30) Comprehensive Metabolic Panel (04/19/19 07:30) Myoglobin Serum (04/19/19 07:30) Protime With Inr (04/19/19 07:30) Partial Thromboplastin Time (04/19/19 07:30) O2 (04/19/19 07:30) Lipid Panel (04/20/19 06:00) Ed Iv/Invasive Line Start (04/19/19 07:30) Lipase (04/19/19 07:30) Nitroglycerin 0.4 Mg Btl 25's (Nitrostat (04/19/19 07:30) Aspirin Chewable Tablet (Baby Aspirin Ch (04/19/19 07:30) Aspirin Chewable Tablet (Baby Aspirin Ch (04/19/19 07:26) Nitroglycerin 0.4 Mg Btl 25's (Nitrostat (04/19/19 07:28) Ns Iv 1000 Ml (Sodium Chloride 0.9%) (04/19/19 07:39) Ekg Tracing (04/19/19 07:45) Ed Iv/Invasive Line Start (04/19/19 07:45) Ed Iv/Invasive Line Start (04/19/19 07:51) Ns Iv 1000 Ml (Sodium Chloride 0.9%) (04/19/19 07:51) Ns Iv 1000 Ml (Sodium Chloride 0.9%) (04/19/19 07:48) Medications Given in ED Current Medications Medications Dose Ordered Sig/Deena Route Start Time Stop Time Status Last Admin Dose Admin Aspirin 324 mg ONCE ONCE PO 04/19/19 07:30 04/19/19 07:32 DC 04/19/19 07:30 324 MG Nitroglycerin 0.4 mg UD PRN SL 04/19/19 07:30 04/19/19 07:32 0.4 MG Vital Signs/I&O 04/19/19 04/19/19 07:16 07:16 Temp 96.8 Pulse 63 Resp 16 B/P (MAP) 161/98 (119) Pulse Ox 100 O2 Delivery Room Air Progress Progress Note #1: Time: 07:36 Progress Note Strong history of GERD/gastritis. Possible she has hiatal hernia or esophageal involvement however her and only antacids have not helped. We'll start with nitroglycerin and aspirin. If that doesn't help with try GI cocktail with lidocaine. Cardiac catheterization [address] Fuller demonstrates a 40% stenosis in the mid LAD without otherwise significant obstructive disease. Normal ejection fraction 60%. Echocardiogram [address] Fuller demonstrating normal cavity and wall thickness. EF 55-60%. ED ACS 4 points. Low risk by the EDACS Score. If the patient also has: (1) EKG without new ischemic changes and (2) negative initial and 2-hour troponins, then this patient is safe for discharge to early outpatient follow-up investigation (or proceed to earlier inpatient testing). If EKG with ischemic changes or positive troponin, they are not low risk and require normal risk stratification. Progress Note #2: Time: 07:51 Progress Note The patient had a episode of bradycardia down into the 40s which lasted for about 5-10 minutes. Multivitamin EKG she was back up to 60 heart rate. Her blood pressure dropped down to 60/40 and she was placed in Trendelenburg and her repeat blood pressure was 110 systolic as her heart rate had recovered and 60s. She says she did take her medicines this morning 25 mg metoprolol tartrate. We will not give any more nitroglycerin. She has refused a GI cocktail. We did place pads on her chest anterior posterior. 2 L normal saline bolus which would be about 30 mL/kg was initiated and a second IV site was accessed. Initial ECG Impression Date: April 19, 2019 Initial ECG Impression Time: 07:20 Initial ECG Rate: 58 Initial ECG Rhythm: Normal Sinus Initial ECG Intervals: Normal Initial ECG Impression: Normal Initial ECG Comparisson: Unchanged Comment Normal sinus rhythm without ST elevation or depression. EKG : EKG Time: 07:37 Rate: 57 Rhythm: Normal Sinus Intervals: Normal ECG Comparisson: Unchanged ECG Impression: Normal Comment No ST elevation or depression. Diagnostic Imaging Diagonstic Imaging: Xray Plain Films/CT/US/NM/MRI: chest (1v) Comments [facility], [place] NAME: PITER WHITE [facility] REC#: [id number] PT STATUS: REG ER : 1955 PHYSICIAN: ZAK VÁSQUEZ MD ADMIT DATE: 04/19/19/ER Draft Date of Exam:04/19/19 CHEST 1 VIEW, AP/PA ONLY INDICATION: Chest pain. TIME OF EXAM: 8:11 AM Correlation is made with prior study from 12/25/2018. FINDINGS: External pacers overlie the left hemithorax. The heart size is normal. Pulmonary vascularity is normal. No infiltrate is detected. No effusion or pneumothorax is seen. IMPRESSION: No acute cardiopulmonary process is detected. Dictated on workstation # [id number] Dict: 04/19/19 0818 Trans: 04/19/19 0821 [id number] Interpreted by: TIA CHACON MD Electronically signed by: Reviewed: Reviewed by Me Departure Communication (Admissions) Time/Spoke to Admitting Phy: 08:20 Discussed the case with Dr. Asif and she agrees to admit the patient and would like consultation with general surgery, Dr. Hidalgo who is known to the patient. Time/Spoke to Consulting Phy: 08:[address] Fuller and he agrees with putting the patient will have medicine will admit. He will take care of ordering what he wants. He sees the patient this morning. Discussed case with Dr. Hidalgo and he agrees to consult. Impression Primary Impression: Chest pain Qualified Codes: R07.9 - Chest pain, unspecified Additional Impressions: Symptomatic sinus bradycardia Near syncope Disposition: ADMITTED INPATIENT Condition: Stable Admissions Decision to Admit Reason: Admit from ER (General) Decision to Admit/Date: April 19, 2019 Time/Decision to Admit Time: 08:00 Departure-Patient Inst. Referrals: [facility] (PCP) Primary Care Physician TITO KARIMI APRN (Family) Primary Care Physician ZAK VÁSQUEZ April 19, 2019 07:40
[2019-04-19] MEDS: NS IV 1000 ML 1,000 ML IV SCH ×2 (07:44→07:50)
--- NOTE | 2019-04-19 07:45 | NUR ---
PT BP CURRENTLY 115/81. PT HR 65. PT REPORTS FEELING CHILLED AT THIS TIME BUT HER MENTATION IS BETTER. WARM BLANKETS TO PT AT THIS TIME.
[2019-04-19 07:51] LABS: INR 0.9 (0.8-1.4); PROTHROMBIN TIME PATIENT 12.9 SEC (12.2-14.7)
[2019-04-19 07:55] LABS: ALANINE AMINOTRANSFERASE 17 U/L (0-55); ALBUMIN 4.2 GM/DL (3.2-4.5); ALKALINE PHOSPHATASE 69 U/L (40-136); BILIRUBIN,TOTAL 0.6 MG/DL (0.1-1.0); BUN/CREATININE RATIO 10; CALCIUM 9.8 MG/DL (8.5-10.1); CARBON DIOXIDE 22 MMOL/L (21-32); CHLORIDE 100 MMOL/L (98-107); CREATININE SERUM 0.78 MG/DL (0.60-1.30); GFR ESTIMATED > 60; GLUCOSE 127 MG/DL (70-105); LIPASE 33 U/L (8-78); MAGNESIUM 2.4 MG/DL (1.8-2.4); POTASSIUM 3.6 MMOL/L (3.6-5.0); SODIUM 133 MMOL/L (135-145); TOTAL PROTEIN 7.2 GM/DL (6.4-8.2)
--- NOTE | 2019-04-19 08:22 | Diagnostic Imaging Report ---
INDICATION: Chest pain. TIME OF EXAM: 8:11 AM Correlation is made with prior study from 12/25/2018. FINDINGS: External pacers overlie the left hemithorax. The heart size is normal. Pulmonary vascularity is normal. No infiltrate is detected. No effusion or pneumothorax is seen. IMPRESSION: No acute cardiopulmonary process is detected. Dictated by: Dictated on workstation # [id number]
--- NOTE | 2019-04-19 08:40 | NUR ---
DR URIOSTEGUI HERE VISITING WITH PT AT THIS TIME.
[2019-04-19] MEDS ORDERED: REGADENOSON 0.4 MG/5 ML SYR (LEXISCAN) IV ONE ×2 (09:15→13:43)
--- NOTE | 2019-04-19 09:16 | Consultation-Cardiology ---
HPI-Cardiology Cardiology Consultation Date of Consultation 04/19/19 Date of Admission Time Seen by Provider: 09:10 Indication: Chest pain HPI 64 years old lady with history of gastritis, esophagitis, started to have chest pain in addition to the epigastric pain, described as dull achiness in the retrosternal area that has been persistent, came into the emergency room for evaluation, she was given sublingual nitroglycerin which resulted in severe hypotension and transient bradycardia resolved fairly quickly. No further episodes of dizziness or lightheadedness or hypotension reported. Admit having some shortness of breath, she has been having significant heartburn for the past few months. Underwent extensive workup in the past. She denied any palpitation or syncope at home, no fever or chills. Home Medications & Allergies Allergies: Coded Allergies: Sulfa (Sulfonamide Antibiotics) (Verified Allergy, Unknown, 12/25/18) irbesartan (Verified Allergy, Unknown, 12/25/18) Home Medication List Reviewed: Yes GEG-Vgoazi-Obbifg Hx Patient Social History Marital Status: Employed/Student: employed Alcohol Use: Denies Use Recreational Drug Use: No Smoking Status: Former Smoker Type Used: Cigarettes 2nd Hand Smoke Exposure: No Recent Foreign Travel: No Recent Infectious Disease Expo: No Recent Hopitalizations: No Immunizations Up To Date Tetanus Booster (TDap): Unknown Date of Influenza Vaccine: Aug 27, 2018 Past Medical History Discussed below Family Medical History Significant Family History: No Pertinent Family Hx Family Medical Hx Non contributory Review of Systems Constitutional: no symptoms reported, see HPI EENTM: see HPI, no symptoms reported Respiratory: see HPI; No cough, No dyspnea on exertion, No hemoptysis, No orthopnea, No phlegm, No short of breath, No stridor, No wheezing, No other Cardiovascular: see HPI, chest pain; No edema, No Hx of Intervention, No palpitations, No syncope, No vascular heart diseas; other (Near syncope) Gastrointestinal: RUQ, see HPI, dysphagia, heartburn, nausea Genitourinary: no symptoms reported, see HPI Musculoskeletal: no symptoms reported, see HPI Skin: no symptoms reported, see HPI Psychiatric/Neurological: No Symptoms Reported, See HPI Reviewed Test Results Reviewed Test Results Lab Laboratory Tests Test 04/19/19 07:25 Range/Units White Blood Count 6.0 4.3-11.0 10^3/uL Red Blood Count 4.34 L 4.35-5.85 10^6/uL Hemoglobin 13.0 11.5-16.0 G/DL Hematocrit 38 35-52 % Mean Corpuscular Volume 87 80-99 FL Mean Corpuscular Hemoglobin 30 25-34 PG Mean Corpuscular Hemoglobin Concent 34 32-36 G/DL Red Cell Distribution Width 13.2 10.0-14.5 % Platelet Count 189 130-400 10^3/uL Mean Platelet Volume 11.1 H 7.4-10.4 FL Neutrophils (%) (Auto) 76 H 42-75 % Lymphocytes (%) (Auto) 15 12-44 % Monocytes (%) (Auto) 8 0-12 % Eosinophils (%) (Auto) 1 0-10 % Basophils (%) (Auto) 0 0-10 % Neutrophils # (Auto) 4.6 1.8-7.8 X 10^3 Lymphocytes # (Auto) 0.9 L 1.0-4.0 X 10^3 Monocytes # (Auto) 0.5 0.0-1.0 X 10^3 Eosinophils # (Auto) 0.1 0.0-0.3 10^3/uL Basophils # (Auto) 0.0 0.0-0.1 10^3/uL Prothrombin Time 12.9 12.2-14.7 SEC INR Comment 0.9 0.8-1.4 Activated Partial Thromboplast Time 31 24-35 SEC Sodium Level 133 L 135-145 MMOL/L Potassium Level 3.6 3.6-5.0 MMOL/L Chloride Level 100 98-107 MMOL/L Carbon Dioxide Level 22 21-32 MMOL/L Anion Gap 11 5-14 MMOL/L Blood Urea Nitrogen 8 7-18 MG/DL Creatinine 0.78 0.60-1.30 MG/DL Estimat Glomerular Filtration Rate > 60 BUN/Creatinine Ratio 10 Glucose Level 127 H 70-105 MG/DL Calcium Level 9.8 8.5-10.1 MG/DL Corrected Calcium 9.6 8.5-10.1 MG/DL Magnesium Level 2.4 1.8-2.4 MG/DL Total Bilirubin 0.6 0.1-1.0 MG/DL Aspartate Amino Transf (AST/SGOT) 13 5-34 U/L Alanine Aminotransferase (ALT/SGPT) 17 0-55 U/L Alkaline Phosphatase 69 40-136 U/L Myoglobin 30.2 10.0-92.0 NG/ML Troponin I < 0.028 <0.028 NG/ML Total Protein 7.2 6.4-8.2 GM/DL Albumin 4.2 3.2-4.5 GM/DL Lipase 33 8-78 U/L Physical Exam Vital Signs Vital Signs - First Documented 04/19/19 07:16 Temp 96.8 Pulse 63 Resp 16 B/P (MAP) 161/98 (119) Pulse Ox 100 O2 Delivery Room Air Capillary Refill : Less Than 3 Seconds Height, Weight, BMI Height: 5'9.00" Weight: 150lbs. 0oz. 68.507210zy; 26.3 BMI Method:Stated General Appearance: No Apparent Distress, WD/WN Eyes: Bilateral Eye Normal Inspection, Bilateral Eye PERRL, Bilateral Eye EOMI HEENT: PERRL/EOMI, TMs Normal, Normal ENT Inspection, Pharynx Normal Neck: Full Range of Motion, Normal Inspection, Non Tender, Supple, Carotid Bruit Respiratory: Chest Non Tender, Lungs Clear, Normal Breath Sounds, No Accessory Muscle Use, No Respiratory Distress Cardiovascular: Regular Rate, Rhythm, No Edema, No Gallop, No JVD, No Murmur, Normal Peripheral Pulses Gastrointestinal: Normal Bowel Sounds, No Organomegaly, No Pulsatile Mass, Non Tender, Soft Back: Normal Inspection, No CVA Tenderness, No Vertebral Tenderness Extremity: Normal Capillary Refill, Normal Inspection, Normal Range of Motion, Non Tender, No Calf Tenderness, No Pedal Edema Neurologic/Psychiatric: Alert, Oriented x3, No Motor/Sensory Deficits, Normal Mood/Affect Skin: Normal Color, Warm/Dry Lymphatic: No Adenopathy A/P-Cardiology Admission Diagnosis Chest pain Coronary artery disease Hypertension Bradycardia Assessment/Plan Chest pain, atypical pain. Mainly upper epigastric, reproducible. Had history of cardiac catheterization 2012, no recent cardiac workup was done, planning to evaluate stress test Transient hypotension and near syncope after receiving sublingual nitroglycerin, responded to IV fluid, it at this time. Continue to monitor Coronary artery disease, cardiac catheterization was done in March 2013 showing 40 percent stenosis in the mid LAD otherwise no sig obstructive diseaseplanning for stress test. Diverticulosis, gastritis, esophagitis, has been seen by Dr. Hidalgo and Dr. Jerome Hypertension, Patient was reportedly had 1.2 cm splenic artery aneurysm, intolerant to LIA inhibitor with cough, prefer not to use losartan due to the news about cancer, has been maintained on Toprol. Continue to monitor Transient bradycardia, heart rate is in the upper 50s, asymptomatic other than the transient hypotension bradycardia after nitroglycerin. Continue to monitor Questionable allergy to LIA inhibitor secondary to cough Hyperlipidemia, mildly elevated LDL. Reports leg cramps with Crestor. She has tolerated Lipitor well the past, monitor lipids CT scan on November 10, 2017 reported as stable 1.2 cm splenic artery aneurysm, mild thickening of the bladder wall. Diverticulosis with no diverticulitis. Continue to monitor. History of tobaccoism, stopped smoking in 2007, encouraged to continue with smoking cessation. Carotid artery stenosis-patient reports recent life screen ultrasound done Clinical Quality Measures AMI/AHF: ASA po Prior to arrival: DARRIAN Headley MD April 19, 2019 09:16
--- NOTE | 2019-04-19 09:30 | NUR ---
PITER WHITE admitted to room CU4-1, with an admitting diagnosis of Chest Pain, on 04/19/19 from [place] via cart, accompanied by staff.PITER WHITE introduced to surroundings, call light, bed controls, phone, TV, temperature control, lights, meal times, smoking policy, visitor policy, side rail policy, bathrooms and showers. Patient Rights given to patient in the handbook. PITER WHITE verbalizes understanding that [facility] is not responsible for the loss or damage to any personal effects or valuables that are kept in the patients posession during their hospitalization. The following Patient Care Plans were discussed with the pt: Discharge Planning. PITER WHITE verbalizes understanding of Interdisciplinary Patient Education. Patient and/or family were informed about the Rapid Response Team and its purpose.
[2019-04-19] MEDS ORDERED: ONDANSETRON 4 MG/2 ML (SDV) Z0FRAN IV PRN (10:15)
[2019-04-19] MEDS ORDERED: PANTOPRAZOLE 40 MG (PROTONIX) VIAL IV SCH (10:15)
[2019-04-19] MEDS ORDERED: CATHETER FLUSH 10 ML SYR IV PRN (10:15)
[2019-04-19] MEDS ORDERED: ANTACID SUSP 30 ML UDC (MYLANTA) PO PRN (10:15)
[2019-04-19] MEDS ORDERED: NS IV 1000 ML 1,000 ML IV SCH (10:15)
[2019-04-19] MEDS ORDERED: ACETAMINOPHEN 500 MG TAB (TYLENOL) PO PRN (10:15)
--- NOTE | 2019-04-19 10:36 | Short Stay Summary-Hospitalist ---
History of Present Illness HPI/Chief Complaint CC: Chest pressure HPI: This is a 64yoWF clinic patient of [facility] w/h/o severe gastritis s/p multiple EGD's and gallbladder evaluations most recently by Dr Jerome at [facility] who presents to the ER with chest pressure. Dr Fuller sees the patient on a regular basis and had not completed a stress test for some time so she will undergo EST for risk stratification. Blander diet was discussed with the patient and dietary will provide some more guidance on items included in that diet plan. Source: patient Exam Limitations: no limitations Date Seen 04/19/19 Time Seen by a Provider: 10:30 Attending Physician Camille Williamson DO [place] [place] [facility] Date of Admission April 19, 2019 at 08:55 Home Medications & Allergies Home Medications Reviewed patient Home Medication Reconciliation performed by pharmacy medication reconciliations landfill gas technician and/or nursing. Patients Allergies have been reviewed. Allergies Allergies Coded Allergies Sulfa (Sulfonamide Antibiotics) (Verified Allergy, Unknown, 12/25/18) irbesartan (Verified Allergy, Unknown, 12/25/18) Past Idwvzwj-Tsffvh-Znmjac Hx Past Med/Social Hx: Reviewed Nursing Past Med/Soc Hx, Reviewed and Corrections made Patient Social History Marrital Status: Employed/Student: employed Alcohol Use: Denies Use Recreational Drug Use: No Smoking Status: Former Smoker Former Smoker, Quit: Oct 31, 2012 Type Used: Cigarettes 2nd Hand Smoke Exposure: No Recent Foreign Travel: No Contact w/other who traveled: No Recent Hopitalizations: No Recent Infectious Disease Expo: No Immunizations Up To Date Tetanus Booster (TDap): Unknown Date of Influenza Vaccine: Aug 27, 2018 Seasonal Allergies Seasonal Allergies: Yes Past Medical History Surgeries: Hysterectomy Cardiac: High Cholesterol, Hypertension Reproductive: No Menopausal Gastrointestinal: Gastroesophageal Reflux, Diverticulosis Cancer: Cervical What Type of Treatment Did You: Surgical Intervention Psychosocial: Depression History of Blood Disorders: No Family History No Pertinent Family Hx Review of Systems Constitutional: see HPI EENTM: no symptoms reported Respiratory: no symptoms reported Cardiovascular: chest pain Gastrointestinal: dysphagia Physical Exam Physical Exam Vital Signs Vital Signs - First Documented 04/19/19 07:16 Temp 96.8 Pulse 63 Resp 16 B/P (MAP) 161/98 (119) Pulse Ox 100 O2 Delivery Room Air Capillary Refill : Less Than 3 Seconds Height, Weight, BMI Height: 5'9.00" Weight: 150lbs. 0oz. 68.219298qo; 26.3 BMI Method:Stated General Appearance: No Apparent Distress, WD/WN Eyes: Bilateral Eye Normal Inspection, Bilateral Eye PERRL, Bilateral Eye EOMI HEENT: PERRL/EOMI, TMs Normal, Normal ENT Inspection, Pharynx Normal Neck: Full Range of Motion, Normal Inspection, Non Tender, Supple, Carotid Bruit Respiratory: Chest Non Tender, Lungs Clear, Normal Breath Sounds, No Accessory Muscle Use, No Respiratory Distress Cardiovascular: Regular Rate, Rhythm, No Edema, No Gallop, No JVD, No Murmur, Normal Peripheral Pulses Gastrointestinal: Normal Bowel Sounds, No Organomegaly, No Pulsatile Mass, Non Tender, Soft Back: Normal Inspection, No CVA Tenderness, No Vertebral Tenderness Extremity: Normal Capillary Refill, Normal Inspection, Normal Range of Motion, Non Tender, No Calf Tenderness, No Pedal Edema Neurologic/Psychiatric: Alert, Oriented x3, No Motor/Sensory Deficits, Normal Mood/Affect Skin: Normal Color, Warm/Dry Lymphatic: No Adenopathy Results Results/Procedures Labs Laboratory Tests 04/19/19 07:25 Patient resulted labs reviewed. Short Stay Diagnosis Discharge Diagnosis-Short Stay Admission Diagnosis Chest pain Severe gastritis Final Discharge Diagnosis Chest pain Severe gastritis Conclusion Plan EST Dispo per Cardiology Diagnosis/Problems Diagnosis/Problems (1) Chest pain Status: Acute Qualifiers: Qualified Codes: R07.9 - Chest pain, unspecified (2) Chronic gastritis without bleeding Status: Chronic Qualifiers: Qualified Codes: K29.50 - Unspecified chronic gastritis without bleeding (3) Symptomatic sinus bradycardia Status: Acute Clinical Quality Measures AMI/AHF: ASA po Prior to arrival: CAMILLE Washburn DO April 19, 2019 10:36
[2019-04-19] MEDS ORDERED: GARL10002 PO (11:29)
[2019-04-19] MEDS ORDERED: CALC-676 PO (11:29)
[2019-04-19] MEDS ORDERED: POLY17PO6 PO (11:29)
[2019-04-19] MEDS ORDERED: NF-ESOM40C PO (11:29)
[2019-04-19] MEDS ORDERED: METO-370 PO (11:29)
--- NOTE | 2019-04-19 11:30 | NUR ---
PATIENT HAD A LIST OF HER MEDICATIONS WITH HER, WE WENT OVER THAT LIST AND I VERIFIED WITH [facility] WHAT HAS BEEN FILLED RECENTLY. SHE FILLED PROCHLORPERAZINE RECENTLY AT [facility] ACCORDING TO [facility] HX, SHE STATES SHE TAKES THIS PRN. [facility] 04-16-19 METOPROLOL ER 50MG DAILY (STATES SHE TAKES 1/2 BID) 04-12-19 LIPITOR 40MG DAILY 03-18-19 NEXIUM 40MG DAILY #30 02-22-19 LEXAPRO 10MG DAILY #30 3 CARAFATE 1GM BID #60 (NO LONGER TAKING) 2 AMLODIPINE 10MG DAILY #90 (NO LONGER TAKING) 01-19-19 FAMOTIDINE 40MG DAILY #30 (NO LONGER TAKING) SHE TAKES THE FOLLOWING OTC: PROBIOTIC DAILY B COMPLEX DAILY FISH OIL DAILY GARLIC DAILY CALCIUM DAILY MIRALAX DAILY
[2019-04-19] MEDS ORDERED: PROC5TAB9 PO (11:32)
--- OUTSIDE RECORDS SUMMARY | 2019-04-19 11:50 | XMS REPORT | Continuity of Care Document ---
Author Organization Unknown Address Unknown Allergies Active Description Code Type Severity Reaction Onset Reported/Identified Relationship to Patient Clinical Status Yes No Known Drug Allergies [id number] Drug Allergy Unknown N/A 04/15/2013 Yes irbesartan [id number] Drug Allergy Unknown N/A 12/25/2018 Yes Sulfa (Sulfonamide Antibiotics) [id number] Drug Allergy Unknown N/A 12/25/2018 Medications There [...] OF COLON WITHOUT MENTION OF HEMORRHAGE 07/26/2010 MCKOEN DO, SARATH K 789.00 ABDOMINAL PAIN UNSPECIFIED SITE 07/26/2010 MCKEON DO, SARATH K 272.4 DYSLIPIDEMIA 07/26/2010 MCKEON DO, SARATH K 401.1 HYPERTENSION, BENIGN ESSENTIAL 07/26/2010 MCKEON DO, SARATH K 562.11 DIVERTICULITIS OF COLON WITHOUT MENTION OF HEMORRHAGE 07/26/2010 MCKEON DO, SARATH K 789.00 ABDOMINAL PAIN UNSPECIFIED SITE 07/26/2010 HELLWIG INDUSTRIAL ENGINEERING ANALYST, ALANNA E 272.4 DYSLIPIDEMIA 07/26/2010 HELLWIG INDUSTRIAL ENGINEERING ANALYST, ALANNA E 401.1 HYPERTENSION, BENIGN ESSENTIAL 07/26/2010 ROHITHLWIG INDUSTRIAL ENGINEERING ANALYST, ALANNA E 562.11 DIVERTICULITIS OF COLON WITHOUT MENTION OF HEMORRHAGE 07/26/2010 HELLWIG INDUSTRIAL ENGINEERING ANALYST ALANNA E 789.00 ABDOMINAL PAIN UNSPECIFIED SITE [...] 789.00 ABDOMINAL PAIN UNSPECIFIED SITE 07/26/2010 HELLWIG INDUSTRIAL ENGINEERING ANALYST, ALANNA E 272.4 DYSLIPIDEMIA 07/26/2010 HELLWIG INDUSTRIAL ENGINEERING ANALYST, ALANNA E 401.1 HYPERTENSION, BENIGN ESSENTIAL 07/26/2010 HELLWIG INDUSTRIAL ENGINEERING ANALYST, ALANNA E 562.11 DIVERTICULITIS OF COLON WITHOUT MENTION OF HEMORRHAGE 07/26/2010 HELLWIG INDUSTRIAL ENGINEERING ANALYST, ALANNA E 789.00 ABDOMINAL PAIN UNSPECIFIED SITE 07/26/2010 HELLWIG INDUSTRIAL ENGINEERING ANALYST, ALANNA E 272.4 DYSLIPIDEMIA 07/26/2010 HELLWIG INDUSTRIAL ENGINEERING ANALYST, ALANNA E 401.1 HYPERTENSION, BENIGN ESSENTIAL 07/26/2010 HELLWIG INDUSTRIAL ENGINEERING ANALYST, ALANNA E 562.11 DIVERTICULITIS OF COLON WITHOUT MENTION OF HEMORRHAGE 07/26/2010 HELLWIG INDUSTRIAL ENGINEERING ANALYST, ALANNA E 789.00 ABDOMINAL PAIN UNSPECIFIED SITE [...] SARATH K 492.8 OTHER EMPHYSEMA 03/19/2011 HELLWIG INDUSTRIAL ENGINEERING ANALYST, ALANNA E 311 DEPRESSIVE DISORDER NOT ELSEWHERE CLASSIFIED 03/19/2011 HELLWIG INDUSTRIAL ENGINEERING ANALYST, ALANNA E 492.8 OTHER EMPHYSEMA 03/19/2011 MCKEON DO, SARATH K 311 DEPRESSIVE DISORDER NOT ELSEWHERE CLASSIFIED 03/19/2011 MCKEON DO, SARATH K 492.8 OTHER EMPHYSEMA 03/19/2011 MCKEON DO, SARATH K 311 DEPRESSIVE DISORDER NOT ELSEWHERE CLASSIFIED 03/19/2011 MCKEON DO, SARATH K 492.8 OTHER EMPHYSEMA 03/19/2011 HELLWIG INDUSTRIAL ENGINEERING ANALYST ALANNA E 311 DEPRESSIVE DISORDER NOT ELSEWHERE CLASSIFIED 03/19/2011 HELLWIG INDUSTRIAL ENGINEERING ANALYST ALANNA E 492.8 OTHER EMPHYSEMA 03/19/2011 HELLWIG INDUSTRIAL ENGINEERING ANALYST, ALANNA E 311 DEPRESSIVE DISORDER NOT ELSEWHERE CLASSIFIED 03/19/2011 HELLWIG INDUSTRIAL ENGINEERING ANALYST ALANNA E 492.8 OTHER EMPHYSEMA 04/02/2011 RAJIBETH INDUSTRIAL ENGINEERING ANALYST, RHODA A V72.31 AIR CONDITIONING ENGINEER EXAM, ROUTINE 04/02/2011 V72.31 AIR CONDITIONING ENGINEER EXAM, ROUTINE 04/02/2011 MILO OSCAR, KAMI V72.31 AIR CONDITIONING ENGINEER EXAM, ROUTINE 04/02/2011 V72.31 AIR CONDITIONING ENGINEER EXAM, ROUTINE 04/02/2011 V72.31 AIR CONDITIONING ENGINEER EXAM, ROUTINE 04/02/2011 V72.31 AIR CONDITIONING ENGINEER EXAM, ROUTINE 04/02/2011 V72.31 AIR CONDITIONING ENGINEER EXAM, ROUTINE 04/02/2011 MCKEON DO, SARATH K V72.31 AIR CONDITIONING ENGINEER EXAM, ROUTINE 04/02/2011 MCKEON DO, SARATH K V72.31 AIR CONDITIONING ENGINEER EXAM, ROUTINE 04/02/2011 HELLWIG INDUSTRIAL ENGINEERING ANALYST, ALANNA E V72.31 AIR CONDITIONING ENGINEER EXAM, ROUTINE 04/02/2011 MCKEON DO, SARATH K V72.31 AIR CONDITIONING ENGINEER EXAM, ROUTINE 04/02/2011 MCKEON DO, SARATH K V72.31 AIR CONDITIONING ENGINEER EXAM, ROUTINE 04/02/2011 HELLWIG INDUSTRIAL ENGINEERING ANALYST, ALANNA E V72.31 AIR CONDITIONING ENGINEER EXAM, ROUTINE 04/02/2011 HELLWIG INDUSTRIAL ENGINEERING ANALYST ALANNA E V72.31 AIR CONDITIONING ENGINEER EXAM, ROUTINE 05/13/2011 HARJIT INDUSTRIAL ENGINEERING ANALYST, RHODA A 682.9 CELLULITIS AND ABSCESS OF UNSPECIFIED SITES 05/13/2011 RAJCOLEE INDUSTRIAL ENGINEERING ANALYST, RHODA A 698.9 UNSPECIFIED PRURITIC DISORDER 05/13/2011 HARJIT INDUSTRIAL ENGINEERING ANALYST, RHODA A 919.4 INSECT BITE NONVENOMOUS OF OTHER MULTIPLE AND UNSPECIFIED SITES WITHOUT INFECTION 05/13/2011 RAJCOLEE INDUSTRIAL ENGINEERING ANALYST, RHODA A V15.06 PERSONAL HISTORY OF ALLERGY [...] ALLERGY TO INSECTS AND ARACHNIDS 05/13/2011 HELLWIG INDUSTRIAL ENGINEERING ANALYST ALANNA E 682.9 CELLULITIS AND ABSCESS OF UNSPECIFIED SITES 05/13/2011 HELLWIG INDUSTRIAL ENGINEERING ANALYST ALANNA E 698.9 UNSPECIFIED PRURITIC DISORDER 05/13/2011 HELLWIG INDUSTRIAL ENGINEERING ANALYST ALANNA E 919.4 INSECT BITE NONVENOMOUS OF OTHER MULTIPLE AND UNSPECIFIED SITES WITHOUT INFECTION 05/13/2011 HELLWIG INDUSTRIAL ENGINEERING ANALYST ALANNA E V15.06 PERSONAL HISTORY OF ALLERGY [...] ALLERGY TO INSECTS AND ARACHNIDS 05/13/2011 HELLWIG INDUSTRIAL ENGINEERING ANALYST ALANNA E 682.9 CELLULITIS AND ABSCESS OF UNSPECIFIED SITES 05/13/2011 HELLWIG INDUSTRIAL ENGINEERING ANALYST, ALANNA E 698.9 UNSPECIFIED PRURITIC DISORDER 05/13/2011 YRN INDUSTRIAL ENGINEERING ANALYST, ALANNA E 919.4 INSECT BITE NONVENOMOUS OF [...] ALANNA POOL APRN E 564.00 CONSTIPATION 07/21/2012 [facility] E 562.00 DIVERTICULOSIS DUODENAL 07/21/2012 [facility] APRNE E 564.00 CONSTIPATION 02/11/2013 401.9 [...] changed sexual interest (libido): decreased 02/11/2013 HELLWIG INDUSTRIAL ENGINEERING ANALYST, ALANNA E 401.9 ESSENTIAL HYPERTENSION 02/11/2013 ROHITHLMONIQUE DIAZN, ALANNA E 562.10 DIVERTICULOSIS 02/11/2013 HELLMONIQUE INDUSTRIAL ENGINEERING ANALYST, ALANNA E 799.81 changed sexual interest (libido): [...] ALANNA E 401.9 ESSENTIAL HYPERTENSION 02/11/2013 HELLMONIQUE INDUSTRIAL ENGINEERING ANALYST, ALANNA E 562.10 DIVERTICULOSIS 02/11/2013 HELLMONIQUE DIAZN, ALANNA E 799.81 changed sexual interest (libido): decreased 04/16/2013 DARRIAN URIOSTEGUI MD Ot 272.4 HYPERLIPIDEMIA NEC/NOS 04/16/2013 DARRIAN URIOSTEGUI MD Ot 311 DEPRESSIVE DISORDER NEC 04/16/2013 DARRIAN URIOSTEGUI MD Ot 401.9 HYPERTENSION NOS 04/16/2013 DARRIAN URIOSTEGUI MD Ot 414.01 CORONARY ATHEROSCLEROSIS OF [place] CORON 04/16/2013 DARRIAN URIOSTEGUI MD Ot 786.50 [...] in / on the skin 04/29/2013 HELLWIG INDUSTRIAL ENGINEERING ANALYST, ALANNA E 782.2 lump in / on the skin 04/29/2013 MCKEON DO, SARATH K 782.2 lump in / on the skin 04/29/2013 MCKEON DO, SARATH K 782.2 lump in / on the skin 04/29/2013 HELLWIG INDUSTRIAL ENGINEERING ANALYST, ALANNA E 782.2 lump in / on the skin 04/29/2013 HELLWIG INDUSTRIAL ENGINEERING ANALYST, ALANNA E 782.2 lump in / on the skin 07/01/2013 054.9 HERPES SIMPLEX WITHOUT COMPLICATION 07/01/2013 054.9 HERPES SIMPLEX WITHOUT COMPLICATION 07/01/2013 MCKEON DO, SARATH K 054.9 HERPES SIMPLEX WITHOUT COMPLICATION 07/01/2013 MCKEON DO, SARATH K 054.9 HERPES SIMPLEX WITHOUT COMPLICATION 07/01/2013 HELLWIG INDUSTRIAL ENGINEERING ANALYST, ALANNA E 054.9 HERPES SIMPLEX WITHOUT COMPLICATION 07/01/2013 MCKEON DO, SARATH K 054.9 HERPES SIMPLEX WITHOUT COMPLICATION 07/01/2013 MCKEON DO, SARATH K 054.9 HERPES SIMPLEX WITHOUT COMPLICATION 07/01/2013 HELLWIG INDUSTRIAL ENGINEERING ANALYST, ALANNA E 054.9 HERPES SIMPLEX WITHOUT COMPLICATION 07/01/2013 HELLWIG INDUSTRIAL ENGINEERING ANALYST, ALANNA E 054.9 HERPES SIMPLEX WITHOUT COMPLICATION [...] DUE TO PLANTS (EXCEPT FOOD) 07/09/2013 HELLWIG INDUSTRIAL ENGINEERING ANALYST, ALANNA E 692.6 CONTACT DERMATITIS AND OTHER ECZEMA DUE TO PLANTS (EXCEPT FOOD) 07/09/2013 MCKEON DO, SARATH K 692.6 CONTACT DERMATITIS AND OTHER ECZEMA DUE TO PLANTS (EXCEPT FOOD) 07/09/2013 MCKEON DO, SARATH K 692.6 CONTACT DERMATITIS AND OTHER ECZEMA DUE TO PLANTS (EXCEPT FOOD) 07/09/2013 ROHITHLWIG INDUSTRIAL ENGINEERING ANALYST, ALANNA E 692.6 CONTACT DERMATITIS AND OTHER ECZEMA DUE TO PLANTS (EXCEPT FOOD) 07/09/2013 YRN WALLACE, ALANNA E 692.6 CONTACT DERMATITIS AND OTHER ECZEMA DUE TO PLANTS (EXCEPT FOOD) 08/06/2013 MCKEON DO, SARATH K 686.9 UNSPECIFIED LOCAL INFECTION OF SKIN AND SUBCUTANEOUS TISSUE 08/06/2013 MCKEON DO, SARATH K 686.9 UNSPECIFIED LOCAL INFECTION OF SKIN AND SUBCUTANEOUS TISSUE 08/06/2013 ROHITHLWIG INDUSTRIAL ENGINEERING ANALYST ALANNA E 686.9 UNSPECIFIED LOCAL INFECTION OF SKIN AND SUBCUTANEOUS TISSUE 08/06/2013 MCKEON DO, SARATH K 686.9 UNSPECIFIED LOCAL INFECTION OF SKIN AND SUBCUTANEOUS TISSUE 08/06/2013 MCKEON DO, SARATH K 686.9 UNSPECIFIED LOCAL INFECTION OF SKIN AND SUBCUTANEOUS TISSUE 08/06/2013 ROHITHLWIG INDUSTRIAL ENGINEERING ANALYST ALANNA E 686.9 UNSPECIFIED LOCAL INFECTION OF SKIN AND SUBCUTANEOUS TISSUE 08/06/2013 ADITYAWIG INDUSTRIAL ENGINEERING ANALYST, ALANNA E 686.9 UNSPECIFIED LOCAL INFECTION OF [...] V58.69 OTH MED,LT,CURRENT USE 07/10/2015 ALANNA POOL INDUSTRIAL ENGINEERING ANALYST Ot 789.61 12/19/2016 TIMA, JONATHAN SV[employer] MARKETING Ot I10 ESSENTIAL (PRIMARY) HYPERTENSION 12/19/2016 TIMA, JONATHAN SVP MARKETING Ot I72.8 ANEURYSM OF OTHER SPECIFIED ARTERIES 12/19/2016 TIMA, JONATHAN [employer] MARKETING Ot K57.30 DVRTCLOS OF LG INT W/O PERFORATION OR AB 12/19/2016 TIMA, JONATHAN SV[employer] MARKETING Ot R10.13 EPIGASTRIC PAIN 12/19/2016 TIMA, JONATHAN SV[employer] MARKETING Ot Z79.899 OTHER CONSULTING IT ARCHITECT (CURRENT) DRUG THERAPY 12/20/2016 TIMA, JONATHAN SV[employer] MARKETING Ot I10 ESSENTIAL (PRIMARY) HYPERTENSION 12/20/2016 TIMA, JONATHAN SVP MARKETING Ot I72.8 ANEURYSM OF OTHER SPECIFIED ARTERIES 12/20/2016 TIMA, JONATHAN SVP MARKETING Ot K57.30 DVRTCLOS OF LG INT W/O PERFORATION OR AB 12/20/2016 TIMA, JONATHAN SVP MARKETING Ot R10.13 EPIGASTRIC PAIN 12/20/2016 TIMA JONATHAN SVP MARKETING Ot Z79.899 OTHER CONSULTING IT ARCHITECT (CURRENT) DRUG THERAPY 11/10/2017 ANGELES SUERO MD [...] PERSONAL HISTORY OF NICOTINE DEPENDENCE 11/10/2017 ANGELES SUREO MD Ot Z90.710 ACQUIRED ABSENCE OF BOTH CERVIX AND UTER 11/10/2017 HELLWIG, ALANNA E INDUSTRIAL ENGINEERING ANALYST Ot 789.61 ABDOMINAL TENDERNESS, RIGHT UPPER QUADRA 12/09/2017 ALANNA POOL E INDUSTRIAL ENGINEERING ANALYST Ot 789.61 ABDOMINAL TENDERNESS, RIGHT UPPER QUADRA 05/19/2018 DARRIAN URIOSTEGUI MD Ot E78.2 MIXED HYPERLIPIDEMIA 05/19/2018 DARRIAN URIOSTEGUI MD Ot I10 ESSENTIAL (PRIMARY) HYPERTENSION 05/19/2018 DARRIAN URIOSTEGUI MD Ot I25.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[place] CORONARY 05/19/2018 DARRIAN URIOSTEGUI MD Ot R07.9 CHEST PAIN, UNSPECIFIED 12/24/2018 DARRIAN URIOSTEGUI MD Ot E78.2 MIXED HYPERLIPIDEMIA 12/24/2018 DARRIAN URIOSTEGUI MD Ot I10 ESSENTIAL (PRIMARY) HYPERTENSION 12/24/2018 DARRIAN URIOSTEGUI MD Ot I25.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[place] CORONARY 12/24/2018 DARRIAN URIOSTEGUI MD Ot R07.9 CHEST PAIN, UNSPECIFIED 12/24/2018 ALANNA POOL E INDUSTRIAL ENGINEERING ANALYST Ot 789.61 ABDOMINAL TENDERNESS, RIGHT UPPER QUADRA 12/24/2018 DARRIAN URIOSTEGUI MD Ot E78.2 MIXED HYPERLIPIDEMIA 12/24/2018 DARRIAN URIOSTEGUI MD Ot I10 ESSENTIAL (PRIMARY) HYPERTENSION 12/24/2018 DARRIAN URIOSTEGUI MD Ot I25.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[place] CORONARY 12/24/2018 DARRIAN URIOSTEGUI MD Ot R07.9 [...] CEDILLO Ot I25.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[place] CORONARY 12/30/2018 MARLENASAMUEL CORDELL CEDILLO Ot K20.9 [...] 12/30/2018 MARLENASAMUEL CORDELL CEDILLO Ot Z79.899 OTHER CONSULTING IT ARCHITECT (CURRENT) DRUG THERAPY 12/30/2018 MARLENASAMUEL CORDELL CEDILLO [...] DO Ot I25.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[place] CORONARY 01/01/2019 CORDELL SAHA DO Ot K20.9 [...] 01/01/2019 CORDELL SAHA DO Ot Z79.899 OTHER CONSULTING IT ARCHITECT (CURRENT) DRUG THERAPY 01/01/2019 YIFAN CEDILLO, CORDELL [...] Procedures Code Description [place] [address] ROUTINE VENIPUNCTURE 02/12/2013 61560 A1C (RML) 02/12/2013 42406 TSH 02/12/2013 14323 CBC 02/12/2013 87337 LIPID PANEL 02/12/2013 29805 CMP 02/12/2013 6244885 GFR CALC (RESULT ONLY) 02/12/2013 48531 ROUTINE VENIPUNCTURE 05/28/2013 41071 LIPID PANEL 05/28/2013 00130 ROUTINE VENIPUNCTURE 07/28/2013 44059 LIPID PANEL 07/28/2013 09667 LIVER PANEL (LFT) 07/28/2013 60121 ROUTINE VENIPUNCTURE 01/17/2014 78969 LIPID PANEL 01/17/2014 70777 ROUTINE VENIPUNCTURE 08/03/2014 30767 CMP 08/03/2014 10318 LIPID PANEL 08/03/2014 08945 TSH 08/03/2014 26211 CBC 08/03/2014 [facility], [place] 08/16/2014 96593 HIDA SCAN 08/19/2014 Results Test Result Range [...] 12.5 fL 7.5-12.5 ABSOLUTE NEUTROPHILS 3870 cells/uL 5606-5407 ABSOLUTE LYMPHOCYTES 1416 cells/uL 850-3900 ABSOLUTE MONOCYTES [...] 7-25 CREATININE 0.70 mg/dL 0.50-0.99 eGFR NON-AFR. MALAGASY 94 mL/min/1.73m2 > OR=60 eGFR 108 mL/min/1.73m2 [...] 12.6 fL 7.5-12.5 ABSOLUTE NEUTROPHILS 5062 cells/uL 8242-9957 ABSOLUTE LYMPHOCYTES 878 cells/uL 850-3900 ABSOLUTE MONOCYTES [...] Status Pt. Type Provider Facility Loc./Unit Complaint [id number] 04/15/2019 12:20:00 04/15/2019 23:59:59 [facility] [id number] 02/12/2019 09:00:00 Document Registration [id number] 10/08/2018 09:40:00 Document Registration [id number] 01/14/2018 10:20:00 Document Registration [id number] 11/30/2014 09:43:00 11/30/2014 23:59:59 CLS Outpatient ALANNA POOL APRN [id number] 08/10/2014 09:16:00 08/10/2014 23:59:59 CLS Outpatient ALANNA POOL APRN [id number] 08/03/2014 11:27:00 08/03/2014 23:59:59 CLS Outpatient SARATH MCKEON DO [id number] 06/24/2014 14:00:00 06/24/2014 23:59:59 CLS Outpatient SARATH MCKEON DO [id number] 01/17/2014 11:59:00 01/17/2014 23:59:59 CLS Outpatient ALANNA POOL APRN [id number] 10/01/2013 10:20:00 10/01/2013 23:59:59 CLS Outpatient SARATH MCKEON DO Micaela [id number] 08/06/2013 09:26:00 08/06/2013 23:59:59 CLS Outpatient SARATH MCKEON DO Micaela [id number] 02/12/2013 09:18:00 02/12/2013 23:59:59 CLS Outpatient KAMI PEDRAZA MD [id number] 02/11/2013 13:16:00 02/11/2013 23:59:59 CLS Outpatient [id number] 07/21/2012 13:11:00 07/21/2012 23:59:59 CLS Outpatient RHODA LOMBARDI APRN [id number] 07/28/2013 08:35:00 Document Registration [id number] 07/09/2013 15:20:00 Document Registration [id number] 05/28/2013 08:50:00 Document Registration [id number] 04/29/2013 08:50:00 Document Registration [id number] 03/11/2019 15:35:00 03/11/2019 16:55:00 DIS Outpatient PRASAD HUITRON APRN [facility] ER SIDE PAIN,NAUSEA [id number] 01/14/2019 09:27:00 01/14/2019 23:59:59 CLS Outpatient CORDELL SAHA DO [facility] CARD RUQ PAIN [id number] 12/31/2018 07:50:00 12/31/2018 23:59:59 CLS Outpatient CORDELL SAHA DO B [facility] RAD RUQ PAIN [id number] 12/30/2018 07:56:00 12/30/2018 11:10:00 DIS Outpatient CORDELL SAHA DO [facility] ENDO CHANGE IN BM/NAUSEA [id number] 12/28/2018 10:11:00 12/28/2018 15:21:00 DIS Outpatient CORDELL SAHA DO [facility] PREOP COLONOSCOPY/EGD [id number] 12/25/2018 21:27:00 12/26/2018 00:38:00 DIS Outpatient ANGELES SUERO MD [facility] ER CHEST PAIN [id number] 12/23/2018 15:55:00 12/23/2018 23:59:59 CLS Preadmit TITO KARIMI INDUSTRIAL ENGINEERING ANALYST [facility] RAD HX OF DIVERTICULITIS [id number] 12/09/2017 10:49:00 12/09/2017 23:59:59 CLS Outpatient DARRIAN URIOSTEGUI MD [facility] CARD I25.10 CAD [id number] 11/10/2017 10:43:00 11/10/2017 14:06:00 DIS Emergency ANGELES SUERO MD [facility] ER CHEST PAIN [id number] 12/19/2016 09:47:00 12/19/2016 13:21:00 DIS Emergency JONATHAN ALFRED [facility] ER CHEST/BACK PAIN LEFT FOOT NUMB/TINGLING [id number] 06/15/2015 07:19:00 06/15/2015 09:14:00 DIS Emergency GUNNER RAMIREZ MD [facility] ER DIZZINESS/NAUSEA [id number] 08/18/2014 09:50:00 08/18/2014 23:59:59 CLS Outpatient ALANNA POOL INDUSTRIAL ENGINEERING ANALYST [facility] CARD RUQ PAIN [id number] 04/15/2013 11:30:00 04/16/2013 13:00:00 DIS Outpatient DARRIAN URIOSTEGUI MD [facility] CATH CHEST PAIN [id number] 06/15/2015 07:19:00 Document Registration
--- NOTE | 2019-04-19 14:54 | Consultation (Surgery) ---
History of Present Illness History of Present Illness Patient Consulted On(marion/time) 04/19/19 14:49 Time Seen by Provider: 14:02 Reason for Visit: Chest pain History of Present Illness Baljinder asked to consult regarding upper abdominal pain and Gastritis. HPI per ED: 64 years old lady with history of gastritis, esophagitis, started to have chest pain in addition to the epigastric pain, described as dull achiness in the retrosternal area that has been persistent, came into the emergency room for evaluation, she was given sublingual nitroglycerin which resulted in severe hypotension and transient bradycardia resolved fairly quickly. No further episodes of dizziness or lightheadedness or hypotension reported. Admit having some shortness of breath, she has been having significa nt heartburn for the past few months. Underwent extensive workup in the past. She denied any palpitation or syncope at home, no fever or chills. When I saw pt today she is not sure whether it is chest pain or burning; it is in the upper abdomen. She states she went and had EGD with EUS of pancreas and they didn't find anything. She states she is on a diet trying to find out what foods she can eat; she is currently avoiding milk, fatty foods, fried foods and red meat. She states she was doing ok for a little while but all of a sudden the burning pain came back. She doesn't think any of the heartburn meds are helping. Pt seen down getting Nuclear Medicine stress test. Allergies and Home Medications Allergies Coded Allergies: Sulfa (Sulfonamide Antibiotics) (Verified Allergy, Unknown, 12/25/18) irbesartan (Verified Allergy, Unknown, 12/25/18) Home Medications Atorvastatin Calcium 40 Mg Tablet, 40 MG PO DAILY, (Reported) Calcium Carbonate/Vitamin D3 1 Each Tablet, 1 TAB PO DAILY, (Reported) Escitalopram Oxalate 10 Mg Tablet, 10 MG PO DAILY, (Reported) LAST FILLED #30 02-22-19 Esomeprazole Magnesium 40 Mg Cap, 40 MG PO DAILY, (Reported) Garlic 1,000 Mg Capsule, 1,000 MG PO DAILY, (Reported) Lactobacillus Acidophilus 1 Each Capsule, 1 CAP PO DAILY, (Reported) Metoprolol Succinate 50 Mg Tab.er.24h, 25 MG PO BID, (Reported) TAKES 1/2 (50MG) TABLET [place] 3 Polyunsat Fatty Acids 1,000 Mg Cap, 1,000 MG PO DAILY, (Reported) Polyethylene Glycol 3350 17 Gm Powd.pack, 17 GM PO DAILY, (Reported) Prochlorperazine Maleate 5 Mg Tablet, 5 MG PO Q6H PRN for NAUSEA/VOMITING-4TH LINE, (Reported) Vitamin B Complex 1 Each Tablet, 1 TAB PO DAILY, (Reported) Patient Home Medication List Home Medication List Reviewed: Yes Past Ezyqjgx-Bcymny-Wcpeur Hx Patient Social History Alcohol Use: Denies Use Recreational Drug Use: No Smoking Status: Former Smoker Former Smoker, Quit: Oct 31, 2012 Type Used: Cigarettes 2nd Hand Smoke Exposure: No Recent Foreign Travel: No Contact w/Someone Who Travel: No Recent Infectious Disease Expo: No Recent Hopitalizations: No Physical Abuse Screen: No Sexual Abuse: No Immunizations Up To Date Tetanus Booster (TDap): Unknown Date of Influenza Vaccine: Aug 27, 2018 Seasonal Allergies Seasonal Allergies: Yes Surgeries History of Surgeries: Yes (hernia repair, CARDAIC CATH- NO INTERVENTION) Surgeries: Hysterectomy Respiratory History of Respiratory Disorde: No Cardiovascular History of Cardiac Disorders: Yes (HEART CATH 2012) Cardiac Disorders: High Cholesterol, Hypertension Neurological History of Neurological Disord: No Reproductive System Hx Reproductive Disorders: No 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 Genitourinary History of Genitourinary Disor: No Gastrointestinal History of Gastrointestinal Di: Yes (GASTRITIS) Gastrointestinal Disorders: Gastroesophageal Reflux, Diverticulosis Musculoskeletal History of Musculoskeletal Dis: No Endocrine History of Endocrine Disorders: No HEENT History of HEENT Disorders: No Cancer History of Cancer: Yes Cancer: Cervical Psychosocial History of Psychiatric Problem: Yes Behavioral Health Disorders: Depression Integumentary History of Skin or Integumenta: No Blood Transfusions History of Blood Disorders: No Family Medical History Significant Family History: Heart Disease Review of Systems-General Constitutional: No chills, No diaphoresis, No malaise, No weakness EENTM: No blurred vision, No double vision, No mouth pain, No mouth swelling, No throat swelling Respiratory: No cough, No dyspnea on exertion, No short of breath Cardiovascular: chest pain; No edema, No palpitations Gastrointestinal: abdominal pain; No hematemesis; heartburn; No jaundice; nausea, vomiting Genitourinary: No dysuria, No frequency, No hematuria Musculoskeletal: joint pain, joint swelling, muscle pain Skin: No change in color, No change in hair/nails Psychiatric/Neurological: Denies Anxiety; Depressed; Denies Seizure, Denies Tremors Other pt denies any abnormal bleeding or bruising Physical Exam-General Problems Physical Exam Vital Signs Vital Signs - First Documented 04/19/19 07:16 Temp 96.8 Pulse 63 Resp 16 B/P (MAP) 161/98 (119) Pulse Ox 100 O2 Delivery Room Air Capillary Refill : Less Than 3 Seconds General Appearance: WD/WN, mild distress Eyes: Bilateral Eye PERRL, Bilateral Eye EOMI HEENT: pharynx normal; No scleral icterus (R), No scleral icterus (L), No pale conjunctivae (R), No pale conjunctivae (L) Neck: supple, normal inspection Respiratory: chest non-tender, lungs clear, normal breath sounds, no respiratory distress, no accessory muscle use Cardiovascular: regular rate, rhythm, no murmur Gastrointestinal: normal bowel sounds, soft, no organomegaly, no pulsatile mass, tenderness (RUQ and epigastric) Back: no CVA tenderness, no vertebral tenderness Extremities: normal range of motion, non-tender, normal inspection, no pedal edema, no calf tenderness Neurologic/Psychiatric: internet programmer II-XII nml as tested, no motor/sensory deficits, alert, normal mood/affect, oriented x 3 Skin: normal color, warm/dry Lymphatic: no adenopathy (neck, axilla or groin) Data Review Labs Laboratory Tests 04/19/19 07:25: White Blood Count 6.0, Red Blood Count 4.34L, Hemoglobin 13.0, Hematocrit 38, Mean Corpuscular Volume 87, Mean Corpuscular Hemoglobin 30, Mean Corpuscular Hemoglobin Concent 34, Red Cell Distribution Width 13.2, Platelet Count 189, Mean Platelet Volume 11.1H, Neutrophils (%) (Auto) 76H, Lymphocytes (%) (Auto) 15, Monocytes (%) (Auto) 8, Eosinophils (%) (Auto) 1, Basophils (%) (Auto) 0, Neutrophils # (Auto) 4.6, Lymphocytes # (Auto) 0.9L, Monocytes # (Auto) 0.5, Eosinophils # (Auto) 0.1, Basophils # (Auto) 0.0, Prothrombin Time 12.9, INR Comment 0.9, Activated Partial Thromboplast Time 31, Sodium Level 133L, Potassium Level 3.6, Chloride Level 100, Carbon Dioxide Level 22, Anion Gap 11, Blood Urea Nitrogen 8, Creatinine 0.78, Estimat Glomerular Filtration Rate > 60, BUN/Creatinine Ratio 10, Glucose Level 127H, Calcium Level 9.8, Corrected Calcium 9.6, Magnesium Level 2.4, Total Bilirubin 0.6, Aspartate Amino Transf (AST/SGOT) 13, Alanine Aminotransferase (ALT/SGPT) 17, Alkaline Phosphatase 69, Myoglobin 30.2, Troponin I < 0.028, Total Protein 7.2, Albumin 4.2, Lipase 33 Assessment/Plan Assessment/Plan Assessment/Plan RUQ and Epigastric pain vs. Chest pain GERD with Burning Gastritis Pt is currently getting nuclear medicine stress test to rule out cardiac problems. In December she had an US and HIDA scan done which were both basically normal. She has also had EGD and colonoscocpy which basically only showed mild gastritis and small hiatal hernia and most recently saw a specialist who did another EGD and EUS. Which pt's reports they didn't find anything. She has continued to have very bad burning and heartburn symptoms, but also has symptoms which could be gallbladder in nature. She is avoiding fried and fatty foods and milk. I had a long discussion with the pt regarding the possibility of Cholecystectomy. Basically I cannot guarantee that it will solve her problems, but everything else has also been worked up/done and nothing has helped. I told her she had maybe a 50-60% chance of it relieving her problems. She wants to think about it and we need to get results of Nuc Med stress test. She had no other questions at this time. Clinical Quality Measures AMI/AHF: ASA po Prior to arrival: No DVT/VTE Risk/Contraindication: Risk Factor Score Per Nursin RFS Level Per Nursing on Admit: 2=Moderate CORDELL SAHA DO April 19, 2019 14:54
--- NOTE | 2019-04-20 09:15 | STRESS TEST ---
DATE OF SERVICE: 04/19/2019 LEXISCAN MYOVIEW STRESS TEST REPORT REFERRING PHYSICIAN: INDICATION: Chest pain. FINDINGS: Baseline heart rate is 57. Baseline blood pressure 166/89. Baseline EKG sinus rhythm with no ischemic changes. In summary, the patient received 11.0 mCi of technetium-99 Myoview and the resting images were obtained. Then, the patient received 0.4 mg of Lexiscan followed by 31.3 mCi of technetium-99 Myoview. Throughout the test, there were no EKG changes. The resting and stress images were reviewed and compared in the short axis, horizontal long axis, and vertical long axis views. Review of the images showed increased gastric uptake affecting the quality of the images. There is no significant ischemia or infarction. SSS is 5, SDS 1, TID value 1.07. On the gated images, the left ventricle appeared to be normal size with normal contractility. Calculated ejection fraction 68%. CONCLUSION: 1. The patient tolerated Lexiscan well. 2. Increased gastric uptake affecting the quality of the images with no significant ischemia or infarction. 3. Normal left ventricular size with normal contractility. Calculated ejection fraction 68%. Job ID: [id number] DocumentID: [id number] Dictated Date: 04/20/2019 08:36:06 Taproom Attendant Date: 04/20/2019 09:14:38 Dictated By: DARRIAN URIOSTEGUI MD
== END 2019-04-19 17:58 | disposition home or self-care (01) ==
LOC: ER 07:16 → ICU 08:55 → UNDOADMOB 08:55 → ICU 09:30 → UNDODISOB 18:17
PROVIDERS: ADMIT Internal Medicine; ATTEND Internal Medicine
DX: R07.9 Chest pain, unspecified (principal); K29.50 Unspecified chronic gastritis without bleeding; K21.9 Gastro-esophageal reflux disease without esophagitis; K44.9 Diaphragmatic hernia without obstruction or gangrene; I25.10 Atherosclerotic heart disease of native coronary artery without angina pectoris; I10 Essential (primary) hypertension; E78.00 Pure hypercholesterolemia, unspecified; F32.9 Major depressive disorder, single episode, unspecified; R00.1 Bradycardia, unspecified; R55 Syncope and collapse; I95.2 Hypotension due to drugs; T46.3X5A Adverse effect of coronary vasodilators, initial encounter; Z79.899 Other long term (current) drug therapy; Z87.891 Personal history of nicotine dependence
CPT/HCPCS: 36415; 71045; 78452; 80053; 83690; 83735; 83874; 84484; 85025; 85610; 85730; 93005; 93017; 96360

== ENCOUNTER → 2019-04-30 | Outpatient (CLI) | payer OTHER ==
[~2019-04-30] MED LIST changes: +CALC-676 PO; +GARL10002 PO; +METO-370 PO; +NF-ESOM40C PO; +POLY17PO6 PO; +PROC5TAB9 PO
[2019-04-30] MEDS: BARIUM SUSPENSION 105% (LIQUID POLIBAR PLUS) 240 ML/DOSE PO ONE (11:55)
[2019-04-30] MEDS: BARIUM SUSPENSION 60% (LIQUID EZ PAQUE) 240 ML DOSE PO ONE (11:55)
--- NOTE | 2019-04-30 18:10 | Diagnostic Imaging Report ---
INDICATION: Esophageal dysmotility. TECHNIQUE: The patient ingested effervescent crystals as well as thin and thick barium and imaging of the esophagus was performed. A total of 1 minute and 9 seconds of fluoroscopy was utilized. FINDINGS: Preliminary radiograph over the chest is unremarkable. Esophagus has a fairly smooth contour. No mass or stricture is identified. No gastroesophageal reflux was demonstrated. There is a very small sliding-type hiatal hernia. Overall esophageal motility appears to be unremarkable. Images of the stomach are unremarkable. IMPRESSION: Essentially unremarkable esophagram. Dictated by: Dictated on workstation # [id number]
== END ==
LOC: RAD 10:27
PROVIDERS: ATTEND Surgery
DX: K21.9 Gastro-esophageal reflux disease without esophagitis (principal); K22.4 Dyskinesia of esophagus
CPT/HCPCS: 74220

== ENCOUNTER 2019-05-12 05:35 | Outpatient (CLI) | payer OTHER ==
[~2019-05-12] VITALS: Ht 175.3 cm; Wt 68.0 kg
[2019-05-12] MEDS ORDERED: PANT40TA3 PO (09:40)
[2019-05-12] MEDS ORDERED: HYDR50TA76 PO (09:40)
[2019-05-12] MEDS ORDERED: RANI75TA21 PO (09:40)
== END 2019-05-12 10:03 | disposition home or self-care (01) ==
LOC: PREOP 05:35
PROVIDERS: ATTEND Surgery
DX: Z01.818 Encounter for other preprocedural examination (principal)

== ENCOUNTER 2019-05-14 06:57 | Day surgery (SDC) | payer OTHER ==
[~2019-05-14] VITALS: Ht 175.3 cm; Wt 68.0 kg
[2019-05-14] VITALS (11 sets, daily range): BP systolic 135–159; BP diastolic 67–93
[~2019-05-14 06:57] MED LIST changes: +HYDR50TA76 PO; +PANT40TA3 PO; +RANI75TA21 PO
[2019-05-14] MEDS ORDERED: IOPAMIDOL 61% 30 ML (ISOVUE 300) VIAL IV ONE (07:28)
[2019-05-14] MEDS ORDERED: BUP/EPI 0.5% 1:200,000 (SENSORCAINE) 30 ML VIAL ONE (07:28)
[2019-05-14] MEDS ORDERED: LIDOCAINE 1% INJ 20 ML 20 ML VIAL ONE (07:28)
[2019-05-14] MEDS ORDERED: SEVOFLURANE (ULTANE) 15 ML INHAL SOLN ONE (07:30)
[2019-05-14] MEDS ORDERED: DEXAMETHASONE 10 MG/ML (DECADRON) 1 ML VIAL ONE (07:30)
[2019-05-14] MEDS ORDERED: LIDOCAINE PF 2% 5 ML (XYLOCAINE) VIAL ONE (07:30)
[2019-05-14] MEDS ORDERED: ceFAZolin INJECTION 1,000 MG in WATER (STERILE) FOR INJECTION 10 ML IV ONE (07:30)
[2019-05-14] MEDS ORDERED: ONDANSETRON 4 MG/2 ML (SDV) Z0FRAN ONE ×2 (07:30→09:53)
[2019-05-14] MEDS ORDERED: NEOSTIGMINE 1 MG/ML 5 ML SYRINGE ONE (07:30)
[2019-05-14] MEDS ORDERED: ROCURONIUM 10 MG/ML 5 ML SYRINGE IV ONE (07:30)
[2019-05-14] MEDS ORDERED: proPOfol 200 MG/20 ML (DIPRIVAN) VIAL IV ONE (07:30)
[2019-05-14] MEDS ORDERED: GLYCOPYRROLATE 0.2 MG/ML (ROBINUL) 2 ML VIAL ONE (07:30)
[2019-05-14] MEDS ORDERED: MIDAZOLAM 2 MG/2 ML (VERSED) VIAL ONE ×2 (07:31→07:33)
[2019-05-14] MEDS ORDERED: fentaNYL INJECTION 100 MCG/2 ML AMP ONE (07:31)
[2019-05-14] MEDS: LACTATED RINGERS 1,000 ML IV PRN ×2 (07:35→09:00)
[2019-05-14] MEDS ORDERED: MIDAZOLAM 2 MG/2 ML (VERSED) VIAL IV ONE (07:45)
--- NOTE | 2019-05-14 08:29 | Progress Note-Pre Operative ---
Pre-Operative Progress Note H&P Reviewed The H&P was reviewed, patient examined and no changes noted. Time Seen by Provider: 08:22 Date H&P Reviewed: May 14, 2019 Time H&P Reviewed: 08:23 Pre-Operative Diagnosis: RUQ pain, possible cholecystitis CORDELL SAAH DO May 14, 2019 08:29
--- NOTE | 2019-05-14 09:33 | Progress Note-Post Operative ---
Post-Operative Progess Note Surgeon (s)/Lead Applications Developer (s) Surgeon CORDELL SAHA DO Lead Applications Developer: Lashaun Pre-Operative Diagnosis RUQ pain, possible cholecystitis Post-Operative Diagnosis Same plus Indirect RIH Adhesion to mesh Procedure & Operative Findings Date of Procedure 05/14/19 Procedure Performed/Findings Lap Valery with IOC Anesthesia Type GET Estimated Blood Loss Estimated blood loss (mL): Scant Specimens/Packing Specimens Removed GB and contents CORDELL SAHA DO May 14, 2019 09:32
[2019-05-14] MEDS ORDERED: ACHD5005 PO (09:34)
--- NOTE | 2019-05-14 09:35 | Discharge Inst-Surgical ---
Discharge Inst-Surgical Depart Medication/Instructions New, Converted or Re-Newed RX: RX Given to Pt/Family Patient Instructions Follow up Appt: Make appointment for 1 week. [phone] Instructions: No lifting greater than 20 pounds. No strenuous activity. May shower in 24 hours, no tub bath or soaking. Use incentive spirometer at home as directed. No Smoking Skin/Wound Care: May remove bandages in am. You need to leave the Dermabond on incision it will fall off on it's own. Symptoms to Report: Appetite Changes, Extremity Discoloration, Numbness/Tingling, Swelling Increased, Bleeding Excessive, Eyesight Changes, Pain Increased, Urine Color Change, Constipation(Persistent), Fever over 101 degree F, Pain/Pressure in chest, Urinating Difficulty, Cough Up/Vomit Blood, Heart Beat Irreg/Pounding, Pain/Pressure in jaw, Cramps in feet or legs, Lightheadedness, Pain/Pressure in shoulder, Diarrhea(Persistent), Memory Changes Suddenly, Questions/Concerns, Weight gain consecutive days, Dizziness/Fainting, Nausea/Vomiting, Shortness of Breath, Weight gain over 2 pounds If questions or concerns contact your physician Or seek help at emergency department. Activity Activity as Tolerated: Yes Activity Instructions: Avoid Pulling & Pushing Driving Instructions: No Driving/Refer to Diet Discharge Diet: Avoid Fatty Foods, Low Fat/Low Cholesterol Diet After 24 Hours: Clear Liquid if Nauseous If Any Problems/Questions/Issu: Contact Your Physician, Go to Emergency Room Skin/Wound Care Infection Signs and Symptoms: Increased Redness, Foul Odor of Wound, Increased Drainage, Skin Itchy or Has a Rash, Increased Swelling, Temperature Above 101 F Wound Care Comment: heating pad to shoulder or neck tonight for pain Bathing Instructions: Shower Stitches/[place]/Dermabond Dis: Dermabond Ice Pack: Ice On and Off Site (as needed for pain at incision site) CORDELL SAHA DO May 14, 2019 09:35
[2019-05-14] MEDS ORDERED: KETOROLAC 30 MG/ML VIAL ONE (09:49)
[2019-05-14] MEDS ORDERED: MEPERIDINE (DEMEROL) INJ 50 MG/ML IVP ONE (10:00)
[2019-05-14] MEDS ORDERED: fentaNYL INJECTION 100 MCG/2 ML AMP IVP ONE (10:00)
[2019-05-14] MEDS ORDERED: PROMETHAZINE INJ 25 MG/ML (PHENERGAN) AMP IVP ONE (10:00)
[2019-05-14] MEDS ORDERED: KETOROLAC 30 MG/ML VIAL IVP ONE (10:00)
[2019-05-14] MEDS ORDERED: ONDANSETRON 4 MG/2 ML (SDV) Z0FRAN IVP PRN (10:00)
--- NOTE | 2019-05-14 12:15 | Diagnostic Imaging Report ---
EXAMINATION: Fluoroscopy. INDICATION: Abdominal pain. TECHNIQUE: Fluoroscopic assistance was provided for Dr. Hidalgo during his operative cholangiogram. 25 seconds of fluoroscopy time was visualized. 79 images of the abdomen were obtained. FINDINGS: There are laparoscopic devices in place. The common bile duct has been opacified via a cystic duct catheter. There does appear to be a defect in the common hepatic duct. The distal common bile duct is slightly dilated, but there is contrast extending into the small bowel. IMPRESSION: Fluoroscopic assistance was provided for Dr. Hidalgo. Dictated by: Dictated on workstation # [id number]
--- NOTE | 2019-05-14 14:38 | Anesthesia-General Post-Op ---
General Patient Condition Mental Status/LOC: Same as Preop Cardiovascular: Satisfactory Nausea/Vomiting: Absent Respiratory: Satisfactory Pain: Controlled Complications: Absent Post Op Complications Complications None Follow Up Care/Instructions Patient Instructions None needed. Anesthesia/Patient Condition Patient Condition Patient was seen this morning after the procedure and she was doing well, no complaints, stable vital signs, no apparent adverse anesthesia problems. GABRIEL PAUL DO May 14, 2019 14:38
--- NOTE | 2019-05-14 15:31 | OPERATIVE REPORT ---
DATE OF SERVICE: 05/14/2019 PREOPERATIVE DIAGNOSIS: Right upper quadrant pain, possible cholecystitis. POSTOPERATIVE DIAGNOSES: 1. Right upper quadrant pain, possible cholecystitis. 2. Indirect right inguinal hernia. 3. Adhesions. PROCEDURES PERFORMED: Laparoscopic cholecystectomy, intraoperative cholangiogram. SURGEON: Blake Hidalgo DO. SUGAR CANE PLANTING EQUIPMENT OPERATOR: Ranjeet Wilks DO. ANESTHESIA: General endotracheal tube. SPECIMEN: Gallbladder and contents. BLOOD LOSS: Scant. FLUIDS: Per Anesthesia. POSTOPERATIVE CONDITION: Stable. INDICATION FOR PROCEDURE: The patient is a 64-year-old female with continued right upper quadrant pain with signs similar to a cholecystitis, pain with fatty foods, always in the right upper quadrant, had a full workup. EGD did not show anything and also ultrasound and HIDA scan, which also unfortunately did not show anything, but this reading was ruled out and gallbladder had not been able to rule out completely without removing it. FINDINGS: The patient actually had a lot of adhesions to the gallbladder, it is usually indicative of previous gallbladder attacks. There was some little bit of edema around it as well. Noted a right inguinal hernia in the pelvis and then adhesions right in the midline and these were attached to a piece of hernia mesh. PROCEDURE NOTE: After informed consent was obtained, the patient was brought to the operating room, placed on the table in supine position. She was sterilely prepped and draped in normal fashion. Local lidocaine was used at the skin below the umbilicus, made an incision with #11 blade, carried down through skin and subcutaneous tissue, deepened down to subcutaneous tissue with Bovie electrocautery and the fascia. Fascia was incised with Bovie electrocautery and then bluntly entered into the abdomen, swept a finger around, placed #0 Vicryl [id number] suture and placed 11 mm trocar port under direct visualization to pneumoperitoneum and then placed 2 more ports in normal fashion using local lidocaine, 11-blade for stab incision and Versed system, all done under direct visualization, one in the subxiphoid and 2 in the right upper quadrant. The patient was then placed in reverse Trendelenburg and rotated slightly left. I was able to visualize the gallbladder, it looked like there were adhesions and then there was a large adhesion holding omentum up to the peritoneal wall, took a picture of this, looked down the pelvis. There was one small indirect inguinal hernia noted on the left. At this point then able to grasp the gallbladder at the fundus and noted a lot of adhesions, took pictures and started taking down carefully with Bovie electrocautery. Once these were completely removed, I then able to grasp down to Ely pouch and pulled in the inferolateral direction, started dissecting out cystic duct and cystic artery. The cystic artery actually come across a little bit higher, so came across this and placed 2 clips proximally and 1 distally and cut with Metzenbaum scissors. By pulling the Ely pouch, it was dissected out cystic duct. Noted the cystic artery again, so put another 2 clips proximally get around the cystic duct, placed 1 clip distally, cut alf through Metzenbaum scissors, shot a cholangiogram. Good spillage of dye down the common bile duct into the small intestine as well as up into common hepatic, but even laying flat, unable to get the dye to go all the up into the right and left hepatics. At this point, removed the cholangiogram catheter, placed 2 clips proximally on the cystic duct and cut the cystic duct and the cystic artery with Metzenbaum scissors and then again removed the gallbladder from the bed of the liver with L-hook cautery. Once it was completely removed, placed a bag in the abdomen, then placed the gallbladder in the bag and then removed this through infraumbilical incision. Placed the port back in the abdomen. Hemostasis was obtained at the bed of liver with L-hook cautery. Copiously irrigated and suctioned this out and then elected to take down the adhesions in the midline with Bovie electrocautery, carefully taking this down and we found a piece of hernia mesh in the upper abdomen, elected to leave this alone. I took pictures after the mesh was down, took picture of clips. Everything looked good. No bleeding. At this point, then placed the patient supine, removed all ports under direct visualization, allowed pneumoperitoneum to escape as well as suctioned out. I closed the infraumbilical incision with #0 Vicryl suture which was previously placed and copiously irrigated all incisions with normal saline and closed the 3 small 5 mm incisions with interrupted 4-0 undyed Monocryl subcuticular stitch. I closed the infraumbilical incision with 3 interrupted 4-0 undyed Monocryl subcuticular stitches. Area was cleaned and dried and Dermabond placed as well as bandage. The patient was still in the room. She is doing well. Sponge, instrument and needle count correct at the end of the case. She will be transferred to recovery room. Dr. Wilks assisted by making incisions, closing incisons, helping to identify anatomy and hold anatomy out of the way. Job ID: [id number] DocumentID: [id number] Dictated Date: 05/14/2019 09:41:00 Ice Puller Date: 05/14/2019 14:39:43 Dictated By: DO AMIE MARTINEZ
== END 2019-05-14 12:15 | disposition home or self-care (01) ==
LOC: SDC 06:57
PROVIDERS: ATTEND Surgery
DX: K81.1 Chronic cholecystitis (principal); K40.90 Unilateral inguinal hernia, without obstruction or gangrene, not specified as recurrent; K21.9 Gastro-esophageal reflux disease without esophagitis; K44.9 Diaphragmatic hernia without obstruction or gangrene; I10 Essential (primary) hypertension; I25.10 Atherosclerotic heart disease of native coronary artery without angina pectoris; E78.2 Mixed hyperlipidemia; G57.93 Unspecified mononeuropathy of bilateral lower limbs; F32.9 Major depressive disorder, single episode, unspecified; F41.9 Anxiety disorder, unspecified; Z87.891 Personal history of nicotine dependence; Z79.899 Other long term (current) drug therapy; Z85.41 Personal history of malignant neoplasm of cervix uteri; Z90.710 Acquired absence of both cervix and uterus
CPT/HCPCS: 87081; 94664

== ENCOUNTER → 2019-07-27 | Outpatient (CLI) | payer OTHER ==
[~2019-07-27] MED LIST changes: +ACHD5005 PO; +CATHETER FLUSH 10 ML SYR IV PRN; +HOLD METFORMIN - RECEIVED CONTRAST 20 ML VIAL IV SCH; +IOHEXOL 350 MG/ML 100 ML (OMNIPAQUE 350) VIAL IV ONE; +NS 100 ML (IVPB) BAG IV ONE; +RANI-324 PO; -RANI75TA21 PO
--- NOTE | 2019-07-27 12:22 | Diagnostic Imaging Report ---
PROCEDURE: CT abdomen and pelvis with contrast. TECHNIQUE: Multiple contiguous axial images were obtained through the abdomen and pelvis after administration of intravenous contrast. Auto Exposure Controls were utilized during the CT exam to meet ALARA standards for radiation dose reduction. INDICATION: Abdominal pain. FINDINGS: Comparison is 12/25/2018. There is a 12 mm left lower lobe pulmonary nodule, new from prior exam. Liver is normal. No focal liver lesions are seen. Segment 4-A cyst is unchanged. Gallbladder is absent. No biliary ductal dilation. Portal vein is patent. Pancreas, spleen and adrenal glands are normal. There are small bilateral fat-containing Bochdalek hernias. Kidneys are normal without focal lesion or hydronephrosis. Urinary bladder is normal. No pelvic masses seen. No dilated loops of large or small bowel. No bowel obstruction or inflammation. The appendix is normal. No free fluid or air. No abdominal or pelvic lymphadenopathy. Abdominal aorta is normal in caliber. There are no suspicious osseous lesions. IMPRESSION: 1. No acute abnormality in the abdomen or pelvis. 2. New 12 mm left lower lobe pulmonary nodule. A three-month followup exam is recommended. Dictated by: Dictated on workstation # [id number]
== END ==
LOC: RAD 09:28
PROVIDERS: ATTEND Nurse Practitioner Family
DX: R91.1 Solitary pulmonary nodule (principal); R10.11 Right upper quadrant pain; R10.32 Left lower quadrant pain
CPT/HCPCS: 74177

== ENCOUNTER → 2019-08-16 | Outpatient (CLI) | payer OTHER ==
[~2019-08-16] MED LIST changes: -CATHETER FLUSH 10 ML SYR IV PRN
--- NOTE | 2019-08-16 17:06 | Diagnostic Imaging Report ---
PROCEDURE: CT chest and abdomen with and without contrast TECHNIQUE: Multiple axial CT images through the thorax and abdomen were obtained with and without intravenous contrast. Auto Exposure Controls were utilized during the CT exam to meet ALARA standards for radiation dose reduction. INDICATION: Abdominal pain, prior hernia repair with mesh. Pulmonary nodule. COMPARISON: CT abdomen and pelvis of 07/27/2019. CT chest of 04/15/2013. FINDINGS: CT CHEST: No endoluminal nodule within the trachea. No pulmonary mass or consolidation. The previously noted left lower lobe pulmonary nodule has become less well-defined on its margins and now measures approximately 10 mm (previously 12 mm). No additional pulmonary nodule. Thyroid is normal. No supraclavicular or axillary lymphadenopathy. No mediastinal, hilar or juxtaphrenic lymphadenopathy. Heart is normal in size without pericardial effusion. No pleural effusion or pneumothorax. No concerning focal osseous lesion. CT ABDOMEN: No abdominal hernia. Mild diastases of the upper rectus is unchanged. The liver, spleen and pancreas show no abnormality. No adrenal mass. No obstructive uropathy. No solid renal mass. No dilated loops of bowel to indicate bowel obstruction. No abdominal lymphadenopathy. IMPRESSION: CHEST: 1. Left lower lobe pulmonary nodule has decreased in size and has less circumscribed margins. These features suggest a resolving infectious/inflammatory nodule. Followup CT chest without contrast in 6-12 months is advised to ensure resolution. ABDOMEN: 1. No recurrent abdominal hernia or acute process. Dictated by: Dictated on workstation # [id number]
== END ==
LOC: RAD 16:08
PROVIDERS: ATTEND Family Medicine
DX: R91.1 Solitary pulmonary nodule (principal)
CPT/HCPCS: 71270; 74170

== ENCOUNTER → 2020-03-03 | Outpatient (CLI) | payer SELFPAY ==
[~2020-03-03] MED LIST changes: -HOLD METFORMIN - RECEIVED CONTRAST 20 ML VIAL IV SCH; -IOHEXOL 350 MG/ML 100 ML (OMNIPAQUE 350) VIAL IV ONE; -METO-370 PO; -METO-387 PO; +METO50TA7 PO; -NS 100 ML (IVPB) BAG IV ONE
[2020-03-03 11:44] LABS: BUN/CREATININE RATIO 10; GFR ESTIMATED > 60
--- NOTE | 2020-03-03 12:05 | Diagnostic Imaging Report ---
PROCEDURE: CT chest without contrast. TECHNIQUE: Multiple contiguous axial images were obtained through the chest without the use of intravenous contrast. Auto Exposure Controls were utilized during the CT exam to meet ALARA standards for radiation dose reduction. INDICATION: Follow-up of pulmonary nodule. COMPARISON: Multiple priors, most recent performed on 08/16/2019. FINDINGS: Absence of intravenous contrast decreases sensitivity for detection of lymphadenopathy and vascular pathology. TRACHEA AND MAIN BRONCHI: Patent without evidence of tracheal or endobronchial lesion. LUNGS AND PLEURA: Interval resolution of the previously demonstrated left lower lobe pulmonary nodule. Incidental note is made of a small cyst measuring approximately 13 mm in the region of the prior nodular density, which may be related to prior infection/scarring. No new suspicious nodule, focal consolidation, or pulmonary mass is demonstrated. No pleural effusion or pneumothorax. MEDIASTINUM AND CAITIE: Visualized thyroid gland is normal. No mediastinal or hilar lymphadenopathy. Esophagus is nondistended. HEART AND VESSELS: Heart is normal in size. No pericardial effusion. There is aneurysmal dilatation of the ascending aorta, which measures up to approximately 4.4 cm in greatest AP diameter. DIAPHRAGM AND UPPER ABDOMEN: Unchanged Bochdalek hernia on the left. The patient is status post cholecystectomy. Peripheral calcification in the splenic hilum is compatible with splenic artery aneurysm, stable in appearance on multiple prior exams. Stable low-attenuation focus in the superior right hepatic dome anteriorly, unchanged dating back to 2012 and likely reflecting a cyst. CHEST WALL: Unremarkable. BONES: Multilevel degenerative changes involve the spine. No acute osseous abnormality. IMPRESSION: Resolution of previously demonstrated left lower lobe nodule, which was likely infectious/inflammatory. No new nodule or acute finding is demonstrated in the chest. Chronic and incidental findings are detailed above. There is aneurysmal dilatation of the ascending aorta, which measures up to 4.4 cm in AP diameter. Dictated by: Dictated on workstation # [id number]
== END ==
LOC: RAD 11:06
PROVIDERS: ATTEND Family Medicine
DX: R91.1 Solitary pulmonary nodule (principal); I71.2 Thoracic aortic aneurysm, without rupture
CPT/HCPCS: 36415; 71250; 82565; 84520

== ENCOUNTER → 2021-03-30 | Outpatient (CLI) | payer SELFPAY ==
[~2021-03-30] MED LIST changes: +CATHETER FLUSH 10 ML SYR IV PRN; +HOLD METFORMIN - RECEIVED CONTRAST 20 ML VIAL IV SCH; +IOHEXOL 350 MG/ML 100 ML (OMNIPAQUE 350) VIAL IV ONE; +NS 100 ML (IVPB) BAG IV ONE; -PANT40TA3 PO; +PANT40TA52 PO
[2021-03-30 11:48] LABS: BUN/CREATININE RATIO 11; CREATININE SERUM 0.82 MG/DL (0.60-1.30); GFR ESTIMATED > 60
--- NOTE | 2021-03-30 15:33 | Diagnostic Imaging Report ---
EXAMINATION: CT angiography of the chest. TECHNIQUE: Contrast enhanced thin section helical images were obtained through the chest with intravenous contrast timed for the optimal opacification of the arterial structures per CTA protocol. Post-processing, reconstructions and interpretation of angiographic images of the vessels was performed. 3D MIP reconstructions were performed and reviewed. All CT scans use one or more of the following dose optimizing techniques: automated exposure control, MA and/or KvP adjustment based on a patient size and exam type, or iterative reconstruction. HISTORY: ASCENDING AORTIC ANEURYSM COMPARISON: CT chest 03/03/2020 FINDINGS: Vascular: Stable aneurysmal dilatation of the ascending thoracic aorta measuring up to 4.3 cm. The descending thoracic aorta is normal in caliber. No dissection or stenosis. Thyroid: The thyroid is normal. Mediastinum: Heart size is normal without significant pericardial effusion. No suspicious lymphadenopathy. Lungs and airways: The lungs are clear without consolidation, pleural effusion, or pneumothorax. There are small bilateral posterior fat-containing diaphragmatic hernias. Atelectasis within the lung bases. The airways are normal. Upper abdomen: The gallbladder is surgically absent. Musculoskeletal: Degenerative changes of the spine without suspicious osseous lesion or compression fracture. IMPRESSION: 1. Stable aneurysmal dilatation of the ascending thoracic aorta measuring up to 4.3 cm. 2. No other acute abnormality in the chest. Dictated by: Dictated on workstation # [id number]
== END ==
LOC: RAD 11:15
PROVIDERS: ATTEND Nurse Practitioner Family
DX: I71.2 Thoracic aortic aneurysm, without rupture (principal)
CPT/HCPCS: 36415; 71275; 82565; 84520

== ENCOUNTER → 2021-04-23 | Outpatient (CLI) | payer OTHER ==
[~2021-04-23] MED LIST changes: -CATHETER FLUSH 10 ML SYR IV PRN; -HOLD METFORMIN - RECEIVED CONTRAST 20 ML VIAL IV SCH; -IOHEXOL 350 MG/ML 100 ML (OMNIPAQUE 350) VIAL IV ONE; -NS 100 ML (IVPB) BAG IV ONE
--- NOTE | 2021-04-23 11:29 | Diagnostic Imaging Report ---
INDICATION: Routine screening. Comparison is made with prior mammogram 04/17/2011. 2-D and 3-D bilateral screening mammography was performed with CAD. Both breasts are heterogeneously dense, limiting the sensitivity of mammography. There are benign calcifications in both breasts. No spiculated mass or malignant appearing microcalcifications are seen. Axillae are unremarkable. IMPRESSION: BI-RADS Category 2 No mammographic features suspicious for malignancy are identified. ACR BI-RADS Category 2: Benign findings. Result letter will be mailed to the patient. Note: At least 10% of breast cancer is not imaged by mammography. Dictated by: Dictated on workstation # [id number]
== END ==
LOC: RAD 09:52
PROVIDERS: ATTEND Nurse Practitioner
DX: Z12.31 Encounter for screening mammogram for malignant neoplasm of breast (principal)
CPT/HCPCS: 77063; 77067

== ENCOUNTER → 2022-01-23 | Outpatient (CLI) | payer OTHER ==
[~2022-01-23] VITALS: Ht 175 cm; Wt 75.0 kg
[~2022-01-23] MED LIST changes: +CATHETER FLUSH 10 ML SYR IV PRN; +REGADENOSON 0.4 MG/5 ML SYR (LEXISCAN) IV ONE
[2022-01-23 11:17] VITALS: BP 140/78
--- NOTE | 2022-01-23 11:17 | Cardiology Stress Test Report ---
Stress Test Report Date of Procedure/Referring: Date of Procedure: Jan 23, 2022 Janet Warner Admitting Physician Alla Veras MD Indications: CAD Baseline Heart Rate: 60 Baseline Blood Pressure: Blood Pressure Systolic: 140 Blood Pressure Diastolic: 78 Baseline Vitals NSR Baseline EKG: Baseline EKG: NSR Summary After explaining the procedure to the patient, she signed a consent and then brought to the stress nuclear laboratory. Patient received 0.4 mg Lexiscan for stress test, ECG, heart rate and blood pressure were monitored continuously. Resting and stress dose of radio tracer were injected, imaging was acquired and reviewed in short axis, horizontal long axis and vertical long axis views. TID: 0.96 SSS: 9 SDS: 4 EF: 76 1. Patient tolerated Lexiscan well. Was unable to exercise on treadmill. 2. Mild decrease uptake involving the inferior wall and inferoseptum with mild reversibility 3. Normal left ventricular size, EF 76% DARRIAN URIOSTEGUI MD Jan 23, 2022 11:17
== END ==
LOC: CARD 08:30
PROVIDERS: ATTEND Physician Assistant
DX: I25.10 Atherosclerotic heart disease of native coronary artery without angina pectoris (principal)
CPT/HCPCS: 78452; 93017; A9502

== ENCOUNTER 2022-01-30 12:09 | Day surgery (SDC) | payer OTHER ==
[2022-01-30] VITALS (9 sets, daily range): BP systolic 120–161; BP diastolic 75–87
[~2022-01-30] VITALS: Ht 175.3 cm; Wt 77.1 kg
[~2022-01-30 12:09] MED LIST changes: -CATHETER FLUSH 10 ML SYR IV PRN; -REGADENOSON 0.4 MG/5 ML SYR (LEXISCAN) IV ONE
[2022-01-30] MEDS ORDERED: HEParin (CATH LAB) 2,000 ML IV ONE (12:23)
[2022-01-30] MEDS ORDERED: NS IV 1000 ML 1,000 ML ONE (12:23)
[2022-01-30] MEDS ORDERED: LIDOCAINE 1% INJ 50 ML (XYLOCAINE) VIAL ONE (12:23)
[2022-01-30] MEDS ORDERED: NS IV 1000 ML 1,000 ML IV SCH ×2 (12:30→14:15)
--- NOTE | 2022-01-30 12:52 | Diagnostic Imaging Report ---
INDICATION: Chest pain. TIME OF EXAM: 12:51 p.m. COMPARISON: Correlation is made with prior chest 04/19/2019. FINDINGS: The heart size is normal. The pulmonary vascularity is unremarkable. The lungs are clear. No infiltrate, effusion or pneumothorax is detected. IMPRESSION: No acute cardiopulmonary process is detected. Dictated by: Dictated on workstation # [id number]
[2022-01-30 12:53] LABS: BILIRUBIN,URINE NEGATIVE (NEGATIVE); CLARITY,URINE CLEAR; COLOR,URINE RED; GLUCOSE, URINE (UA) NEGATIVE (NEGATIVE); KETONES,URINE NEGATIVE (NEGATIVE); LEUKOCYTE ESTERASE ,URINE TRACE (NEGATIVE); NITRITE,URINE POSITIVE (NEGATIVE); PH,URINE 5.5 (5-9); PROTEIN,URINE NEGATIVE (NEGATIVE)
[2022-01-30 12:53] LABS: HEMATOCRIT 38 % (35-52); HEMOGLOBIN 12.5 g/dL (11.5-16.0); MEAN CORPUSCULAR HEMOGLOBIN 30 pg (25-34); MEAN CORPUSCULAR HGB CONC 33 g/dL (32-36); MEAN CORPUSCULAR VOLUME 90 fL (80-99); MEAN PLATELET VOLUME 11.3 fL (9.0-12.2); PLATELET COUNT 155 10^3/uL (130-400); WHITE BLOOD COUNT 5.2 10^3/uL (4.3-11.0)
[2022-01-30 13:03] LABS: AMORPHOUS SEDIMENT,UR RARE AMOR URATES /LPF; BACTERIA,URINE TRACE /HPF; WBC,URINE 0-2 /HPF
[2022-01-30 13:05] LABS: PROTHROMBIN TIME PATIENT 13.2 SEC (12.2-14.7)
[2022-01-30 13:13] LABS: ALBUMIN 4.2 GM/DL (3.2-4.5); BILIRUBIN,TOTAL 0.6 MG/DL (0.1-1.0); CALCIUM 9.2 MG/DL (8.5-10.1); CREATININE SERUM 0.83 MG/DL (0.60-1.30)
[2022-01-30] MEDS ORDERED: ATOR40TA70 PO (13:13)
[2022-01-30] MEDS ORDERED: LOSA25TA41 PO (13:13)
[2022-01-30] MEDS ORDERED: OMG1KC PO (13:13)
[2022-01-30] MEDS ORDERED: NAPR-1088 PO (13:13)
[2022-01-30] MEDS ORDERED: PANT40TA52 PO (13:13)
[2022-01-30] MEDS ORDERED: CHOL10004 PO (13:13)
[2022-01-30] MEDS ORDERED: DULO60CA59 PO (13:13)
[2022-01-30] MEDS ORDERED: MTP25TSR PO (13:13)
[2022-01-30] MEDS ORDERED: VIT1LOZE MM (13:13)
[2022-01-30] MEDS ORDERED: HEParin 1000 UNIT/ML (10ML VIAL) FOR BOLUS ONE (13:16)
[2022-01-30] MEDS ORDERED: fentaNYL INJ 100 MCG/2 ML AMP ONE (13:16)
[2022-01-30] MEDS ORDERED: NITRO DRIP 25000 MCG/D5W 250 ML IV ONE (13:16)
[2022-01-30] MEDS ORDERED: VERAPAMIL 5 MG/2 ML (CALAN) VIAL IV ONE (13:16)
[2022-01-30] MEDS ORDERED: MIDAZOLAM 5 MG/5 ML (VERSED) VIAL ONE (13:16)
--- NOTE | 2022-01-30 14:08 | Discharge Inst-Post CATH ---
Discharge Inst-CATH/EP Problems Reviewed?: Yes Post Cardiac Cath/EP D/C Inst Follow Up/Plan Appointment with Dr. Fuller's office in 2 to 4 weeks <b>CARDIAC CATH/EP PROCEDURE DISCHARGE INSTRUCTIONS</b> ACTIVITY * Go Home directly and rest. * Limit activity of the leg (or wrist if it was used) for 7 days including aer obics, swimming, jogging, bicycling, etc. * Restrict stair-climbing for 7 days if possible, if not, climb up with your non-cath leg, then bring together on the same step. * Avoid lifting, pushing, pulling or excessive movement of the affected extremi ty for 7 days. * Customary sexual activity may be resumed after 2 days-use caution not to use a position that strains or causes pain to the affected extremity. * No driving for 24 hours. * NO SMOKING. * Avoid straining for bowel movements for 7 days. * Gentle walking on level ground is allowed. * Returning to work will depend on the type of procedure and the results. Your doctor will discuss this with you. CALL YOUR DOCTOR FOR ANY OF THE FOLLOWING: *If bleeding from the puncture site occurs- Apply gentle pressure to site with clean cloth and call your doctor or EMS. * If a knot or lump forms under the skin, increases in size, or causes pain. * If bruising appears to be worsening or moving further down your leg instead of disappearing. * Temperature above 101 F. CARE OF YOUR GROIN INCISION; * Bruising or purple discoloration of the skin near the puncture site is common. * You may shower only, no bathtub bathing for 5 days. Be careful to avoid slipping as your leg may feel stiff. * If a closure device was used on your femoral artery, please see the attached guide regarding care of the device and your leg. * Leave dressing on FOR 24 hours. CARE OF YOUR WRIST INCISION; * Bruising or purple discoloration of the skin near the puncture site is common. * You may shower. * DO NOT submerge wrist. * Leave dressing on FOR 24 hours. DARRIAN FULLER MD Jan 30, 2022 14:08
--- NOTE | 2022-01-30 14:12 | Cardiac Cath Report ---
Cardiac Cath Report Physician (s)/Monogram And Letter Paster (s) Physician DARRIAN URIOSTEGUI MD Pre-Procedure Diagnosis Pre-Procedure Diagnosis: Coronary artery disease Post-Procedure Note Procedure Start Date: Jan 30, 2022 Name of Procedure: Left heart catheterization Aortic arch angiogram Findings/Procedure Note PROCEDURE NOTE: 66-year-old lady with history of thoracic aortic aneurysm, hypertension, had an abnormal stress test, scheduled for cardiac catheterization possible PTCA. After explaining the procedure to the patient, all pros and cons were explained, all questions were answered. The patient signed the consent and then she was placed on the cardiac catheterization laboratory. Groin was prepped SL fashion local anesthesia was used. Sheath placed in the right radial artery, [place] catheter was advanced to the left ventricular cavity, pressure was measured, pullback LV to aorta was done, engaged the right and left coronary system, angiogram was done, pulled back to the aortic arch and aortic arch angiogram was done. At the end of the procedure the sheath was removed. Closure device was used FINDINGS: Hemodynamics LV 109/14, end-diastolic pressure of 14 Aorta 102/60 mean of 76 ANATOMY: Left Main is free of obstructive disease Left Anterior Descending has mild disease at the midportion nonobstructive disease Left Circumflex has mild to moderate disease at the midportion nonobstructive disease Right Coronary Artery is dominant artery with mild disease nonobstructive disease LV Gram was not done, pressure was measured Aorta evaluation done with aortic arch angiogram showing prominent aortic arch, slight dilatation of the ascending aorta, normal origin of the brachiocephalic artery, left subclavian and left carotid arteries. CONCLUSION: 1. Mild to moderate coronary artery disease nonobstructive disease 2. Normal left ventricular end-diastolic pressure 3. Dilated aortic arch, ascending aorta. DISCUSSION AND RECOMMENDATION: Medical therapy is recommended no intervention is needed Anesthesia Type: Conscious Sedation Estimated blood loss (mL): 10 ml Contrast Amount: 41 ml Total Radiation Dose: 252 mGy Post-Procedure Diagnosis Post-operative diagnosis: Chest pain Coronary artery disease Thoracic aortic aneurysm Hypertension Hyperlipidemia DARRIAN URIOSTEGUI MD Jan 30, 2022 14:11
== END 2022-01-30 16:35 ==
LOC: CATH 12:09 → SDC 14:25 → CATH 16:35
PROVIDERS: ATTEND Internal Medicine Cardiovascular Disease
DX: I25.10 Atherosclerotic heart disease of native coronary artery without angina pectoris (principal); I71.2 Thoracic aortic aneurysm, without rupture; I10 Essential (primary) hypertension; K57.90 Diverticulosis of intestine, part unspecified, without perforation or abscess without bleeding; I65.23 Occlusion and stenosis of bilateral carotid arteries; R20.0 Anesthesia of skin; E78.2 Mixed hyperlipidemia; Z79.899 Other long term (current) drug therapy; Z87.891 Personal history of nicotine dependence; Z90.49 Acquired absence of other specified parts of digestive tract
CPT/HCPCS: 36221; 71045; 80053; 81000; 85027; 85610; 85730; 87081; 87088; 93458; C1894; 36415

== ENCOUNTER → 2022-08-19 | Outpatient (CLI) | payer MEDICARE, OTHER ==
[~2022-08-19] MED LIST changes: +CATHETER FLUSH 10 ML SYR IV PRN; +CHOL10004 PO; +DULO60CA59 PO; +HOLD METFORMIN - RECEIVED CONTRAST 20 ML VIAL IV SCH; +IOHEXOL 350 MG/ML 100 ML (OMNIPAQUE 350) VIAL IV ONE; +LOSA25TA41 PO; +NAPR-1088 PO; +NS 100 ML (IVPB) BAG IV ONE; +OMEP20TA56 PO; -OMEP20TA7 PO; +VIT1LOZE MM
[2022-08-19 10:09] LABS: ALBUMIN 4.2 GM/DL (3.2-4.5); BILIRUBIN,TOTAL 0.5 MG/DL (0.1-1.0); CALCIUM 9.7 MG/DL (8.5-10.1); CREATININE SERUM 0.89 MG/DL (0.60-1.30); POTASSIUM 4.3 MMOL/L (3.6-5.0); TOTAL PROTEIN 7.2 GM/DL (6.4-8.2)
--- NOTE | 2022-08-19 11:40 | Diagnostic Imaging Report ---
PROCEDURE: CT Angio Abdomen/Pelvis with. TECHNIQUE: Multiple contiguous axial images were obtained through the abdomen and pelvis after the uneventful bolus administration of intravenous contrast. Sagittal and coronal MIP reconstructions with then performed. All CT scans use one or more of the following dose optimizing techniques: automated exposure control, MA and/or KvP adjustment based on patient size and exam type or iterative reconstruction. INDICATION: Abdominal aortic aneurysm, followup. Correlation is made with prior CT from 08/16/2019. The lung bases are clear. The liver is unremarkable. Gallbladder surgically absent. There is no biliary ductal dilatation. Pancreas unremarkable. Splenic artery aneurysm appears similar to prior study. The spleen is unremarkable. No adrenal mass is detected. Kidneys are unremarkable. The abdominal aorta is normal, caliber. There is no aneurysm. No dissection is seen. Celiac, SMA and JRODAN are patent. Single renal arteries bilaterally are patent. The bowel loops are normal caliber. There is diverticulosis of the descending and sigmoid colon. There is no evidence of diverticulitis. No free fluid or fluid collection is seen. No inflammatory changes are identified. Partially filled bladder is unremarkable. IMPRESSION: 1. No evidence of abdominal aortic aneurysm or dissection. 2. Uncomplicated diverticulosis. Dictated by: Dictated on workstation # [id number]
== END ==
LOC: RAD 11:45
PROVIDERS: ATTEND Internal Medicine Cardiovascular Disease
DX: I71.4 Abdominal aortic aneurysm, without rupture (principal); I65.23 Occlusion and stenosis of bilateral carotid arteries; E78.2 Mixed hyperlipidemia; I25.10 Atherosclerotic heart disease of native coronary artery without angina pectoris; I10 Essential (primary) hypertension
CPT/HCPCS: 36415; 74174; 80053; 80061

== ENCOUNTER → 2022-09-10 | Outpatient (CLI) | payer MEDICARE, OTHER ==
--- NOTE | 2022-09-10 12:46 | Diagnostic Imaging Report ---
PROCEDURE: CT angiography of the chest with contrast. TECHNIQUE: Multiple contiguous axial images were obtained through the chest after uneventful bolus administration of intravenous contrast. 3D reconstructed CTA MIP acquisitions were also performed. Auto Exposure Controls were utilized during the CT exam to meet ALARA standards for radiation dose reduction. INDICATION: Ascending aortic dilatation. COMPARISON: Correlation is made with the prior CT angiogram of the chest from 03/30/2021. FINDINGS: The aorta appears to be fairly stable at 4.3 cm AP by 4.3 cm transverse. The aortic arch and descending thoracic aorta are of normal caliber. There is no dissection identified. No pericardial or pleural fluid is detected. No axillary, hilar, or mediastinal lymphadenopathy is detected. There is a slightly nodular density that has developed in the left lower lobe posteriorly measuring 13 mm. This could represent focal infiltrate. The remainder of the lung sweeney is clear. The upper abdomen is unremarkable. IMPRESSION: 1. Stable dilatation of the ascending thoracic aorta when compared with the exam from 03/30/2021. No dissection is identified. 2. Development of a slightly irregular nodular density in the left lower lobe, perhaps an infectious/inflammatory process. A followup CT chest after a course of therapy in several weeks would be recommended to confirm clearing. No thoracic lymphadenopathy is identified. Dictated by: Dictated on workstation # [id number]
== END ==
LOC: RAD 11:21
PROVIDERS: ATTEND Internal Medicine Cardiovascular Disease
DX: I77.810 Thoracic aortic ectasia (principal); R91.1 Solitary pulmonary nodule
CPT/HCPCS: 71275

== ENCOUNTER → 2022-10-10 | Outpatient (CLI) | payer MEDICARE, OTHER ==
[2022-10-10 12:35] LABS: CREATININE SERUM 0.88 MG/DL (0.60-1.30)
--- NOTE | 2022-10-10 13:20 | Diagnostic Imaging Report ---
INDICATION: Pulmonary nodule TECHNIQUE: Multiple contiguous axial images were obtained through the chest after uneventful bolus administration of intravenous contrast. 3D reconstructed CTA MIP acquisitions were also performed. Auto Exposure Controls were utilized during the CT exam to meet ALARA standards for radiation dose reduction. COMPARISON made with 09/10/2022 The pulmonary parenchymal vessels are well-opacified with no CT evidence of pulmonary emboli. The thoracic aorta shows no evidence of dissection. Great vessel origins are patent. Ascending aorta is stable in diameter measuring 4.3 cm. There are no enlarged mediastinal or hilar nodes. There are no enlarged axillary nodes or chest wall lesions. There are bilateral posterior diaphragmatic hernias containing fat, stable compared to the prior study. Lung windows demonstrate a nodular density with slight cavitation in the left lower lobe. This has not changed compared to the prior study of 09/10/2022. Comparison made to previous studies back to 2012 demonstrates there had been a focal cavitary area in this location, this now appears to be filled with fluid density or soft tissue density. The cavity does not appear to have changed in size appreciably compared to the prior study. IMPRESSION: Fluid-filled cavitary lesion in the left lower lobe, stable compared to the prior study. While this may simply represent fluid within a previous pneumatocele, follow-up study is recommended to exclude the possibility of a developing mass within the previous cavitary lesion. Follow-up CT in 3-6 months is recommended. Stable dilatation of ascending aorta measuring 4.3 cm. Dictated by: Dictated on workstation # [id number]
== END ==
LOC: RAD 11:53
PROVIDERS: ATTEND Nurse Practitioner Family
DX: R91.1 Solitary pulmonary nodule (principal); I77.819 Aortic ectasia, unspecified site
CPT/HCPCS: 36415; 71275; 82565; 84520

== ENCOUNTER → 2023-01-15 | Outpatient (CLI) | payer MEDICARE, OTHER ==
[~2023-01-15] MED LIST changes: -CATHETER FLUSH 10 ML SYR IV PRN
[2023-01-15 12:31] LABS: CREATININE SERUM 0.93 MG/DL (0.60-1.30)
--- NOTE | 2023-01-15 15:25 | Diagnostic Imaging Report ---
PROCEDURE: CT chest with contrast only. TECHNIQUE: Multiple contiguous axial images were obtained through the chest after administration of intravenous contrast. Auto Exposure Controls were utilized during the CT exam to meet ALARA standards for radiation dose reduction. INDICATION: Followup of cavitary lesion compared with chest CT 10/10/2022, also compared 09/10/2022. FINDINGS: Low-density left lower lobe nodule seen on both of the 2 most recent exams has since resolved. There is some trace atelectasis adjacent to a focal herniation of abdominal fat through a left diaphragmatic defect posteriorly, this is stable. No new or suspicious pulmonary nodule. There has been no adverse development. No findings of pneumonia. The ectatic aorta ascending measures 4.3 cm. No dissection, mural hematoma or rupture. The visualized upper abdomen shows a chronic peripherally calcified thrombosed splenic artery aneurysm 1.1 cm stable with no acute or suspicious abnormality. IMPRESSION: Left lower lobe lesion has resolved, herniation of fat and basilar partial atelectasis chronic, thrombosed and peripherally calcified stable small splenic artery aneurysm chronic. No acute or suspicious abnormality with unchanged ascending aortic ectasia 4.3 cm. Dictated by: Dictated on workstation # [id number]
== END ==
LOC: RAD 11:43
PROVIDERS: ATTEND Nurse Practitioner Family
DX: J98.11 Atelectasis (principal); I72.8 Aneurysm of other specified arteries; K46.9 Unspecified abdominal hernia without obstruction or gangrene
CPT/HCPCS: 36415; 71260; 82565; 84520

== ENCOUNTER → 2023-08-11 | Outpatient (CLI) | payer MEDICARE, OTHER ==
[~2023-08-11] MED LIST changes: -HOLD METFORMIN - RECEIVED CONTRAST 20 ML VIAL IV SCH; -IOHEXOL 350 MG/ML 100 ML (OMNIPAQUE 350) VIAL IV ONE; -NS 100 ML (IVPB) BAG IV ONE
--- NOTE | 2023-08-11 14:13 | Diagnostic Imaging Report ---
INDICATION: Routine screening. COMPARISON: 04/23/2021. TECHNIQUE: 2D and 3D bilateral screening mammography was performed with CAD. FINDINGS: Both breasts are heterogeneously dense, limiting the sensitivity of mammography. No mass or malignant-appearing microcalcifications are seen. The axillae are unremarkable. IMPRESSION: No mammographic features suspicious for malignancy are identified. ACR BI-RADS Category 1: Negative. Result letter will be mailed to the patient. Note: At least 10% of breast cancer is not imaged by mammography. Dictated by: Dictated on workstation # [id number]
== END ==
LOC: RAD 11:03
PROVIDERS: ATTEND Nurse Practitioner Family
DX: Z12.31 Encounter for screening mammogram for malignant neoplasm of breast (principal)
CPT/HCPCS: 77063; 77067